=== PATIENT | male | born 1945 | race Caucasian/White ===

== ENCOUNTER 2018-06-23 04:38 | Observation (INO) | payer MEDICARE, MEDICAID ==
--- NOTE | 2018-06-23 05:14 | EDM.PDOC ---
ED HPI GENERAL MEDICAL PROBLEM - General Chief Complaint: Gastrointestinal Problem Stated Complaint: ABD PAIN Time Seen by Provider: 06/23/18 04:55 Source of Information: Reports: Patient, EMS, Old Records History Limitations: Reports: No Limitations - History of Present Illness INITIAL COMMENTS - FREE TEXT/NARRATIVE: 73 yo male here with constipation. Is on large doses of hydrocodone. No BM for several days. No vomiting. Has tried some OTC agents for constipation without success. Has not tried enemas. Spent some time in a [facility] after a hospitalization and had to be tx'd for constipation while there. Dr. Veras is his provider, he has not discussed his constipation with him. No black or bloody stools reported. Onset: Gradual Onset Date: 06/17/18 Duration: Day(s):, Getting Worse Location: Reports: Abdomen Quality: Reports: Pressure Severity: Moderate Improves with: Reports: None Worsens with: Reports: Other (lack of BM) Context: Reports: Other (see HPI) Associated Symptoms: Reports: Loss of Appetite. Denies: Diaphoresis, Fever/ Chills, Nausea/Vomiting Treatments SERVICE BAR CASHIER: Reports: Other (see below) (oral laxatives) Other Treatments SERVICE BAR CASHIER: none Lower Abdomen Pain Score (Numeric/FACES): 7 - Related Data Allergies Allergy/AdvReac Type Severity Reaction Status Date / Time hydromorphone [From Dilaudid] Allergy Vomiting Verified 06/23/18 04:48 Home Meds: Home Meds Benztropine [Cogentin] 0.5 mg PO DAILY 01/24/13 [History] Citalopram Hydrobromide [Celexa] 20 mg PO DAILY 01/24/13 [History] Divalproex Sodium [Depakote] 1,500 mg PO BEDTIME 01/24/13 [History] Docusate Sodium [Colace] 100 mg PO DAILY 01/24/13 [History] Furosemide [Lasix] 40 mg PO DAILY 01/24/13 [History] Gabapentin [Neurontin] 600 mg PO TID 01/24/13 [History] Mirtazapine [Remeron] 30 mg PO BEDTIME 01/24/13 [History] OLANZapine [ZyPREXA] 15 mg PO DAILY 01/24/13 [History] Omeprazole [Prilosec] 40 mg PO DAILY 10/02/13 [History] Simvastatin [Zocor] 20 mg PO BEDTIME 01/24/13 [History] Ferrous Gluconate 324 mg PO BID 09/05/13 [History] Ipratropium/Albuterol Sulfate [Duoneb 0.5 mg-3 mg/3 ml Soln] 3 ml IH Q4H PRN [History] Ranitidine [Zantac] 150 mg PO BID 10/08/15 [History] Fluticasone/Salmeterol [Advair 250-50] 1 puff INH Q12HR 04/17/18 [History] Tamsulosin HCl [Flomax] 0.4 mg PO DAILY 04/17/18 [History] Umeclidinium Brm/Vilanterol Tr [Anoro Ellipta 62.5-25 MCG] 1 puff IH DAILY 04/17 [History] EPINEPHrine [Epipen 2-Richard] 0.3 mg IJ ONETIME PRN #2 ml 04/24/18 [Rx] Acetaminophen [Tylenol Extra Strength] 500 mg PO Q6HR PRN 06/23/18 [History] Hydrocodone/Acetaminophen [[place] 10-325 Tablet] 1 each PO Q6H PRN 06/23/18 [ History] Polyethylene Glycol 3350 [MiraLAX] 17 gm PO DAILY 06/23/18 [History] Pramipexole Di-HCl [Mirapex] 1 mg PO BID 06/23/18 [History] amLODIPine Besylate [Norvasc] 7.5 mg PO DAILY 06/23/18 [History] hydroCHLOROthiazide [Hydrochlorothiazide] 25 mg PO DAILY 06/23/18 [History] rOPINIRole HCl [Requip] 0.5 mg PO BID 06/23/18 [History] Past Medical History HEENT History: Reports: Hard of Hearing Cardiovascular History: Reports: Hypertension Other Cardiovascular History: bradycardia Respiratory History: Reports: COPD, Pneumonia, Recurrent, SOB Other Respiratory History: home 02 2 liters Gastrointestinal History: Reports: Cholelithiasis Genitourinary History: Reports: Prostate Disorder, Renal Disease, Other (See Below) Other Genitourinary History: malignant neoplasm of kidney Musculoskeletal History: Reports: Other (See Below) Other Musculoskeletal History: fx of first lumbar, unstable burst fx of first lumbar vertebra Neurological History: Reports: Parkinson's, Seizure Psychiatric History: Reports: Autism Oncologic (Cancer) History: Reports: Colon, Renal - Infectious Disease History Infectious Disease History: Reports: MRSA - Past Surgical History GI Surgical History: Reports: Cholecystectomy, Colon, Colostomy Other GI Surgeries/Procedures: colon cancer Male Surgical History: Reports: Nephrectomy Other Male Surgeries/Procedures: right kidney cancer Musculoskeletal Surgical History: Reports: Hip Replacement, Knee Replacement Oncologic Surgical History: Reports: Other (See Below) Social & Family History - Family History Endocrine/Metabolic: Reports: Diabetes, type II - Caffeine Use Caffeine Use: Reports: Coffee ED ROS GENERAL - Review of Systems Review Of Systems: See Below Constitutional: Reports: Decreased Appetite HEENT: Reports: No Symptoms Respiratory: Reports: No Symptoms Cardiovascular: Reports: No Symptoms Endocrine: Reports: No Symptoms GI/Abdominal: Reports: Abdominal Pain (fullness), Constipation, Decreased Appetite, Distension. Denies: Black Stool, Bloody Stool, Diarrhea, Flatus, Hematemesis, Melena, Nausea, Vomiting : Reports: No Symptoms Musculoskeletal: Reports: No Symptoms Skin: Reports: No Symptoms Neurological: Reports: No Symptoms ED EXAM, GI/ABD - Physical Exam Exam: See Below Exam Limited By: No Limitations General Appearance: Alert, WD/WN, No Apparent Distress Eyes: Bilateral: Normal Appearance (bilateral arcus senilis) Ears: Normal External Exam, Normal Canal, Hearing Loss Nose: Normal Inspection, No Blood Throat/Mouth: Normal Inspection, Normal Lips, Normal Oropharynx, Normal Voice, No Airway Compromise Head: Atraumatic, Normocephalic Neck: Normal Inspection Respiratory/Chest: Decreased Breath Sounds, Rhonchi. No: Lungs Clear Cardiovascular: Irregularly Irregular (bigeminy) GI/Abdominal Exam: Normal Bowel Sounds, Non-Tender, Distended (not dull with percussion.). No: No Distention, Guarding, Rigid, Rebound, Tender Extremities: Pedal Edema (trace pitting edema to both LE's below the knees). No : No Pedal Edema Neurological: Alert, Oriented, CN II-XII Intact, Normal Cognition, No Motor/ Sensory Deficits Psychiatric: Normal Affect, Normal Mood Skin Exam: Warm, Dry, Intact, Normal Color, No Rash Course - Vital Signs Text/Narrative:: Large results with enema, patient feels much better. Dr. Chadwick aware @ 0645h, will admit for further potassium therapy. Last Recorded V/S: Last Vital Signs Temp 36.5 C 06/23/18 04:55 Pulse 81 06/23/18 05:58 Resp 24 H 06/23/18 05:58 BP 131/65 06/23/18 05:58 Pulse Ox 98 06/23/18 05:58 - Orders/Labs/Meds Orders: Active Orders 24 hr Category Date Time Status EKG Documentation Completion [RC] ASDIRECTED Care 06/23/18 05:04 Active Enema [RC] ASDIRECTED Care 06/23/18 04:57 Active Magnesium Sulfate/Water [Magnesium Sulfate 2 GM in Med 06/23/18 05:29 Active Water 50 ML] 2 gm Premix Bag 1 bag IV ONETIME NS + KCl 20mEq/L [Normal Saline with 20 mEq KCl] 1,000 Med 06/23/18 05:30 Active ml IV ASDIRECTED EKG 12 Lead [EK] Routine Ther 06/23/18 05:03 Ordered Medication Orders Magnesium Sulfate 2 gm/ Premix 50 mls @ 12.5 mls/hr IV ONETIME ONE Stop: 06/23/18 09:28 Last Admin: 06/23/18 05:52 Dose: 12.5 mls/hr Potassium Chloride/Sodium Chloride (Normal Saline With 20 Meq Kcl) 1,000 mls @ 500 mls/hr IV ASDIRECTED [facility] Last Admin: 06/23/18 05:47 Dose: 500 mls/hr Labs: Laboratory Tests 06/23/18 Range/Units 05:13 Sodium 134 L (140-148) mmol/L Potassium 2.7 L* (3.6-5.2) mmol/L Chloride 87 L (100-108) mmol/L Carbon Dioxide 37 H (21-32) mmol/L Anion Gap 12.7 (5.0-14.0) mmol/L BUN 33 H (7-18) mg/dL Creatinine 1.5 H (0.8-1.3) mg/dL Est Cr Clr Drug Dosing 53.83 mL/min Estimated GFR (MDRD) 46 L (>60) Glucose 150 H (74-106) mg/dL Calcium 10.3 H (8.5-10.1) mg/dL Magnesium 1.7 L (1.8-2.4) mg/dL Meds: Medications Generic Name Dose Route Start Last Admin Trade Name Freq PRN Reason Stop Dose Admin Magnesium Sulfate 2 gm/ Premix 50 mls @ 12.5 mls/hr 06/23/18 05:29 06/23/18 05:52 IV 06/23/18 09:28 12.5 mls/hr ONETIME ONE Administration Potassium Chloride/Sodium Chloride 1,000 mls @ 500 mls/hr 06/23/18 05:30 05/13 05:47 Normal Saline With 20 Meq Kcl IV 500 mls/hr ASDIRECTED BRYCE Administration Discontinued Medications Generic Name Dose Route Start Last Admin Trade Name Aiden PRN Reason Stop Dose Admin Magnesium Oxide 800 mg 06/23/18 05:28 06/23/18 05:49 Magnesium Oxide PO 06/23/18 05:29 800 mg ONETIME ONE Administration Potassium Chloride 40 meq 06/23/18 05:28 06/23/18 05:50 Potassium Chloride PO 06/23/18 05:29 40 meq ONETIME ONE Administration Departure - Departure Time of Disposition: 07:05 Disposition: Refer to Observation Condition: Fair Clinical Impression: Obstipation, Hypokalemia, Hypomagnesemia, Chronic renal failure, stage 2 (mild) - Discharge Information Referrals: PCP,None [Primary Care Provider] - Forms: ED Department Discharge - My Orders Last 24 Hours: My Active Orders 06/23/18 04:57 Enema [RC] ASDIRECTED 06/23/18 05:03 EKG 12 Lead [EK] Routine 06/23/18 05:04 EKG Documentation Completion [RC] ASDIRECTED 06/23/18 05:29 Magnesium Sulfate/Water [Magnesium Sulfate 2 GM in Water 50 ML] 2 gm Premix Bag 1 bag IV ONETIME 06/23/18 05:30 NS + KCl 20mEq/L [Normal Saline with 20 mEq KCl] 1,000 ml IV ASDIRECTED - Assessment/Plan Last 24 Hours: My Active Orders 06/23/18 04:57 Enema [RC] ASDIRECTED 06/23/18 05:03 EKG 12 Lead [EK] Routine 06/23/18 05:04 EKG Documentation Completion [RC] ASDIRECTED 06/23/18 05:29 Magnesium Sulfate/Water [Magnesium Sulfate 2 GM in Water 50 ML] 2 gm Premix Bag 1 bag IV ONETIME 06/23/18 05:30 NS + KCl 20mEq/L [Normal Saline with 20 mEq KCl] 1,000 ml IV ASDIRECTED
[2018-06-23] MEDS ORDERED: Potassium Chloride 10 MEQ Cap.ER PO ONE (05:28)
[2018-06-23] MEDS ORDERED: Magnesium Oxide 400 MG Tab PO ONE (05:28)
[2018-06-23] MEDS ORDERED: Magnesium Sulfate/Water 2 GM in Premix Bag 1 BAG IV ONE (05:29)
[2018-06-23] MEDS ORDERED: NS + KCl 20mEq/L 1,000 ML IV SCH (05:30)
--- NOTE | 2018-06-23 08:43 | PCM.HP ---
H&P History of Present Illness - General Date of Service: 06/23/18 Admit Problem/Dx: Admission Diagnosis/Problem Admission Diagnosis/Problem Hypokalemia Source of Information: Patient, Provider History Limitations: Reports: No Limitations - History of Present Illness Initial Comments - Free Text/Narative: Sami presented to the emergency room with constipation and no bowel movement for a couple of days. He reports moderately severe crampy lower abdominal pain that has progressed over the past couple of days. He has tried very aggressive [id number] remedies for constipation but has not had any success. Pain comes and goes in waves. He has been using hydrocodone without any improvement. No obvious triggers to make it worse. His appetite has remained good. He has not had any fevers. He has not had any nausea. Constipation has been an issue off and on for the past couple of months but thought he had been doing better prior to this episode. Shortness of breath is at baseline. He received aggressive bowel stimulation in the emergency room and has had a large quantity of stool passed and feels much better. Workup in the emergency room did reveal hypokalemia and hypomagnesemia and he will be admitted for electrolyte supplementation. Lower Abdomen Pain Score (Numeric/FACES): 7 Lower Back Pain Score (Numeric/FACES): 8 - Related Data Allergies/Adverse Reactions: Allergies Allergy/AdvReac Type Severity Reaction Status Date / Time hydromorphone [From Dilaudid] AdvReac Vomiting Verified 06/23/18 10:00 Home Medications: Home Meds Benztropine [Cogentin] 0.5 mg PO DAILY 01/24/13 [History] Citalopram Hydrobromide [Celexa] 20 mg PO DAILY 01/24/13 [History] Divalproex Sodium [Depakote] 1,500 mg PO BEDTIME 01/24/13 [History] Docusate Sodium [Colace] 100 mg PO DAILY 01/24/13 [History] Furosemide [Lasix] 40 mg PO DAILY 01/24/13 [History] Gabapentin [Neurontin] 600 mg PO TID 01/24/13 [History] Mirtazapine [Remeron] 30 mg PO BEDTIME 01/24/13 [History] OLANZapine [ZyPREXA] 15 mg PO DAILY 01/24/13 [History] Omeprazole [Prilosec] 40 mg PO DAILY 01/24/13 [History] Simvastatin [Zocor] 20 mg PO BEDTIME 01/24/13 [History] Ferrous Gluconate 324 mg PO BID 09/05/13 [History] Ipratropium/Albuterol Sulfate [Duoneb 0.5 mg-3 mg/3 ml Soln] 3 ml IH Q4H PRN [History] Ranitidine [Zantac] 150 mg PO BID 10/08/15 [History] Fluticasone/Salmeterol [Advair 250-50] 1 puff INH Q12HR 04/17/18 [History] Tamsulosin HCl [Flomax] 0.4 mg PO DAILY 04/17/18 [History] EPINEPHrine [Epipen 2-Richard] 0.3 mg IJ ONETIME PRN #2 ml 04/24/18 [Rx] Acetaminophen [Tylenol Extra Strength] 500 mg PO Q6HR PRN 06/23/18 [History] Hydrocodone/Acetaminophen [[place] 10-325 Tablet] 1 each PO Q6H PRN 06/23/18 [ History] Non-Formulary Medication [NF Drug] 1 puff INH DAILY 06/23/18 [History] Polyethylene Glycol 3350 [MiraLAX] 17 gm PO DAILY 06/23/18 [History] Pramipexole Di-HCl [Mirapex] 1 mg PO BID 06/23/18 [History] amLODIPine Besylate [Norvasc] 7.5 mg PO DAILY 06/23/18 [History] hydroCHLOROthiazide [Hydrochlorothiazide] 25 mg PO DAILY 06/23/18 [History] rOPINIRole HCl [Requip] 0.5 mg PO BID 06/23/18 [History] Past Medical History HEENT History: Reports: Hard of Hearing Cardiovascular History: Reports: Hypertension Other Cardiovascular History: bradycardia Respiratory History: Reports: COPD, Pneumonia, Recurrent, SOB Other Respiratory History: home 02 2 liters Gastrointestinal History: Reports: Cholelithiasis Genitourinary History: Reports: Prostate Disorder, Renal Disease, Other (See Below) Other Genitourinary History: malignant neoplasm of kidney Musculoskeletal History: Reports: Other (See Below) Other Musculoskeletal History: fx of first lumbar, unstable burst fx of first lumbar vertebra Neurological History: Reports: Parkinson's, Seizure Psychiatric History: Reports: Autism Oncologic (Cancer) History: Reports: Colon, Renal - Infectious Disease History Infectious Disease History: Reports: MRSA - Past Surgical History GI Surgical History: Reports: Cholecystectomy, Colon, Colostomy Other GI Surgeries/Procedures: colon cancer Male Surgical History: Reports: Nephrectomy Other Male Surgeries/Procedures: right kidney cancer Musculoskeletal Surgical History: Reports: Hip Replacement, Knee Replacement Oncologic Surgical History: Reports: Other (See Below) Social & Family History - Family History Endocrine/Metabolic: Reports: Diabetes, type II - Tobacco Use Smoking Status *Q: Unknown Ever Smoked - Caffeine Use Caffeine Use: Reports: Coffee - Alcohol Use Alcohol Use History: No - Recreational Drug Use Recreational Drug Use: No H&P Review of Systems - Review of Systems: Review Of Systems: See Below Free Text/Narrative: A complete 12 point review of systems was obtained. Pertinent positives and negatives are noted in the history of present illness. All other systems were reviewed and were negative except as noted. Exam - Exam Exam: See Below - Vital Signs Vital Signs: Last Vital Signs Temp 36.5 C 06/23/18 04:55 Pulse 81 06/23/18 05:58 Resp 24 H 06/23/18 05:58 BP 131/65 06/23/18 05:58 Pulse Ox 98 06/23/18 05:58 Weight: 136.985 kg - Exam Quality Assessment: Supplemental Oxygen General: Alert, Oriented, Cooperative. No: Mild Distress HEENT: Conjunctiva Clear, Mucosa Moist & [place]. No: Scleral Icterus Neck: Supple, Trachea Midline. No: Lymphadenopathy Lungs: Normal Respiratory Effort, Rhonchi (mild upper resp rhonchi ) Cardiovascular: Regular Rate, Regular Rhythm GI/Abdominal Exam: Normal Bowel Sounds, Soft, No Distention, Tender (mild LLQ). No: Guarding Extremities: Pedal Edema, Increased Warmth (mild both ankles) Skin: Warm, Dry Neuro Extensive - Mental Status: Alert, Oriented x3, Nl Response to Commands Neuro Extensive - Motor, Sensory, Reflexes: CN II-XII Intact. No: Dysarthria, Abnormal Motor, Tremor Psychiatric: Alert, Normal Affect - Patient Data Lab Results Last 24 hrs: Laboratory Results - last 24 hr 06/23/18 Range/Units 05:13 Sodium 134 L (140-148) mmol/L Potassium 2.7 L* (3.6-5.2) mmol/L Chloride 87 L (100-108) mmol/L Carbon Dioxide 37 H (21-32) mmol/L Anion Gap 12.7 (5.0-14.0) mmol/L BUN 33 H (7-18) mg/dL Creatinine 1.5 H (0.8-1.3) mg/dL Est Cr Clr Drug Dosing 53.83 mL/min Estimated GFR (MDRD) 46 L (>60) Glucose 150 H (74-106) mg/dL Calcium 10.3 H (8.5-10.1) mg/dL Magnesium 1.7 L (1.8-2.4) mg/dL Result Diagrams: 06/23/18 12:00 EKG INTERPRETATION EKG Date: 06/23/18 Rhythm: NSR Rate (Beats/Min): 96 [place]: Normal P-Wave: Present QRS: Normal ST-T: Normal QT: Normal Comparison: Change From Previous EKG EKG Interpretation Comments: ventricular bigeminy early R-S transition Image was personally reviewed *Q Meaningful Use (ADM) - VTE Risk Assess *Q Each Risk Factor Represents 1 Point: Swollen Legs, Current, Obesity ( BMI > 25 kg/m2), Abnormal Pulmonary Function (COPD) Total Score 1 Point Risk Factors: 3 Each Risk Factor Represents 2 Points: Age 60 - 74 Years Total Score 2 Point Risk Factors: 2 Each Risk Factor Represents 3 Points: None Total Score 3 Point Risk Factors: 0 Each Risk Factor Represents 5 Points: None Total Score 5 Point Risk Factors: 0 Venous Thromboembolism Risk Factor Score *Q: 5 - Problem List (1) Hypokalemia SNOMED Code(s): 67925705 ICD Code: E87.6 - HYPOKALEMIA Status: Acute Current Visit: Yes (2) Hypomagnesemia SNOMED Code(s): 106783723 ICD Code: E83.42 - HYPOMAGNESEMIA Status: Acute Current Visit: Yes (3) Obstipation SNOMED Code(s): 671594140 ICD Code: K59.00 - CONSTIPATION, UNSPECIFIED Status: Acute Current Visit : Yes (4) Severe chronic obstructive pulmonary disease SNOMED Code(s): 497877256 ICD Code: J44.9 - CHRONIC OBSTRUCTIVE PULMONARY DISEASE, UNSPECIFIED Status : Chronic Current Visit: No (5) Parkinsons disease SNOMED Code(s): 70668471 ICD Code: G20 - PARKINSON'S DISEASE Status: Chronic Current Visit: No (6) Bipolar affective disorder in remission Status: Chronic Current Visit: No Problem List Initiated/Reviewed/Updated: Yes Orders Last 24hrs: Active Orders 24 hr Category Date Time Status Patient Status Manage Transfer [TRANSFER] Routine ADT 06/23/18 08:32 Ordered EKG Documentation Completion [RC] ASDIRECTED Care 06/23/18 05:04 Active Enema [RC] ASDIRECTED Care 06/23/18 04:57 Active Magnesium Sulfate/Water [Magnesium Sulfate 2 GM in Med 06/23/18 05:29 Active Water 50 ML] 2 gm Premix Bag 1 bag IV ONETIME NS + KCl 20mEq/L [Normal Saline with 20 mEq KCl] 1,000 Med 06/23/18 05:30 Active ml IV ASDIRECTED Resuscitation Status Routine Resus Stat 06/23/18 08:35 Ordered EKG 12 Lead [EK] Routine Ther 06/23/18 05:03 Ordered Medication Orders Magnesium Sulfate 2 gm/ Premix 50 mls @ 12.5 mls/hr IV ONETIME ONE Stop: 06/23/18 09:28 Last Admin: 06/23/18 05:52 Dose: 12.5 mls/hr Potassium Chloride/Sodium Chloride (Normal Saline With 20 Meq Kcl) 1,000 mls @ 500 mls/hr IV ASDIRECTED [facility] Last Admin: 06/23/18 05:47 Dose: 500 mls/hr Assessment/Plan Comment:: ASSESSMENT AND PLAN - Constipation - likely secondary to chronic narcotic use. Possible contribution from suboptimal dietary intake. He has been using stool softeners without much benefit. Doing much better after enema in the emergency room. -Rupal lax daily -Additional laxatives as indicated if he relaxes unsuccessful Hypokalemia - significant hypokalemia noted incidentally during workup for abdominal pain/constipation. He is on 2 diuretics and this is likely contributing. He has received 60 mEq of supplementation in the emergency room. -recheck at 1200 -Supplement as indicated Severe COPD - oxygen dependent at baseline. No issues at this time. -Continue home medications Parkinson's disease - stable at this time. -Continue all medications Maintenance issues - - DVT prophylaxis - mechanical - GI prophylaxis - PPI - Nutrition - regular diet - Freeman catheter - not indicated CODE STATUS - full code Admission justification - patient will be referred observation status for electrolyte supplementation Disposition - I would anticipate discharge to home tomorrow Primary care physician - Dr Eda Chadwick M.D.
[2018-06-23] MEDS ORDERED: Acetaminophen 325 MG Tab PO PRN (09:57)
[2018-06-23] MEDS ORDERED: Ondansetron 4 MG Tab.DIS PO PRN (09:57)
[2018-06-23] MEDS ORDERED: Non-Formulary Medication 1 Each (Umeclidinium Brm/Vilanterol Tr [Anoro Ellipta 62.5-25 Mcg IH SCH (09:57)
[2018-06-23] MEDS ORDERED: Albuterol 0.083% 2.5 MG/3 ML Neb Soln NEB PRN (09:57)
[2018-06-23] MEDS: Acetaminophen/HYDROcodone 325-10 MG Tab PO PRN ×2 (10:07→19:59)
[2018-06-23] MEDS ORDERED: Potassium Chloride 20 MEQ Tab.ER PO ONE (13:30)
[2018-06-23] MEDS: ADVAIR INH SCH ×2 (14:28→20:04)
[2018-06-23] MEDS: INCRUSE ELLIPTA IH SCH (14:40)
[2018-06-23] MEDS: BENZTROPINE 0.5 MG PO SCH (15:09)
[2018-06-23] MEDS: Tamsulosin 0.4 MG (PTOM) PO SCH (15:10)
[2018-06-23] MEDS: CITALOPRAM 20 MG PO SCH (15:10)
[2018-06-23] MEDS: AMLODIPINE 5 MG PO SCH (15:11)
[2018-06-23] MEDS: Hydrochlorothiazide 25 MG Tab PO SCH (15:11)
[2018-06-23] MEDS: OMEPRAZOLE 40 MG PO SCH (15:13)
[2018-06-23] MEDS: PRAMIPEXOLE 1 MG PO SCH ×2 (15:13→20:06)
[2018-06-23] MEDS: ROPINIROLE 0.5 MG PO SCH ×2 (15:14→20:06)
[2018-06-23] MEDS: Ranitidine 150 MG (PTOM) PO SCH ×2 (15:14→20:06)
[2018-06-23] MEDS: GABAPENTIN 600 MG PO SCH ×2 (15:14→20:05)
[2018-06-23] MEDS: Polyethylene Glycol 3350 Powder 17 GM Packet PO SCH (15:18)
[2018-06-23] MEDS ORDERED: OLANZAPINE 15 MG PO SCH (21:00)
[2018-06-23] MEDS ORDERED: Simvastatin 20 MG (PTOM) PO SCH (21:00)
[2018-06-23] MEDS ORDERED: MIRTAZAPINE 15 MG PO SCH (21:00)
[2018-06-23] MEDS ORDERED: DIVALPROEX SODIUM 500 MG PO SCH (21:00)
[2018-06-24] MEDS: Acetaminophen/HYDROcodone 325-10 MG Tab PO PRN (07:30)
[2018-06-24] MEDS: ADVAIR INH SCH (07:35)
[2018-06-24] MEDS: INCRUSE ELLIPTA IH SCH (07:36)
[2018-06-24] MEDS: OMEPRAZOLE 40 MG PO SCH (08:42)
[2018-06-24] MEDS: BENZTROPINE 0.5 MG PO SCH (08:42)
[2018-06-24] MEDS: GABAPENTIN 600 MG PO SCH (08:43)
[2018-06-24] MEDS: CITALOPRAM 20 MG PO SCH (08:43)
[2018-06-24] MEDS: Tamsulosin 0.4 MG (PTOM) PO SCH (08:43)
[2018-06-24] MEDS: Polyethylene Glycol 3350 Powder 17 GM Packet PO SCH (08:44)
[2018-06-24] MEDS: Hydrochlorothiazide 25 MG Tab PO SCH (08:44)
[2018-06-24] MEDS: PRAMIPEXOLE 1 MG PO SCH (08:45)
[2018-06-24] MEDS: AMLODIPINE 5 MG PO SCH (08:45)
[2018-06-24] MEDS: Ranitidine 150 MG (PTOM) PO SCH (08:46)
[2018-06-24] MEDS: ROPINIROLE 0.5 MG PO SCH (08:46)
[2018-06-24 08:47] VITALS: BP 113/91
[2018-06-24] MEDS ORDERED: Potassium Chloride 20 MEQ Tab.ER PO ONE (09:00)
--- NOTE | 2018-06-24 09:32 | PCM.DCSUM1 ---
Discharge Summary - Hospital Course Brief History: 73-year-old male with history of chronic pain, Parkinson's disease, psychiatric disease and oxygen-dependent COPD who presented with constipation. He is admitted for management of constipation and hypokalemia. Diagnosis: Stroke: No - Discharge Data Discharge Date: 06/24/18 Discharge Disposition: Home, Self-Care 01 Condition: Good - Discharge Diagnosis/Problem(s) (1) Hypokalemia SNOMED Code(s): 23163263 ICD Code: E87.6 - HYPOKALEMIA Status: Acute (2) Hypomagnesemia SNOMED Code(s): 415568498 ICD Code: E83.42 - HYPOMAGNESEMIA Status: Acute (3) Obstipation SNOMED Code(s): 470934531 ICD Code: K59.00 - CONSTIPATION, UNSPECIFIED Status: Acute (4) Severe chronic obstructive pulmonary disease SNOMED Code(s): 859486759 ICD Code: J44.9 - CHRONIC OBSTRUCTIVE PULMONARY DISEASE, UNSPECIFIED Status : Chronic (5) Parkinsons disease SNOMED Code(s): 19035228 ICD Code: G20 - PARKINSON'S DISEASE Status: Chronic (6) Bipolar affective disorder in remission Status: Chronic - Patient Summary/Data Hospital Course: Sami presented to the emergency room because he had not had a bowel movement for several days. Workup in the emergency room revealed evidence for significant constipation but also for hypokalemia and hypomagnesemia. Given the significant hypokalemia he was admitted to the hospital for electrolyte replacement. He did receive 60 mEq of potassium in the emergency room as well as 2800 mg of magnesium. He received additional supplementation after his afternoon potassium returned low. Potassium did respond fairly well but remained on the low side of normal. He did receive additional supplementation on the morning of discharge. Stools are on the loose side this morning after aggressive bowel stimulation yesterday. Regarding the potassium, I provided information about potassium content of foods and provided some recommendations for potassium rich foods for him to consume. If diet is inadequate to maintain potassium remained to be on supplements. It is noted that he is on 2 different diuretics but has not had difficulty with hypokalemia in the past. Regarding the constipation, I encouraged him to use one half scoop of miralax each day in an effort to keep his bowels moving regularly. He may need to titrate this up or down slightly depending on his response to the medications. He feels comfortable making these adjustments depending on how the bowel movements are going. He is safe for discharge home at this time. He would benefit from follow- up in a few days to ensure that things continue to improve and his potassium level remains normal. - Patient Instructions Diet: Regular Diet as Tolerated Activity: As Tolerated Showering/Bathing: May Shower Notify Provider of: Fever, Increased Pain, Nausea and/or Vomiting Other/Special Instructions: 1. You were in the hospital for management of constipation and hypokalemia (low potassium). Your bowel status has improved after an enema in the emergency room. To help avoid problems in the future I would recommend that you take one half scoop of Miralax each day. You may need to take slightly more or slightly less to keep your bowel movements regular but this will take some time and tinkering to determine the optimal dosing. Regarding the low potassium, I have provided a sheet with potassium content of foods. You should eat a diet rich in these foods. Good examples include orange juice, bananas, potatoes, spinach and avocados. 2. Continue your usual home medications as previously prescribed. 3. Follow up with Dr Veras in 1 week to recheck your potassium and see how the bowel movements are going. 4. Seek medical attention if you have fever greater than 101, you have severe abdominal pain or if you have several days without a bowel movement. - Discharge Plan *PRESCRIPTION DRUG MONITORING PROGRAM REVIEWED*: No *COPY OF PRESCRIPTION DRUG MONITORING REPORT IN PATIENT MARI: No Home Medications: Home Meds Benztropine [Cogentin] 0.5 mg PO DAILY 01/24/13 [History] Citalopram Hydrobromide [Celexa] 20 mg PO DAILY 01/24/13 [History] Divalproex Sodium [Depakote] 1,500 mg PO BEDTIME 01/24/13 [History] Docusate Sodium [Colace] 100 mg PO DAILY 01/24/13 [History] Furosemide [Lasix] 40 mg PO DAILY 01/24/13 [History] Gabapentin [Neurontin] 600 mg PO TID 01/24/13 [History] Mirtazapine [Remeron] 30 mg PO BEDTIME 01/24/13 [History] OLANZapine [ZyPREXA] 15 mg PO DAILY 01/24/13 [History] Omeprazole [Prilosec] 40 mg PO DAILY 01/24/13 [History] Simvastatin [Zocor] 20 mg PO BEDTIME 01/24/13 [History] Ferrous Gluconate 324 mg PO BID 09/05/13 [History] Ipratropium/Albuterol Sulfate [Duoneb 0.5 mg-3 mg/3 ml Soln] 3 ml IH Q4H PRN [History] Ranitidine [Zantac] 150 mg PO BID 10/08/15 [History] Fluticasone/Salmeterol [Advair 250-50] 1 puff INH Q12HR 04/17/18 [History] Tamsulosin HCl [Flomax] 0.4 mg PO DAILY 04/17/18 [History] EPINEPHrine [Epipen 2-Richard] 0.3 mg IJ ONETIME PRN #2 ml 04/24/18 [Rx] Acetaminophen [Tylenol Extra Strength] 500 mg PO Q6HR PRN 06/23/18 [History] Hydrocodone/Acetaminophen [[place] 10-325 Tablet] 1 each PO Q6H PRN 06/23/18 [ History] Non-Formulary Medication [NF Drug] 1 puff INH DAILY 06/23/18 [History] Polyethylene Glycol 3350 [MiraLAX] 17 gm PO DAILY 06/23/18 [History] Pramipexole Di-HCl [Mirapex] 1 mg PO BID 06/23/18 [History] amLODIPine Besylate [Norvasc] 7.5 mg PO DAILY 06/23/18 [History] hydroCHLOROthiazide [Hydrochlorothiazide] 25 mg PO DAILY 06/23/18 [History] rOPINIRole HCl [Requip] 0.5 mg PO BID 06/23/18 [History] Oxygen Therapy Mode: Nasal Cannula Oxygen Flow Rate (L/min): 2 Patient Handouts: Constipation, Adult, Potassium Content of Foods Referrals: Víctor Veras MD [Physician] - (f/u in 1 week - recheck K+ and bowel status ) - Discharge Summary/Plan Comment DC Time >30 min.: No - Patient Data Vitals - Most Recent: Last Vital Signs Temp 35.1 C L 06/24/18 07:19 Pulse 70 06/24/18 07:19 Resp 20 06/24/18 07:19 BP 113/91 H 06/24/18 08:45 Pulse Ox 93 L 06/24/18 07:19 Weight - Most Recent: 136.985 kg I&O - Last 24 hours: Intake & Output 06/23/18 06/24/18 06/24/18 22:59 06:59 14:59 Intake Total 840 720 500 Output Total 450 850 200 Balance 390 -130 300 Lab Results - Last 24 hrs: Laboratory Results - last 24 hr 06/23/18 06/23/18 06/24/18 Range/Units 12:00 20:00 04:33 Sodium 137 L (140-148) mmol/L Potassium 3.7 3.6 3.4 L (3.6-5.2) mmol/L Chloride 95 L (100-108) mmol/L Carbon Dioxide 39 H (21-32) mmol/L Anion Gap 6.4 (5.0-14.0) mmol/L BUN 30 H (7-18) mg/dL Creatinine 1.2 (0.8-1.3) mg/dL Est Cr Clr Drug Dosing 67.31 mL/min Estimated GFR (MDRD) 59 L (>60) Glucose 148 H (74-106) mg/dL Calcium 9.5 (8.5-10.1) mg/dL Med Orders - Current: Current Medications Acetaminophen (Tylenol) 650 mg PO Q4H PRN PRN Reason: Pain (Mild 1-3)/fever Hydrocodone Bitart/Acetaminophen ([place] 325-10 Mg) 1 tab PO Q6H PRN PRN Reason: Pain (severe 7-10) Last Admin: 06/24/18 07:30 Dose: 1 tab Albuterol (Proventil Neb Soln) 2.5 mg NEB Q4H PRN PRN Reason: Shortness Of Breath/wheezing Amlodipine Besylate (Norvasc) 7.5 mg PO DAILY [facility] Last Admin: 06/24/18 08:45 Dose: 7.5 mg Citalopram Hydrobromide (Celexa) 20 mg PO DAILY [facility] Last Admin: 06/24/18 08:43 Dose: 20 mg Hydrochlorothiazide (Hydrochlorothiazide) 25 mg PO DAILY [facility] Last Admin: 06/24/18 08:44 Dose: 25 mg Mirtazapine (Remeron) 30 mg PO BEDTIME [facility] Last Admin: 06/23/18 20:07 Dose: 30 mg Benztropine 0.5 Mg ( (Ptom)) 0.5 mg PO DAILY [facility] Last Admin: 06/24/18 08:42 Dose: 0.[address] (500mg (Ptom)) 1,500 mg PO BEDTIME [facility] Last Admin: 06/23/18 20:04 Dose: 1,500 mg Advair 250-50 (Ptom) 1 puff INH BIDRT [facility] Last Admin: 06/24/18 07:35 Dose: 1 puff Gabapentin 600 Mg ( (Ptom)) 600 mg PO TID [facility] Last Admin: 06/24/18 08:43 Dose: 600 mg Olanzapine 15 Mg ( (Ptom)) 15 mg PO BEDTIME [facility] Last Admin: 06/23/18 20:07 Dose: 15 mg Omeprazole 40 Mg ( (Ptom)) 40 mg PO DAILY@0730 [facility] Last Admin: 06/24/18 08:42 Dose: 40 mg Pramipexole 1 Mg ( (Ptom)) 1 mg PO BID [facility] Last Admin: 06/24/18 08:45 Dose: 1 mg Incruse Ellipta ( (Ptom)) 1 puff IH DAILY@0730 [facility] Last Admin: 06/24/18 07:36 Dose: 1 puff Ondansetron HCl (Zofran Odt) 4 mg PO Q6H PRN PRN Reason: Nausea able to take PO Polyethylene Glycol (Miralax) 17 gm PO DAILY [facility] Last Admin: 06/24/18 08:44 Dose: Not Given Ranitidine HCl (Zantac) 150 mg PO BID [facility] Last Admin: 06/24/18 08:46 Dose: 150 mg Ropinirole HCl (Requip) 0.5 mg PO BID [facility] Last Admin: 06/24/18 08:46 Dose: 0.5 mg Simvastatin (Zocor) 20 mg PO BEDTIME [facility] Last Admin: 06/23/18 20:05 Dose: 20 mg Tamsulosin HCl (Flomax) 0.4 mg PO DAILY [facility] Last Admin: 06/24/18 08:43 Dose: 0.4 mg Discontinued Medications Magnesium Sulfate 2 gm/ Premix 50 mls @ 12.5 mls/hr IV ONETIME ONE Stop: 06/23/18 09:28 Last Admin: 06/23/18 05:52 Dose: 12.5 mls/hr Potassium Chloride/Sodium Chloride (Normal Saline With 20 Meq Kcl) 1,000 mls @ 500 mls/hr IV ASDIRECTED BRYCE Last Admin: 06/23/18 05:47 Dose: 500 mls/hr Magnesium Oxide (Magnesium Oxide) 800 mg PO ONETIME ONE Stop: 06/23/18 05:29 Last Admin: 06/23/18 05:49 Dose: 800 mg Potassium Chloride (Potassium Chloride) 40 meq PO ONETIME ONE Stop: 06/23/18 05:29 Last Admin: 06/23/18 05:50 Dose: 40 meq Potassium Chloride (Klor-Con M20) 40 meq PO ONETIME ONE Stop: 06/23/18 13:31 Last Admin: 06/23/18 15:18 Dose: 40 meq Potassium Chloride (Klor-Con M20) 40 meq PO ONETIME ONE Stop: 06/24/18 09:01 - Exam Quality Assessment: Reports: Supplemental Oxygen General: Reports: Alert, Oriented, Cooperative, No Acute Distress Lungs: Reports: Normal Respiratory Effort GI/Abdominal Exam: Soft, No Distention Extremities: Pedal Edema Psy/Mental Status: Reports: Alert, Normal Affect
== END 2018-06-24 10:55 | disposition home or self-care (01) ==
LOC: JP.ED 04:38 → JP.MS 08:32
PROVIDERS: ADMIT Internal Medicine; ATTEND Internal Medicine
DX: E87.6 Hypokalemia (principal); E83.42 Hypomagnesemia; K59.00 Constipation, unspecified; I10 Essential (primary) hypertension; J44.9 Chronic obstructive pulmonary disease, unspecified; F31.9 Bipolar disorder, unspecified; G20 Parkinson's disease; G89.29 Other chronic pain; Z99.81 Dependence on supplemental oxygen; Z79.51 Long term (current) use of inhaled steroids; Z79.899 Other long term (current) drug therapy
CPT/HCPCS: 36415; 80048; 83735; 84132; 93005; 94640; 96365; 96366; 96367; 99284; A9270; J3475; J3480; 93010

== ENCOUNTER 2018-07-20 14:53 | Inpatient (IN) | payer MEDICARE, MEDICAID ==
[2018-07-20] MEDS ORDERED: Sodium Chloride 0.9% 10 ML Syringe FLUSH PRN (15:33)
[2018-07-20] MEDS ORDERED: Albuterol 0.083% 2.5 MG/3 ML Neb Soln NEB ONE (15:38)
--- NOTE | 2018-07-20 15:39 | EDM.PDOC ---
ED HPI GENERAL MEDICAL PROBLEM - General Chief Complaint: Respiratory Problem Stated Complaint: [facility] Time Seen by Provider: 07/20/18 15:36 Source of Information: Reports: Patient History Limitations: Reports: No Limitations - History of Present Illness INITIAL COMMENTS - FREE TEXT/NARRATIVE: pt was in a chair and was not able to get out for 12 hours. He was quite sob when ems got to the apartment. He was responding on arrival and seemes to be getting more sleepy. He has alot of swelling in both legs. He does run his concentrator at 4-5 liters. Ems did have at 6 liters for awhile. Onset: Other (pt was found to be sleepy and unable to get out of his ) Duration: Hour(s): Location: Reports: Head, Chest Associated Symptoms: Reports: Malaise, Shortness of Breath, Weakness - Related Data Allergies Allergy/AdvReac Type Severity Reaction Status Date / Time hydromorphone [From Dilaudid] AdvReac Vomiting Verified 07/20/18 14:59 Home Meds: Home Meds Benztropine [Cogentin] 0.5 mg PO DAILY 01/24/13 [History] Citalopram Hydrobromide [Celexa] 20 mg PO DAILY 01/24/13 [History] Divalproex Sodium [Depakote] 1,500 mg PO BEDTIME 01/24/13 [History] Docusate Sodium [Colace] 100 mg PO DAILY 01/24/13 [History] Furosemide [Lasix] 40 mg PO DAILY 01/24/13 [History] Gabapentin [Neurontin] 600 mg PO TID 01/24/13 [History] Mirtazapine [Remeron] 30 mg PO BEDTIME 01/24/13 [History] OLANZapine [ZyPREXA] 15 mg PO DAILY 01/24/13 [History] Omeprazole [Prilosec] 40 mg PO DAILY 01/24/13 [History] Simvastatin [Zocor] 20 mg PO BEDTIME 01/24/13 [History] Ferrous Gluconate 324 mg PO BID 09/05/13 [History] Ipratropium/Albuterol Sulfate [Duoneb 0.5 mg-3 mg/3 ml Soln] 3 ml IH Q4H PRN [History] Ranitidine [Zantac] 150 mg PO BID 10/08/15 [History] Fluticasone/Salmeterol [Advair 250-50] 1 puff INH Q12HR 04/17/18 [History] Tamsulosin HCl [Flomax] 0.4 mg PO DAILY 04/17/18 [History] EPINEPHrine [Epipen 2-Richard] 0.3 mg IJ ONETIME PRN #2 ml 04/24/18 [Rx] Acetaminophen [Tylenol Extra Strength] 500 mg PO Q6HR PRN 06/23/18 [History] Hydrocodone/Acetaminophen [[place] 10-325 Tablet] 1 each PO Q6H PRN 06/23/18 [ History] Polyethylene Glycol 3350 [MiraLAX] 17 gm PO DAILY 06/23/18 [History] Pramipexole Di-HCl [Mirapex] 1 mg PO BID 06/23/18 [History] amLODIPine Besylate [Norvasc] 7.5 mg PO DAILY 06/23/18 [History] hydroCHLOROthiazide [Hydrochlorothiazide] 25 mg PO DAILY 06/23/18 [History] rOPINIRole HCl [Requip] 0.5 mg PO BID 06/23/18 [History] Past Medical History HEENT History: Reports: Hard of Hearing Cardiovascular History: Reports: Heart Failure, Hypertension Other Cardiovascular History: bradycardia Respiratory History: Reports: COPD, Pneumonia, Recurrent, SOB Other Respiratory History: home 02 2 liters Gastrointestinal History: Reports: Cholelithiasis Genitourinary History: Reports: Prostate Disorder, Renal Disease, Other (See Below) Other Genitourinary History: malignant neoplasm of kidney Musculoskeletal History: Reports: Other (See Below) Other Musculoskeletal History: fx of first lumbar, unstable burst fx of first lumbar vertebra Neurological History: Reports: Parkinson's, Seizure Psychiatric History: Reports: Autism Endocrine/Metabolic History: Reports: Obesity/BMI 30+ Oncologic (Cancer) History: Reports: Colon, Renal - Infectious Disease History Infectious Disease History: Reports: MRSA - Past Surgical History GI Surgical History: Reports: Cholecystectomy, Colon, Colostomy Other GI Surgeries/Procedures: colon cancer Male Surgical History: Reports: Nephrectomy Other Male Surgeries/Procedures: right kidney cancer Musculoskeletal Surgical History: Reports: Hip Replacement, Knee Replacement Oncologic Surgical History: Reports: Other (See Below) Social & Family History - Family History Family Medical History: Noncontributory Endocrine/Metabolic: Reports: Diabetes, type II - Tobacco Use Smoking Status *Q: Former Smoker Used Tobacco, but Quit: Yes Month/Year Tobacco Last Used: ? - Caffeine Use Caffeine Use: Reports: None - Recreational Drug Use Recreational Drug Use: No ED ROS GENERAL - Review of Systems Review Of Systems: See Below Constitutional: Reports: Malaise, Weakness HEENT: Reports: No Symptoms Respiratory: Reports: Shortness of Breath, Other (pt was not able to get out of the chair by himself. ) Cardiovascular: Reports: Dyspnea on Exertion, Edema Endocrine: Reports: No Symptoms GI/Abdominal: Reports: No Symptoms : Reports: No Symptoms Musculoskeletal: Reports: No Symptoms Skin: Reports: No Symptoms ED EXAM, GENERAL - Physical Exam Exam: See Below Free Text/Narrative:: pt arrived and he was responding fair. Later he did not respond well. Blood gases were obtained which showed a co2 of 57. He is oxgenating ok at 1.5 liters. He has alot of edema. [facility]. Exam Limited By: No Limitations General Appearance: Alert, Anxious, Obtunded, Other (pt is not responding well. pupils are equal and reactive. ) Ears: Normal TMs Nose: Normal Inspection Throat/Mouth: Normal Inspection Head: Atraumatic Neck: Normal Inspection Cardiovascular: Regular Rate, Rhythm, Other ( bilateral edema. ) GI/Abdominal: Soft, Non-Tender (Male) Exam: Deferred Rectal (Males) Exam: Deferred Back Exam: Normal Inspection Extremities: Pedal Edema, Other ( 3 plus edema. ) Neurological: Alert, Other ( Pt is quite obtundwed. ) Course - Vital Signs Last Recorded V/S: Last Vital Signs Temp 36.2 C 07/20/18 15:05 Pulse 77 07/20/18 15:32 Resp 17 07/20/18 15:32 BP 128/67 07/20/18 15:32 Pulse Ox 95 07/20/18 15:32 - Orders/Labs/Meds Orders: Active Orders 24 hr Category Date Time Status EKG Documentation Completion [RC] ASDIRECTED Care 07/20/18 15:34 Active RT Aerosol Therapy [RC] ASDIRECTED Care 07/20/18 15:38 Active Chest 1V Frontal [CR] Stat Exams 07/20/18 15:34 Taken DRUG SCREEN, URINE [URCHEM] Stat Lab 07/20/18 15:50 Ordered UA W/MICROSCOPIC [URIN] Urgent Lab 07/20/18 14:54 Ordered Sodium Chloride 0.9% [Saline Flush] Med 07/20/18 15:33 Active 10 ml FLUSH ASDIRECTED PRN Sodium Chloride 0.9% with KCl [Normal Saline with 40 Med 07/20/18 16:00 Active mEq KCl] 1,000 ml IV ASDIRECTED Saline Lock Insert [OM.PC] Routine Oth 07/20/18 15:33 Ordered EKG 12 Lead [EK] Routine Ther 07/20/18 15:34 Ordered Medication Orders Potassium Chloride/Sodium Chloride (Normal Saline With 40 Meq Kcl) 1,000 mls @ 500 mls/hr IV ASDIRECTED BRYCE Last Admin: 07/20/18 16:05 Dose: 500 mls/hr Sodium Chloride (Saline Flush) 10 ml FLUSH ASDIRECTED PRN PRN Reason: Keep Vein Open Last Admin: 07/20/18 15:52 Dose: 10 ml Labs: Laboratory Tests 07/20/18 07/20/18 07/20/18 Range/Units 15:04 15:04 15:30 WBC 12.3 H (4.5-11.0) K/uL RBC 5.09 (4.30-5.90) M/uL Hgb 14.4 (12.0-15.0) g/dL Hct 42.0 (40.0-54.0) % MCV 83 (80-98) fL MCH 28 (27-31) pg MCHC 34 (32-36) % Plt Count 320 (150-400) K/uL Neut % (Auto) 72 H (36-66) % Lymph % (Auto) 14 L (24-44) % Payne % (Auto) 13 H (2-6) % Eos % (Auto) 0 L (2-4) % Baso % (Auto) 1 (0-1) % Puncture Site ABG pH (7.350-7.450) ABG pCO2 (35.0-42.0) mmHg ABG pO2 (75.0-100.0) mmHg ABG HCO3 (22.0-26.0) mmol/L ABG Total CO2 (23.0-27.0) mmol/L ABG O2 Saturation (95.0-98.0) % ABG O2 Content (15.0-23.0) %vol ABG Base Excess mm/L ABG Hemoglobin (13.5-18.0) g/dL ABG Oxyhemoglobin % ABG Carboxyhemoglobin (0.0-1.6) % ABG Methemoglobin % Ra Test O2 Delivery Device Oxygen Flow Rate L Sodium 123 L (140-148) mmol/L Potassium 2.4 L* (3.6-5.2) mmol/L Chloride 78 L (100-108) mmol/L Carbon Dioxide 42 H (21-32) mmol/L Anion Gap 5.4 (5.0-14.0) mmol/L BUN 14 D (7-18) mg/dL Creatinine 1.0 (0.8-1.3) mg/dL Est Cr Clr Drug Dosing TNP Estimated GFR (MDRD) > 60 (>60) Glucose 181 H (74-106) mg/dL Calcium 10.3 H (8.5-10.1) mg/dL Total Bilirubin 0.4 (0.2-1.0) mg/dL AST 172 H D (15-37) U/L ALT 60 D (12-78) U/L Alkaline Phosphatase 55 (46-116) U/L Creatine Kinase 3332 H (39-308) U/L Troponin I 0.035 (0.000-0.056) ng/mL NT-Pro-B Natriuret Pep (5-125) pg/mL Total Protein 7.6 (6.4-8.2) g/dL Albumin 3.3 L (3.4-5.0) g/dL Globulin 4.3 H (2.3-3.5) g/dL Albumin/Globulin Ratio 0.8 L (1.2-2.2) 07/20/18 07/20/18 Range/Units 15:30 15:32 WBC (4.5-11.0) K/uL RBC (4.30-5.90) M/uL Hgb (12.0-15.0) g/dL Hct (40.0-54.0) % MCV (80-98) fL MCH (27-31) pg MCHC (32-36) % Plt Count (150-400) K/uL Neut % (Auto) (36-66) % Lymph % (Auto) (24-44) % Payne % (Auto) (2-6) % Eos % (Auto) (2-4) % Baso % (Auto) (0-1) % Puncture Site Lt brachial ABG pH 7.474 H (7.350-7.450) ABG pCO2 57.5 H (35.0-42.0) mmHg ABG pO2 57.2 L (75.0-100.0) mmHg ABG HCO3 41.8 H (22.0-26.0) mmol/L ABG Total CO2 36.2 H (23.0-27.0) mmol/L ABG O2 Saturation 89.0 L (95.0-98.0) % ABG O2 Content 17.5 (15.0-23.0) %vol ABG Base Excess 15.2 mm/L ABG Hemoglobin 14.2 (13.5-18.0) g/dL ABG Oxyhemoglobin 87.3 % ABG Carboxyhemoglobin 1.1 (0.0-1.6) % ABG Methemoglobin 0.8 % Ra Test Not performed O2 Delivery Device Nasal cannula Oxygen Flow Rate L Sodium (140-148) mmol/L Potassium (3.6-5.2) mmol/L Chloride (100-108) mmol/L Carbon Dioxide (21-32) mmol/L Anion Gap (5.0-14.0) mmol/L BUN (7-18) mg/dL Creatinine (0.8-1.3) mg/dL Est Cr Clr Drug Dosing Estimated GFR (MDRD) (>60) Glucose (74-106) mg/dL Calcium (8.5-10.1) mg/dL Total Bilirubin (0.2-1.0) mg/dL AST (15-37) U/L ALT (12-78) U/L Alkaline Phosphatase (46-116) U/L Creatine Kinase (39-308) U/L Troponin I (0.000-0.056) ng/mL NT-Pro-B Natriuret Pep 380 H (5-125) pg/mL Total Protein (6.4-8.2) g/dL Albumin (3.4-5.0) g/dL Globulin (2.3-3.5) g/dL Albumin/Globulin Ratio (1.2-2.2) Meds: Medications Generic Name Dose Route Start Last Admin Trade Name Freq PRN Reason Stop Dose Admin Potassium Chloride/Sodium Chloride 1,000 mls @ 500 mls/hr 07/20/18 16:00 16:05 Normal Saline With 40 Meq Kcl IV 500 mls/hr ASDIRECTED BRYCE Administration Sodium Chloride 10 ml 07/20/18 15:33 07/20/18 15:52 Saline Flush FLUSH 10 ml ASDIRECTED PRN Administration Keep Vein Open Discontinued Medications Generic Name Dose Route Start Last Admin Trade Name Freq PRN Reason Stop Dose Admin Albuterol 2.5 mg 07/20/18 15:38 07/20/18 16:09 Proventil Neb Soln NEB 07/20/18 15:39 2.5 mg ONETIME ONE Administration Furosemide 20 mg 07/20/18 15:48 Lasix IVPUSH 07/20/18 15:49 ONETIME ONE Sodium Chloride 1,000 mls @ 500 mls/hr 07/20/18 16:00 Normal Saline IV ASDIRECTED BRYCE Potassium Chloride 20 meq 07/20/18 15:45 07/20/18 16:07 Klor-Con M20 PO 07/20/18 15:46 20 meq ONETIME ONE Administration - Re-Assessments/Exams Free Text/Narrative Re-Assessment/Exam: 07/20/18 16:19 ck is over 3000. His k is 2.4. His co2 on the blood gases is 57. His chest xray shows some muild chf. His ekg showed t wave changes related to the k being so low. Departure - Departure Time of Disposition: 16:20 Disposition: Admitted As Inpatient 66 Condition: Fair Clinical Impression: Elevated CK, Hypokalemia, Altered mental status, Hyponatremia, Fluid overload - Discharge Information Referrals: PCP,None [Primary Care Provider] - Forms: ED Department Discharge Care Plan Goals: admit to Dr light. - My Orders Last 24 Hours: My Active Orders 07/20/18 14:54 UA W/MICROSCOPIC [URIN] Urgent 07/20/18 15:33 Sodium Chloride 0.9% [Saline Flush] 10 ml FLUSH ASDIRECTED PRN Saline Lock Insert [OM.PC] Routine 07/20/18 15:34 EKG Documentation Completion [RC] ASDIRECTED Chest 1V Frontal [CR] Stat EKG 12 Lead [EK] Routine 07/20/18 15:38 RT Aerosol Therapy [RC] ASDIRECTED 07/20/18 15:50 DRUG SCREEN, URINE [URCHEM] Stat 07/20/18 16:00 Sodium Chloride 0.9% with KCl [Normal Saline with 40 mEq KCl] 1,000 ml IV ASDIRECTED - Assessment/Plan Last 24 Hours: My Active Orders 07/20/18 14:54 UA W/MICROSCOPIC [URIN] Urgent 07/20/18 15:33 Sodium Chloride 0.9% [Saline Flush] 10 ml FLUSH ASDIRECTED PRN Saline Lock Insert [OM.PC] Routine 07/20/18 15:34 EKG Documentation Completion [RC] ASDIRECTED Chest 1V Frontal [CR] Stat EKG 12 Lead [EK] Routine 07/20/18 15:38 RT Aerosol Therapy [RC] ASDIRECTED 07/20/18 15:50 DRUG SCREEN, URINE [URCHEM] Stat 07/20/18 16:00 Sodium Chloride 0.9% with KCl [Normal Saline with 40 mEq KCl] 1,000 ml IV ASDIRECTED
[2018-07-20] MEDS ORDERED: Potassium Chloride 20 MEQ Tab.ER PO ONE ×3 (15:45→21:38)
[2018-07-20] MEDS ORDERED: Furosemide 20 MG/2 ML VIAL IVPUSH ONE (15:48)
[2018-07-20] MEDS ORDERED: Sodium Chloride 0.9% 1,000 ML IV SCH (16:00)
[2018-07-20] MEDS ORDERED: Sodium Chloride 0.9% with KCl 1,000 ML IV SCH (16:00)
--- NOTE | 2018-07-20 16:37 | CRLCR ---
INDICATION: Shortness of breath TECHNIQUE: Chest 1 view COMPARISON: None FINDINGS: Cardiovascular and mediastinum: Mild cardiomegaly with aortic tortuosity. Lungs and pleural spaces: No pleural effusion or pneumothorax. Trace basilar discoid atelectasis. Bones and soft tissues: Status post lumbar spine surgery. Old right 3rd rib fracture anteriorly. IMPRESSION: Mild cardiomegaly with basilar discoid atelectasis. Dictated by Arthur Kinsey MD @ Jul 20 2018 4:32PM Signed by Dr. Arthur Kinsey @ Jul 20 2018 4:35PM
--- NOTE | 2018-07-20 16:41 | PCM.HP ---
H&P History of Present Illness - General Date of Service: 07/20/18 Admit Problem/Dx: Admission Diagnosis/Problem Admission Diagnosis/Problem Rhabdomyolysis Source of Information: Patient, Provider History Limitations: Reports: No Limitations - History of Present Illness Initial Comments - Free Text/Narative: Sami presents to the emergency room today with worsening shortness of breath. He reports that his best friend 2 days ago and he went into a function has been laying in bed since that time. He has not been taking his medications. He has essentially not left the bed for 48 hours. He has a fair amount of shortness of breath at baseline but is now short of breath even at rest. He doesn't think his lower extremity edema is any worse than usual. He has been coughing but he usually has a cough. No significant change in sputum. He has not had any fevers or chills. He does note increasing generalized back pain which she describes as a mild to moderate ache. This is worse with moving around and better when he lays still up to a point. If he lays too long than the pain worsens and he needs to reposition. No change in bowel or bladder habits. Workup in the emergency room revealed significant hypokalemia with potassium of 2.4 and a CK level greater than 3000. Arterial blood gases showed a normal pH and a PCO2 of nearly 60 likely this is his baseline. He will be admitted to the hospital for management of rhabdomyolysis and hypokalemia. - Related Data Allergies/Adverse Reactions: Allergies Allergy/AdvReac Type Severity Reaction Status Date / Time hydromorphone [From Dilaudid] AdvReac Vomiting Verified 07/20/18 14:59 Home Medications: Home Meds Benztropine [Cogentin] 0.5 mg PO DAILY 01/24/13 [History] Citalopram Hydrobromide [Celexa] 20 mg PO DAILY 01/24/13 [History] Divalproex Sodium [Depakote] 1,500 mg PO BEDTIME 01/24/13 [History] Docusate Sodium [Colace] 100 mg PO DAILY 01/24/13 [History] Furosemide [Lasix] 40 mg PO DAILY 01/24/13 [History] Gabapentin [Neurontin] 600 mg PO TID 01/24/13 [History] Mirtazapine [Remeron] 30 mg PO BEDTIME 01/24/13 [History] OLANZapine [ZyPREXA] 15 mg PO DAILY 01/24/13 [History] Omeprazole [Prilosec] 40 mg PO DAILY 01/24/13 [History] Simvastatin [Zocor] 20 mg PO BEDTIME 01/24/13 [History] Ferrous Gluconate 324 mg PO BID 09/05/13 [History] Ipratropium/Albuterol Sulfate [Duoneb 0.5 mg-3 mg/3 ml Soln] 3 ml IH Q4H PRN [History] Ranitidine [Zantac] 150 mg PO BID 10/08/15 [History] Fluticasone/Salmeterol [Advair 250-50] 1 puff INH Q12HR 04/17/18 [History] Tamsulosin HCl [Flomax] 0.4 mg PO DAILY 04/17/18 [History] EPINEPHrine [Epipen 2-Richard] 0.3 mg IJ ONETIME PRN #2 ml 04/24/18 [Rx] Acetaminophen [Tylenol Extra Strength] 500 mg PO Q6HR PRN 06/23/18 [History] Hydrocodone/Acetaminophen [[place] 10-325 Tablet] 1 each PO Q6H PRN 06/23/18 [ History] Polyethylene Glycol 3350 [MiraLAX] 17 gm PO DAILY 06/23/18 [History] Pramipexole Di-HCl [Mirapex] 1 mg PO BID 06/23/18 [History] amLODIPine Besylate [Norvasc] 7.5 mg PO DAILY 06/23/18 [History] hydroCHLOROthiazide [Hydrochlorothiazide] 25 mg PO DAILY 06/23/18 [History] rOPINIRole HCl [Requip] 0.5 mg PO BID 06/23/18 [History] Past Medical History HEENT History: Reports: Hard of Hearing Cardiovascular History: Reports: Heart Failure, Hypertension Other Cardiovascular History: bradycardia Respiratory History: Reports: COPD, Pneumonia, Recurrent, SOB Other Respiratory History: home 02 2 liters Gastrointestinal History: Reports: Cholelithiasis Genitourinary History: Reports: Prostate Disorder, Renal Disease, Other (See Below) Other Genitourinary History: malignant neoplasm of kidney Musculoskeletal History: Reports: Other (See Below) Other Musculoskeletal History: fx of first lumbar, unstable burst fx of first lumbar vertebra Neurological History: Reports: Parkinson's, Seizure Psychiatric History: Reports: Autism Endocrine/Metabolic History: Reports: Obesity/BMI 30+ Oncologic (Cancer) History: Reports: Colon, Renal - Infectious Disease History Infectious Disease History: Reports: MRSA - Past Surgical History GI Surgical History: Reports: Cholecystectomy, Colon, Colostomy Other GI Surgeries/Procedures: colon cancer Male Surgical History: Reports: Nephrectomy Other Male Surgeries/Procedures: right kidney cancer Musculoskeletal Surgical History: Reports: Hip Replacement, Knee Replacement Oncologic Surgical History: Reports: Other (See Below) Social & Family History - Family History Family Medical History: Noncontributory Endocrine/Metabolic: Reports: Diabetes, type II - Tobacco Use Smoking Status *Q: Former Smoker Used Tobacco, but Quit: Yes Month/Year Tobacco Last Used: ? - Caffeine Use Caffeine Use: Reports: None - Alcohol Use Alcohol Use History: No - Recreational Drug Use Recreational Drug Use: No H&P Review of Systems - Review of Systems: Review Of Systems: See Below Free Text/Narrative: A complete 12 point review of systems was obtained. Pertinent positives and negatives are noted in the history of present illness. All other systems were reviewed and were negative except as noted. Exam - Exam Exam: See Below - Vital Signs Vital Signs: Last Vital Signs Temp 36.2 C 07/20/18 15:05 Pulse 88 07/20/18 16:24 Resp 22 H 07/20/18 16:24 BP 152/92 H 07/20/18 16:24 Pulse Ox 94 L 07/20/18 16:24 Weight: 124.738 kg - Exam Quality Assessment: Supplemental Oxygen General: Alert, Oriented, Cooperative. No: Mild Distress HEENT: Conjunctiva Clear. No: Mucosa Moist & [place] (dry), Scleral Icterus Neck: Supple, Trachea Midline. No: Lymphadenopathy Lungs: Normal Respiratory Effort, Crackles (Rare right lower lung), Rhonchi ( Mild upper respiratory rhonchi/rumble) Cardiovascular: Regular Rate, Regular Rhythm. No: Systolic Murmur GI/Abdominal Exam: Normal Bowel Sounds, Soft, Non-Tender, No Distention, Other ( Obese) Extremities: Pedal Edema (Pitting edema to the knee with pitting dependent edema from the knee to the buttocks bilaterally). No: Increased Warmth, Mottled Skin: Warm, Dry Neuro Extensive - Mental Status: Alert, Oriented x3, Nl Response to Commands Neuro Extensive - Motor, Sensory, Reflexes: CN II-XII Intact. No: Dysarthria, Abnormal Motor, Tremor Psychiatric: Alert, Normal Affect - Patient Data Lab Results Last 24 hrs: Laboratory Results - last 24 hr 07/20/18 07/20/18 07/20/18 Range/Units 15:04 15:04 15:30 WBC 12.3 H (4.5-11.0) K/uL RBC 5.09 (4.30-5.90) M/uL Hgb 14.4 (12.0-15.0) g/dL Hct 42.0 (40.0-54.0) % MCV 83 (80-98) fL MCH 28 (27-31) pg MCHC 34 (32-36) % Plt Count 320 (150-400) K/uL Neut % (Auto) 72 H (36-66) % Lymph % (Auto) 14 L (24-44) % [place] % (Auto) 13 H (2-6) % Eos % (Auto) 0 L (2-4) % Baso % (Auto) 1 (0-1) % Puncture Site ABG pH (7.350-7.450) ABG pCO2 (35.0-42.0) mmHg ABG pO2 (75.0-100.0) mmHg ABG HCO3 (22.0-26.0) mmol/L ABG Total CO2 (23.0-27.0) mmol/L ABG O2 Saturation (95.0-98.0) % ABG O2 Content (15.0-23.0) %vol ABG Base Excess mm/L ABG Hemoglobin (13.5-18.0) g/dL ABG Oxyhemoglobin % ABG Carboxyhemoglobin (0.0-1.6) % ABG Methemoglobin % Ra Test O2 Delivery Device Oxygen Flow Rate L Sodium 123 L (140-148) mmol/L Potassium 2.4 L* (3.6-5.2) mmol/L Chloride 78 L (100-108) mmol/L Carbon Dioxide 42 H (21-32) mmol/L Anion Gap 5.4 (5.0-14.0) mmol/L BUN 14 D (7-18) mg/dL Creatinine 1.0 (0.8-1.3) mg/dL Est Cr Clr Drug Dosing TNP Estimated GFR (MDRD) > 60 (>60) Glucose 181 H (74-106) mg/dL Calcium 10.3 H (8.5-10.1) mg/dL Total Bilirubin 0.4 (0.2-1.0) mg/dL AST 172 H D (15-37) U/L ALT 60 D (12-78) U/L Alkaline Phosphatase 55 (46-116) U/L Creatine Kinase 3332 H (39-308) U/L Troponin I 0.035 (0.000-0.056) ng/mL NT-Pro-B Natriuret Pep (5-125) pg/mL Total Protein 7.6 (6.4-8.2) g/dL Albumin 3.3 L (3.4-5.0) g/dL Globulin 4.3 H (2.3-3.5) g/dL Albumin/Globulin Ratio 0.8 L (1.2-2.2) 07/20/18 07/20/18 Range/Units 15:30 15:32 WBC (4.5-11.0) K/uL RBC (4.30-5.90) M/uL Hgb (12.0-15.0) g/dL Hct (40.0-54.0) % MCV (80-98) fL MCH (27-31) pg MCHC (32-36) % Plt Count (150-400) K/uL Neut % (Auto) (36-66) % Lymph % (Auto) (24-44) % [place] % (Auto) (2-6) % Eos % (Auto) (2-4) % Baso % (Auto) (0-1) % Puncture Site Lt brachial ABG pH 7.474 H (7.350-7.450) ABG pCO2 57.5 H (35.0-42.0) mmHg ABG pO2 57.2 L (75.0-100.0) mmHg ABG HCO3 41.8 H (22.0-26.0) mmol/L ABG Total CO2 36.2 H (23.0-27.0) mmol/L ABG O2 Saturation 89.0 L (95.0-98.0) % ABG O2 Content 17.5 (15.0-23.0) %vol ABG Base Excess 15.2 mm/L ABG Hemoglobin 14.2 (13.5-18.0) g/dL ABG Oxyhemoglobin 87.3 % ABG Carboxyhemoglobin 1.1 (0.0-1.6) % ABG Methemoglobin 0.8 % Ra Test Not performed O2 Delivery Device Nasal cannula Oxygen Flow Rate L Sodium (140-148) mmol/L Potassium (3.6-5.2) mmol/L Chloride (100-108) mmol/L Carbon Dioxide (21-32) mmol/L Anion Gap (5.0-14.0) mmol/L BUN (7-18) mg/dL Creatinine (0.8-1.3) mg/dL Est Cr Clr Drug Dosing Estimated GFR (MDRD) (>60) Glucose (74-106) mg/dL Calcium (8.5-10.1) mg/dL Total Bilirubin (0.2-1.0) mg/dL AST (15-37) U/L ALT (12-78) U/L Alkaline Phosphatase (46-116) U/L Creatine Kinase (39-308) U/L Troponin I (0.000-0.056) ng/mL NT-Pro-B Natriuret Pep 380 H (5-125) pg/mL Total Protein (6.4-8.2) g/dL Albumin (3.4-5.0) g/dL Globulin (2.3-3.5) g/dL Albumin/Globulin Ratio (1.2-2.2) Result Diagrams: 07/20/18 15:04 07/20/18 15:04 Imaging Impressions Last 24 hrs: Chest x-ray - image personally reviewed - lungs are clear with no mass, infiltrate or effusion. Heart size is borderline enlarged. *Q Meaningful Use (ADM) - VTE Risk Assess *Q Each Risk Factor Represents 1 Point: Swollen Legs, Current, Obesity ( BMI > 25 kg/m2), Abnormal Pulmonary Function (COPD) Total Score 1 Point Risk Factors: 3 Each Risk Factor Represents 2 Points: Age 60 - 74 Years Total Score 2 Point Risk Factors: 2 Each Risk Factor Represents 3 Points: None Total Score 3 Point Risk Factors: 0 Each Risk Factor Represents 5 Points: None Total Score 5 Point Risk Factors: 0 Venous Thromboembolism Risk Factor Score *Q: 5 - Problem List (1) Rhabdomyolysis SNOMED Code(s): 782957244 ICD Code: M62.82 - RHABDOMYOLYSIS Status: Acute Current Visit: Yes Qualifiers: Rhabdomyolysis type: traumatic Encounter type: initial encounter Qualified Code(s): T79.6XXA - Traumatic ischemia of muscle, initial encounter (2) Hypokalemia SNOMED Code(s): 95097273 ICD Code: E87.6 - HYPOKALEMIA Status: Acute Current Visit: Yes (3) Severe chronic obstructive pulmonary disease SNOMED Code(s): 935452140 ICD Code: J44.9 - CHRONIC OBSTRUCTIVE PULMONARY DISEASE, UNSPECIFIED Status : Chronic Current Visit: No (4) Parkinsons disease SNOMED Code(s): 52010067 ICD Code: G20 - PARKINSON'S DISEASE Status: Chronic Current Visit: No Problem List Initiated/Reviewed/Updated: Yes Orders Last 24hrs: Active Orders 24 hr Category Date Time Status Patient Status Manage Transfer [TRANSFER] Routine ADT 07/20/18 16:28 Ordered EKG Documentation Completion [RC] ASDIRECTED Care 07/20/18 15:34 Active Insert Freeman Catheter [Insert Urinary Catheter] [OM.PC] Care 07/20/18 16:30 Ordered Q24H RT Aerosol Therapy [RC] ASDIRECTED Care 07/20/18 15:38 Active Urinary Catheter Assessment [RC] ASDIRECTED Care 07/20/18 16:21 Active DRUG SCREEN, URINE [URCHEM] Stat Lab 07/20/18 16:38 Ordered TSH ULTRASENSITIVE [CHEM] Stat Lab 07/20/18 16:15 Ordered UA W/MICROSCOPIC [URIN] Urgent Lab 07/20/18 16:38 Ordered Sodium Chloride 0.9% [Saline Flush] Med 07/20/18 15:33 Active 10 ml FLUSH ASDIRECTED PRN Sodium Chloride 0.9% with KCl [Normal Saline with 40 Med 07/20/18 16:00 Active mEq KCl] 1,000 ml IV ASDIRECTED Saline Lock Insert [OM.PC] Routine Oth 07/20/18 15:33 Ordered Resuscitation Status Routine Resus Stat 07/20/18 16:32 Ordered EKG 12 Lead [EK] Routine Ther 07/20/18 15:34 Ordered Medication Orders Potassium Chloride/Sodium Chloride (Normal Saline With 40 Meq Kcl) 1,000 mls @ 500 mls/hr IV ASDIRECTED BRYCE Last Admin: 07/20/18 16:05 Dose: 500 mls/hr Sodium Chloride (Saline Flush) 10 ml FLUSH ASDIRECTED PRN PRN Reason: Keep Vein Open Last Admin: 07/20/18 15:52 Dose: 10 ml Assessment/Plan Comment:: ASSESSMENT AND PLAN - Rhabdomyolysis - secondary to prolonged stay in his bed in the setting of 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 CK level greater than 3000. He has significant swelling in his lower extremities but no other evidence for congestive heart failure at this time. BNP is mildly elevated. A Freeman catheter has been placed for strict intake and output monitoring. He has only one kidney so we will need to be very careful with both fluids and ensuring the CKs flushed to avoid damage. -IV fluids -Furosemide every 8 hours -Freeman catheter for strict intake and output monitoring -Repeat CK level tonight and in the morning -Pressure reducing mattress Profound hypokalemia - potassium was only 2.4. Complicated by mild hypomagnesemia. He has received 60 mEq in the emergency room. -20 mEq of by mouth potassium at 6 PM -Supplement potassium -Recheck potassium tonight and supplement as indicated -Recheck potassium in the morning Severe COPD - oxygen dependent with significant respiratory limitations. Blood gases show a normal pH but a PCO2 of nearly 60. I suspect this is his baseline. -Supplement oxygen, goal O2 sats 88-92% -Continue home medications Parkinson's disease - significant limitations at home due to this disease but these are stable. -Continue home medications Maintenance issues - - DVT prophylaxis - ALISON stockings - GI prophylaxis - PPI - Nutrition - low sodium - Freeman catheter - placed in the emergency room for strict intake and output monitoring and a critical patient CODE STATUS - full code Admission justification - This patient will be admitted for inpatient services and is medically appropriate meeting medical necessity for inpatient admission as outlined in my documentation. I reasonably expect the patient will require inpatient services that span a period time over 2 midnights. I reasonably expect this patient to be discharged or transferred within 96 hours after admission to the [facility]. Disposition - anticipate discharge home versus possibly the [facility]dc after the hospital stay Primary care physician - Dr Eda Chadwick M.D.
[2018-07-20] MEDS ORDERED: Albuterol 0.083% 2.5 MG/3 ML Neb Soln NEB PRN (17:06)
[2018-07-20] MEDS ORDERED: Acetaminophen 325 MG Tab PO PRN (17:06)
[2018-07-20] MEDS ORDERED: Ondansetron 4 MG Tab.DIS PO PRN (17:06)
[2018-07-20] MEDS ORDERED: Ondansetron 4 MG/2 ML SDV IV PRN (17:06)
[2018-07-20] MEDS: Albuterol/Ipratropium 3.0-0.5 MG/3 ML Neb Soln INH SCH ×2 (17:37→20:48)
[2018-07-20] MEDS: NS + KCl 20mEq/L 1,000 ML IV SCH (18:18)
[2018-07-20] MEDS: Magnesium Sulfate/Water 2 GM in Premix Bag 1 BAG IV SCH (20:20)
[2018-07-20] MEDS: Divalproex Sodium Delayed-Release 250 MG Tab.CR PO SCH (20:26)
[2018-07-20] MEDS: Gabapentin 300 MG Cap PO SCH (20:29)
[2018-07-20] MEDS: Pramipexole 0.5 MG Tab PO SCH (20:30)
[2018-07-20] MEDS: Simvastatin 20 MG Tab PO SCH (20:33)
[2018-07-20] MEDS: rOPINIRole 0.5 MG Tab PO SCH (20:33)
[2018-07-20] MEDS: Fluticasone-Salmeterol 113-14 MCG Powder Inhalant INH SCH (20:34)
[2018-07-20] MEDS: Mirtazapine 15 MG Tab PO SCH (21:02)
[2018-07-20] MEDS ORDERED: Potassium Chloride 20 MEQ in Premix Bag 1 BAG IV ONE (22:42)
[2018-07-20] MEDS ORDERED: Lidocaine 1% PF 2 ML SDV ONE (22:44)
[2018-07-21] MEDS: Magnesium Sulfate/Water 2 GM in Premix Bag 1 BAG IV SCH ×2 (02:42→08:51)
[2018-07-21] MEDS: NS + KCl 20mEq/L 1,000 ML IV SCH ×2 (02:48→16:11)
[2018-07-21] MEDS ORDERED: Furosemide 20 MG/2 ML VIAL IVPUSH STA (04:12)
[2018-07-21] MEDS: Albuterol/Ipratropium 3.0-0.5 MG/3 ML Neb Soln INH SCH ×4 (07:00→20:06)
[2018-07-21] MEDS: Fluticasone-Salmeterol 113-14 MCG Powder Inhalant INH SCH ×2 (07:16→20:06)
[2018-07-21] MEDS ORDERED: Furosemide 20 MG/2 ML VIAL IVPUSH ONE (08:00)
[2018-07-21] MEDS: Pantoprazole 40 MG Tab.CR PO SCH (08:32)
[2018-07-21] MEDS: Citalopram 20 MG Tab PO SCH (08:33)
[2018-07-21] MEDS: Benztropine 1 MG Tab PO SCH (08:34)
[2018-07-21] MEDS: Tamsulosin 0.4 MG Cap.ER PO SCH (08:35)
[2018-07-21] MEDS: Polyethylene Glycol 3350 Powder 17 GM Packet PO SCH (08:36)
[2018-07-21] MEDS: Pramipexole 0.5 MG Tab PO SCH ×2 (08:36→20:08)
[2018-07-21] MEDS: Gabapentin 300 MG Cap PO SCH ×3 (08:37→20:08)
[2018-07-21] MEDS: amLODIPine 5 MG Tab PO SCH (08:38)
[2018-07-21] MEDS: rOPINIRole 0.5 MG Tab PO SCH ×2 (08:40→20:09)
[2018-07-21] MEDS: OLANZapine 5 MG Tab PO SCH (08:41)
[2018-07-21] MEDS ORDERED: Potassium Chloride 20 MEQ Tab.ER PO ONE (09:38)
--- NOTE | 2018-07-21 09:41 | PCM.PN ---
- General Info Date of Service: 07/21/18 Subjective Update: overnight the patient had difficulty with progressive shortness of breath. Initially nasal cannula was transitioned to under breather and then noninvasive ventilation was initiated. He also received a dose of furosemide at that time and his IV fluids were switched to to keep open. Since that time he has done well. He is now off the noninvasive ventilation and back to his usual nasal cannula. He has not had any fevers. CK level trended down initially but has been stable over the past 10 hours. Back pain is stable. He has not had any tachycardia. Spirits seem to be better today. Functional Status: Reports: Pain Controlled, Tolerating Diet - Review of Systems Pulmonary: Reports: Shortness of Breath Gastrointestinal: Denies: Abdominal Pain - Patient Data Vitals - Most Recent: Last Vital Signs Temp 37.2 C 07/21/18 08:00 Pulse 85 07/21/18 08:00 Resp 26 H 07/21/18 08:00 BP 127/60 07/21/18 08:38 Pulse Ox 91 L 07/21/18 08:00 Weight - Most Recent: 124.738 kg I&O - Last 24 Hours: Intake & Output 07/20/18 07/21/18 07/21/18 22:59 06:59 14:59 Intake Total 300 1461 Output Total 1000 925 Balance -700 536 Lab Results Last 24 Hours: Laboratory Results - last 24 hr 07/20/18 07/20/18 07/20/18 Range/Units 15:04 15:04 15:30 WBC 12.3 H (4.5-11.0) K/uL RBC 5.09 (4.30-5.90) M/uL Hgb 14.4 (12.0-15.0) g/dL Hct 42.0 (40.0-54.0) % MCV 83 (80-98) fL MCH 28 (27-31) pg MCHC 34 (32-36) % Plt Count 320 (150-400) K/uL Neut % (Auto) 72 H (36-66) % Lymph % (Auto) 14 L (24-44) % [place] % (Auto) 13 H (2-6) % Eos % (Auto) 0 L (2-4) % Baso % (Auto) 1 (0-1) % Puncture Site ABG pH (7.350-7.450) ABG pCO2 (35.0-42.0) mmHg ABG pO2 (75.0-100.0) mmHg ABG HCO3 (22.0-26.0) mmol/L ABG Total CO2 (23.0-27.0) mmol/L ABG O2 Saturation (95.0-98.0) % ABG O2 Content (15.0-23.0) %vol ABG Base Excess mm/L ABG Hemoglobin (13.5-18.0) g/dL ABG Oxyhemoglobin % ABG Carboxyhemoglobin (0.0-1.6) % ABG Methemoglobin % Ra Test O2 Delivery Device Oxygen Flow Rate L Sodium 123 L (140-148) mmol/L Potassium 2.4 L* (3.6-5.2) mmol/L Chloride 78 L (100-108) mmol/L Carbon Dioxide 42 H (21-32) mmol/L Anion Gap 5.4 (5.0-14.0) mmol/L BUN 14 D (7-18) mg/dL Creatinine 1.0 (0.8-1.3) mg/dL Est Cr Clr Drug Dosing TNP Estimated GFR (MDRD) > 60 (>60) Glucose 181 H (74-106) mg/dL Calcium 10.3 H (8.5-10.1) mg/dL Magnesium (1.8-2.4) mg/dL Total Bilirubin 0.4 (0.2-1.0) mg/dL AST 172 H D (15-37) U/L ALT 60 D (12-78) U/L Alkaline Phosphatase 55 (46-116) U/L Creatine Kinase 3332 H (39-308) U/L Troponin I 0.035 (0.000-0.056) ng/mL NT-Pro-B Natriuret Pep (5-125) pg/mL Total Protein 7.6 (6.4-8.2) g/dL Albumin 3.3 L (3.4-5.0) g/dL Globulin 4.3 H (2.3-3.5) g/dL Albumin/Globulin Ratio 0.8 L (1.2-2.2) TSH, Ultra Sensitive (0.358-3.740) uIU/mL Urine Color Urine Appearance Urine pH (4.5-8.0) Ur Specific [place]aly (1.008-1.030) Urine Protein (NEGATIVE) mg/dL Urine Glucose (UA) (NEGATIVE) mg/dL Urine Ketones (NEGATIVE) mg/dL Urine Occult Blood (NEGATIVE) Urine Nitrite (NEGAITVE) Urine Bilirubin (NEGATIVE) Urine Urobilinogen (NORMAL) mg/dL Ur Leukocyte Esterase (NEGATIVE) Urine RBC (0-5) Urine WBC (0-5) Ur Epithelial Cells Amorphous Sediment Urine Bacteria Urine Mucus Urine Opiates Screen (NEGATIVE) Ur Oxycodone Screen (NEGATIVE) Urine Methadone Screen (NEGATIVE) Ur Propoxyphene Screen (NEGATIVE) Ur Barbiturates Screen (NEGATIVE) Ur Tricyclics Screen (NEGATIVE) Ur Phencyclidine Scrn (NEGATIVE) Ur Amphetamine Screen (NEGATIVE) U Methamphetamines Scrn (NEGATIVE) Urine MDMA Screen (NEGATIVE) U Benzodiazepines Scrn (NEGATIVE) U Cocaine Metab Screen (NEGATIVE) U Marijuana (THC) Screen (NEGATIVE) 07/20/18 07/20/18 07/20/18 Range/Units 15:30 15:32 16:15 WBC (4.5-11.0) K/uL RBC (4.30-5.90) M/uL Hgb (12.0-15.0) g/dL Hct (40.0-54.0) % MCV (80-98) fL MCH (27-31) pg MCHC (32-36) % Plt Count (150-400) K/uL Neut % (Auto) (36-66) % Lymph % (Auto) (24-44) % Hutch[place] % (Auto) (2-6) % Eos % (Auto) (2-4) % Baso % (Auto) (0-1) % Puncture Site Lt brachial ABG pH 7.474 H (7.350-7.450) ABG pCO2 57.5 H (35.0-42.0) mmHg ABG pO2 57.2 L (75.0-100.0) mmHg ABG HCO3 41.8 H (22.0-26.0) mmol/L ABG Total CO2 36.2 H (23.0-27.0) mmol/L ABG O2 Saturation 89.0 L (95.0-98.0) % ABG O2 Content 17.5 (15.0-23.0) %vol ABG Base Excess 15.2 mm/L ABG Hemoglobin 14.2 (13.5-18.0) g/dL ABG Oxyhemoglobin 87.3 % ABG Carboxyhemoglobin 1.1 (0.0-1.6) % ABG Methemoglobin 0.8 % Ra Test Not performed O2 Delivery Device Nasal cannula Oxygen Flow Rate L Sodium (140-148) mmol/L Potassium (3.6-5.2) mmol/L Chloride (100-108) mmol/L Carbon Dioxide (21-32) mmol/L Anion Gap (5.0-14.0) mmol/L BUN (7-18) mg/dL Creatinine (0.8-1.3) mg/dL Est Cr Clr Drug Dosing Estimated GFR (MDRD) (>60) Glucose (74-106) mg/dL Calcium (8.5-10.1) mg/dL Magnesium (1.8-2.4) mg/dL Total Bilirubin (0.2-1.0) mg/dL AST (15-37) U/L ALT (12-78) U/L Alkaline Phosphatase (46-116) U/L Creatine Kinase (39-308) U/L Troponin I (0.000-0.056) ng/mL NT-Pro-B Natriuret Pep 380 H (5-125) pg/mL Total Protein (6.4-8.2) g/dL Albumin (3.4-5.0) g/dL Globulin (2.3-3.5) g/dL Albumin/Globulin Ratio (1.2-2.2) TSH, Ultra Sensitive 1.986 (0.358-3.740) uIU/mL Urine Color Urine Appearance Urine pH (4.5-8.0) Ur Specific Healy (1.008-1.030) Urine Protein (NEGATIVE) mg/dL Urine Glucose (UA) (NEGATIVE) mg/dL Urine Ketones (NEGATIVE) mg/dL Urine Occult Blood (NEGATIVE) Urine Nitrite (NEGAITVE) Urine Bilirubin (NEGATIVE) Urine Urobilinogen (NORMAL) mg/dL Ur Leukocyte Esterase (NEGATIVE) Urine RBC (0-5) Urine WBC (0-5) Ur Epithelial Cells Amorphous Sediment Urine Bacteria Urine Mucus Urine Opiates Screen (NEGATIVE) Ur Oxycodone Screen (NEGATIVE) Urine Methadone Screen (NEGATIVE) Ur Propoxyphene Screen (NEGATIVE) Ur Barbiturates Screen (NEGATIVE) Ur Tricyclics Screen (NEGATIVE) Ur Phencyclidine Scrn (NEGATIVE) Ur Amphetamine Screen (NEGATIVE) U Methamphetamines Scrn (NEGATIVE) Urine MDMA Screen (NEGATIVE) U Benzodiazepines Scrn (NEGATIVE) U Cocaine Metab Screen (NEGATIVE) U Marijuana (THC) Screen (NEGATIVE) 07/20/18 07/20/18 07/20/18 Range/Units 16:38 16:38 17:06 WBC (4.5-11.0) K/uL RBC (4.30-5.90) M/uL Hgb (12.0-15.0) g/dL Hct (40.0-54.0) % MCV (80-98) fL MCH (27-31) pg MCHC (32-36) % Plt Count (150-400) K/uL Neut % (Auto) (36-66) % Lymph % (Auto) (24-44) % Hutchinson % (Auto) (2-6) % Eos % (Auto) (2-4) % Baso % (Auto) (0-1) % Puncture Site ABG pH (7.350-7.450) ABG pCO2 (35.0-42.0) mmHg ABG pO2 (75.0-100.0) mmHg ABG HCO3 (22.0-26.0) mmol/L ABG Total CO2 (23.0-27.0) mmol/L ABG O2 Saturation (95.0-98.0) % ABG O2 Content (15.0-23.0) %vol ABG Base Excess mm/L ABG Hemoglobin (13.5-18.0) g/dL ABG Oxyhemoglobin % ABG Carboxyhemoglobin (0.0-1.6) % ABG Methemoglobin % Ra Test O2 Delivery Device Oxygen Flow Rate L Sodium (140-148) mmol/L Potassium (3.6-5.2) mmol/L Chloride (100-108) mmol/L Carbon Dioxide (21-32) mmol/L Anion Gap (5.0-14.0) mmol/L BUN (7-18) mg/dL Creatinine (0.8-1.3) mg/dL Est Cr Clr Drug Dosing Estimated GFR (MDRD) (>60) Glucose (74-106) mg/dL Calcium (8.5-10.1) mg/dL Magnesium 1.5 L (1.8-2.4) mg/dL Total Bilirubin (0.2-1.0) mg/dL AST (15-37) U/L ALT (12-78) U/L Alkaline Phosphatase (46-116) U/L Creatine Kinase (39-308) U/L Troponin I (0.000-0.056) ng/mL NT-Pro-B Natriuret Pep (5-125) pg/mL Total Protein (6.4-8.2) g/dL Albumin (3.4-5.0) g/dL Globulin (2.3-3.5) g/dL Albumin/Globulin Ratio (1.2-2.2) TSH, Ultra Sensitive (0.358-3.740) uIU/mL Urine Color Yellow Urine Appearance Clear Urine pH 7.0 (4.5-8.0) Ur Specific [place] 1.005 L (1.008-1.030) Urine Protein Negative (NEGATIVE) mg/dL Urine Glucose (UA) Normal (NEGATIVE) mg/dL Urine Ketones Negative (NEGATIVE) mg/dL Urine Occult Blood Negative (NEGATIVE) Urine Nitrite Negative (NEGAITVE) Urine Bilirubin Negative (NEGATIVE) Urine Urobilinogen Normal (NORMAL) mg/dL Ur Leukocyte Esterase Negative (NEGATIVE) Urine RBC 0-5 (0-5) Urine WBC Not seen (0-5) Ur Epithelial Cells Not seen Amorphous Sediment Not seen Urine Bacteria Not seen Urine Mucus Not seen Urine Opiates Screen Presumptive positive H (NEGATIVE) Ur Oxycodone Screen Presumptive positive H (NEGATIVE) Urine Methadone Screen Negative (NEGATIVE) Ur Propoxyphene Screen Negative (NEGATIVE) Ur Barbiturates Screen Negative (NEGATIVE) Ur Tricyclics Screen Negative (NEGATIVE) Ur Phencyclidine Scrn Negative (NEGATIVE) Ur Amphetamine Screen Negative (NEGATIVE) U Methamphetamines Scrn Negative (NEGATIVE) Urine MDMA Screen Negative (NEGATIVE) U Benzodiazepines Scrn Negative (NEGATIVE) U Cocaine Metab Screen Negative (NEGATIVE) U Marijuana (THC) Screen Negative (NEGATIVE) 07/20/18 07/21/18 07/21/18 Range/Units 21:01 04:40 04:40 WBC 11.4 H (4.5-11.0) K/uL RBC 4.30 (4.30-5.90) M/uL Hgb 12.6 (12.0-15.0) g/dL Hct 35.7 L (40.0-54.0) % MCV 83 (80-98) fL MCH 29 (27-31) pg MCHC 35 (32-36) % Plt Count 183 (150-400) K/uL Neut % (Auto) (36-66) % Lymph % (Auto) (24-44) % Hutchinson % (Auto) (2-6) % Eos % (Auto) (2-4) % Baso % (Auto) (0-1) % Puncture Site ABG pH (7.350-7.450) ABG pCO2 (35.0-42.0) mmHg ABG pO2 (75.0-100.0) mmHg ABG HCO3 (22.0-26.0) mmol/L ABG Total CO2 (23.0-27.0) mmol/L ABG O2 Saturation (95.0-98.0) % ABG O2 Content (15.0-23.0) %vol ABG Base Excess mm/L ABG Hemoglobin (13.5-18.0) g/dL ABG Oxyhemoglobin % ABG Carboxyhemoglobin (0.0-1.6) % ABG Methemoglobin % Ra Test O2 Delivery Device Oxygen Flow Rate L Sodium 127 L (140-148) mmol/L Potassium 2.9 L* 3.3 L (3.6-5.2) mmol/L Chloride 85 L (100-108) mmol/L Carbon Dioxide 35 H (21-32) mmol/L Anion Gap 10.3 (5.0-14.0) mmol/L BUN 15 (7-18) mg/dL Creatinine 1.0 (0.8-1.3) mg/dL Est Cr Clr Drug Dosing 80.77 Estimated GFR (MDRD) > 60 (>60) Glucose 148 H (74-106) mg/dL Calcium 9.7 (8.5-10.1) mg/dL Magnesium (1.8-2.4) mg/dL Total Bilirubin (0.2-1.0) mg/dL AST (15-37) U/L ALT (12-78) U/L Alkaline Phosphatase (46-116) U/L Creatine Kinase 2219 H 2293 H (39-308) U/L Troponin I (0.000-0.056) ng/mL NT-Pro-B Natriuret Pep (5-125) pg/mL Total Protein (6.4-8.2) g/dL Albumin (3.4-5.0) g/dL Globulin (2.3-3.5) g/dL Albumin/Globulin Ratio (1.2-2.2) TSH, Ultra Sensitive (0.358-3.740) uIU/mL Urine Color Urine Appearance Urine pH (4.5-8.0) Ur Specific Healy (1.008-1.030) Urine Protein (NEGATIVE) mg/dL Urine Glucose (UA) (NEGATIVE) mg/dL Urine Ketones (NEGATIVE) mg/dL Urine Occult Blood (NEGATIVE) Urine Nitrite (NEGAITVE) Urine Bilirubin (NEGATIVE) Urine Urobilinogen (NORMAL) mg/dL Ur Leukocyte Esterase (NEGATIVE) Urine RBC (0-5) Urine WBC (0-5) Ur Epithelial Cells Amorphous Sediment Urine Bacteria Urine Mucus Urine Opiates Screen (NEGATIVE) Ur Oxycodone Screen (NEGATIVE) Urine Methadone Screen (NEGATIVE) Ur Propoxyphene Screen (NEGATIVE) Ur Barbiturates Screen (NEGATIVE) Ur Tricyclics Screen (NEGATIVE) Ur Phencyclidine Scrn (NEGATIVE) Ur Amphetamine Screen (NEGATIVE) U Methamphetamines Scrn (NEGATIVE) Urine MDMA Screen (NEGATIVE) U Benzodiazepines Scrn (NEGATIVE) U Cocaine Metab Screen (NEGATIVE) U Marijuana (THC) Screen (NEGATIVE) 07/21/18 Range/Units 04:40 WBC (4.5-11.0) K/uL RBC (4.30-5.90) M/uL Hgb (12.0-15.0) g/dL Hct (40.0-54.0) % MCV (80-98) fL MCH (27-31) pg MCHC (32-36) % Plt Count (150-400) K/uL Neut % (Auto) (36-66) % Lymph % (Auto) (24-44) % Hutchinson % (Auto) (2-6) % Eos % (Auto) (2-4) % Baso % (Auto) (0-1) % Puncture Site Rt radial ABG pH 7.435 (7.350-7.450) ABG pCO2 57.8 H (35.0-42.0) mmHg ABG pO2 76.1 (75.0-100.0) mmHg ABG HCO3 38.1 H (22.0-26.0) mmol/L ABG Total CO2 34.0 H (23.0-27.0) mmol/L ABG O2 Saturation 95.0 (95.0-98.0) % ABG O2 Content 16.6 (15.0-23.0) %vol ABG Base Excess 11.9 mm/L ABG Hemoglobin 12.7 L (13.5-18.0) g/dL ABG Oxyhemoglobin 93.1 % ABG Carboxyhemoglobin 1.1 (0.0-1.6) % ABG Methemoglobin 0.9 % Ra Test Pass O2 Delivery Device Non rebr mask Oxygen Flow Rate 15 L Sodium (140-148) mmol/L Potassium (3.6-5.2) mmol/L Chloride (100-108) mmol/L Carbon Dioxide (21-32) mmol/L Anion Gap (5.0-14.0) mmol/L BUN (7-18) mg/dL Creatinine (0.8-1.3) mg/dL Est Cr Clr Drug Dosing Estimated GFR (MDRD) (>60) Glucose (74-106) mg/dL Calcium (8.5-10.1) mg/dL Magnesium (1.8-2.4) mg/dL Total Bilirubin (0.2-1.0) mg/dL AST (15-37) U/L ALT (12-78) U/L Alkaline Phosphatase (46-116) U/L Creatine Kinase (39-308) U/L Troponin I (0.000-0.056) ng/mL NT-Pro-B Natriuret Pep (5-125) pg/mL Total Protein (6.4-8.2) g/dL Albumin (3.4-5.0) g/dL Globulin (2.3-3.5) g/dL Albumin/Globulin Ratio (1.2-2.2) TSH, Ultra Sensitive (0.358-3.740) uIU/mL Urine Color Urine Appearance Urine pH (4.5-8.0) Ur Specific Healy (1.008-1.030) Urine Protein (NEGATIVE) mg/dL Urine Glucose (UA) (NEGATIVE) mg/dL Urine Ketones (NEGATIVE) mg/dL Urine Occult Blood (NEGATIVE) Urine Nitrite (NEGAITVE) Urine Bilirubin (NEGATIVE) Urine Urobilinogen (NORMAL) mg/dL Ur Leukocyte Esterase (NEGATIVE) Urine RBC (0-5) Urine WBC (0-5) Ur Epithelial Cells Amorphous Sediment Urine Bacteria Urine Mucus Urine Opiates Screen (NEGATIVE) Ur Oxycodone Screen (NEGATIVE) Urine Methadone Screen (NEGATIVE) Ur Propoxyphene Screen (NEGATIVE) Ur Barbiturates Screen (NEGATIVE) Ur Tricyclics Screen (NEGATIVE) Ur Phencyclidine Scrn (NEGATIVE) Ur Amphetamine Screen (NEGATIVE) U Methamphetamines Scrn (NEGATIVE) Urine MDMA Screen (NEGATIVE) U Benzodiazepines Scrn (NEGATIVE) U Cocaine Metab Screen (NEGATIVE) U Marijuana (THC) Screen (NEGATIVE) Med Orders - Current: Current Medications Acetaminophen (Tylenol) 650 mg PO Q4H PRN PRN Reason: Pain (Mild 1-3)/fever Hydrocodone Bitart/Acetaminophen ([place] 325-10 Mg) 1 tab PO Q4H PRN PRN Reason: Pain Albuterol (Proventil Neb Soln) 2.5 mg NEB Q4H PRN PRN Reason: Shortness Of Breath/wheezing Last Admin: 07/21/18 03:59 Dose: 2.5 mg Albuterol/Ipratropium (Duoneb 3.0-0.5 Mg/3 Ml) 3 ml INH QIDRT [facility] Last Admin: 07/21/18 07:00 Dose: 3 ml Amlodipine Besylate (Norvasc) 7.5 mg PO DAILY [facility] Last Admin: 07/21/18 08:38 Dose: 7.5 mg Benztropine Mesylate (Cogentin) 0.5 mg PO DAILY [facility] Last Admin: 07/21/18 08:34 Dose: 0.5 mg Citalopram Hydrobromide (Celexa) 20 mg PO DAILY [facility] Last Admin: 07/21/18 08:33 Dose: 20 mg Divalproex Sodium (Divalproex Sodium) 1,500 mg PO BEDTIME [facility] Last Admin: 07/20/18 20:26 Dose: 1,500 mg Gabapentin (Neurontin) 600 mg PO TID [facility] Last Admin: 07/21/18 08:37 Dose: 600 mg Magnesium Sulfate 2 gm/ Premix 50 mls @ 12.5 mls/hr IV Q6H [facility] Stop: 07/21/18 11:59 Last Admin: 07/21/18 08:51 Dose: 12.5 mls/hr Mirtazapine (Remeron) 30 mg PO BEDTIME [facility] Last Admin: 07/20/18 21:02 Dose: 30 mg Olanzapine (Zyprexa) 15 mg PO DAILY [facility] Last Admin: 07/21/18 08:41 Dose: 15 mg Ondansetron HCl (Zofran Odt) 4 mg PO Q6H PRN PRN Reason: Nausea able to take PO Ondansetron HCl (Zofran) 4 mg IV Q6H PRN PRN Reason: Nausea/Vomiting Pantoprazole Sodium (Protonix) 40 mg PO ACBREAKFAST [facility] Last Admin: 07/21/18 08:32 Dose: 40 mg Polyethylene Glycol (Miralax) 17 gm PO DAILY [facility] Last Admin: 07/21/18 08:36 Dose: 17 gm Pramipexole Dihydrochloride (Mirapex) 1 mg PO BID [facility] Last Admin: 07/21/18 08:36 Dose: 1 mg Ranitidine HCl (Zantac) 150 mg PO BID [facility] Last Admin: 07/21/18 08:41 Dose: 150 mg Ropinirole HCl (Requip) 0.5 mg PO BID [facility] Last Admin: 07/21/18 08:40 Dose: 0.5 mg Fluticasone/Salmeterol (Fluticasone-Salmeterol 113-14 Mcg Powder Inh) 1 puff INH BIDRT [facility] Last Admin: 07/21/18 07:16 Dose: 1 puff Senna/Docusate Sodium (Senna Plus) 1 tab PO BID [facility] Last Admin: 07/21/18 08:40 Dose: 1 tab Simvastatin (Zocor) 20 mg PO BEDTIME [facility] Last Admin: 07/20/18 20:33 Dose: 20 mg Sodium Chloride (Saline Flush) 10 ml FLUSH ASDIRECTED PRN PRN Reason: Keep Vein Open Last Admin: 07/20/18 15:52 Dose: 10 ml Tamsulosin HCl (Flomax) 0.4 mg PO DAILY [facility] Last Admin: 07/21/18 08:35 Dose: 0.4 mg Discontinued Medications Albuterol (Proventil Neb Soln) 2.5 mg NEB ONETIME ONE Stop: 07/20/18 15:39 Last Admin: 07/20/18 16:09 Dose: 2.5 mg Furosemide (Lasix) 20 mg IVPUSH ONETIME ONE Stop: 07/20/18 15:49 Last Admin: 07/20/18 16:16 Dose: 20 mg Furosemide (Lasix) 20 mg IVPUSH ONETIME ONE Stop: 07/21/18 08:01 Last Admin: 07/21/18 08:16 Dose: 20 mg Furosemide (Lasix) 20 mg IVPUSH ONETIME STA Stop: 07/21/18 04:13 Last Admin: 07/21/18 04:40 Dose: 20 mg Sodium Chloride (Normal Saline) 1,000 mls @ 500 mls/hr IV ASDIRECTED BRYCE Potassium Chloride/Sodium Chloride (Normal Saline With 40 Meq Kcl) 1,000 mls @ 500 mls/hr IV ASDIRECTED BRYCE Stop: 07/20/18 18:00 Last Admin: 07/20/18 16:05 Dose: 500 mls/hr Potassium Chloride/Sodium Chloride (Normal Saline With 20 Meq Kcl) 1,000 mls @ 150 mls/hr IV ASDIRECTED BRYCE Last Infusion: 07/21/18 04:38 Dose: 25 mls/hr Potassium Chloride 20 meq/ (Premix) 100 mls @ 50 mls/hr IV ONETIME ONE Stop: 07/21/18 00:41 Last Admin: 07/21/18 00:36 Dose: 50 mls/hr Lidocaine HCl (Xylocaine-Mpf 1%) 2 ml .XX ONETIME ONE Stop: 07/20/18 22:45 Last Admin: 07/21/18 00:36 Dose: 2 ml Potassium Chloride (Klor-Con M20) 20 meq PO ONETIME ONE Stop: 07/20/18 15:46 Last Admin: 07/20/18 16:07 Dose: 20 meq Potassium Chloride (Klor-Con M20) 20 meq PO ONETIME ONE Stop: 07/20/18 18:01 Last Admin: 07/20/18 18:18 Dose: 20 meq Potassium Chloride (Klor-Con M20) 40 meq PO ONETIME ONE Stop: 07/20/18 21:39 Last Admin: 07/20/18 21:56 Dose: 40 meq - Exam Quality Assessment: Supplemental Oxygen General: Alert, Oriented, Cooperative, No Acute Distress Lungs: Clear to Auscultation, Normal Respiratory Effort, Rhonchi (mild upper airway ) Cardiovascular: Regular Rate, Regular Rhythm GI/Abdominal Exam: Normal Bowel Sounds, Soft, No Distention Extremities: Pedal Edema. No: Increased Warmth Skin: Warm, Dry Psy/Mental Status: Alert, Normal Affect - Problem List & Annotations (1) Rhabdomyolysis SNOMED Code(s): 460410952 Code(s): M62.82 - RHABDOMYOLYSIS Status: Acute Current Visit: Yes Qualifiers: Rhabdomyolysis type: traumatic Encounter type: initial encounter Qualified Code(s): T79.6XXA - Traumatic ischemia of muscle, initial encounter (2) Hypokalemia SNOMED Code(s): 75186081 Code(s): E87.6 - HYPOKALEMIA Status: Acute Current Visit: Yes (3) Severe chronic obstructive pulmonary disease SNOMED Code(s): 439286113 Code(s): J44.9 - CHRONIC OBSTRUCTIVE PULMONARY DISEASE, UNSPECIFIED Status : Chronic Current Visit: No (4) Parkinsons disease SNOMED Code(s): 32525939 Code(s): G20 - PARKINSON'S DISEASE Status: Chronic Current Visit: No - Problem List Review Problem List Initiated/Reviewed/Updated: Yes - My Orders Last 24 Hours: My Active Orders 07/20/18 16:32 Resuscitation Status Routine 07/20/18 17:00 Albuterol/Ipratropium [DuoNeb 3.0-0.5 MG/3 ML] 3 ml INH QIDRT 07/20/18 17:06 Patient Status [ADT] Routine Antiembolic Devices [RC] .Routine Bedrest Bedside Commode [RC] ASDIRECTED Cardiac Monitoring [RC] CONTINUOUS Intake and Output [RC] QSHIFT Notify Provider Vital Signs [RC] ASDIRECTED Oxygen Therapy [RC] PRN Pulse Oximetry [RC] CONTINUOUS RT Aerosol Therapy [RC] ASDIRECTED VTE/DVT Education [RC] Per Unit Routine Vital Signs [RC] Q2HR Acetaminophen [Tylenol] 650 mg PO Q4H PRN Acetaminophen/HYDROcodone [[place] 325-10 MG] 1 tab PO Q4H PRN Albuterol [Proventil Neb Soln] 2.5 mg NEB Q4H PRN Ondansetron [Zofran ODT] 4 mg PO Q6H PRN Ondansetron [Zofran] 4 mg IV Q6H PRN Antiembolic Hose [OM.PC] Per Unit Routine Pressure Reduction Mattress [OM.PC] Routine 07/20/18 20:00 Magnesium Sulfate/Water [Magnesium Sulfate 2 GM in Water 50 ML] 2 gm Premix Bag 1 bag IV Q6H 07/20/18 21:00 Divalproex Sodium 1,500 mg PO BEDTIME Docusate Sodium/Sennosides [Senna Plus] 1 tab PO BID Fluticasone/Salmeterol [Fluticasone-Salmeterol 113-14 MCG Powder Inh] 1 puff INH BIDRT Gabapentin [Neurontin] 600 mg PO TID Mirtazapine [Remeron] 30 mg PO BEDTIME Pramipexole [Mirapex] 1 mg PO BID Ranitidine [Zantac] 150 mg PO BID Simvastatin [Zocor] 20 mg PO BEDTIME rOPINIRole [Requip] 0.5 mg PO BID 07/20/18 Dinner 2 Gram Sodium Diet [DIET] 07/21/18 07:30 Pantoprazole [ProTONIX] 40 mg PO ACBREAKFAST 07/21/18 09:00 Benztropine [Cogentin] 0.5 mg PO DAILY Citalopram [Celexa] 20 mg PO DAILY OLANZapine [ZyPREXA] 15 mg PO DAILY Polyethylene Glycol 3350 [MiraLAX] 17 gm PO DAILY Tamsulosin [Flomax] 0.4 mg PO DAILY amLODIPine [Norvasc] 7.5 mg PO DAILY 07/21/18 09:38 Potassium Chloride [Klor-Con M20] 40 meq PO ONETIME ONE 07/21/18 09:45 NS + KCl 20mEq/L [Normal Saline with 20 mEq KCl] 1,000 ml IV ASDIRECTED 07/21/18 14:00 Potassium Chloride [Klor-Con M20] 40 meq PO TID 07/21/18 17:00 POTASSIUM,K [CHEM] Timed 07/22/18 05:00 BASIC METABOLIC PANEL,BMP [CHEM] Timed CBC W/O DIFF,HEMOGRAM [HEME] Timed (1) CREATINE KINASE,CK [CHEM] Timed - Plan Plan:: ASSESSMENT AND PLAN - Rhabdomyolysis - secondary to prolonged stay in his bed in the setting of 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 CK level has trended down. Volume resuscitation did lead to volume overload overnight but condition has stabilized and he is doing well at this time. he will need ongoing fluids but with his high risk for developing overload he would benefit from scheduled furosemide as well. -restart moderate IV fluids -Furosemide every 8 hours -Freeman catheter for strict intake and output monitoring -Repeat CK level in the morning -Pressure reducing mattress Profound hypokalemia - potassium was only 2.4 but has improved with supplementation. -40 mEq 3 doses today -Recheck potassium tonight -Recheck potassium in the morning Major depression, acute, active - Secondary to loss of close friend 3 days ago. He is on antidepressants. Spirits are little bit better today. -Continue home medications and offer support as able Severe COPD - oxygen dependent with significant respiratory limitations. did require noninvasive ventilation overnight. Blood gases were similar to the time of admission which is likely his baseline. -Supplement oxygen, goal O2 sats 88-92% -Continue home medications -noninvasive ventilation as needed if condition declined to give Parkinson's disease - significant limitations at home due to this disease but these are stable. -Continue home medications Maintenance issues - - DVT prophylaxis - ALISON stockings - GI prophylaxis - PPI - Nutrition - low sodium - Freeman catheter - placed in the emergency room for strict intake and output monitoring and a critical patient, needs to remain in place with ongoing need for strict monitoring Disposition - anticipate discharge home versus possibly the [facility] after the hospital stay Storm Chadwick M.D.
[2018-07-21] MEDS: Potassium Chloride 20 MEQ Tab.ER PO SCH ×2 (11:59→16:00)
[2018-07-21] MEDS: Furosemide 20 MG/2 ML VIAL IVPUSH SCH ×2 (15:53→23:40)
[2018-07-21] MEDS: Divalproex Sodium Delayed-Release 250 MG Tab.CR PO SCH (20:06)
[2018-07-21] MEDS: Acetaminophen/HYDROcodone 325-10 MG Tab PO PRN (20:06)
[2018-07-21] MEDS: Mirtazapine 15 MG Tab PO SCH (20:08)
[2018-07-21] MEDS: Simvastatin 20 MG Tab PO SCH (20:10)
[2018-07-22] MEDS: NS + KCl 20mEq/L 1,000 ML IV SCH ×3 (02:10→19:29)
[2018-07-22] MEDS: Acetaminophen/HYDROcodone 325-10 MG Tab PO PRN ×4 (02:24→21:22)
[2018-07-22] MEDS: Albuterol/Ipratropium 3.0-0.5 MG/3 ML Neb Soln INH SCH ×4 (07:21→21:22)
[2018-07-22] MEDS: Fluticasone-Salmeterol 113-14 MCG Powder Inhalant INH SCH ×2 (07:21→21:22)
[2018-07-22] MEDS: Potassium Chloride 20 MEQ Tab.ER PO SCH ×2 (07:41→15:48)
[2018-07-22] MEDS: Pantoprazole 40 MG Tab.CR PO SCH (07:41)
[2018-07-22] MEDS: Furosemide 20 MG/2 ML VIAL IVPUSH SCH ×3 (07:42→23:23)
[2018-07-22] MEDS: Polyethylene Glycol 3350 Powder 17 GM Packet PO SCH (08:40)
[2018-07-22] MEDS: Benztropine 1 MG Tab PO SCH (08:40)
[2018-07-22] MEDS: rOPINIRole 0.5 MG Tab PO SCH ×2 (08:40→21:25)
[2018-07-22] MEDS: Tamsulosin 0.4 MG Cap.ER PO SCH (08:41)
[2018-07-22] MEDS: Gabapentin 300 MG Cap PO SCH ×3 (08:41→21:24)
[2018-07-22] MEDS: amLODIPine 5 MG Tab PO SCH (08:41)
[2018-07-22] MEDS: Pramipexole 0.5 MG Tab PO SCH ×2 (08:41→21:24)
[2018-07-22] MEDS: OLANZapine 5 MG Tab PO SCH (08:41)
[2018-07-22] MEDS: Citalopram 20 MG Tab PO SCH (08:41)
--- NOTE | 2018-07-22 09:08 | PCM.PN ---
- General Info Date of Service: 07/22/18 Subjective Update: There were no acute events overnight. He reports that he feels fairly well other than a week. He has a cough but it's not changed from baseline. No abdominal pain or nausea. Tolerating his diet. Respiratory status has been stable overnight. CK level is slightly higher today than yesterday. Back pain is stable since admission. Functional Status: Reports: Pain Controlled, Tolerating Diet - Review of Systems General: Reports: Weakness Gastrointestinal: Denies: Abdominal Pain - Patient Data Vitals - Most Recent: Last Vital Signs Temp 35.7 C 07/22/18 08:00 Pulse 68 07/22/18 08:00 Resp 20 07/22/18 08:00 BP 123/67 07/22/18 08:41 Pulse Ox 95 07/22/18 08:00 Weight - Most Recent: 124.738 kg I&O - Last 24 Hours: Intake & Output 07/21/18 07/22/18 07/22/18 22:59 06:59 14:59 Intake Total 2315 1593 Output Total 750 1850 Balance 1565 -257 Lab Results Last 24 Hours: Laboratory Results - last 24 hr 07/21/18 07/22/18 07/22/18 Range/Units 17:00 05:00 05:15 WBC 12.3 H (4.5-11.0) K/uL RBC 3.88 L (4.30-5.90) M/uL Hgb 11.1 L (12.0-15.0) g/dL Hct 34.7 L (40.0-54.0) % MCV 89 (80-98) fL MCH 29 (27-31) pg MCHC 32 (32-36) % Plt Count 221 (150-400) K/uL Sodium 134 L (140-148) mmol/L Potassium 3.6 4.0 (3.6-5.2) mmol/L Chloride 92 L (100-108) mmol/L Carbon Dioxide 38 H (21-32) mmol/L Anion Gap 8.0 (5.0-14.0) mmol/L BUN 20 H (7-18) mg/dL Creatinine 1.0 (0.8-1.3) mg/dL Est Cr Clr Drug Dosing 80.74 mL/min Estimated GFR (MDRD) > 60 (>60) Glucose 142 H (74-106) mg/dL Calcium 8.7 (8.5-10.1) mg/dL Creatine Kinase 2590 H (39-308) U/L Med Orders - Current: Current Medications Acetaminophen (Tylenol) 650 mg PO Q4H PRN PRN Reason: Pain (Mild 1-3)/fever Hydrocodone Bitart/Acetaminophen ([place] 325-10 Mg) 1 tab PO Q4H PRN PRN Reason: Pain Last Admin: 07/22/18 06:28 Dose: 1 tab Albuterol (Proventil Neb Soln) 2.5 mg NEB Q4H PRN PRN Reason: Shortness Of Breath/wheezing Last Admin: 07/21/18 03:59 Dose: 2.5 mg Albuterol/Ipratropium (Duoneb 3.0-0.5 Mg/3 Ml) 3 ml INH QIDRT [facility] Last Admin: 07/22/18 07:21 Dose: 3 ml Amlodipine Besylate (Norvasc) 7.5 mg PO DAILY [facility] Last Admin: 07/22/18 08:41 Dose: 7.5 mg Benztropine Mesylate (Cogentin) 0.5 mg PO DAILY [facility] Last Admin: 07/22/18 08:40 Dose: 0.5 mg Citalopram Hydrobromide (Celexa) 20 mg PO DAILY [facility] Last Admin: 07/22/18 08:41 Dose: 20 mg Divalproex Sodium (Divalproex Sodium) 1,500 mg PO BEDTIME [facility] Last Admin: 07/21/18 20:06 Dose: 1,500 mg Gabapentin (Neurontin) 600 mg PO TID [facility] Last Admin: 07/22/18 08:41 Dose: 600 mg Potassium Chloride/Sodium Chloride (Normal Saline With 20 Meq Kcl) 1,000 mls @ 100 mls/hr IV ASDIRECTED [facility] Last Admin: 07/22/18 02:10 Dose: 100 mls/hr Mirtazapine (Remeron) 30 mg PO BEDTIME [facility] Last Admin: 07/21/18 20:08 Dose: 30 mg Olanzapine (Zyprexa) 15 mg PO DAILY [facility] Last Admin: 07/22/18 08:41 Dose: 15 mg Ondansetron HCl (Zofran Odt) 4 mg PO Q6H PRN PRN Reason: Nausea able to take PO Ondansetron HCl (Zofran) 4 mg IV Q6H PRN PRN Reason: Nausea/Vomiting Pantoprazole Sodium (Protonix) 40 mg PO ACBREAKFAST [facility] Last Admin: 07/22/18 07:41 Dose: 40 mg Polyethylene Glycol (Miralax) 17 gm PO DAILY [facility] Last Admin: 07/22/18 08:40 Dose: 17 gm Potassium Chloride (Klor-Con M20) 40 meq PO TIDMEALS [facility] Last Admin: 07/22/18 07:41 Dose: 40 meq Pramipexole Dihydrochloride (Mirapex) 1 mg PO BID [facility] Last Admin: 07/22/18 08:41 Dose: 1 mg Ranitidine HCl (Zantac) 150 mg PO BID [facility] Last Admin: 07/22/18 08:41 Dose: 150 mg Ropinirole HCl (Requip) 0.5 mg PO BID [facility] Last Admin: 07/22/18 08:40 Dose: 0.5 mg Fluticasone/Salmeterol (Fluticasone-Salmeterol 113-14 Mcg Powder Inh) 1 puff INH BIDRT [facility] Last Admin: 07/22/18 07:21 Dose: 1 puff Senna/Docusate Sodium (Senna Plus) 1 tab PO BID [facility] Last Admin: 07/22/18 08:40 Dose: 1 tab Simvastatin (Zocor) 20 mg PO BEDTIME [facility] Last Admin: 07/21/18 20:10 Dose: 20 mg Sodium Chloride (Saline Flush) 10 ml FLUSH ASDIRECTED PRN PRN Reason: Keep Vein Open Last Admin: 07/20/18 15:52 Dose: 10 ml Tamsulosin HCl (Flomax) 0.4 mg PO DAILY [facility] Last Admin: 07/22/18 08:41 Dose: 0.4 mg Discontinued Medications Albuterol (Proventil Neb Soln) 2.5 mg NEB ONETIME ONE Stop: 07/20/18 15:39 Last Admin: 07/20/18 16:09 Dose: 2.5 mg Furosemide (Lasix) 20 mg IVPUSH ONETIME ONE Stop: 07/20/18 15:49 Last Admin: 07/20/18 16:16 Dose: 20 mg Furosemide (Lasix) 20 mg IVPUSH ONETIME ONE Stop: 07/21/18 08:01 Last Admin: 07/21/18 08:16 Dose: 20 mg Furosemide (Lasix) 20 mg IVPUSH ONETIME [facility] Stop: 07/21/18 04:13 Last Admin: 07/21/18 04:40 Dose: 20 mg Furosemide (Lasix) 20 mg IVPUSH Q8H [facility] Stop: 07/22/18 08:01 Last Admin: 07/22/18 07:42 Dose: 20 mg Sodium Chloride (Normal Saline) 1,000 mls @ 500 mls/hr IV ASDIRECTED [facility] Potassium Chloride/Sodium Chloride (Normal Saline With 40 Meq Kcl) 1,000 mls @ 500 mls/hr IV ASDIRECTED [facility] Stop: 07/20/18 18:00 Last Admin: 07/20/18 16:05 Dose: 500 mls/hr Potassium Chloride/Sodium Chloride (Normal Saline With 20 Meq Kcl) 1,000 mls @ 150 mls/hr IV ASDIRECTED [facility] Last Infusion: 07/21/18 04:38 Dose: 25 mls/hr Magnesium Sulfate 2 gm/ Premix 50 mls @ 12.5 mls/hr IV Q6H [facility] Stop: 07/21/18 11:59 Last Admin: 07/21/18 08:51 Dose: 12.5 mls/hr Potassium Chloride 20 meq/ (Premix) 100 mls @ 50 mls/hr IV ONETIME ONE Stop: 07/21/18 00:41 Last Admin: 07/21/18 00:36 Dose: 50 mls/hr Lidocaine HCl (Xylocaine-Mpf 1%) 2 ml .XX ONETIME ONE Stop: 07/20/18 22:45 Last Admin: 07/21/18 00:36 Dose: 2 ml Potassium Chloride (Klor-Con M20) 20 meq PO ONETIME ONE Stop: 07/20/18 15:46 Last Admin: 07/20/18 16:07 Dose: 20 meq Potassium Chloride (Klor-Con M20) 20 meq PO ONETIME ONE Stop: 07/20/18 18:01 Last Admin: 07/20/18 18:18 Dose: 20 meq Potassium Chloride (Klor-Con M20) 40 meq PO ONETIME ONE Stop: 07/20/18 21:39 Last Admin: 07/20/18 21:56 Dose: 40 meq Potassium Chloride (Klor-Con M20) 40 meq PO ONETIME ONE Stop: 07/21/18 09:39 Last Admin: 07/21/18 10:18 Dose: 40 meq - Exam Quality Assessment: Supplemental Oxygen General: Alert, Oriented, Cooperative, No Acute Distress Lungs: Clear to Auscultation, Normal Respiratory Effort Cardiovascular: Regular Rate, Regular Rhythm GI/Abdominal Exam: Normal Bowel Sounds, Soft, Non-Tender, No Distention Extremities: Pedal Edema (both ankles ). No: Increased Warmth Skin: Warm, Dry Psy/Mental Status: Alert, Normal Affect - Problem List & Annotations (1) Rhabdomyolysis SNOMED Code(s): 336118232 Code(s): M62.82 - RHABDOMYOLYSIS Status: Acute Current Visit: Yes Qualifiers: Rhabdomyolysis type: traumatic Encounter type: initial encounter Qualified Code(s): T79.6XXA - Traumatic ischemia of muscle, initial encounter (2) Hypokalemia SNOMED Code(s): 11868037 Code(s): E87.6 - HYPOKALEMIA Status: Acute Current Visit: Yes (3) Severe chronic obstructive pulmonary disease SNOMED Code(s): 041272162 Code(s): J44.9 - CHRONIC OBSTRUCTIVE PULMONARY DISEASE, UNSPECIFIED Status : Chronic Current Visit: No (4) Parkinsons disease SNOMED Code(s): 42259058 Code(s): G20 - PARKINSON'S DISEASE Status: Chronic Current Visit: No - Problem List Review Problem List Initiated/Reviewed/Updated: Yes - My Orders Last 24 Hours: My Active Orders 07/21/18 09:00 Benztropine [Cogentin] 0.5 mg PO DAILY Citalopram [Celexa] 20 mg PO DAILY OLANZapine [ZyPREXA] 15 mg PO DAILY Polyethylene Glycol 3350 [MiraLAX] 17 gm PO DAILY Tamsulosin [Flomax] 0.4 mg PO DAILY amLODIPine [Norvasc] 7.5 mg PO DAILY 07/21/18 09:45 NS + KCl 20mEq/L [Normal Saline with 20 mEq KCl] 1,000 ml IV ASDIRECTED 07/21/18 12:00 Potassium Chloride [Klor-Con M20] 40 meq PO TIDMEALS 07/21/18 13:23 PT Evaluation and Treatment [CONS] Routine 07/22/18 09:15 Sodium Chloride 0.9% [Normal Saline] 500 ml IV ASDIRECTED 07/22/18 10:00 Furosemide [Lasix] 20 mg IVPUSH Q8H 07/22/18 10:15 NS + KCl 20mEq/L [Normal Saline with 20 mEq KCl] 1,000 ml IV ASDIRECTED 07/22/18 16:00 CREATINE KINASE,CK [CHEM] Timed POTASSIUM,K [CHEM] Timed 07/22/18 16:30 Potassium Chloride [Klor-Con M20] 40 meq PO BIDAC 07/23/18 05:00 BASIC METABOLIC PANEL,BMP [CHEM] Timed CBC W/O DIFF,HEMOGRAM [HEME] Timed (1) CREATINE KINASE,CK [CHEM] Timed 07/24/18 07:00 Echo Comp wo Cont [US] Routine - Plan Plan:: ASSESSMENT AND PLAN - Rhabdomyolysis - secondary to prolonged stay in his bed in the setting of 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 CK level roxann slightly overnight after fluids were decreased due to volume overload yesterday. Pain is stable. -Increase IV fluids to 150 mL per hour after bolus (500 mL) -Furosemide every 8 hours -Freeman catheter for strict intake and output monitoring -Repeat CK level this evening and in the morning -Pressure reducing mattress Profound hypokalemia - potassium has normalized. With his scheduled furosemide he is at risk for redeveloping hypokalemia and will remain on supplementation. -40 mEq 2 doses today -Recheck potassium this afternoon -Recheck potassium in the morning Major depression, acute, active - Secondary to loss of close friend several days ago. He is on antidepressants. Mood has been stable with no significant depression symptoms over the past couple of days. -Continue home medications and offer support as able Severe COPD - oxygen dependent with significant respiratory limitations. Respiratory status has been stable for the past 24 hours. -Supplement oxygen, goal O2 sats 88-92% -Continue home medications -noninvasive ventilation as needed if condition declines Parkinson's disease - significant limitations at home due to this disease but these are stable. -Continue home medications Maintenance issues - - DVT prophylaxis - ALISON stockings - GI prophylaxis - PPI - Nutrition - low sodium - Freeman catheter - placed in the emergency room for strict intake and output monitoring and a critical patient, needs to remain in place with ongoing need for strict monitoring Disposition - anticipate discharge home versus possibly the senior living after the hospital stay. He has been working with physical therapy but is very weak and requires a Julius lift this morning. Storm Chadwick M.D.
[2018-07-22] MEDS ORDERED: Sodium Chloride 0.9% 500 ML IV SCH (09:15)
[2018-07-22] MEDS ORDERED: Furosemide 20 MG/2 ML VIAL IVPUSH SCH (10:00)
[2018-07-22] MEDS: Mirtazapine 15 MG Tab PO SCH (21:24)
[2018-07-22] MEDS: Simvastatin 20 MG Tab PO SCH (21:26)
[2018-07-22] MEDS: Divalproex Sodium Delayed-Release 250 MG Tab.CR PO SCH (21:35)
[2018-07-23] MEDS: NS + KCl 20mEq/L 1,000 ML IV SCH ×3 (02:08→16:56)
[2018-07-23] MEDS: Albuterol/Ipratropium 3.0-0.5 MG/3 ML Neb Soln INH SCH ×4 (07:27→20:03)
[2018-07-23] MEDS: Fluticasone-Salmeterol 113-14 MCG Powder Inhalant INH SCH ×2 (07:27→20:04)
[2018-07-23] MEDS: Pantoprazole 40 MG Tab.CR PO SCH (07:41)
[2018-07-23] MEDS: Furosemide 20 MG/2 ML VIAL IVPUSH SCH ×3 (07:42→23:03)
[2018-07-23] MEDS: Acetaminophen/HYDROcodone 325-10 MG Tab PO PRN (07:53)
[2018-07-23] MEDS: Potassium Chloride 20 MEQ Tab.ER PO SCH (07:54)
[2018-07-23] MEDS: Polyethylene Glycol 3350 Powder 17 GM Packet PO SCH (08:08)
[2018-07-23] MEDS: Benztropine 1 MG Tab PO SCH (08:09)
[2018-07-23] MEDS: OLANZapine 5 MG Tab PO SCH (08:09)
[2018-07-23] MEDS: Citalopram 20 MG Tab PO SCH (08:09)
[2018-07-23] MEDS: Pramipexole 0.5 MG Tab PO SCH ×2 (08:09→20:05)
[2018-07-23] MEDS: amLODIPine 5 MG Tab PO SCH (08:09)
[2018-07-23] MEDS: Gabapentin 300 MG Cap PO SCH ×3 (08:09→20:05)
[2018-07-23] MEDS: rOPINIRole 0.5 MG Tab PO SCH ×2 (08:09→20:05)
[2018-07-23] MEDS: Tamsulosin 0.4 MG Cap.ER PO SCH (08:14)
--- NOTE | 2018-07-23 09:09 | PCM.PN ---
- General Info Date of Service: 07/23/18 Subjective Update: Early this morning the patient developed increasing shortness of breath just prior to his scheduled dose of furosemide. He was placed on noninvasive ventilation for a couple of hours while the furosemide was being administered and had a chance to work. Since that time his shortness of breath has resolved. He is back to his usual amount of supplemental oxygen. He reports ongoing pain in his lower back. Pain medications haven't helped as much as he would like. He has not had any fevers. No complaints of change in cough from baseline. CK level is now down to 1000. Functional Status: Reports: Pain Controlled, Tolerating Diet - Review of Systems General: Reports: Weakness Pulmonary: Denies: Shortness of Breath Gastrointestinal: Denies: Abdominal Pain Musculoskeletal: Reports: Back Pain - Patient Data Vitals - Most Recent: Last Vital Signs Temp 36.1 C 07/23/18 08:00 Pulse 75 07/23/18 08:00 Resp 16 07/23/18 08:00 BP 173/86 H 07/23/18 08:09 Pulse Ox 1 L 07/23/18 08:00 Weight - Most Recent: 124.738 kg I&O - Last 24 Hours: Intake & Output 07/22/18 07/23/18 07/23/18 22:59 06:59 14:59 Intake Total 2930 2740 600 Output Total 1450 2000 Balance 1480 740 600 Lab Results Last 24 Hours: Laboratory Results - last 24 hr 07/22/18 07/23/18 07/23/18 Range/Units 16:38 05:51 05:51 WBC 9.8 (4.5-11.0) K/uL RBC 3.94 L (4.30-5.90) M/uL Hgb 11.0 L (12.0-15.0) g/dL Hct 36.1 L (40.0-54.0) % MCV 92 (80-98) fL MCH 28 (27-31) pg MCHC 31 L (32-36) % Plt Count 226 (150-400) K/uL Sodium 135 L (140-148) mmol/L Potassium 4.3 5.3 H (3.6-5.2) mmol/L Chloride 97 L (100-108) mmol/L Carbon Dioxide 35 H (21-32) mmol/L Anion Gap 8.3 (5.0-14.0) mmol/L BUN 18 (7-18) mg/dL Creatinine 0.9 (0.8-1.3) mg/dL Est Cr Clr Drug Dosing 89.71 mL/min Estimated GFR (MDRD) > 60 (>60) Glucose 141 H (74-106) mg/dL Calcium 8.8 (8.5-10.1) mg/dL Creatine Kinase 2007 H 1052 H (39-308) U/L Med Orders - Current: Current Medications Albuterol (Proventil Neb Soln) 2.5 mg NEB Q4H PRN PRN Reason: Shortness Of Breath/wheezing Last Admin: 07/21/18 03:59 Dose: 2.5 mg Albuterol/Ipratropium (Duoneb 3.0-0.5 Mg/3 Ml) 3 ml INH QIDRT [facility] Last Admin: 07/23/18 07:27 Dose: 3 ml Amlodipine Besylate (Norvasc) 7.5 mg PO DAILY [facility] Last Admin: 07/23/18 08:09 Dose: 7.5 mg Benztropine Mesylate (Cogentin) 0.5 mg PO DAILY [facility] Last Admin: 07/23/18 08:09 Dose: 0.5 mg Citalopram Hydrobromide (Celexa) 20 mg PO DAILY [facility] Last Admin: 07/23/18 08:09 Dose: 20 mg Divalproex Sodium (Divalproex Sodium) 1,500 mg PO BEDTIME [facility] Last Admin: 07/22/18 21:35 Dose: 1,500 mg Furosemide (Lasix) 20 mg IVPUSH Q8H [facility] Last Admin: 07/23/18 07:42 Dose: 20 mg Gabapentin (Neurontin) 600 mg PO TID [facility] Last Admin: 07/23/18 08:09 Dose: 600 mg Mirtazapine (Remeron) 30 mg PO BEDTIME [facility] Last Admin: 07/22/18 21:24 Dose: 30 mg Olanzapine (Zyprexa) 15 mg PO DAILY [facility] Last Admin: 07/23/18 08:09 Dose: 15 mg Ondansetron HCl (Zofran Odt) 4 mg PO Q6H PRN PRN Reason: Nausea able to take PO Ondansetron HCl (Zofran) 4 mg IV Q6H PRN PRN Reason: Nausea/Vomiting Pantoprazole Sodium (Protonix) 40 mg PO ACBREAKFAST [facility] Last Admin: 07/23/18 07:41 Dose: 40 mg Polyethylene Glycol (Miralax) 17 gm PO DAILY [facility] Last Admin: 07/23/18 08:08 Dose: 17 gm Pramipexole Dihydrochloride (Mirapex) 1 mg PO BID [facility] Last Admin: 07/23/18 08:09 Dose: 1 mg Ranitidine HCl (Zantac) 150 mg PO BID [facility] Last Admin: 07/23/18 08:09 Dose: 150 mg Ropinirole HCl (Requip) 0.5 mg PO BID [facility] Last Admin: 07/23/18 08:09 Dose: 0.5 mg Fluticasone/Salmeterol (Fluticasone-Salmeterol 113-14 Mcg Powder Inh) 1 puff INH BIDRT [facility] Last Admin: 07/23/18 07:27 Dose: 1 puff Senna/Docusate Sodium (Senna Plus) 1 tab PO BID [facility] Last Admin: 07/23/18 08:08 Dose: 1 tab Simvastatin (Zocor) 20 mg PO BEDTIME [facility] Last Admin: 07/22/18 21:26 Dose: 20 mg Sodium Chloride (Saline Flush) 10 ml FLUSH ASDIRECTED PRN PRN Reason: Keep Vein Open Last Admin: 07/20/18 15:52 Dose: 10 ml Tamsulosin HCl (Flomax) 0.4 mg PO DAILY [facility] Last Admin: 07/23/18 08:14 Dose: 0.4 mg Discontinued Medications Acetaminophen (Tylenol) 650 mg PO Q4H PRN PRN Reason: Pain (Mild 1-3)/fever Hydrocodone Bitart/Acetaminophen ([place] 325-10 Mg) 1 tab PO Q4H PRN PRN Reason: Pain Last Admin: 07/23/18 07:53 Dose: 1 tab Albuterol (Proventil Neb Soln) 2.5 mg NEB ONETIME ONE Stop: 07/20/18 15:39 Last Admin: 07/20/18 16:09 Dose: 2.5 mg Furosemide (Lasix) 20 mg IVPUSH ONETIME ONE Stop: 07/20/18 15:49 Last Admin: 07/20/18 16:16 Dose: 20 mg Furosemide (Lasix) 20 mg IVPUSH ONETIME ONE Stop: 07/21/18 08:01 Last Admin: 07/21/18 08:16 Dose: 20 mg Furosemide (Lasix) 20 mg IVPUSH ONETIME [facility] Stop: 07/21/18 04:13 Last Admin: 07/21/18 04:40 Dose: 20 mg Furosemide (Lasix) 20 mg IVPUSH Q8H [facility] Stop: 07/22/18 08:01 Last Admin: 07/22/18 07:42 Dose: 20 mg Furosemide (Lasix) 20 mg IVPUSH Q8H [facility] Last Admin: 07/22/18 10:07 Dose: Not Given Sodium Chloride (Normal Saline) 1,000 mls @ 500 mls/hr IV ASDIRECTED [facility] Potassium Chloride/Sodium Chloride (Normal Saline With 40 Meq Kcl) 1,000 mls @ 500 mls/hr IV ASDIRECTED [facility] Stop: 07/20/18 18:00 Last Admin: 07/20/18 16:05 Dose: 500 mls/hr Potassium Chloride/Sodium Chloride (Normal Saline With 20 Meq Kcl) 1,000 mls @ 150 mls/hr IV ASDIRECTED [facility] Last Infusion: 07/21/18 04:38 Dose: 25 mls/hr Magnesium Sulfate 2 gm/ Premix 50 mls @ 12.5 mls/hr IV Q6H [facility] Stop: 07/21/18 11:59 Last Admin: 07/21/18 08:51 Dose: 12.5 mls/hr Potassium Chloride 20 meq/ (Premix) 100 mls @ 50 mls/hr IV ONETIME ONE Stop: 07/21/18 00:41 Last Admin: 07/21/18 00:36 Dose: 50 mls/hr Potassium Chloride/Sodium Chloride (Normal Saline With 20 Meq Kcl) 1,000 mls @ 100 mls/hr IV ASDIRECTED [facility] Last Admin: 07/22/18 02:10 Dose: 100 mls/hr Sodium Chloride (Normal Saline) 500 mls @ 500 mls/hr IV ASDIRECTED [facility] Stop: 07/22/18 10:16 Last Admin: 07/22/18 09:59 Dose: 500 mls/hr Potassium Chloride/Sodium Chloride (Normal Saline With 20 Meq Kcl) 1,000 mls @ 150 mls/hr IV ASDIRECTED [facility] Last Admin: 07/23/18 08:48 Dose: 150 mls/hr Lidocaine HCl (Xylocaine-Mpf 1%) 2 ml .XX ONETIME ONE Stop: 07/20/18 22:45 Last Admin: 07/21/18 00:36 Dose: 2 ml Potassium Chloride (Klor-Con M20) 20 meq PO ONETIME ONE Stop: 07/20/18 15:46 Last Admin: 07/20/18 16:07 Dose: 20 meq Potassium Chloride (Klor-Con M20) 20 meq PO ONETIME ONE Stop: 07/20/18 18:01 Last Admin: 07/20/18 18:18 Dose: 20 meq Potassium Chloride (Klor-Con M20) 40 meq PO ONETIME ONE Stop: 07/20/18 21:39 Last Admin: 07/20/18 21:56 Dose: 40 meq Potassium Chloride (Klor-Con M20) 40 meq PO TIDMEALS [facility] Last Admin: 07/22/18 07:41 Dose: 40 meq Potassium Chloride (Klor-Con M20) 40 meq PO ONETIME ONE Stop: 07/21/18 09:39 Last Admin: 07/21/18 10:18 Dose: 40 meq Potassium Chloride (Klor-Con M20) 40 meq PO BIDAC [facility] Last Admin: 07/23/18 07:54 Dose: 40 meq - Exam Quality Assessment: No: Supplemental Oxygen General: Alert, Oriented, Cooperative, No Acute Distress Lungs: Normal Respiratory Effort, Crackles (right lung base) Cardiovascular: Regular Rate, Regular Rhythm GI/Abdominal Exam: Soft, No Distention Extremities: Pedal Edema (bilateral ankle edema). No: Increased Warmth Skin: Warm, Dry Psy/Mental Status: Alert, Normal Affect - Problem List & Annotations (1) Rhabdomyolysis SNOMED Code(s): 063764819 Code(s): M62.82 - RHABDOMYOLYSIS Status: Acute Current Visit: Yes Qualifiers: Rhabdomyolysis type: traumatic Encounter type: initial encounter Qualified Code(s): T79.6XXA - Traumatic ischemia of muscle, initial encounter (2) Hypokalemia SNOMED Code(s): 11668223 Code(s): E87.6 - HYPOKALEMIA Status: Acute Current Visit: Yes (3) Severe chronic obstructive pulmonary disease SNOMED Code(s): 907304946 Code(s): J44.9 - CHRONIC OBSTRUCTIVE PULMONARY DISEASE, UNSPECIFIED Status : Chronic Current Visit: No (4) Parkinsons disease SNOMED Code(s): 17108924 Code(s): G20 - PARKINSON'S DISEASE Status: Chronic Current Visit: No - Problem List Review Problem List Initiated/Reviewed/Updated: Yes - My Orders Last 24 Hours: My Active Orders 07/22/18 16:00 Furosemide [Lasix] 20 mg IVPUSH Q8H 07/23/18 09:06 Acetaminophen/HYDROcodone [[place] 325-7.5 MG] 2 tab PO Q4H PRN 07/23/18 09:15 NS + KCl 20mEq/L [Normal Saline with 20 mEq KCl] 1,000 ml IV ASDIRECTED 07/24/18 05:00 BASIC METABOLIC PANEL,BMP [CHEM] Timed CREATINE KINASE,CK [CHEM] Timed 07/24/18 07:00 Echo Comp wo Cont [US] Routine - Plan Plan:: ASSESSMENT AND PLAN - Rhabdomyolysis - secondary to prolonged stay in his bed in the setting of 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 CK level has trended down over the past 48 hours but remains elevated. -Decrease IV fluids to 125 mL per hour -Furosemide every 8 hours -Freeman catheter for strict intake and output monitoring -Repeat CK level in the morning -Pressure reducing mattress Profound hypokalemia - potassium is now at the upper limits of normal. -Discontinue potassium supplements -Recheck potassium in the morning Major depression, acute, active - Secondary to loss of close friend several days ago. He is on antidepressants. Mood has been stable with no significant depression symptoms over the past couple of days. -Continue home medications and offer support as able Generalized weakness - significant weakness and unable to bear any weight at this time. At baseline he has some difficulty getting around but now after eating in bed for several days he is even more week. He is not interested in a [facility] but at this time he is far from being safe at home even with help. -Continue physical therapy -Encourage subacute rehabilitation Severe COPD - oxygen dependent with significant respiratory limitations. He did have some respiratory distress secondary to increased volume this morning but did respond well to furosemide. -Supplement oxygen, goal O2 sats 88-92% -Continue home medications -noninvasive ventilation as needed if condition declines Parkinson's disease - significant limitations at home due to this disease but these are stable. -Continue home medications Maintenance issues - - DVT prophylaxis - ALISON marionings - GI prophylaxis - PPI - Nutrition - low sodium - Freeman catheter - placed in the emergency room for strict intake and output monitoring and a critical patient, needs to remain in place with ongoing need for strict monitoring. Hopefully can be removed tomorrow Disposition - anticipate discharge home versus possibly the [facility] after the hospital stay. Storm Chadwick M.D.
[2018-07-23] MEDS: Acetaminophen/HYDROcodone 325-7.5 MG Tab PO PRN ×3 (12:50→20:03)
[2018-07-23] MEDS: Mirtazapine 15 MG Tab PO SCH (20:04)
[2018-07-23] MEDS: Divalproex Sodium Delayed-Release 250 MG Tab.CR PO SCH (20:04)
[2018-07-23] MEDS: Simvastatin 20 MG Tab PO SCH (20:06)
[2018-07-24] MEDS: NS + KCl 20mEq/L 1,000 ML IV SCH (01:46)
[2018-07-24] MEDS: Acetaminophen/HYDROcodone 325-7.5 MG Tab PO PRN ×2 (05:17→17:46)
[2018-07-24] MEDS: Fluticasone-Salmeterol 113-14 MCG Powder Inhalant INH SCH ×2 (07:04→20:29)
[2018-07-24] MEDS: Albuterol/Ipratropium 3.0-0.5 MG/3 ML Neb Soln INH SCH ×4 (07:04→20:29)
[2018-07-24] MEDS: Pantoprazole 40 MG Tab.CR PO SCH (07:26)
[2018-07-24] MEDS: Furosemide 20 MG/2 ML VIAL IVPUSH SCH (07:26)
[2018-07-24] MEDS: Gabapentin 300 MG Cap PO SCH ×3 (09:09→20:29)
[2018-07-24] MEDS: Pramipexole 0.5 MG Tab PO SCH ×2 (09:10→20:30)
[2018-07-24] MEDS: amLODIPine 5 MG Tab PO SCH (09:11)
[2018-07-24] MEDS: rOPINIRole 0.5 MG Tab PO SCH ×2 (09:13→20:30)
[2018-07-24] MEDS: Tamsulosin 0.4 MG Cap.ER PO SCH (09:14)
[2018-07-24] MEDS: Benztropine 1 MG Tab PO SCH (09:15)
[2018-07-24] MEDS: Citalopram 20 MG Tab PO SCH (09:15)
[2018-07-24] MEDS: Polyethylene Glycol 3350 Powder 17 GM Packet PO SCH (09:22)
[2018-07-24] MEDS: OLANZapine 5 MG Tab PO SCH (09:25)
[2018-07-24] MEDS ORDERED: Magnesium Hydroxide 400 MG/5 ML Susp 30 ML Cup PO PRN (10:20)
--- NOTE | 2018-07-24 10:27 | PCM.PN ---
- General Info Date of Service: 07/24/18 Subjective Update: Anshul has been stable over the last 24 hours, potassium level remains mildly elevated. Creatinine kinase level improved to 500, no evidence of active fluid overload at the present time. - Review of Systems General: Reports: Weakness. Denies: Fever, Chills Pulmonary: Reports: Shortness of Breath. Denies: Pleuritic Chest Pain, Cough, Sputum, Hemoptysis, Wheezing Cardiovascular: Reports: Dyspnea on Exertion. Denies: Chest Pain, Palpitations , Orthopnea, PND, Edema Gastrointestinal: Reports: No Symptoms - Patient Data Vitals - Most Recent: Last Vital Signs Temp 97.5 F 07/24/18 08:00 Pulse 64 07/24/18 08:00 Resp 17 07/24/18 08:00 BP 170/71 H 07/24/18 09:11 Pulse Ox 93 L 07/24/18 08:00 Weight - Most Recent: 275 lb 0.003 oz I&O - Last 24 Hours: Intake & Output 07/23/18 07/24/18 07/24/18 22:59 06:59 14:59 Intake Total 240 1960 Output Total 1600 2800 1850 Balance -1360 -840 -1850 Lab Results Last 24 Hours: Laboratory Results - last 24 hr 07/24/18 Range/Units 05:08 Sodium 135 L (140-148) mmol/L Potassium 5.4 H (3.6-5.2) mmol/L Chloride 97 L (100-108) mmol/L Carbon Dioxide 37 H (21-32) mmol/L Anion Gap 6.4 (5.0-14.0) mmol/L BUN 20 H (7-18) mg/dL Creatinine 0.9 (0.8-1.3) mg/dL Est Cr Clr Drug Dosing 89.71 mL/min Estimated GFR (MDRD) > 60 (>60) Glucose 137 H (74-106) mg/dL Calcium 9.2 (8.5-10.1) mg/dL Creatine Kinase 533 H (39-308) U/L Med Orders - Current: Current Medications Hydrocodone Bitart/Acetaminophen (Climax 325-7.5 Mg) 2 tab PO Q4H PRN PRN Reason: Pain Last Admin: 07/24/18 05:17 Dose: 2 tab Albuterol (Proventil Neb Soln) 2.5 mg NEB Q4H PRN PRN Reason: Shortness Of Breath/wheezing Last Admin: 07/21/18 03:59 Dose: 2.5 mg Albuterol/Ipratropium (Duoneb 3.0-0.5 Mg/3 Ml) 3 ml INH QIDRT [facility] Last Admin: 07/24/18 07:04 Dose: 3 ml Amlodipine Besylate (Norvasc) 7.5 mg PO DAILY [facility] Last Admin: 07/24/18 09:11 Dose: 7.5 mg Benztropine Mesylate (Cogentin) 0.5 mg PO DAILY [facility] Last Admin: 07/24/18 09:15 Dose: 0.5 mg Citalopram Hydrobromide (Celexa) 20 mg PO DAILY [facility] Last Admin: 07/24/18 09:15 Dose: 20 mg Divalproex Sodium (Divalproex Sodium) 1,500 mg PO BEDTIME [facility] Last Admin: 07/23/18 20:04 Dose: 1,500 mg Furosemide (Lasix) 40 mg PO DAILY [facility] Gabapentin (Neurontin) 600 mg PO TID [facility] Last Admin: 07/24/18 09:09 Dose: 600 mg Magnesium Hydroxide (Milk Of Magnesia) 30 ml PO Q4H PRN PRN Reason: Constipation Mirtazapine (Remeron) 30 mg PO BEDTIME [facility] Last Admin: 07/23/18 20:04 Dose: 30 mg Olanzapine (Zyprexa) 15 mg PO DAILY [facility] Last Admin: 07/24/18 09:25 Dose: 15 mg Ondansetron HCl (Zofran Odt) 4 mg PO Q6H PRN PRN Reason: Nausea able to take PO Ondansetron HCl (Zofran) 4 mg IV Q6H PRN PRN Reason: Nausea/Vomiting Pantoprazole Sodium (Protonix) 40 mg PO ACBREAKFAST [facility] Last Admin: 07/24/18 07:26 Dose: 40 mg Polyethylene Glycol (Miralax) 17 gm PO DAILY [facility] Last Admin: 07/24/18 09:22 Dose: 17 gm Pramipexole Dihydrochloride (Mirapex) 1 mg PO BID [facility] Last Admin: 07/24/18 09:10 Dose: 1 mg Ranitidine HCl (Zantac) 150 mg PO BID [facility] Last Admin: 07/24/18 09:16 Dose: 150 mg Ropinirole HCl (Requip) 0.5 mg PO BID [facility] Last Admin: 07/24/18 09:13 Dose: 0.5 mg Fluticasone/Salmeterol (Fluticasone-Salmeterol 113-14 Mcg Powder Inh) 1 puff INH BIDRT [facility] Last Admin: 07/24/18 07:04 Dose: 1 puff Senna/Docusate Sodium (Senna Plus) 1 tab PO BID [facility] Last Admin: 07/24/18 09:14 Dose: 1 tab Simvastatin (Zocor) 20 mg PO BEDTIME [facility] Last Admin: 07/23/18 20:06 Dose: 20 mg Sodium Chloride (Saline Flush) 10 ml FLUSH ASDIRECTED PRN PRN Reason: Keep Vein Open Last Admin: 07/20/18 15:52 Dose: 10 ml Tamsulosin HCl (Flomax) 0.4 mg PO DAILY [facility] Last Admin: 07/24/18 09:14 Dose: 0.4 mg Discontinued Medications Acetaminophen (Tylenol) 650 mg PO Q4H PRN PRN Reason: Pain (Mild 1-3)/fever Hydrocodone Bitart/Acetaminophen (Climax 325-10 Mg) 1 tab PO Q4H PRN PRN Reason: Pain Last Admin: 07/23/18 07:53 Dose: 1 tab Albuterol (Proventil Neb Soln) 2.5 mg NEB ONETIME ONE Stop: 07/20/18 15:39 Last Admin: 07/20/18 16:09 Dose: 2.5 mg Furosemide (Lasix) 20 mg IVPUSH ONETIME ONE Stop: 07/20/18 15:49 Last Admin: 07/20/18 16:16 Dose: 20 mg Furosemide (Lasix) 20 mg IVPUSH ONETIME ONE Stop: 07/21/18 08:01 Last Admin: 07/21/18 08:16 Dose: 20 mg Furosemide (Lasix) 20 mg IVPUSH ONETIME STA Stop: 07/21/18 04:13 Last Admin: 07/21/18 04:40 Dose: 20 mg Furosemide (Lasix) 20 mg IVPUSH Q8H [facility] Stop: 07/22/18 08:01 Last Admin: 07/22/18 07:42 Dose: 20 mg Furosemide (Lasix) 20 mg IVPUSH Q8H [facility] Last Admin: 07/22/18 10:07 Dose: Not Given Furosemide (Lasix) 20 mg IVPUSH Q8H [facility] Last Admin: 07/24/18 07:26 Dose: 20 mg Sodium Chloride (Normal Saline) 1,000 mls @ 500 mls/hr IV ASDIRECTED [facility] Potassium Chloride/Sodium Chloride (Normal Saline With 40 Meq Kcl) 1,000 mls @ 500 mls/hr IV ASDIRECTED [facility] Stop: 07/20/18 18:00 Last Admin: 07/20/18 16:05 Dose: 500 mls/hr Potassium Chloride/Sodium Chloride (Normal Saline With 20 Meq Kcl) 1,000 mls @ 150 mls/hr IV ASDIRECTED [facility] Last Infusion: 07/21/18 04:38 Dose: 25 mls/hr Magnesium Sulfate 2 gm/ Premix 50 mls @ 12.5 mls/hr IV Q6H [facility] Stop: 07/21/18 11:59 Last Admin: 07/21/18 08:51 Dose: 12.5 mls/hr Potassium Chloride 20 meq/ (Premix) 100 mls @ 50 mls/hr IV ONETIME ONE Stop: 07/21/18 00:41 Last Admin: 07/21/18 00:36 Dose: 50 mls/hr Potassium Chloride/Sodium Chloride (Normal Saline With 20 Meq Kcl) 1,000 mls @ 100 mls/hr IV ASDIRECTED [facility] Last Admin: 07/22/18 02:10 Dose: 100 mls/hr Sodium Chloride (Normal Saline) 500 mls @ 500 mls/hr IV ASDIRECTED [facility] Stop: 07/22/18 10:16 Last Admin: 07/22/18 09:59 Dose: 500 mls/hr Potassium Chloride/Sodium Chloride (Normal Saline With 20 Meq Kcl) 1,000 mls @ 150 mls/hr IV ASDIRECTED [facility] Last Admin: 07/23/18 08:48 Dose: 150 mls/hr Potassium Chloride/Sodium Chloride (Normal Saline With 20 Meq Kcl) 1,000 mls @ 125 mls/hr IV ASDIRECTED [facility] Last Admin: 07/24/18 01:46 Dose: 125 mls/hr Lidocaine HCl (Xylocaine-Mpf 1%) 2 ml .XX ONETIME ONE Stop: 07/20/18 22:45 Last Admin: 07/21/18 00:36 Dose: 2 ml Potassium Chloride (Klor-Con M20) 20 meq PO ONETIME ONE Stop: 07/20/18 15:46 Last Admin: 07/20/18 16:07 Dose: 20 meq Potassium Chloride (Klor-Con M20) 20 meq PO ONETIME ONE Stop: 07/20/18 18:01 Last Admin: 07/20/18 18:18 Dose: 20 meq Potassium Chloride (Klor-Con M20) 40 meq PO ONETIME ONE Stop: 07/20/18 21:39 Last Admin: 07/20/18 21:56 Dose: 40 meq Potassium Chloride (Klor-Con M20) 40 meq PO TIDMEALS [facility] Last Admin: 07/22/18 07:41 Dose: 40 meq Potassium Chloride (Klor-Con M20) 40 meq PO ONETIME ONE Stop: 07/21/18 09:39 Last Admin: 07/21/18 10:18 Dose: 40 meq Potassium Chloride (Klor-Con M20) 40 meq PO BIDAC [facility] Last Admin: 07/23/18 07:54 Dose: 40 meq - Exam Quality Assessment: Supplemental Oxygen, DVT Prophylaxis General: Alert, Oriented, Cooperative, No Acute Distress Lungs: Decreased Breath Sounds. No: Rales, Rhonchi, Rub, Wheezing Cardiovascular: Regular Rate, Regular Rhythm, No Murmurs GI/Abdominal Exam: Soft, Non-Tender, No Organomegaly, No Distention Extremities: Non-Tender, No Pedal Edema - Problem List Review Problem List Initiated/Reviewed/Updated: Yes - My Orders Last 24 Hours: My Active Orders 07/24/18 10:20 Magnesium Hydroxide [Milk of Magnesia] 30 ml PO Q4H PRN 07/24/18 10:21 Patient Status [ADT] Routine 07/24/18 17:00 POTASSIUM,K [CHEM] Stat 07/25/18 05:00 BASIC METABOLIC PANEL,BMP [CHEM] Timed CREATINE KINASE,CK [CHEM] Timed 07/25/18 09:00 Furosemide [Lasix] 40 mg PO DAILY - Plan Plan:: ASSESSMENT AND PLAN - Rhabdomyolysis - secondary to falls and lying on the floor for extended period of time, CK significantly improved today -Saline lock IV -Resume oral furosemide tomorrow -Remove Freeman catheter -Repeat CK level in the morning -Pressure reducing mattress Profound hypokalemia - potassium is now elevated -Discontinue potassium supplements -Recheck potassium in the morning and later this afternoon Major depression, acute, active - Secondary to loss of close friend several days ago. He is on antidepressants. Mood has been stable with no significant depression symptoms over the past couple of days. -Continue home medications and offer support as able Generalized weakness - significant weakness and unable to bear any weight at this time. At baseline he has some difficulty getting around but now after eating in bed for several days he is even more week. He is not interested in a detention but at this time he is far from being safe at home even with help. -Continue physical therapy -Plan for detention placement Severe COPD - oxygen dependent with significant respiratory limitations. He did have some respiratory distress secondary to increased volume this morning but did respond well to furosemide. -Supplement oxygen, goal O2 sats 88-92% -Continue home medications -noninvasive ventilation as needed if condition declines Parkinson's disease - significant limitations at home due to this disease but these are stable. -Continue home medications Maintenance issues - - DVT prophylaxis - ALISON stockings - GI prophylaxis - PPI - Nutrition - low sodium - Freeman catheter - removed today Disposition - anticipate discharge to detention tomorrow
[2018-07-24] MEDS ORDERED: Furosemide 40 MG/4 ML VIAL IVPUSH ONE (10:52)
[2018-07-24] MEDS ORDERED: Furosemide 40 MG/4 ML VIAL ONE (10:56)
[2018-07-24] MEDS: Divalproex Sodium Delayed-Release 250 MG Tab.CR PO SCH (20:29)
[2018-07-24] MEDS: Mirtazapine 15 MG Tab PO SCH (20:29)
[2018-07-24] MEDS: Simvastatin 20 MG Tab PO SCH (20:31)
[2018-07-25] MEDS: Fluticasone-Salmeterol 113-14 MCG Powder Inhalant INH SCH (07:04)
[2018-07-25] MEDS: Albuterol/Ipratropium 3.0-0.5 MG/3 ML Neb Soln INH SCH (07:04)
[2018-07-25] MEDS: Pantoprazole 40 MG Tab.CR PO SCH (07:57)
[2018-07-25] MEDS: Polyethylene Glycol 3350 Powder 17 GM Packet PO SCH (08:01)
[2018-07-25] MEDS: OLANZapine 5 MG Tab PO SCH (08:01)
[2018-07-25] MEDS: Pramipexole 0.5 MG Tab PO SCH (08:02)
[2018-07-25] MEDS: Citalopram 20 MG Tab PO SCH (08:02)
[2018-07-25] MEDS: amLODIPine 5 MG Tab PO SCH (08:02)
[2018-07-25] MEDS: Benztropine 1 MG Tab PO SCH (08:03)
[2018-07-25] MEDS: Tamsulosin 0.4 MG Cap.ER PO SCH (08:03)
[2018-07-25] MEDS: Gabapentin 300 MG Cap PO SCH (08:03)
[2018-07-25 08:04] VITALS: BP 122/74
[2018-07-25] MEDS: rOPINIRole 0.5 MG Tab PO SCH (08:04)
[2018-07-25] MEDS ORDERED: Furosemide 40 MG Tab PO SCH (09:00)
--- NOTE | 2018-07-25 09:06 | PCM.DCSUM1 ---
Discharge Summary - Hospital Course Brief History: Anshul is a 73-year-old gentleman who was admitted through the emergency department with weakness and dehydration secondary to recent falls and underlying rhabdomyolysis. - Discharge Data Discharge Date: 07/25/18 Discharge Disposition: DC/Tfer to SNF 03 Condition: Fair - Discharge Diagnosis/Problem(s) (1) Fluid overload SNOMED Code(s): 38774003 ICD Code: E87.70 - FLUID OVERLOAD, UNSPECIFIED Status: Acute Current Visit: Yes (2) Rhabdomyolysis SNOMED Code(s): 418530417 ICD Code: M62.82 - RHABDOMYOLYSIS Status: Acute Current Visit: Yes Qualifiers: Rhabdomyolysis type: traumatic Encounter type: initial encounter Qualified Code(s): T79.6XXA - Traumatic ischemia of muscle, initial encounter (3) Chronic renal failure, stage 2 (mild) SNOMED Code(s): 480058209 ICD Code: N18.2 - CHRONIC KIDNEY DISEASE, STAGE 2 (MILD) Status: Chronic Current Visit: No (4) Severe chronic obstructive pulmonary disease SNOMED Code(s): 993463276 ICD Code: J44.9 - CHRONIC OBSTRUCTIVE PULMONARY DISEASE, UNSPECIFIED Status : Chronic Current Visit: No (5) Parkinsons disease SNOMED Code(s): 56478409 ICD Code: G20 - PARKINSON'S DISEASE Status: Chronic Current Visit: No - Patient Summary/Data Consults: Consultations 07/21/18 13:23 PT Evaluation and Treatment [CONS] Routine Please Evaluate and Treat. PT Reason for Consult: Strengthening This query below is only for informational purposes and is not editable. Admission Diagnosis/Problem: Rhabdomyolysis Hospital Course: Sami presented to the emergency room with worsening shortness of breath. He reports that his best friend 2 days ago and he went into a depression. He is become progressively more weak and had fallen a few times over the past few days lying on the floor for an extended period of time prior to coming into the hospital. He has not been taking his medications. He has a fair amount of shortness of breath at baseline but is now short of breath even at rest. He doesn't think his lower extremity edema is any worse than usual. He has been coughing but he usually has a cough. No significant change in sputum. He has not had any fevers or chills. He does note increasing generalized back pain which he describes as a mild to moderate ache. This is worse with moving around and better when he lays still up to a point. If he lays too long than the pain worsens and he needs to reposition. No change in bowel or bladder habits. Workup in the emergency room revealed significant hypokalemia with potassium of 2.4 and a CK level greater than 3000. Arterial blood gases showed a normal pH and a PCO2 of nearly 60 likely this is his baseline. He will be admitted to the hospital for management of rhabdomyolysis and hypokalemia. On admission he was given IV fluids for management of his rhabdomyolysis. Over the next few days his CK level did slowly improve and by the time of discharge was within normal range. IV fluids used for management of his rhabdomyolysis did cause intermittent episodes of fluid overload with increased shortness of breath. These episodes responded well to IV diuretic therapy. By the time of discharge he was back on his oral diuretics and stable as far as his fluid status. Renal function remained stable and potassium level corrected. Potassium level did increase to above normal range transiently but was normal by the morning of discharge. He is extremely weak and unable to transfer without the use of a left. His b2b sales consultant at home feels that he is not able to care for him in his present condition and his home care nurses also recommended fdc placement for restorative physical therapy and occupational therapy. Activity will be as tolerated and he will be on a low-sodium diet. Follow-up at the fdc will be as needed. - Patient Instructions Diet: Low Sodium Activity: As Tolerated Other/Special Instructions: Daily physical therapy and occupational therapy while at the fdc. Use home C Pap at night and while sleeping during the day. - Discharge Plan *PRESCRIPTION DRUG MONITORING PROGRAM REVIEWED*: Not Applicable *COPY OF PRESCRIPTION DRUG MONITORING REPORT IN PATIENT MARI: Not Applicable Home Medications: Home Meds Benztropine [Cogentin] 0.5 mg PO DAILY 01/24/13 [History] Citalopram Hydrobromide [Celexa] 20 mg PO DAILY 01/24/13 [History] Divalproex Sodium [Depakote] 1,500 mg PO BEDTIME 01/24/13 [History] Docusate Sodium [Colace] 100 mg PO DAILY 01/24/13 [History] Furosemide [Lasix] 40 mg PO DAILY 01/24/13 [History] Gabapentin [Neurontin] 600 mg PO TID 01/24/13 [History] Mirtazapine [Remeron] 30 mg PO BEDTIME 01/24/13 [History] OLANZapine [ZyPREXA] 15 mg PO DAILY 01/24/13 [History] Omeprazole [Prilosec] 40 mg PO DAILY 01/24/13 [History] Simvastatin [Zocor] 20 mg PO BEDTIME 01/24/13 [History] Ferrous Gluconate 324 mg PO BID 09/05/13 [History] Ipratropium/Albuterol Sulfate [Duoneb 0.5 mg-3 mg/3 ml Soln] 3 ml IH Q4H PRN [History] Ranitidine [Zantac] 150 mg PO BID 10/08/15 [History] Fluticasone/Salmeterol [Advair 250-50] 1 puff INH Q12HR 04/17/18 [History] Tamsulosin HCl [Flomax] 0.4 mg PO DAILY 04/17/18 [History] EPINEPHrine [Epipen 2-Richard] 0.3 mg IJ ONETIME PRN #2 ml 04/24/18 [Rx] Acetaminophen [Tylenol Extra Strength] 500 mg PO Q6HR PRN 06/23/18 [History] Hydrocodone/Acetaminophen [Kismet 10-325 Tablet] 1 each PO Q6H PRN 06/23/18 [ History] Polyethylene Glycol 3350 [MiraLAX] 17 gm PO DAILY 06/23/18 [History] Pramipexole Di-HCl [Mirapex] 1 mg PO BID 06/23/18 [History] amLODIPine Besylate [Norvasc] 7.5 mg PO DAILY 06/23/18 [History] hydroCHLOROthiazide [Hydrochlorothiazide] 25 mg PO DAILY 06/23/18 [History] rOPINIRole HCl [Requip] 0.5 mg PO BID 06/23/18 [History] Patient Handouts: Rhabdomyolysis, Chronic Obstructive Pulmonary Disease, Easy- to-Read - Discharge Summary/Plan Comment DC Time >30 min.: No - Patient Data Vitals - Most Recent: Last Vital Signs Temp 96.8 F 07/25/18 08:00 Pulse 85 07/25/18 08:00 Resp 20 07/25/18 08:00 BP 122/74 07/25/18 08:02 Pulse Ox 91 L 07/25/18 08:00 Weight - Most Recent: 275 lb 0.003 oz I&O - Last 24 hours: Intake & Output 07/24/18 07/25/18 07/25/18 22:59 06:59 14:59 Intake Total 420 Output Total 1600 150 Balance -1180 -150 Lab Results - Last 24 hrs: Laboratory Results - last 24 hr 07/24/18 07/25/18 Range/Units 17:01 04:50 Sodium 136 L (140-148) mmol/L Potassium 4.8 5.1 (3.6-5.2) mmol/L Chloride 98 L (100-108) mmol/L Carbon Dioxide 38 H (21-32) mmol/L Anion Gap 5.1 (5.0-14.0) mmol/L BUN 21 H (7-18) mg/dL Creatinine 0.9 (0.8-1.3) mg/dL Est Cr Clr Drug Dosing 89.71 mL/min Estimated GFR (MDRD) > 60 (>60) Glucose 144 H (74-106) mg/dL Calcium 9.1 (8.5-10.1) mg/dL Creatine Kinase 245 (39-308) U/L Med Orders - Current: Current Medications Hydrocodone Bitart/Acetaminophen (Kismet 325-7.5 Mg) 2 tab PO Q4H PRN PRN Reason: Pain Last Admin: 07/24/18 17:46 Dose: 2 tab Albuterol (Proventil Neb Soln) 2.5 mg NEB Q4H PRN PRN Reason: Shortness Of Breath/wheezing Last Admin: 07/21/18 03:59 Dose: 2.5 mg Albuterol/Ipratropium (Duoneb 3.0-0.5 Mg/3 Ml) 3 ml INH QIDRT [facility] Last Admin: 07/25/18 07:04 Dose: 3 ml Amlodipine Besylate (Norvasc) 7.5 mg PO DAILY [facility] Last Admin: 07/25/18 08:02 Dose: 7.5 mg Benztropine Mesylate (Cogentin) 0.5 mg PO DAILY [facility] Last Admin: 07/25/18 08:03 Dose: 0.5 mg Citalopram Hydrobromide (Celexa) 20 mg PO DAILY [facility] Last Admin: 07/25/18 08:02 Dose: 20 mg Divalproex Sodium (Divalproex Sodium) 1,500 mg PO BEDTIME [facility] Last Admin: 07/24/18 20:29 Dose: 1,500 mg Furosemide (Lasix) 40 mg PO DAILY [facility] Last Admin: 07/25/18 08:04 Dose: 40 mg Gabapentin (Neurontin) 600 mg PO TID [facility] Last Admin: 07/25/18 08:03 Dose: 600 mg Magnesium Hydroxide (Milk Of Magnesia) 30 ml PO Q4H PRN PRN Reason: Constipation Last Admin: 07/24/18 15:25 Dose: 30 ml Mirtazapine (Remeron) 30 mg PO BEDTIME [facility] Last Admin: 07/24/18 20:29 Dose: 30 mg Olanzapine (Zyprexa) 15 mg PO DAILY [facility] Last Admin: 07/25/18 08:01 Dose: 15 mg Ondansetron HCl (Zofran Odt) 4 mg PO Q6H PRN PRN Reason: Nausea able to take PO Ondansetron HCl (Zofran) 4 mg IV Q6H PRN PRN Reason: Nausea/Vomiting Pantoprazole Sodium (Protonix) 40 mg PO ACBREAKFAST REPLACED [facility] Last Admin: 07/25/18 07:57 Dose: 40 mg Polyethylene Glycol (Miralax) 17 gm PO DAILY [facility] Last Admin: 07/25/18 08:01 Dose: 17 gm Pramipexole Dihydrochloride (Mirapex) 1 mg PO BID [facility] Last Admin: 07/25/18 08:02 Dose: 1 mg Ranitidine HCl (Zantac) 150 mg PO BID [facility] Last Admin: 07/25/18 08:03 Dose: 150 mg Ropinirole HCl (Requip) 0.5 mg PO BID [facility] Last Admin: 07/25/18 08:04 Dose: 0.5 mg Fluticasone/Salmeterol (Fluticasone-Salmeterol 113-14 Mcg Powder Inh) 1 puff INH BIDRT [facility]PLACED [facility] Last Admin: 07/25/18 07:04 Dose: 1 puff Senna/Docusate Sodium (Senna Plus) 1 tab PO BID [facility] Last Admin: 07/25/18 08:03 Dose: 1 tab Simvastatin (Zocor) 20 mg PO BEDTIME [facility]PL[facility] Last Admin: 07/24/18 20:31 Dose: 20 mg Sodium Chloride (Saline Flush) 10 ml FLUSH ASDIRECTED PRN PRN Reason: Keep Vein Open Last Admin: 07/20/18 15:52 Dose: 10 ml Tamsulosin HCl (Flomax) 0.4 mg PO DAILY [facility] Last Admin: 07/25/18 08:03 Dose: 0.4 mg Discontinued Medications Acetaminophen (Tylenol) 650 mg PO Q4H PRN PRN Reason: Pain (Mild 1-3)/fever Hydrocodone Bitart/Acetaminophen (Kismet 325-10 Mg) 1 tab PO Q4H PRN PRN Reason: Pain Last Admin: 07/23/18 07:53 Dose: 1 tab Albuterol (Proventil Neb Soln) 2.5 mg NEB ONETIME ONE Stop: 07/20/18 15:39 Last Admin: 07/20/18 16:09 Dose: 2.5 mg Furosemide (Lasix) 20 mg IVPUSH ONETIME ONE Stop: 07/20/18 15:49 Last Admin: 07/20/18 16:16 Dose: 20 mg Furosemide (Lasix) 20 mg IVPUSH ONETIME ONE Stop: 07/21/18 08:01 Last Admin: 07/21/18 08:16 Dose: 20 mg Furosemide (Lasix) 20 mg IVPUSH ONETIME [facility] Stop: 07/21/18 04:13 Last Admin: 07/21/18 04:40 Dose: 20 mg Furosemide (Lasix) 20 mg IVPUSH Q8H [facility] Stop: 07/22/18 08:01 Last Admin: 07/22/18 07:42 Dose: 20 mg Furosemide (Lasix) 20 mg IVPUSH Q8H [facility] Last Admin: 07/22/18 10:07 Dose: Not Given Furosemide (Lasix) 20 mg IVPUSH Q8H REPLACED BY [facility] Last Admin: 07/24/18 07:26 Dose: 20 mg Furosemide (Lasix) 40 mg IVPUSH ONETIME ONE Stop: 07/24/18 10:53 Last Admin: 07/24/18 10:25 Dose: 40 mg Furosemide (Lasix) Confirm Administered Dose 40 mg .ROUTE .STK-MED ONE Stop: 07/24/18 10:57 Last Admin: 07/24/18 11:41 Dose: Not Given Sodium Chloride (Normal Saline) 1,000 mls @ 500 mls/hr IV ASDIRECTED [facility] Potassium Chloride/Sodium Chloride (Normal Saline With 40 Meq Kcl) 1,000 mls @ 500 mls/hr IV ASDIRECTED [facility] Stop: 07/20/18 18:00 Last Admin: 07/20/18 16:05 Dose: 500 mls/hr Potassium Chloride/Sodium Chloride (Normal Saline With 20 Meq Kcl) 1,000 mls @ 150 mls/hr IV ASDIRECTED [facility] Last Infusion: 07/21/18 04:38 Dose: 25 mls/hr Magnesium Sulfate 2 gm/ Premix 50 mls @ 12.5 mls/hr IV Q6H [facility] Stop: 07/21/18 11:59 Last Admin: 07/21/18 08:51 Dose: 12.5 mls/hr Potassium Chloride 20 meq/ (Premix) 100 mls @ 50 mls/hr IV ONETIME ONE Stop: 07/21/18 00:41 Last Admin: 07/21/18 00:36 Dose: 50 mls/hr Potassium Chloride/Sodium Chloride (Normal Saline With 20 Meq Kcl) 1,000 mls @ 100 mls/hr IV ASDIRECTED [facility] Last Admin: 07/22/18 02:10 Dose: 100 mls/hr Sodium Chloride (Normal Saline) 500 mls @ 500 mls/hr IV ASDIRECTED [facility] Stop: 07/22/18 10:16 Last Admin: 07/22/18 09:59 Dose: 500 mls/hr Potassium Chloride/Sodium Chloride (Normal Saline With 20 Meq Kcl) 1,000 mls @ 150 mls/hr IV ASDIRECTED [facility] Last Admin: 07/23/18 08:48 Dose: 150 mls/hr Potassium Chloride/Sodium Chloride (Normal Saline With 20 Meq Kcl) 1,000 mls @ 125 mls/hr IV ASDIRECTED [facility] Last Admin: 07/24/18 01:46 Dose: 125 mls/hr Lidocaine HCl (Xylocaine-Mpf 1%) 2 ml .XX ONETIME ONE Stop: 07/20/18 22:45 Last Admin: 07/21/18 00:36 Dose: 2 ml Potassium Chloride (Klor-Con M20) 20 meq PO ONETIME ONE Stop: 07/20/18 15:46 Last Admin: 07/20/18 16:07 Dose: 20 meq Potassium Chloride (Klor-Con M20) 20 meq PO ONETIME ONE Stop: 07/20/18 18:01 Last Admin: 07/20/18 18:18 Dose: 20 meq Potassium Chloride (Klor-Con M20) 40 meq PO ONETIME ONE Stop: 07/20/18 21:39 Last Admin: 07/20/18 21:56 Dose: 40 meq Potassium Chloride (Klor-Con M20) 40 meq PO TIDMEALS REPLACED BY [facility] Last Admin: 07/22/18 07:41 Dose: 40 meq Potassium Chloride (Klor-Con M20) 40 meq PO ONETIME ONE Stop: 07/21/18 09:39 Last Admin: 07/21/18 10:18 Dose: 40 meq Potassium Chloride (Klor-Con M20) 40 meq PO BIDAC REPLACED BY [facility] Last Admin: 07/23/18 07:54 Dose: 40 meq - Exam Quality Assessment: Reports: Supplemental Oxygen, DVT Prophylaxis General: Reports: Alert, Oriented, Cooperative, No Acute Distress Lungs: Reports: Decreased Breath Sounds, Wheezing. Denies: Crackles, Rales, Rhonchi, Rub Cardiovascular: Reports: Regular Rate, Regular Rhythm, No Murmurs GI/Abdominal Exam: Soft, Non-Tender, No Organomegaly, No Distention Extremities: Non-Tender, No Pedal Edema
[2018-07-25] MEDS: Acetaminophen/HYDROcodone 325-7.5 MG Tab PO PRN (09:40)
== END 2018-07-25 10:03 | DRG 565 ==
LOC: JP.ED 14:53 → JP.ICU 16:28
PROVIDERS: ADMIT Internal Medicine; ATTEND Hospitalist
DX: T79.6XXA Traumatic ischemia of muscle, initial encounter (principal); I13.0 Hypertensive heart and chronic kidney disease with heart failure and stage 1 through stage 4 chronic kidney disease, or unspecified chronic kidney disease; W19.XXXA Unspecified fall, initial encounter; E87.6 Hypokalemia; I50.9 Heart failure, unspecified; N18.2 Chronic kidney disease, stage 2 (mild); J44.9 Chronic obstructive pulmonary disease, unspecified; G20 Parkinson's disease; Z99.81 Dependence on supplemental oxygen; E83.42 Hypomagnesemia; F43.21 Adjustment disorder with depressed mood; Z87.891 Personal history of nicotine dependence; E86.0 Dehydration; R06.02 Shortness of breath; R41.82 Altered mental status, unspecified; E87.70 Fluid overload, unspecified; R29.6 Repeated falls; M54.9 Dorsalgia, unspecified; Z85.038 Personal history of other malignant neoplasm of large intestine; Z85.528 Personal history of other malignant neoplasm of kidney; Z93.3 Colostomy status; N42.9 Disorder of prostate, unspecified; Z90.5 Acquired absence of kidney; Z87.01 Personal history of pneumonia (recurrent); H91.90 Unspecified hearing loss, unspecified ear; Z90.49 Acquired absence of other specified parts of digestive tract; Z88.5 Allergy status to narcotic agent; Z96.649 Presence of unspecified artificial hip joint; Z96.659 Presence of unspecified artificial knee joint
CPT/HCPCS: 36415; 36600; 71045; 80053; 82550; 82803; 83880; 84443; 84484; 85025; 93005; 93010; 94640; 96361; 96374; 99285; A9270; J1940; J3480; 51702; 80048; 80305-QW; 81001; 83735; 84132; 85027; 93306; 94660; 94762; 97110-GP; 97161-GP; 97530-GP; 99284; J2001; J3475; J7030; J7620-GY

== ENCOUNTER 2018-09-23 18:28 | Inpatient (IN) | payer MEDICARE, MEDICAID ==
[2018-09-23] MEDS ORDERED: Sodium Chloride 0.9% 10 ML Syringe FLUSH PRN ×2 (18:31→21:12)
--- NOTE | 2018-09-23 18:54 | EDM.PDOC ---
ED HPI GENERAL MEDICAL PROBLEM - General Chief Complaint: General Stated Complaint: [facility] Time Seen by Provider: 09/23/18 18:35 Source of Information: Reports: Patient, EMS, Old Records History Limitations: Reports: No Limitations - History of Present Illness INITIAL COMMENTS - FREE TEXT/NARRATIVE: 73 yo male checked himself out of a local [facility] about a week ago and started getting progressively more weak immediately. He also mentions more SOB which is otherwise chronic. No fever or pain. His legs won't support him anymore. Fell yesterday and has some lower left anterior chest bruising that he says doesn't hurt. He is on home oxygen at 2.5 liters/min. He says he saw his primary Dr. Veras about the time of his [facility] departure and had blood work. He got a call back from him later saying he should go to the ER and have a glucose and potassium check but he did not do this. He does not know why he was told to come to the ER. EMS mentioned when they dropped patient off in the ER today that Anshul's stools were dark. Onset: Gradual Onset Date: 09/16/18 Duration: Week(s): (1), Getting Worse Location: Reports: Generalized Quality: Reports: Other (no pain) Severity: Moderate Improves with: Reports: None Worsens with: Reports: Other (time at home.) Context: Reports: Other (See HPI, likely non-compliant with medical regimen. ) Associated Symptoms: Reports: Shortness of Breath (exacerbation of chronic), Weakness. Denies: Diaphoresis, Nausea/Vomiting Treatments MICROELECTRONICS TECHNICIAN: Reports: Other (see below) (none) Back Pain Score (Numeric/FACES): 8 - Related Data Allergies Allergy/AdvReac Type Severity Reaction Status Date / Time acetaminophen [From Tylenol] Allergy Rash Verified 09/23/18 18:49 codeine Allergy Nausea and Verified 09/23/18 18:49 Vomiting piperacillin [From Zosyn] Allergy Anaphylactic Verified 09/23/18 18:49 Shock tazobactam [From Zosyn] Allergy Anaphylactic Verified 09/23/18 18:49 Shock hydromorphone [From Dilaudid] AdvReac Vomiting Verified 09/23/18 18:37 Home Meds: Home Meds Citalopram Hydrobromide [Celexa] 20 mg PO DAILY 01/24/13 [History] Divalproex Sodium [Depakote] 1,500 mg PO BEDTIME 01/24/13 [History] Furosemide [Lasix] 40 mg PO DAILY 01/24/13 [History] Gabapentin [Neurontin] 600 mg PO TID 01/24/13 [History] OLANZapine [ZyPREXA] 15 mg PO DAILY 01/24/13 [History] Omeprazole [Prilosec] 40 mg PO DAILY 01/24/13 [History] Simvastatin [Zocor] 20 mg PO BEDTIME 01/24/13 [History] Ferrous Gluconate 324 mg PO BID 09/05/13 [History] Ipratropium/Albuterol Sulfate [Duoneb 0.5 mg-3 mg/3 ml Soln] 3 ml IH Q4H PRN [History] Ranitidine [Zantac] 150 mg PO BID 10/08/15 [History] Fluticasone/Salmeterol [Advair 250-50] 1 puff INH Q12HR 04/17/18 [History] Tamsulosin HCl [Flomax] 0.4 mg PO DAILY 04/17/18 [History] EPINEPHrine [Epipen 2-Richard] 0.3 mg IJ ONETIME PRN #2 ml 04/24/18 [Rx] Acetaminophen [Tylenol Extra Strength] 500 mg PO Q6HR PRN 06/23/18 [History] Hydrocodone/Acetaminophen [[place] 10-325 Tablet] 1 each PO Q6H PRN 06/23/18 [ History] Polyethylene Glycol 3350 [MiraLAX] 17 gm PO DAILY 06/23/18 [History] Pramipexole Di-HCl [Mirapex] 1 mg PO BID 06/23/18 [History] amLODIPine Besylate [Norvasc] 7.5 mg PO DAILY 06/23/18 [History] hydroCHLOROthiazide [Hydrochlorothiazide] 25 mg PO DAILY 06/23/18 [History] rOPINIRole HCl [Requip] 1 mg PO BID 06/23/18 [History] Docusate Sodium [DOK] 100 mg PO DAILY 09/23/18 [History] Past Medical History HEENT History: Reports: Hard of Hearing Cardiovascular History: Reports: Heart Failure, Hypertension Other Cardiovascular History: bradycardia Respiratory History: Reports: COPD, Pneumonia, Recurrent, SOB Other Respiratory History: home 02 2 liters Gastrointestinal History: Reports: Cholelithiasis Genitourinary History: Reports: Prostate Disorder, Renal Disease, Other (See Below) Other Genitourinary History: malignant neoplasm of kidney Musculoskeletal History: Reports: Other (See Below) Other Musculoskeletal History: fx of first lumbar, unstable burst fx of first lumbar vertebra Neurological History: Reports: Parkinson's, Seizure Psychiatric History: Reports: Autism Endocrine/Metabolic History: Reports: Obesity/BMI 30+ Oncologic (Cancer) History: Reports: Colon, Renal - Infectious Disease History Infectious Disease History: Reports: MRSA - Past Surgical History GI Surgical History: Reports: Cholecystectomy, Colon, Colostomy Other GI Surgeries/Procedures: colon cancer Male Surgical History: Reports: Nephrectomy Other Male Surgeries/Procedures: right kidney cancer Musculoskeletal Surgical History: Reports: Hip Replacement, Knee Replacement Oncologic Surgical History: Reports: Other (See Below) Social & Family History - Family History Family Medical History: Noncontributory Endocrine/Metabolic: Reports: Diabetes, type II - Caffeine Use Caffeine Use: Reports: None ED ROS GENERAL - Review of Systems Review Of Systems: See Below Constitutional: Reports: Weakness. Denies: Fever HEENT: Reports: Hearing Loss (chronic) Respiratory: Reports: Shortness of Breath (worse than usual.) Cardiovascular: Reports: Dyspnea on Exertion, Edema (both legs below the knees.) Endocrine: Reports: No Symptoms GI/Abdominal: Reports: Black Stool (per EMS) : Reports: No Symptoms Musculoskeletal: Reports: No Symptoms Skin: Reports: Bruising (L anterior, lower chest). Denies: Wound Neurological: Reports: Difficulty Walking (due to weakness), Weakness ( generalized) ED EXAM, GENERAL - Physical Exam Exam: See Below Exam Limited By: No Limitations General Appearance: Alert, WD/WN, No Apparent Distress, Obese Eye Exam: Bilateral Eye: Normal Inspection Ears: Normal External Exam, Normal Canal, Normal TMs, Hearing Loss Ear Exam: Bilateral Ear: Auricle Normal, Canal Normal, TM normal Nose: Normal Inspection, No Blood Throat/Mouth: Normal Inspection, Normal Lips, Normal Oropharynx, Normal Voice, No Airway Compromise Head: Atraumatic, Normocephalic Neck: Normal Inspection Respiratory/Chest: Decreased Breath Sounds, Wheezing (very faint), Other (mild tachypnea). No: Crackles, Rales, Rhonchi, Accessory Muscle Use Cardiovascular: Regular Rate, Rhythm. No: No Edema (pitting edema to both legs below the knees.) GI/Abdominal: Normal Bowel Sounds, Soft, Non-Tender, No Distention Back Exam: Normal Inspection Extremities: Pedal Edema (bilaterally). No: Increased Warmth Neurological: Alert, Oriented, CN II-XII Intact, Normal Cognition (poor historian), No Motor/Sensory Deficits Psychiatric: Normal Affect, Normal Mood Skin Exam: Warm, Dry, Intact, No Rash, Ecchymosis (L anterior, lower chest- nontender and no crepitus) Course - Vital Signs Last Recorded V/S: Last Vital Signs Temp 36.8 C 09/23/18 18:34 Pulse 78 09/23/18 18:34 Resp 18 09/23/18 18:34 BP 140/76 09/23/18 18:34 Pulse Ox 99 09/23/18 18:34 - Orders/Labs/Meds Orders: Active Orders 24 hr Category Date Time Status Cardiac Monitoring [RC] .As Directed Care 09/23/18 18:37 Active Oxygen Therapy Adult [Oxygen Therapy, ED] [RC] Care 09/23/18 18:37 Active ASDIRECTED RT Aerosol Therapy [RC] ASDIRECTED Care 09/23/18 18:55 Active Chest 1V Frontal [CR] Stat Exams 09/23/18 18:31 Taken Hemoccult [OCCULT BLOOD DIAGNOSTIC] [OP] Stat Lab 09/23/18 18:47 Ordered MAGNESIUM [CHEM] Stat Lab 09/23/18 19:19 Ordered UA W/MICROSCOPIC [URIN] Stat Lab 09/23/18 18:30 Ordered NS + KCl 20mEq/L [Normal Saline with 20 mEq KCl] 1,000 Med 09/23/18 19:30 Active ml IV ASDIRECTED Sodium Chloride 0.9% [Saline Flush] Med 09/23/18 18:31 Active 10 ml FLUSH ASDIRECTED PRN Saline Lock Insert [OM.PC] Routine Oth 09/23/18 18:31 Ordered Medication Orders Potassium Chloride/Sodium Chloride (Normal Saline With 20 Meq Kcl) 1,000 mls @ 150 mls/hr IV ASDIRECTED BRYCE Sodium Chloride (Saline Flush) 10 ml FLUSH ASDIRECTED PRN PRN Reason: Keep Vein Open Last Admin: 09/23/18 19:02 Dose: 10 ml Labs: Laboratory Tests 09/23/18 09/23/18 09/23/18 Range/Units 18:45 18:45 18:45 WBC 10.9 (4.5-11.0) K/uL RBC 4.19 L (4.30-5.90) M/uL Hgb 12.2 (12.0-15.0) g/dL Hct 35.9 L (40.0-54.0) % MCV 86 (80-98) fL MCH 29 (27-31) pg MCHC 34 (32-36) % Plt Count 227 (150-400) K/uL Sodium 126 L (140-148) mmol/L Potassium 2.7 L* (3.6-5.2) mmol/L Chloride 79 L (100-108) mmol/L Carbon Dioxide 43 H (21-32) mmol/L Anion Gap 6.7 (5.0-14.0) mmol/L BUN 20 H (7-18) mg/dL Creatinine 1.3 (0.8-1.3) mg/dL Est Cr Clr Drug Dosing 62.13 mL/min Estimated GFR (MDRD) 54 L (>60) Glucose 202 H (74-106) mg/dL Calcium 9.9 (8.5-10.1) mg/dL Creatine Kinase 6106 H (39-308) U/L Troponin I 0.033 (0.000-0.056) ng/mL Meds: Medications Generic Name Dose Route Start Last Admin Trade Name Freq PRN Reason Stop Dose Admin Potassium Chloride/Sodium Chloride 1,000 mls @ 150 mls/hr 09/23/18 19:30 Normal Saline With 20 Meq Kcl IV ASDIRECTED BRYCE Sodium Chloride 10 ml 09/23/18 18:31 09/23/18 19:02 Saline Flush FLUSH 10 ml ASDIRECTED PRN Administration Keep Vein Open Discontinued Medications Generic Name Dose Route Start Last Admin Trade Name Freq PRN Reason Stop Dose Admin Albuterol/Ipratropium 3 ml 09/23/18 18:55 09/23/18 19:01 Duoneb 3.0-0.5 Mg/3 Ml NEB 09/23/18 18:56 3 ml ONETIME ONE Administration Potassium Chloride 40 meq 09/23/18 19:19 Potassium Chloride PO 09/23/18 19:20 ONETIME ONE - Radiology Interpretation Free Text/Narrative:: CXR-neg Departure - Departure Time of Disposition: 19:40 Disposition: Admitted As Inpatient 66 Condition: Fair Clinical Impression: Weakness, Hypokalemia, Elevated CK, Hyponatremia - Discharge Information *PRESCRIPTION DRUG MONITORING PROGRAM REVIEWED*: No *COPY OF PRESCRIPTION DRUG MONITORING REPORT IN PATIENT MARI: No Referrals: PCP,None [Primary Care Provider] - Forms: ED Department Discharge - My Orders Last 24 Hours: My Active Orders 09/23/18 18:30 UA W/MICROSCOPIC [URIN] Stat 09/23/18 18:31 Chest 1V Frontal [CR] Stat Sodium Chloride 0.9% [Saline Flush] 10 ml FLUSH ASDIRECTED PRN Saline Lock Insert [OM.PC] Routine 09/23/18 18:37 Cardiac Monitoring [RC] .As Directed Oxygen Therapy Adult [Oxygen Therapy, ED] [RC] ASDIRECTED 09/23/18 18:47 Hemoccult [OCCULT BLOOD DIAGNOSTIC] [OP] Stat 09/23/18 18:55 RT Aerosol Therapy [RC] ASDIRECTED 09/23/18 19:19 MAGNESIUM [CHEM] Stat 09/23/18 19:30 NS + KCl 20mEq/L [Normal Saline with 20 mEq KCl] 1,000 ml IV ASDIRECTED - Assessment/Plan Last 24 Hours: My Active Orders 09/23/18 18:30 UA W/MICROSCOPIC [URIN] Stat 09/23/18 18:31 Chest 1V Frontal [CR] Stat Sodium Chloride 0.9% [Saline Flush] 10 ml FLUSH ASDIRECTED PRN Saline Lock Insert [OM.PC] Routine 09/23/18 18:37 Cardiac Monitoring [RC] .As Directed Oxygen Therapy Adult [Oxygen Therapy, ED] [RC] ASDIRECTED 09/23/18 18:47 Hemoccult [OCCULT BLOOD DIAGNOSTIC] [OP] Stat 09/23/18 18:55 RT Aerosol Therapy [RC] ASDIRECTED 09/23/18 19:19 MAGNESIUM [CHEM] Stat 09/23/18 19:30 NS + KCl 20mEq/L [Normal Saline with 20 mEq KCl] 1,000 ml IV ASDIRECTED
[2018-09-23] MEDS ORDERED: Albuterol/Ipratropium 3.0-0.5 MG/3 ML Neb Soln NEB ONE (18:55)
[2018-09-23] MEDS ORDERED: Potassium Chloride 10 MEQ Cap.ER PO ONE (19:19)
--- NOTE | 2018-09-23 19:26 | CRLCR ---
HISTORY: Shortness of breath. Rib injury. TECHNIQUE: One view of the chest. COMPARISON: No prior. FINDINGS: There is no consolidation or pulmonary edema. No pneumothorax. No moderate or large pleural effusion. Cardiac size within normal limits. Prior spinal instrumentation. Mild deformity of the right anterior 2nd and 3rd ribs likely related to remote fractures. Slight deformity of the left anterior 3rd rib may also relate to a remote fracture. Widened right AC joint. IMPRESSION: 1. No acute cardiopulmonary disease. 2. Mild deformity of the right anterior 2nd and 3rd and left anterior 3rd rib likely relate to remote fractures. Dictated by Marcus Meraz MD @ 09/23/2018 7:25:24 PM Dictated by: Marcus Meraz MD @ 09/23/2018 19:25:31 (Electronically Signed)
[2018-09-23] MEDS ORDERED: NS + KCl 20mEq/L 1,000 ML IV SCH (19:30)
--- NOTE | 2018-09-23 20:45 | PCM.HP ---
H&P History of Present Illness - General Date of Service: 09/23/18 Admit Problem/Dx: Admission Diagnosis/Problem Admission Diagnosis/Problem Rhabdomyolysis Source of Information: Patient, Old Records, Provider, RN Notes Reviewed History Limitations: Reports: No Limitations - History of Present Illness Initial Comments - Free Text/Narative: Mr. Sims is a 73-year-old gentleman who was admitted through the emergency department with significant weakness secondary to rhabdomyolysis and hypokalemia. He was hospitalized for similar findings approximately 2 months ago and because of weakness [facility]. He reports that he was discharged from the [facility] just about one week ago and has become progressively more weak since returning home. He fell last night attempting to get into bed, hitting the side of the bed frame and then spending the night on the floor. His roommate was able to get him back into bed early this morning. He spent the day in bed but then was too weak to be able to get out of bed and was brought into the emergency department for further evaluation. He again is found to have evidence of rhabdomyolysis with an elevated CK of 6000 and significant hypokalemia with a potassium of 2.7. He has known underlying COPD but denies significant increase in shortness of breath. He is been struggling recently with constipation but did have a large bowel movement last night. Back Pain Score (Numeric/FACES): 8 - Related Data Allergies/Adverse Reactions: Allergies Allergy/AdvReac Type Severity Reaction Status Date / Time acetaminophen [From Tylenol] Allergy Rash Verified 09/23/18 18:49 codeine Allergy Nausea and Verified 09/23/18 18:49 Vomiting piperacillin [From Zosyn] Allergy Anaphylactic Verified 09/23/18 18:49 Shock tazobactam [From Zosyn] Allergy Anaphylactic Verified 09/23/18 18:49 Shock hydromorphone [From Dilaudid] AdvReac Vomiting Verified 09/23/18 18:37 Home Medications: Home Meds Citalopram Hydrobromide [Celexa] 20 mg PO DAILY 01/24/13 [History] Divalproex Sodium [Depakote] 1,500 mg PO BEDTIME 01/24/13 [History] Furosemide [Lasix] 40 mg PO DAILY 01/24/13 [History] Gabapentin [Neurontin] 600 mg PO TID 01/24/13 [History] OLANZapine [ZyPREXA] 15 mg PO DAILY 01/24/13 [History] Omeprazole [Prilosec] 40 mg PO DAILY 01/24/13 [History] Simvastatin [Zocor] 20 mg PO BEDTIME 01/24/13 [History] Ferrous Gluconate 324 mg PO BID 09/05/13 [History] Ipratropium/Albuterol Sulfate [Duoneb 0.5 mg-3 mg/3 ml Soln] 3 ml IH Q4H PRN [History] Ranitidine [Zantac] 150 mg PO BID 10/08/15 [History] Fluticasone/Salmeterol [Advair 250-50] 1 puff INH Q12HR 04/17/18 [History] Tamsulosin HCl [Flomax] 0.4 mg PO DAILY 04/17/18 [History] EPINEPHrine [Epipen 2-Richard] 0.3 mg IJ ONETIME PRN #2 ml 04/24/18 [Rx] Acetaminophen [Tylenol Extra Strength] 500 mg PO Q6HR PRN 06/23/18 [History] Hydrocodone/Acetaminophen [[place] 10-325 Tablet] 1 each PO Q6H PRN 06/23/18 [ History] Polyethylene Glycol 3350 [MiraLAX] 17 gm PO DAILY 06/23/18 [History] Pramipexole Di-HCl [Mirapex] 1 mg PO BID 06/23/18 [History] amLODIPine Besylate [Norvasc] 7.5 mg PO DAILY 06/23/18 [History] hydroCHLOROthiazide [Hydrochlorothiazide] 25 mg PO DAILY 06/23/18 [History] rOPINIRole HCl [Requip] 1 mg PO BID 06/23/18 [History] Docusate Sodium [DOK] 100 mg PO DAILY 09/23/18 [History] Past Medical History HEENT History: Reports: Hard of Hearing Cardiovascular History: Reports: Heart Failure, Hypertension Other Cardiovascular History: bradycardia Respiratory History: Reports: COPD, Pneumonia, Recurrent, SOB Other Respiratory History: home 02 2 liters Gastrointestinal History: Reports: Cholelithiasis Genitourinary History: Reports: Prostate Disorder, Renal Disease, Other (See Below) Other Genitourinary History: malignant neoplasm of kidney Musculoskeletal History: Reports: Other (See Below) Other Musculoskeletal History: fx of first lumbar, unstable burst fx of first lumbar vertebra Neurological History: Reports: Parkinson's, Seizure Psychiatric History: Reports: Autism Endocrine/Metabolic History: Reports: Obesity/BMI 30+ Oncologic (Cancer) History: Reports: Colon, Renal - Infectious Disease History Infectious Disease History: Reports: MRSA - Past Surgical History GI Surgical History: Reports: Cholecystectomy, Colon, Colostomy Other GI Surgeries/Procedures: colon cancer Male Surgical History: Reports: Nephrectomy Other Male Surgeries/Procedures: right kidney cancer Musculoskeletal Surgical History: Reports: Hip Replacement, Knee Replacement Oncologic Surgical History: Reports: Other (See Below) Social & Family History - Family History Family Medical History: Noncontributory Endocrine/Metabolic: Reports: Diabetes, type II - Tobacco Use Smoking Status *Q: Former Smoker Years of Tobacco use: 40 Packs/Tins Daily: 2 Used Tobacco, but Quit: No - Caffeine Use Caffeine Use: Reports: None - Recreational Drug Use Recreational Drug Use: No H&P Review of Systems - Review of Systems: Review Of Systems: See Below General: Reports: Weakness, Fatigue. Denies: Fever, Chills HEENT: Reports: No Symptoms Pulmonary: Reports: Shortness of Breath. Denies: Wheezing, Pleuritic Chest Pain , Cough, Sputum, Hemoptysis Cardiovascular: Reports: Dyspnea on Exertion, Edema. Denies: Chest Pain, Palpitations, Orthopnea, PND, Lightheadedness Gastrointestinal: Reports: Constipation. Denies: Abdominal Pain, Anorexia, Black Stool, Bloody Stool, Diarrhea, Difficulty Swallowing, Distension, Nausea, Vomiting Genitourinary: Reports: No Symptoms Musculoskeletal: Reports: No Symptoms Skin: Reports: No Symptoms Psychiatric: Reports: No Symptoms Neurological: Reports: No Symptoms Hematologic/Lymphatic: Reports: No Symptoms Immunologic: Reports: No Symptoms Exam - Exam Exam: See Below - Vital Signs Vital Signs: Last Vital Signs Temp 98.2 F 09/23/18 18:34 Pulse 75 09/23/18 20:03 Resp 15 09/23/18 20:03 BP 137/76 09/23/18 20:03 Pulse Ox 99 09/23/18 18:34 Weight: 275 lb - Exam Quality Assessment: Supplemental Oxygen, DVT Prophylaxis General: Alert, Cooperative, Mild Distress HEENT: Conjunctiva Clear, Normal Nasal Septum, Posterior Pharynx Clear, Pupils Equal. No: Hearing Intact, Mucosa Moist & [place] Neck: Supple, Trachea Midline, +2 Carotid Pulse wo Bruit Lungs: Decreased Breath Sounds, Wheezing. No: Rales, Rhonchi, Rub Cardiovascular: Regular Rate, Regular Rhythm, Normal S1, Normal S2. No: Systolic Murmur, Diastolic Murmur GI/Abdominal Exam: Soft, Non-Tender, No Organomegaly, No Distention Back Exam: Normal Inspection, Full Range of Motion Extremities: Non-Tender, No Pedal Edema Skin: Ecchymosis (Left anterolateral chest wall) Neurological: Cranial Nerves Intact, Strength Equal Bilateral, Normal Speech, Sensation Intact, Other (Mask like facies and paucity of movement consistent with our consultants disease). No: Focal Deficit - Patient Data Lab Results Last 24 hrs: Laboratory Results - last 24 hr 09/23/18 09/23/18 09/23/18 Range/Units 18:45 18:45 18:45 WBC 10.9 (4.5-11.0) K/uL RBC 4.19 L (4.30-5.90) M/uL Hgb 12.2 (12.0-15.0) g/dL Hct 35.9 L (40.0-54.0) % MCV 86 (80-98) fL MCH 29 (27-31) pg MCHC 34 (32-36) % Plt Count 227 (150-400) K/uL Sodium 126 L (140-148) mmol/L Potassium 2.7 L* (3.6-5.2) mmol/L Chloride 79 L (100-108) mmol/L Carbon Dioxide 43 H (21-32) mmol/L Anion Gap 6.7 (5.0-14.0) mmol/L BUN 20 H (7-18) mg/dL Creatinine 1.3 (0.8-1.3) mg/dL Est Cr Clr Drug Dosing 62.13 mL/min Estimated GFR (MDRD) 54 L (>60) Glucose 202 H (74-106) mg/dL Calcium 9.9 (8.5-10.1) mg/dL Magnesium (1.8-2.4) mg/dL Creatine Kinase 6106 H (39-308) U/L Troponin I 0.033 (0.000-0.056) ng/mL 09/23/18 Range/Units 19:19 WBC (4.5-11.0) K/uL RBC (4.30-5.90) M/uL Hgb (12.0-15.0) g/dL Hct (40.0-54.0) % MCV (80-98) fL MCH (27-31) pg MCHC (32-36) % Plt Count (150-400) K/uL Sodium (140-148) mmol/L Potassium (3.6-5.2) mmol/L Chloride (100-108) mmol/L Carbon Dioxide (21-32) mmol/L Anion Gap (5.0-14.0) mmol/L BUN (7-18) mg/dL Creatinine (0.8-1.3) mg/dL Est Cr Clr Drug Dosing mL/min Estimated GFR (MDRD) (>60) Glucose (74-106) mg/dL Calcium (8.5-10.1) mg/dL Magnesium 1.6 L (1.8-2.4) mg/dL Creatine Kinase (39-308) U/L Troponin I (0.000-0.056) ng/mL Result Diagrams: 09/23/18 18:45 09/23/18 18:45 *Q Meaningful Use (ADM) - VTE Risk Assess *Q Each Risk Factor Represents 1 Point: Obesity ( BMI > 25 kg/m2), Abnormal Pulmonary Function (COPD) Total Score 1 Point Risk Factors: 2 Each Risk Factor Represents 2 Points: Age 60 - 74 Years Total Score 2 Point Risk Factors: 2 Each Risk Factor Represents 3 Points: None Total Score 3 Point Risk Factors: 0 Each Risk Factor Represents 5 Points: None Total Score 5 Point Risk Factors: 0 Venous Thromboembolism Risk Factor Score *Q: 4 Problem List Initiated/Reviewed/Updated: Yes Orders Last 24hrs: Active Orders 24 hr Category Date Time Status Patient Status Manage Transfer [TRANSFER] Routine ADT 09/23/18 20:26 Ordered Cardiac Monitoring [RC] .As Directed Care 09/23/18 18:37 Active Oxygen Therapy Adult [Oxygen Therapy, ED] [RC] Care 09/23/18 18:37 Active ASDIRECTED RT Aerosol Therapy [RC] ASDIRECTED Care 09/23/18 18:55 Active Hemoccult [OCCULT BLOOD DIAGNOSTIC] [OP] Stat Lab 09/23/18 18:47 Ordered UA W/MICROSCOPIC [URIN] Stat Lab 09/23/18 18:30 Ordered NS + KCl 20mEq/L [Normal Saline with 20 mEq KCl] 1,000 Med 09/23/18 19:30 Active ml IV ASDIRECTED Sodium Chloride 0.9% [Saline Flush] Med 09/23/18 18:31 Active 10 ml FLUSH ASDIRECTED PRN Saline Lock Insert [OM.PC] Routine Oth 09/23/18 18:31 Ordered Resuscitation Status Routine Resus Stat 09/23/18 20:32 Ordered Medication Orders Potassium Chloride/Sodium Chloride (Normal Saline With 20 Meq Kcl) 1,000 mls @ 150 mls/hr IV ASDIRECTED BRYCE Last Admin: 09/23/18 19:30 Dose: 150 mls/hr Sodium Chloride (Saline Flush) 10 ml FLUSH ASDIRECTED PRN PRN Reason: Keep Vein Open Last Admin: 09/23/18 19:02 Dose: 10 ml Assessment/Plan Comment:: ASSESSMENT AND PLAN Rhabdomyolysis - secondary to a fall last night and having spent the night on the floor. CK on evaluation in the emergency department elevated at greater than 6000. He has significant swelling in his lower extremities but no other evidence for congestive heart failure at this time. He has only one kidney so we will need to be very careful with both fluids and ensuring the CKs flushed to avoid damage. -IV fluids -History of easily developing fluid overload, consider IV furosemide in a.m. -Repeat CK level in the morning Generalized weakness-reports that he has not been eating well [facility] from the [facility] -Physical therapy consult -Consider placement back at [facility] on discharge Profound hypokalemia - potassium was only 2.7. Complicated by mild hypomagnesemia. He has received 40 mEq in the emergency room. -Aggressive IV and oral potassium replacement -Recheck potassium in a.m. Severe COPD - oxygen dependent with significant respiratory limitations. No evidence of COPD exacerbation at the present time -Supplement oxygen, goal O2 sats 88-92% -Continue home medications Parkinson's disease - significant limitations at home due to this disease but these are stable. -Continue home medications Chronic kidney disease stage III-previous history of renal cell carcinoma status post nephrectomy. With only one kidney will need to closely monitor urine output and renal function -Closely monitor urine output and renal function Maintenance issues - - DVT prophylaxis - Lovenox 40 mg subcutaneous daily - GI prophylaxis -continue home PPI - Nutrition - low sodium - Freeman catheter - not indicated CODE STATUS - full code Admission justification - This patient will be admitted for inpatient services and is medically appropriate meeting medical necessity for inpatient admission as outlined in my documentation. I reasonably expect the patient will require inpatient services that span a period time over 2 midnights. I reasonably expect this patient to be discharged or transferred within 96 hours after admission to the [facility]. Disposition - anticipate discharge to the [facility] after the hospital stay Primary care physician - Dr Veras
[2018-09-23] MEDS ORDERED: Potassium Chloride Riders 40 MEQ in Premix Bag 1 BAG IV ONE (21:12)
[2018-09-23] MEDS ORDERED: Enoxaparin 40 MG/0.4 ML Syringe SUBCUT SCH (21:12)
[2018-09-23] MEDS ORDERED: Ondansetron 4 MG/2 ML SDV IV PRN (21:12)
[2018-09-23] MEDS ORDERED: Magnesium Hydroxide 400 MG/5 ML Susp 30 ML Cup PO PRN (21:12)
[2018-09-23] MEDS ORDERED: Potassium Chloride 20 MEQ Tab.ER PO ONE (22:00)
[2018-09-23] MEDS ORDERED: Fluticasone-Salmeterol 113-14 MCG Powder Inhalant INH SCH (22:00)
[2018-09-23] MEDS: Ferrous Sulfate 325 MG Tab PO SCH (22:35)
[2018-09-23] MEDS: Simvastatin 20 MG Tab PO SCH (22:35)
[2018-09-23] MEDS: Gabapentin 300 MG Cap PO SCH (22:35)
[2018-09-23] MEDS: Docusate Sodium 100 MG Cap PO SCH (22:36)
[2018-09-23] MEDS: Polyethylene Glycol 3350 Powder 17 GM Packet PO SCH (22:36)
[2018-09-23] MEDS: Magnesium Oxide 400 MG Tab PO SCH (22:36)
[2018-09-23] MEDS: Pramipexole 0.5 MG Tab PO SCH (22:37)
[2018-09-23] MEDS: Albuterol/Ipratropium 3.0-0.5 MG/3 ML Neb Soln NEB SCH (22:37)
[2018-09-23] MEDS: Magnesium Sulfate/Water 2 GM in Premix Bag 1 BAG IV SCH (22:58)
[2018-09-23] MEDS: Potassium Chloride 20 MEQ in Premix Bag 1 BAG IV SCH (22:59)
[2018-09-23] MEDS: NS + KCl 20mEq/L 1,000 ML IV SCH (23:00)
[2018-09-23] MEDS: oxyCODONE 5 MG Tab PO PRN (23:09)
[2018-09-23] MEDS: Divalproex Sodium Delayed-Release 250 MG Tab.CR PO SCH ×2 (23:40→23:46)
[2018-09-24] MEDS: Potassium Chloride 20 MEQ in Premix Bag 1 BAG IV SCH (00:44)
[2018-09-24] MEDS: Albuterol 0.083% 2.5 MG/3 ML Neb Soln NEB PRN (01:54)
[2018-09-24] MEDS: oxyCODONE 5 MG Tab PO PRN ×5 (03:12→20:20)
[2018-09-24] MEDS: Magnesium Sulfate/Water 2 GM in Premix Bag 1 BAG IV SCH (03:13)
[2018-09-24] MEDS: Albuterol/Ipratropium 3.0-0.5 MG/3 ML Neb Soln NEB SCH ×4 (07:45→20:41)
[2018-09-24] MEDS: Fluticasone-Salmeterol 113-14 MCG Powder Inhalant INH SCH ×2 (08:59→20:23)
[2018-09-24] MEDS ORDERED: Furosemide 40 MG/4 ML VIAL IVPUSH ONE ×2 (09:00→18:00)
[2018-09-24] MEDS ORDERED: Potassium Chloride 20 MEQ Tab.ER PO ONE ×3 (09:00→17:00)
[2018-09-24] MEDS: Ferrous Sulfate 325 MG Tab PO SCH ×2 (09:35→20:23)
[2018-09-24] MEDS: Pantoprazole 40 MG Tab.CR PO SCH (09:35)
[2018-09-24] MEDS: Magnesium Oxide 400 MG Tab PO SCH ×2 (09:36→20:22)
[2018-09-24] MEDS: Tamsulosin 0.4 MG Cap.ER PO SCH (09:36)
[2018-09-24] MEDS: Docusate Sodium 100 MG Cap PO SCH ×2 (09:37→20:22)
[2018-09-24] MEDS: Citalopram 20 MG Tab PO SCH (09:37)
[2018-09-24] MEDS: Gabapentin 300 MG Cap PO SCH ×3 (09:37→20:21)
[2018-09-24] MEDS: Polyethylene Glycol 3350 Powder 17 GM Packet PO SCH ×2 (09:38→20:21)
[2018-09-24] MEDS: amLODIPine 5 MG Tab PO SCH (09:38)
[2018-09-24] MEDS: acetaZOLAMIDE 500 MG Cap.ER PO SCH ×2 (09:38→20:23)
[2018-09-24] MEDS: Pramipexole 0.5 MG Tab PO SCH ×2 (09:38→20:21)
[2018-09-24] MEDS: OLANZapine 5 MG Tab PO SCH (09:40)
[2018-09-24] MEDS: Potassium Chloride 20 MEQ, Lidocaine 1% 2 ML in Sodium Chloride 0.9% 100 ML IV SCH ×2 (09:55→14:05)
--- NOTE | 2018-09-24 10:35 | PCM.PN ---
- General Info Date of Service: 09/24/18 Subjective Update: Mr. Sims feels improved from admission yesterday with less weakness and improved appetite. Denies any chest wall pain in the area of bruising. Potassium level has improved but still remains low, magnesium level normalized, renal function stable. CK level has come down to 3300 from over 6000 on admission. Functional Status: Reports: Pain Controlled, Tolerating Diet, Urinating - Review of Systems General: Reports: Weakness. Denies: Fever, Chills Pulmonary: Reports: Shortness of Breath, Wheezing. Denies: Pleuritic Chest Pain , Cough, Sputum, Hemoptysis Cardiovascular: Reports: Dyspnea on Exertion, Edema. Denies: Chest Pain, Palpitations, Orthopnea, PND, Lightheadedness Gastrointestinal: Reports: No Symptoms - Patient Data Vitals - Most Recent: Last Vital Signs Temp 96 F 09/24/18 07:00 Pulse 60 09/24/18 07:46 Resp 18 09/24/18 07:00 BP 129/59 L 09/24/18 09:38 Pulse Ox 93 L 09/24/18 07:00 Weight - Most Recent: 275 lb I&O - Last 24 Hours: Intake & Output 09/23/18 09/24/18 09/24/18 22:59 06:59 14:59 Intake Total 1200 1000 Output Total 950 550 Balance 250 450 Lab Results Last 24 Hours: Laboratory Results - last 24 hr 09/23/18 09/23/18 09/23/18 Range/Units 18:45 18:45 18:45 WBC 10.9 (4.5-11.0) K/uL RBC 4.19 L (4.30-5.90) M/uL Hgb 12.2 (12.0-15.0) g/dL Hct 35.9 L (40.0-54.0) % MCV 86 (80-98) fL MCH 29 (27-31) pg MCHC 34 (32-36) % Plt Count 227 (150-400) K/uL Neut % (Auto) (36-66) % Lymph % (Auto) (24-44) % [place] % (Auto) (2-6) % Eos % (Auto) (2-4) % Baso % (Auto) (0-1) % Sodium 126 L (140-148) mmol/L Potassium 2.7 L* (3.6-5.2) mmol/L Chloride 79 L (100-108) mmol/L Carbon Dioxide 43 H (21-32) mmol/L Anion Gap 6.7 (5.0-14.0) mmol/L BUN 20 H (7-18) mg/dL Creatinine 1.3 (0.8-1.3) mg/dL Est Cr Clr Drug Dosing 62.13 mL/min Estimated GFR (MDRD) 54 L (>60) Glucose 202 H (74-106) mg/dL Calcium 9.9 (8.5-10.1) mg/dL Magnesium (1.8-2.4) mg/dL Total Bilirubin (0.2-1.0) mg/dL AST (15-37) U/L ALT (12-78) U/L Alkaline Phosphatase (46-116) U/L Creatine Kinase 6106 H (39-308) U/L Troponin I 0.033 (0.000-0.056) ng/mL Total Protein (6.4-8.2) g/dL Albumin (3.4-5.0) g/dL Globulin (2.3-3.5) g/dL Albumin/Globulin Ratio (1.2-2.2) Urine Color Urine Appearance Urine pH (4.5-8.0) Ur Specific [place] (1.008-1.030) Urine Protein (NEGATIVE) mg/dL Urine Glucose (UA) (NEGATIVE) mg/dL Urine Ketones (NEGATIVE) mg/dL Urine Occult Blood (NEGATIVE) Urine Nitrite (NEGAITVE) Urine Bilirubin (NEGATIVE) Urine Urobilinogen (NORMAL) mg/dL Ur Leukocyte Esterase (NEGATIVE) Urine RBC (0-5) Urine WBC (0-5) Ur Epithelial Cells Amorphous Sediment Urine Bacteria Urine Mucus Urine Other 09/23/18 09/23/18 09/24/18 Range/Units 19:19 20:50 05:11 WBC 9.4 (4.5-11.0) K/uL RBC 3.61 L (4.30-5.90) M/uL Hgb 10.5 L (12.0-15.0) g/dL Hct 31.5 L (40.0-54.0) % MCV 87 (80-98) fL MCH 29 (27-31) pg MCHC 33 (32-36) % Plt Count 183 (150-400) K/uL Neut % (Auto) 58 (36-66) % Lymph % (Auto) 26 (24-44) % [place] % (Auto) 14 H (2-6) % Eos % (Auto) 1 L (2-4) % Baso % (Auto) 0 (0-1) % Sodium (140-148) mmol/L Potassium (3.6-5.2) mmol/L Chloride (100-108) mmol/L Carbon Dioxide (21-32) mmol/L Anion Gap (5.0-14.0) mmol/L BUN (7-18) mg/dL Creatinine (0.8-1.3) mg/dL Est Cr Clr Drug Dosing mL/min Estimated GFR (MDRD) (>60) Glucose (74-106) mg/dL Calcium (8.5-10.1) mg/dL Magnesium 1.6 L (1.8-2.4) mg/dL Total Bilirubin (0.2-1.0) mg/dL AST (15-37) U/L ALT (12-78) U/L Alkaline Phosphatase (46-116) U/L Creatine Kinase (39-308) U/L Troponin I (0.000-0.056) ng/mL Total Protein (6.4-8.2) g/dL Albumin (3.4-5.0) g/dL Globulin (2.3-3.5) g/dL Albumin/Globulin Ratio (1.2-2.2) Urine Color Yellow Urine Appearance Clear Urine pH 6.0 (4.5-8.0) Ur Specific [place] 1.015 (1.008-1.030) Urine Protein Negative (NEGATIVE) mg/dL Urine Glucose (UA) Normal (NEGATIVE) mg/dL Urine Ketones Negative (NEGATIVE) mg/dL Urine Occult Blood Negative (NEGATIVE) Urine Nitrite Negative (NEGAITVE) Urine Bilirubin Negative (NEGATIVE) Urine Urobilinogen Normal (NORMAL) mg/dL Ur Leukocyte Esterase Negative (NEGATIVE) Urine RBC 0-5 (0-5) Urine WBC 0-5 (0-5) Ur Epithelial Cells Rare Amorphous Sediment Not seen Urine Bacteria Few Urine Mucus Not seen Urine Other 09/24/18 Range/Units 05:11 WBC (4.5-11.0) K/uL RBC (4.30-5.90) M/uL Hgb (12.0-15.0) g/dL Hct (40.0-54.0) % MCV (80-98) fL MCH (27-31) pg MCHC (32-36) % Plt Count (150-400) K/uL Neut % (Auto) (36-66) % Lymph % (Auto) (24-44) % [place] % (Auto) (2-6) % Eos % (Auto) (2-4) % Baso % (Auto) (0-1) % Sodium 128 L (140-148) mmol/L Potassium 3.2 L (3.6-5.2) mmol/L Chloride 86 L (100-108) mmol/L Carbon Dioxide 40 H (21-32) mmol/L Anion Gap 5.2 (5.0-14.0) mmol/L BUN 17 (7-18) mg/dL Creatinine 1.1 (0.8-1.3) mg/dL Est Cr Clr Drug Dosing 73.43 mL/min Estimated GFR (MDRD) > 60 (>60) Glucose 161 H (74-106) mg/dL Calcium 8.6 (8.5-10.1) mg/dL Magnesium 2.2 (1.8-2.4) mg/dL Total Bilirubin 0.3 (0.2-1.0) mg/dL AST 179 H (15-37) U/L ALT 55 (12-78) U/L Alkaline Phosphatase 34 L (46-116) U/L Creatine Kinase 3344 H (39-308) U/L Troponin I (0.000-0.056) ng/mL Total Protein 5.4 L (6.4-8.2) g/dL Albumin 2.4 L (3.4-5.0) g/dL Globulin 3.0 (2.3-3.5) g/dL Albumin/Globulin Ratio 0.8 L (1.2-2.2) Urine Color Urine Appearance Urine pH (4.5-8.0) Ur Specific [place] (1.008-1.030) Urine Protein (NEGATIVE) mg/dL Urine Glucose (UA) (NEGATIVE) mg/dL Urine Ketones (NEGATIVE) mg/dL Urine Occult Blood (NEGATIVE) Urine Nitrite (NEGAITVE) Urine Bilirubin (NEGATIVE) Urine Urobilinogen (NORMAL) mg/dL Ur Leukocyte Esterase (NEGATIVE) Urine RBC (0-5) Urine WBC (0-5) Ur Epithelial Cells Amorphous Sediment Urine Bacteria Urine Mucus Urine Other Med Orders - Current: Current Medications Acetazolamide (Diamox Sequels) 500 mg PO BID [facility] Stop: 09/24/18 21:01 Last Admin: 09/24/18 09:38 Dose: 500 mg Albuterol (Proventil Neb Soln) 2.5 mg NEB Q4H PRN PRN Reason: Shortness Of Breath/wheezing Last Admin: 09/24/18 01:54 Dose: 2.5 mg Albuterol/Ipratropium (Duoneb 3.0-0.5 Mg/3 Ml) 3 ml NEB QIDRT [facility] Last Admin: 09/24/18 07:45 Dose: 3 ml Amlodipine Besylate (Norvasc) 7.5 mg PO DAILY [facility] Last Admin: 09/24/18 09:38 Dose: 7.5 mg Citalopram Hydrobromide (Celexa) 20 mg PO DAILY [facility] Last Admin: 09/24/18 09:37 Dose: 20 mg Divalproex Sodium (Divalproex Sodium) 1,500 mg PO BEDTIME [facility] Docusate Sodium (Colace) 100 mg PO BID [facility] Last Admin: 09/24/18 09:37 Dose: 100 mg Enoxaparin Sodium (Lovenox) 40 mg SUBCUT BEDTIME [facility] Ferrous Sulfate (Ferrous Sulfate) 325 mg PO BID [facility] Last Admin: 09/24/18 09:35 Dose: 325 mg Furosemide (Lasix) 40 mg IVPUSH NOW ONE Stop: 09/24/18 18:01 Gabapentin (Neurontin) 600 mg PO TID [facility] Last Admin: 09/24/18 09:37 Dose: 600 mg Potassium Chloride/Sodium Chloride (Normal Saline With 20 Meq Kcl) 1,000 mls @ 125 mls/hr IV ASDIRECTED [facility] Last Admin: 09/23/18 23:00 Dose: 125 mls/hr Potassium Chloride 20 meq/Lidocaine HCl 2 ml/ Sodium Chloride 112 mls @ 56 mls/ hr IV Q2H [facility] Stop: 09/24/18 13:59 Last Admin: 09/24/18 09:55 Dose: 56 mls/hr Magnesium Hydroxide (Milk Of Magnesia) 30 ml PO Q12H PRN PRN Reason: Constipation Magnesium Oxide (Magnesium Oxide) 400 mg PO BID [facility] Last Admin: 09/24/18 09:36 Dose: 400 mg Olanzapine (Zyprexa) 15 mg PO DAILY [facility] Last Admin: 09/24/18 09:40 Dose: 15 mg Ondansetron HCl (Zofran) 4 mg IV Q4H PRN PRN Reason: Nausea/Vomiting Oxycodone HCl (Oxycodone) 10 mg PO Q4H PRN PRN Reason: Pain Last Admin: 09/24/18 07:29 Dose: 10 mg Pantoprazole Sodium (Protonix) 40 mg PO ACBREAKFAST [facility] Last Admin: 09/24/18 09:35 Dose: 40 mg Polyethylene Glycol (Miralax) 17 gm PO BID [facility] Last Admin: 09/24/18 09:38 Dose: 17 gm Potassium Chloride (Klor-Con M20) 40 meq PO ONETIME ONE Stop: 09/24/18 12:01 Potassium Chloride (Klor-Con M20) 40 meq PO ONETIME ONE Stop: 09/24/18 17:01 Pramipexole Dihydrochloride (Mirapex) 1 mg PO BID [facility] Last Admin: 09/24/18 09:38 Dose: 1 mg Fluticasone/Salmeterol (Fluticasone-Salmeterol 113-14 Mcg Powder Inh) 1 puff INH BIDRT [facility] Last Admin: 09/24/18 08:59 Dose: 1 puff Senna/Docusate Sodium (Senna Plus) 1 tab PO BID [facility] Last Admin: 09/24/18 09:37 Dose: 1 tab Simvastatin (Zocor) 20 mg PO BEDTIME [facility] Last Admin: 09/23/18 22:35 Dose: 20 mg Sodium Chloride (Saline Flush) 10 ml FLUSH ASDIRECTED PRN PRN Reason: Keep Vein Open Tamsulosin HCl (Flomax) 0.4 mg PO DAILY [facility] Last Admin: 09/24/18 09:36 Dose: 0.4 mg Discontinued Medications Albuterol/Ipratropium (Duoneb 3.0-0.5 Mg/3 Ml) 3 ml NEB ONETIME ONE Stop: 09/23/18 18:56 Last Admin: 09/23/18 19:01 Dose: 3 ml Divalproex Sodium (Divalproex Sodium) 1,500 mg PO BEDTIME [facility] Last Admin: 09/23/18 23:46 Dose: 1,500 mg Enoxaparin Sodium (Lovenox) 40 mg SUBCUT DAILY [facility] Last Admin: 09/23/18 22:36 Dose: 40 mg Furosemide (Lasix) 40 mg IVPUSH NOW ONE Stop: 09/24/18 09:01 Last Admin: 09/24/18 09:33 Dose: 40 mg Potassium Chloride/Sodium Chloride (Normal Saline With 20 Meq Kcl) 1,000 mls @ 150 mls/hr IV ASDIRECTED [facility] Last Admin: 09/23/18 19:30 Dose: 150 mls/hr Magnesium Sulfate 2 gm/ Premix 50 mls @ 25 mls/hr IV Q6H [facility] Stop: 09/24/18 05:11 Last Admin: 09/24/18 03:13 Dose: 25 mls/hr Potassium Chloride 40 meq/ (Premix) 100 mls @ 25 mls/hr IV ONETIME ONE Stop: 09/24/18 01:11 Last Admin: 09/23/18 23:39 Dose: Not Given Potassium Chloride 20 meq/ (Premix) 100 mls @ 50 mls/hr IV Q2H [facility] Stop: 09/24/18 02:59 Last Admin: 09/24/18 00:44 Dose: 50 mls/hr Lidocaine HCl (Xylocaine-Mpf 1%) 5 ml INJECT Q2H [facility] Stop: 09/24/18 00:16 Last Admin: 09/24/18 00:43 Dose: 5 ml Potassium Chloride (Potassium Chloride) 40 meq PO ONETIME ONE Stop: 09/23/18 19:20 Last Admin: 09/23/18 19:29 Dose: 40 meq Potassium Chloride (Klor-Con M20) 40 meq PO ONETIME ONE Stop: 09/23/18 22:01 Last Admin: 09/23/18 23:08 Dose: 40 meq Potassium Chloride (Klor-Con M20) 40 meq PO ONETIME ONE Stop: 09/24/18 09:01 Last Admin: 09/24/18 09:36 Dose: 40 meq Fluticasone/Salmeterol (Fluticasone-Salmeterol 113-14 Mcg Powder Inh) 0 puff INH Q12H [facility] Last Admin: 06/01/19 22:37 Dose: Not Given Sodium Chloride (Saline Flush) 10 ml FLUSH ASDIRECTED PRN PRN Reason: Keep Vein Open Last Admin: 09/23/18 19:02 Dose: 10 ml - Exam Quality Assessment: Supplemental Oxygen, DVT Prophylaxis General: Alert, Oriented, Cooperative, Mild Distress Lungs: Decreased Breath Sounds, Wheezing. No: Crackles, Rales, Rhonchi, Rub Cardiovascular: Regular Rate, Regular Rhythm, No Murmurs GI/Abdominal Exam: Soft, Non-Tender, No Organomegaly, No Distention Extremities: Non-Tender, Pedal Edema Skin: Warm, Dry - Problem List Review Problem List Initiated/Reviewed/Updated: Yes - My Orders Last 24 Hours: My Active Orders 09/23/18 20:32 Resuscitation Status Routine 09/23/18 21:12 Patient Status [ADT] Routine Ambulate [RC] QID Height and Weight [RC] DAILY Intake and Output [RC] QSHIFT Notify Provider Vital Signs [RC] ASDIRECTED Oxygen Therapy [RC] PRN Peripheral IV Care [RC] . DIRECTED RT Aerosol Therapy [RC] ASDIRECTED Up With Assistance [RC] ASDIRECTED Up to Chair [RC] QID VTE/DVT Education [RC] Per Unit Routine Vital Signs [RC] Q4H PT Evaluation and Treatment [CONS] Routine Albuterol [Proventil Neb Soln] 2.5 mg NEB Q4H PRN Docusate Sodium/Sennosides [Senna Plus] 1 tab PO BID Magnesium Hydroxide [Milk of Magnesia] 30 ml PO Q12H PRN Magnesium Oxide 400 mg PO BID NS + KCl 20mEq/L [Normal Saline with 20 mEq KCl] 1,000 ml IV ASDIRECTED Ondansetron [Zofran] 4 mg IV Q4H PRN Polyethylene Glycol 3350 [MiraLAX] 17 gm PO BID Simvastatin [Zocor] 20 mg PO BEDTIME Sodium Chloride 0.9% [Saline Flush] 10 ml FLUSH ASDIRECTED PRN Peripheral IV Insertion Adult [OM.PC] Routine 09/23/18 21:45 Docusate Sodium [Colace] 100 mg PO BID Ferrous Sulfate 325 mg PO BID 09/23/18 22:00 Albuterol/Ipratropium [DuoNeb 3.0-0.5 MG/3 ML] 3 ml NEB QIDRT Gabapentin [Neurontin] 600 mg PO TID Pramipexole [Mirapex] 1 mg PO BID 09/23/18 22:45 oxyCODONE 10 mg PO Q4H PRN 09/23/18 Dinner 2 Gram Sodium Diet [DIET] 09/24/18 07:00 Fluticasone/Salmeterol [Fluticasone-Salmeterol 113-14 MCG Powder Inh] 1 puff INH BIDRT 09/24/18 07:30 Pantoprazole [ProTONIX] 40 mg PO ACBREAKFAST 09/24/18 09:00 Citalopram [Celexa] 20 mg PO DAILY OLANZapine [ZyPREXA] 15 mg PO DAILY Tamsulosin [Flomax] 0.4 mg PO DAILY acetaZOLAMIDE [Diamox Sequels] 500 mg PO BID amLODIPine [Norvasc] 7.5 mg PO DAILY 09/24/18 10:00 Potassium Chloride 20 meq Lidocaine 1% [Xylocaine 1%] 2 ml Sodium Chloride 0.9 % [Normal Saline] 100 ml IV Q2H 09/24/18 12:00 Potassium Chloride [Klor-Con M20] 40 meq PO ONETIME ONE 09/24/18 17:00 Potassium Chloride [Klor-Con M20] 40 meq PO ONETIME ONE 09/24/18 18:00 Furosemide [Lasix] 40 mg IVPUSH NOW ONE 09/24/18 21:00 Divalproex Sodium 1,500 mg PO BEDTIME Enoxaparin [Lovenox] 40 mg SUBCUT BEDTIME 09/25/18 05:00 BASIC METABOLIC PANEL,BMP [CHEM] Timed CREATINE KINASE,CK [CHEM] Timed MAGNESIUM [CHEM] Timed - Plan Plan:: ASSESSMENT AND PLAN Rhabdomyolysis - secondary to a fall and having spent the night on the floor. CK has improved to 3300 this morning. He has significant swelling in his lower extremities but no other evidence for congestive heart failure at this time. He has only one kidney so we will need to be very careful with both fluids and ensuring the CKs flushed to avoid damage. -IV fluids -Furosemide 40 mg IV twice today, reassess in a.m. -Repeat CK level in the morning Generalized weakness-reports that he has not been eating well after discharge from the halfway -Physical therapy consult -Consider placement back at halfway on discharge Hypokalemia - level improved from admission, but still low -Aggressive IV and oral potassium replacement -Recheck potassium in a.m. Severe COPD - oxygen dependent with significant respiratory limitations. No evidence of COPD exacerbation at the present time -Supplement oxygen, goal O2 sats 88-92% -Continue home medications Parkinson's disease - significant limitations at home due to this disease -Continue home medications Chronic kidney disease stage III-previous history of renal cell carcinoma status post nephrectomy. With only one kidney will need to closely monitor urine output and renal function -Closely monitor urine output and renal function Maintenance issues - - DVT prophylaxis - Lovenox 40 mg subcutaneous daily - GI prophylaxis -continue home PPI - Nutrition - low sodium - Freeman catheter - not indicated CODE STATUS - full code Admission justification - This patient will be admitted for inpatient services and is medically appropriate meeting medical necessity for inpatient admission as outlined in my documentation. I reasonably expect the patient will require inpatient services that span a period time over 2 midnights. I reasonably expect this patient to be discharged or transferred within 96 hours [facility]. Disposition - anticipate discharge to the [facility] after the hospital stay Primary care physician - Dr Veras
[2018-09-24] MEDS: NS + KCl 20mEq/L 1,000 ML IV SCH ×2 (11:23→19:19)
[2018-09-24] MEDS: Divalproex Sodium Delayed-Release 250 MG Tab.CR PO SCH (20:21)
[2018-09-24] MEDS: Simvastatin 20 MG Tab PO SCH (20:24)
[2018-09-24] MEDS: Enoxaparin 40 MG/0.4 ML Syringe SUBCUT SCH (20:24)
[2018-09-24] MEDS: Mirtazapine 15 MG Tab PO SCH (21:29)
[2018-09-25] MEDS: oxyCODONE 5 MG Tab PO PRN ×2 (00:11→08:38)
[2018-09-25] MEDS: Albuterol 0.083% 2.5 MG/3 ML Neb Soln NEB PRN ×2 (00:27→05:55)
[2018-09-25] MEDS ORDERED: Furosemide 40 MG/4 ML VIAL IVPUSH ONE ×3 (02:57→16:00)
[2018-09-25] MEDS: NS + KCl 20mEq/L 1,000 ML IV SCH ×2 (05:57→11:55)
[2018-09-25] MEDS: Albuterol/Ipratropium 3.0-0.5 MG/3 ML Neb Soln NEB SCH ×4 (07:32→21:56)
[2018-09-25] MEDS: Fluticasone-Salmeterol 113-14 MCG Powder Inhalant INH SCH ×2 (07:33→21:17)
[2018-09-25] MEDS: Citalopram 20 MG Tab PO SCH (08:39)
[2018-09-25] MEDS: Pantoprazole 40 MG Tab.CR PO SCH (08:39)
[2018-09-25] MEDS: Docusate Sodium 100 MG Cap PO SCH ×2 (08:40→21:17)
[2018-09-25] MEDS: Benztropine 1 MG Tab PO SCH (08:40)
[2018-09-25] MEDS: Ferrous Sulfate 325 MG Tab PO SCH ×2 (08:40→21:16)
[2018-09-25] MEDS: Tamsulosin 0.4 MG Cap.ER PO SCH (08:41)
[2018-09-25] MEDS: Polyethylene Glycol 3350 Powder 17 GM Packet PO SCH ×2 (08:41→21:17)
[2018-09-25] MEDS: Gabapentin 300 MG Cap PO SCH ×3 (08:41→21:17)
[2018-09-25] MEDS: Pramipexole 0.5 MG Tab PO SCH ×2 (08:41→21:16)
[2018-09-25] MEDS: Magnesium Oxide 400 MG Tab PO SCH ×2 (08:41→21:17)
[2018-09-25] MEDS: amLODIPine 5 MG Tab PO SCH (08:42)
[2018-09-25] MEDS: OLANZapine 5 MG Tab PO SCH (08:43)
--- NOTE | 2018-09-25 10:39 | PCM.PN ---
- General Info Date of Service: 09/25/18 Subjective Update: The patient is lethargic this morning and unable to answer any questions. Per report overnight he had difficulty with increasing oxygen requirements and had a wet rattly sounding cough. Despite 2 attempts at diuresis he has had further progression in the supplemental oxygen requirements. He is minimally responsive at the time of my visit but did eat breakfast and have a shower just a couple of hours ago. Chest x-ray was obtained and did not show any obvious infiltrates. Arterial blood gases showed respiratory acidosis and a PCO2 of 75. Functional Status: Reports: Other (pt is lethargic and does not answer any questions ) - Patient Data Vitals - Most Recent: Last Vital Signs Temp 36.4 C 09/25/18 07:04 Pulse 70 09/25/18 07:33 Resp 22 H 09/25/18 07:04 BP 127/76 09/25/18 08:42 Pulse Ox 90 L 09/25/18 08:55 Weight - Most Recent: 131 kg I&O - Last 24 Hours: Intake & Output 09/24/18 09/25/18 09/25/18 22:59 06:59 14:59 Intake Total 3126 2294 Output Total 900 50 Balance 2226 -50 2294 Lab Results Last 24 Hours: Laboratory Results - last 24 hr 09/25/18 Range/Units 05:45 Sodium 133 L (140-148) mmol/L Potassium 4.0 (3.6-5.2) mmol/L Chloride 92 L (100-108) mmol/L Carbon Dioxide 39 H (21-32) mmol/L Anion Gap 6.0 (5.0-14.0) mmol/L BUN 15 (7-18) mg/dL Creatinine 1.2 (0.8-1.3) mg/dL Est Cr Clr Drug Dosing 67.31 mL/min Estimated GFR (MDRD) 59 L (>60) Glucose 184 H (74-106) mg/dL Calcium 8.8 (8.5-10.1) mg/dL Magnesium 1.9 (1.8-2.4) mg/dL Creatine Kinase 1581 H (39-308) U/L Med Orders - Current: Current Medications Albuterol (Proventil Neb Soln) 2.5 mg NEB Q4H PRN PRN Reason: Shortness Of Breath/wheezing Last Admin: 09/25/18 05:55 Dose: 2.5 mg Albuterol/Ipratropium (Duoneb 3.0-0.5 Mg/3 Ml) 3 ml NEB QIDRT [facility] Last Admin: 09/25/18 07:32 Dose: 3 ml Amlodipine Besylate (Norvasc) 7.5 mg PO DAILY [facility] Last Admin: 09/25/18 08:42 Dose: 7.5 mg Benztropine Mesylate (Cogentin) 0.5 mg PO DAILY [facility] Last Admin: 09/25/18 08:40 Dose: 0.5 mg Citalopram Hydrobromide (Celexa) 20 mg PO DAILY [facility] Last Admin: 09/25/18 08:39 Dose: 20 mg Divalproex Sodium (Divalproex Sodium) 1,500 mg PO BEDTIME [facility] Last Admin: 09/24/18 20:21 Dose: 1,500 mg Docusate Sodium (Colace) 100 mg PO BID [facility] Last Admin: 09/25/18 08:40 Dose: 100 mg Enoxaparin Sodium (Lovenox) 40 mg SUBCUT BEDTIME [facility] Last Admin: 09/24/18 20:24 Dose: 40 mg Ferrous Sulfate (Ferrous Sulfate) 325 mg PO BID [facility] Last Admin: 09/25/18 08:40 Dose: 325 mg Gabapentin (Neurontin) 600 mg PO TID [facility] Last Admin: 09/25/18 08:41 Dose: 600 mg Potassium Chloride/Sodium Chloride (Normal Saline With 20 Meq Kcl) 1,000 mls @ 125 mls/hr IV ASDIRECTED [facility] Last Admin: 09/25/18 05:57 Dose: 125 mls/hr Magnesium Hydroxide (Milk Of Magnesia) 30 ml PO Q12H PRN PRN Reason: Constipation Magnesium Oxide (Magnesium Oxide) 400 mg PO BID [facility] Last Admin: 09/25/18 08:41 Dose: 400 mg Mirtazapine (Remeron) 30 mg PO BEDTIME [facility] Last Admin: 09/24/18 21:29 Dose: 30 mg Olanzapine (Zyprexa) 15 mg PO DAILY [facility] Last Admin: 09/25/18 08:43 Dose: 15 mg Ondansetron HCl (Zofran) 4 mg IV Q4H PRN PRN Reason: Nausea/Vomiting Oxycodone HCl (Oxycodone) 10 mg PO Q4H PRN PRN Reason: Pain Last Admin: 09/25/18 08:38 Dose: 10 mg Pantoprazole Sodium (Protonix) 40 mg PO ACBREAKFAST [facility] Last Admin: 09/25/18 08:39 Dose: 40 mg Polyethylene Glycol (Miralax) 17 gm PO BID [facility] Last Admin: 09/25/18 08:41 Dose: 17 gm Pramipexole Dihydrochloride (Mirapex) 1 mg PO BID [facility] Last Admin: 09/25/18 08:41 Dose: 1 mg Fluticasone/Salmeterol (Fluticasone-Salmeterol 113-14 Mcg Powder Inh) 1 puff INH BIDRT [facility] Last Admin: 09/25/18 07:33 Dose: 1 puff Senna/Docusate Sodium (Senna Plus) 1 tab PO BID [facility] Last Admin: 09/25/18 08:43 Dose: 1 tab Simvastatin (Zocor) 20 mg PO BEDTIME [facility] Last Admin: 09/24/18 20:24 Dose: 20 mg Sodium Chloride (Saline Flush) 10 ml FLUSH ASDIRECTED PRN PRN Reason: Keep Vein Open Tamsulosin HCl (Flomax) 0.4 mg PO DAILY [facility] Last Admin: 09/25/18 08:41 Dose: 0.4 mg Discontinued Medications Acetazolamide (Diamox Sequels) 500 mg PO BID [facility] Stop: 09/24/18 21:01 Last Admin: 09/24/18 20:23 Dose: 500 mg Albuterol/Ipratropium (Duoneb 3.0-0.5 Mg/3 Ml) 3 ml NEB ONETIME ONE Stop: 09/23/18 18:56 Last Admin: 09/23/18 19:01 Dose: 3 ml Divalproex Sodium (Divalproex Sodium) 1,500 mg PO BEDTIME [facility] Last Admin: 09/23/18 23:46 Dose: 1,500 mg Enoxaparin Sodium (Lovenox) 40 mg SUBCUT DAILY [facility] Last Admin: 09/23/18 22:36 Dose: 40 mg Furosemide (Lasix) 40 mg IVPUSH NOW ONE Stop: 09/24/18 09:01 Last Admin: 09/24/18 09:33 Dose: 40 mg Furosemide (Lasix) 40 mg IVPUSH NOW ONE Stop: 09/24/18 18:01 Last Admin: 09/24/18 18:20 Dose: 40 mg Furosemide (Lasix) 60 mg IVPUSH ONETIME ONE Stop: 09/25/18 02:58 Last Admin: 09/25/18 03:22 Dose: 60 mg Furosemide (Lasix) 40 mg IVPUSH ONETIME ONE Stop: 09/25/18 09:01 Last Admin: 09/25/18 08:38 Dose: 40 mg Potassium Chloride/Sodium Chloride (Normal Saline With 20 Meq Kcl) 1,000 mls @ 150 mls/hr IV ASDIRECTED [facility] Last Admin: 09/23/18 19:30 Dose: 150 mls/hr Magnesium Sulfate 2 gm/ Premix 50 mls @ 25 mls/hr IV Q6H [facility] Stop: 09/24/18 05:11 Last Admin: 09/24/18 03:13 Dose: 25 mls/hr Potassium Chloride 40 meq/ (Premix) 100 mls @ 25 mls/hr IV ONETIME ONE Stop: 09/24/18 01:11 Last Admin: 09/23/18 23:39 Dose: Not Given Potassium Chloride 20 meq/ (Premix) 100 mls @ 50 mls/hr IV Q2H [facility] Stop: 09/24/18 02:59 Last Admin: 09/24/18 00:44 Dose: 50 mls/hr Potassium Chloride 20 meq/Lidocaine HCl 2 ml/ Sodium Chloride 112 mls @ 56 mls/ hr IV Q2H [facility] Stop: 09/24/18 13:59 Last Admin: 09/24/18 14:05 Dose: 56 mls/hr Lidocaine HCl (Xylocaine-Mpf 1%) 5 ml INJECT Q2H [facility] Stop: 09/24/18 00:16 Last Admin: 09/24/18 00:43 Dose: 5 ml Potassium Chloride (Potassium Chloride) 40 meq PO ONETIME ONE Stop: 09/23/18 19:20 Last Admin: 09/23/18 19:29 Dose: 40 meq Potassium Chloride (Klor-Con M20) 40 meq PO ONETIME ONE Stop: 09/23/18 22:01 Last Admin: 09/23/18 23:08 Dose: 40 meq Potassium Chloride (Klor-Con M20) 40 meq PO ONETIME ONE Stop: 09/24/18 09:01 Last Admin: 09/24/18 09:36 Dose: 40 meq Potassium Chloride (Klor-Con M20) 40 meq PO ONETIME ONE Stop: 09/24/18 12:01 Last Admin: 09/24/18 14:05 Dose: 40 meq Potassium Chloride (Klor-Con M20) 40 meq PO ONETIME ONE Stop: 09/24/18 17:01 Last Admin: 09/24/18 18:19 Dose: 40 meq Fluticasone/Salmeterol (Fluticasone-Salmeterol 113-14 Mcg Powder Inh) 0 puff INH Q12H [facility] Last Admin: 09/23/18 22:37 Dose: Not Given Sodium Chloride (Saline Flush) 10 ml FLUSH ASDIRECTED PRN PRN Reason: Keep Vein Open Last Admin: 09/23/18 19:02 Dose: 10 ml - Exam Quality Assessment: Supplemental Oxygen General: No Acute Distress, Lethargic. No: Alert HEENT: Pupils Equal Lungs: Crackles (both bases), Wheezing (diffuse exp ). No: Normal Respiratory Effort (increased work of breathing ) Cardiovascular: Regular Rate, Regular Rhythm GI/Abdominal Exam: Soft, No Distention Extremities: Pedal Edema. No: Increased Warmth Skin: Warm, Dry Psy/Mental Status: No: Alert, Agitated - Problem List Review Problem List Initiated/Reviewed/Updated: Yes - My Orders Last 24 Hours: My Active Orders 09/25/18 10:36 Chest 1V Frontal [CR] Urgent BLOOD GAS ARTERIAL [BG] Urgent 09/25/18 10:37 Transfer Patient (Change bed) [ADT] Routine 09/25/18 10:38 Cardiac Monitoring [RC] .As Directed Overnight Pulse Oximetry [RC] Click to Edit Pulse Oximetry Continuous Monitoring [OM.PC] Routine 09/26/18 05:00 BASIC METABOLIC PANEL,BMP [CHEM] Timed CBC W/O DIFF,HEMOGRAM [HEME] Timed (1) CREATINE KINASE,CK [CHEM] Timed - Plan Plan:: ASSESSMENT AND PLAN Acute respiratory failure with hypoxia and hypercapnia - appears to be secondary to volume overload with treatment of the rhabdomyolysis. Significant respiratory compromise, lethargy and CO2 retention have led to the patient being transferred to the intensive care unit. -Start noninvasive ventilation -Freeman catheter -Consider additional diuresis this afternoon -Repeat blood gases this afternoon Rhabdomyolysis - secondary to a fall and having spent the night on the floor. CK has further improved. Treatment complicated by development of volume overload as discussed above. -IV fluids at to keep open -Furosemide 40 mg IV given a couple of hours ago, will reassess this afternoon -Repeat CK level in the morning Generalized weakness - reports that he has not been eating well after discharge from the long-term. -Physical therapy consult -Consider placement back at long-term on discharge Hypokalemia - level improved from admission and was in the normal range today. -Recheck this afternoon with active diuresis -Recheck potassium in a.m. Severe COPD - oxygen dependent with significant respiratory limitations. No evidence of COPD exacerbation at the present time -Supplement oxygen, goal O2 sats 88-92% -Continue home medications Parkinson's disease - significant limitations at home due to this disease -Continue home medications Chronic kidney disease stage III - previous history of renal cell carcinoma status post nephrectomy. With only one kidney will need to closely monitor urine output and renal function -Closely monitor urine output and renal function Maintenance issues - - DVT prophylaxis - Lovenox 40 mg subcutaneous daily - GI prophylaxis -continue home PPI - Nutrition - low sodium - Freeman catheter - will be placed today for strict intake and output monitoring Disposition - anticipate discharge to the long-term after the hospital stay Storm Chadwick M.D.
--- NOTE | 2018-09-25 12:49 | CR ---
CHEST: Portable 09/25/2018 at 1046 CLINICAL HISTORY:Hypoxia COMPARISON:09/23/2018 FINDINGS: Heart size and pulmonary vascularity are normal. There is less than optimal inspiration which exaggerates lung markings. No infiltrates are seen. There are atherosclerotic changes in the aorta. Impression: Less than optimal aspiration exaggerates lung markings No acute cardiopulmonary process.
[2018-09-25] MEDS ORDERED: rOPINIRole 0.5 MG Tab PO SCH (21:00)
[2018-09-25] MEDS ORDERED: Non-Formulary Medication 1 Each (Mirtazapine [Mirtazapine] 30 MG) PO SCH (21:00)
[2018-09-25] MEDS: Simvastatin 20 MG Tab PO SCH (21:16)
[2018-09-25] MEDS: Divalproex Sodium Delayed-Release 250 MG Tab.CR PO SCH (21:16)
[2018-09-25] MEDS: rOPINIRole 1 MG Tab PO SCH (21:16)
[2018-09-25] MEDS: Mirtazapine 15 MG Tab PO SCH (21:16)
[2018-09-25] MEDS: Enoxaparin 40 MG/0.4 ML Syringe SUBCUT SCH (21:17)
[2018-09-26] MEDS: Albuterol/Ipratropium 3.0-0.5 MG/3 ML Neb Soln NEB SCH ×4 (07:20→21:08)
[2018-09-26] MEDS ORDERED: Furosemide 40 MG/4 ML VIAL IVPUSH ONE ×3 (08:15→23:00)
--- NOTE | 2018-09-26 08:42 | PCM.PN ---
- General Info Date of Service: 09/26/18 Subjective Update: Patient rested well with the noninvasive ventilation much of the night. Oxygenation had been improving but this morning he had recurrent oxygen desaturations. He is still sleepy but he is more interactive and able to answer some simple questions today. Heart rate and blood pressure have been stable. Creatine kinase is much improved today. Patient does endorse feeling short of breath. - Review of Systems General: Denies: Fever Pulmonary: Reports: Shortness of Breath Cardiovascular: Reports: Edema - Patient Data Vitals - Most Recent: Last Vital Signs Temp 36.9 C 09/26/18 07:37 Pulse 64 09/26/18 07:37 Resp 21 H 09/26/18 07:37 BP 119/54 L 09/26/18 07:37 Pulse Ox 85 L 09/26/18 07:37 Weight - Most Recent: 131 kg I&O - Last 24 Hours: Intake & Output 09/25/18 09/26/18 09/26/18 22:59 06:59 14:59 Intake Total 980 309 Output Total 1600 1405 325 Balance -100 -5778 -765 Lab Results Last 24 Hours: Laboratory Results - last 24 hr 09/25/18 09/25/18 09/25/18 Range/Units 10:36 13:01 15:01 WBC (4.5-11.0) K/uL RBC (4.30-5.90) M/uL Hgb (12.0-15.0) g/dL Hct (40.0-54.0) % MCV (80-98) fL MCH (27-31) pg MCHC (32-36) % Plt Count (150-400) K/uL Puncture Site Lt radial Lt radial ABG pH 7.305 L 7.294 L (7.350-7.450) ABG pCO2 75.5 H* 82.6 H* (35.0-42.0) mmHg ABG pO2 53.0 L 62.2 L (75.0-100.0) mmHg ABG HCO3 36.5 H 38.8 H (22.0-26.0) mmol/L ABG Total CO2 34.1 H 36.7 H (23.0-27.0) mmol/L ABG O2 Saturation 84.6 L 89.7 L (95.0-98.0) % ABG O2 Content 13.2 L 13.2 L (15.0-23.0) %vol ABG Base Excess 8.2 10.1 mm/L ABG Hemoglobin 11.3 L 10.6 L (13.5-18.0) g/dL ABG Oxyhemoglobin 83.0 88.1 % ABG Carboxyhemoglobin 1.0 1.0 (0.0-1.6) % ABG Methemoglobin 0.9 0.8 % Ra Test Passed Passed O2 Delivery Device Nasal cannula Bipap Oxygen Flow Rate L Sodium (140-148) mmol/L Potassium 4.1 (3.6-5.2) mmol/L Chloride (100-108) mmol/L Carbon Dioxide (21-32) mmol/L Anion Gap (5.0-14.0) mmol/L BUN (7-18) mg/dL Creatinine (0.8-1.3) mg/dL Est Cr Clr Drug Dosing mL/min Estimated GFR (MDRD) (>60) Glucose (74-106) mg/dL Calcium (8.5-10.1) mg/dL Creatine Kinase (39-308) U/L 09/26/18 09/26/18 Range/Units 04:30 04:30 WBC 7.3 (4.5-11.0) K/uL RBC 3.58 L (4.30-5.90) M/uL Hgb 10.2 L (12.0-15.0) g/dL Hct 33.3 L (40.0-54.0) % MCV 93 (80-98) fL MCH 29 (27-31) pg MCHC 31 L (32-36) % Plt Count 212 (150-400) K/uL Puncture Site ABG pH (7.350-7.450) ABG pCO2 (35.0-42.0) mmHg ABG pO2 (75.0-100.0) mmHg ABG HCO3 (22.0-26.0) mmol/L ABG Total CO2 (23.0-27.0) mmol/L ABG O2 Saturation (95.0-98.0) % ABG O2 Content (15.0-23.0) %vol ABG Base Excess mm/L ABG Hemoglobin (13.5-18.0) g/dL ABG Oxyhemoglobin % ABG Carboxyhemoglobin (0.0-1.6) % ABG Methemoglobin % Ra Test O2 Delivery Device Oxygen Flow Rate L Sodium 137 L (140-148) mmol/L Potassium 4.1 (3.6-5.2) mmol/L Chloride 97 L (100-108) mmol/L Carbon Dioxide 38 H (21-32) mmol/L Anion Gap 6.1 (5.0-14.0) mmol/L BUN 15 (7-18) mg/dL Creatinine 1.1 (0.8-1.3) mg/dL Est Cr Clr Drug Dosing 73.40 mL/min Estimated GFR (MDRD) > 60 (>60) Glucose 167 H (74-106) mg/dL Calcium 8.8 (8.5-10.1) mg/dL Creatine Kinase 547 H (39-308) U/L Med Orders - Current: Current Medications Albuterol (Proventil Neb Soln) 2.5 mg NEB Q4H PRN PRN Reason: Shortness Of Breath/wheezing Last Admin: 09/25/18 05:55 Dose: 2.5 mg Albuterol/Ipratropium (Duoneb 3.0-0.5 Mg/3 Ml) 3 ml NEB QIDRT [facility] Last Admin: 09/26/18 07:20 Dose: 3 ml Amlodipine Besylate (Norvasc) 7.5 mg PO DAILY [facility] Last Admin: 09/25/18 08:42 Dose: 7.5 mg Benztropine Mesylate (Cogentin) 0.5 mg PO DAILY [facility] Last Admin: 09/25/18 08:40 Dose: 0.5 mg Citalopram Hydrobromide (Celexa) 20 mg PO DAILY [facility] Last Admin: 09/25/18 08:39 Dose: 20 mg Divalproex Sodium (Divalproex Sodium) 1,500 mg PO BEDTIME [facility] Last Admin: 09/25/18 21:16 Dose: 1,500 mg Docusate Sodium (Colace) 100 mg PO BID [facility] Last Admin: 09/25/18 21:17 Dose: 100 mg Enoxaparin Sodium (Lovenox) 40 mg SUBCUT BEDTIME [facility] Last Admin: 09/25/18 21:17 Dose: 40 mg Ferrous Sulfate (Ferrous Sulfate) 325 mg PO BID [facility] Last Admin: 09/25/18 21:16 Dose: 325 mg Gabapentin (Neurontin) 600 mg PO TID [facility] Last Admin: 09/25/18 21:17 Dose: 600 mg Potassium Chloride/Sodium Chloride (Normal Saline With 20 Meq Kcl) 1,000 mls @ 25 mls/hr IV ASDIRECTED [facility] Last Admin: 09/25/18 11:55 Dose: 25 mls/hr Magnesium Hydroxide (Milk Of Magnesia) 30 ml PO Q12H PRN PRN Reason: Constipation Magnesium Oxide (Magnesium Oxide) 400 mg PO BID [facility] Last Admin: 09/25/18 21:17 Dose: 400 mg Mirtazapine (Remeron) 30 mg PO BEDTIME [facility] Last Admin: 09/25/18 21:16 Dose: 30 mg Olanzapine (Zyprexa) 15 mg PO DAILY [facility] Last Admin: 09/25/18 08:43 Dose: 15 mg Ondansetron HCl (Zofran) 4 mg IV Q4H PRN PRN Reason: Nausea/Vomiting Oxycodone HCl (Oxycodone) 10 mg PO Q4H PRN PRN Reason: Pain Last Admin: 09/25/18 08:38 Dose: 10 mg Pantoprazole Sodium (Protonix) 40 mg PO ACBREAKFAST [facility] Last Admin: 09/25/18 08:39 Dose: 40 mg Polyethylene Glycol (Miralax) 17 gm PO BID [facility] Last Admin: 09/25/18 21:17 Dose: 17 gm Pramipexole Dihydrochloride (Mirapex) 1 mg PO BID [facility] Last Admin: 09/25/18 21:16 Dose: 1 mg Ropinirole HCl (Requip) 1 mg PO BID [facility] Last Admin: 09/25/18 21:16 Dose: 1 mg Fluticasone/Salmeterol (Fluticasone-Salmeterol 113-14 Mcg Powder Inh) 1 puff INH BIDRT [facility] Last Admin: 09/25/18 21:17 Dose: 1 puff Senna/Docusate Sodium (Senna Plus) 1 tab PO BID [facility] Last Admin: 09/25/18 21:17 Dose: 1 tab Simvastatin (Zocor) 20 mg PO BEDTIME [facility] Last Admin: 09/25/18 21:16 Dose: 20 mg Sodium Chloride (Saline Flush) 10 ml FLUSH ASDIRECTED PRN PRN Reason: Keep Vein Open Tamsulosin HCl (Flomax) 0.4 mg PO DAILY [facility] Last Admin: 09/25/18 08:41 Dose: 0.4 mg Discontinued Medications Acetazolamide (Diamox Sequels) 500 mg PO BID [facility] Stop: 09/24/18 21:01 Last Admin: 09/24/18 20:23 Dose: 500 mg Albuterol/Ipratropium (Duoneb 3.0-0.5 Mg/3 Ml) 3 ml NEB ONETIME ONE Stop: 09/23/18 18:56 Last Admin: 09/23/18 19:01 Dose: 3 ml Divalproex Sodium (Divalproex Sodium) 1,500 mg PO BEDTIME [facility] Last Admin: 09/23/18 23:46 Dose: 1,500 mg Enoxaparin Sodium (Lovenox) 40 mg SUBCUT DAILY [facility] Last Admin: 09/23/18 22:36 Dose: 40 mg Furosemide (Lasix) 40 mg IVPUSH NOW ONE Stop: 09/24/18 09:01 Last Admin: 09/24/18 09:33 Dose: 40 mg Furosemide (Lasix) 40 mg IVPUSH NOW ONE Stop: 09/24/18 18:01 Last Admin: 09/24/18 18:20 Dose: 40 mg Furosemide (Lasix) 60 mg IVPUSH ONETIME ONE Stop: 09/25/18 02:58 Last Admin: 09/25/18 03:22 Dose: 60 mg Furosemide (Lasix) 40 mg IVPUSH ONETIME ONE Stop: 09/25/18 09:01 Last Admin: 09/25/18 08:38 Dose: 40 mg Furosemide (Lasix) 40 mg IVPUSH ONETIME ONE Stop: 09/25/18 16:01 Last Admin: 09/25/18 16:14 Dose: 40 mg Furosemide (Lasix) 40 mg IVPUSH NOW ONE Stop: 09/26/18 08:16 Last Admin: 09/26/18 08:19 Dose: 40 mg Potassium Chloride/Sodium Chloride (Normal Saline With 20 Meq Kcl) 1,000 mls @ 150 mls/hr IV ASDIRECTED [facility] Last Admin: 09/23/18 19:30 Dose: 150 mls/hr Magnesium Sulfate 2 gm/ Premix 50 mls @ 25 mls/hr IV Q6H [facility] Stop: 09/24/18 05:11 Last Admin: 09/24/18 03:13 Dose: 25 mls/hr Potassium Chloride 40 meq/ (Premix) 100 mls @ 25 mls/hr IV ONETIME ONE Stop: 09/24/18 01:11 Last Admin: 09/23/18 23:39 Dose: Not Given Potassium Chloride/Sodium Chloride (Normal Saline With 20 Meq Kcl) 1,000 mls @ 125 mls/hr IV ASDIRECTED [facility] Last Admin: 09/25/18 05:57 Dose: 125 mls/hr Potassium Chloride 20 meq/ (Premix) 100 mls @ 50 mls/hr IV Q2H [facility] Stop: 09/24/18 02:59 Last Admin: 09/24/18 00:44 Dose: 50 mls/hr Potassium Chloride 20 meq/Lidocaine HCl 2 ml/ Sodium Chloride 112 mls @ 56 mls/ hr IV Q2H [facility] Stop: 09/24/18 13:59 Last Admin: 09/24/18 14:05 Dose: 56 mls/hr Lidocaine HCl (Xylocaine-Mpf 1%) 5 ml INJECT Q2H [facility] Stop: 09/24/18 00:16 Last Admin: 09/24/18 00:43 Dose: 5 ml Potassium Chloride (Potassium Chloride) 40 meq PO ONETIME ONE Stop: 09/23/18 19:20 Last Admin: 09/23/18 19:29 Dose: 40 meq Potassium Chloride (Klor-Con M20) 40 meq PO ONETIME ONE Stop: 09/23/18 22:01 Last Admin: 09/23/18 23:08 Dose: 40 meq Potassium Chloride (Klor-Con M20) 40 meq PO ONETIME ONE Stop: 09/24/18 09:01 Last Admin: 09/24/18 09:36 Dose: 40 meq Potassium Chloride (Klor-Con M20) 40 meq PO ONETIME ONE Stop: 09/24/18 12:01 Last Admin: 09/24/18 14:05 Dose: 40 meq Potassium Chloride (Klor-Con M20) 40 meq PO ONETIME ONE Stop: 09/24/18 17:01 Last Admin: 09/24/18 18:19 Dose: 40 meq Fluticasone/Salmeterol (Fluticasone-Salmeterol 113-14 Mcg Powder Inh) 0 puff INH Q12H [facility] Last Admin: 09/23/18 22:37 Dose: Not Given Sodium Chloride (Saline Flush) 10 ml FLUSH ASDIRECTED PRN PRN Reason: Keep Vein Open Last Admin: 09/23/18 19:02 Dose: 10 ml - Exam Quality Assessment: Supplemental Oxygen, Urine Catheter, Restraints General: Alert, Cooperative, No Acute Distress, Lethargic HEENT: Pupils Equal Lungs: Normal Respiratory Effort, Decreased Breath Sounds (mild at bases L>R), Crackles (few at the bases) Cardiovascular: Regular Rate, Regular Rhythm, No Murmurs GI/Abdominal Exam: Normal Bowel Sounds, Soft, No Distention Extremities: Pedal Edema. No: Increased Warmth Skin: Warm, Dry Psy/Mental Status: Alert. No: Anxious - Problem List Review Problem List Initiated/Reviewed/Updated: Yes - My Orders Last 24 Hours: My Active Orders 09/25/18 10:37 Transfer Patient (Change bed) [ADT] Routine 09/25/18 10:38 Cardiac Monitoring [RC] Q6H Overnight Pulse Oximetry [RC] Click to Edit Pulse Oximetry Continuous Monitoring [OM.PC] Routine 09/25/18 10:45 NS + KCl 20mEq/L [Normal Saline with 20 mEq KCl] 1,000 ml IV ASDIRECTED 09/25/18 11:21 BIPAP Adult [RT BiPAP/CPAP] [RC] ASDIRECTED 09/25/18 11:24 Urinary Catheter Assessment [RC] Q12H 09/25/18 11:30 Insert Freeman Catheter [Insert Urinary Catheter] [OM.PC] Q24H 09/25/18 21:00 rOPINIRole [Requip] 1 mg PO BID 09/27/18 05:00 Chest 1V Frontal [CR] Timed CBC W/O DIFF,HEMOGRAM [HEME] Timed (1) COMPREHENSIVE METABOLIC PN,CMP [CHEM] Timed CREATINE KINASE,CK [CHEM] Timed - Plan Plan:: ASSESSMENT AND PLAN Acute respiratory failure with hypoxia and hypercapnia - appears to be secondary to volume overload with treatment of the rhabdomyolysis. Little bit more interactive today but still requiring noninvasive ventilation. Still has evidence for volume overload. -Continue noninvasive ventilation -Freeman catheter -Additional diuresis this morning and afternoon and possibly tonight Rhabdomyolysis - secondary to a fall and having spent the night on the floor. CK has nearly normalized. -IV fluids at to keep open -Patient will be receiving at least 2 rounds of diuresis today -Repeat CK level in the morning Generalized weakness - reports that he has not been eating well after discharge from the halfway. -Physical therapy consult once off noninvasive ventilation -Consider placement back at halfway on discharge Hypokalemia - level improved from admission and has remained normal. -Recheck potassium in a.m. Severe COPD - oxygen dependent with significant respiratory limitations. No evidence of COPD exacerbation at the present time -Supplement oxygen, goal O2 sats 88-92% -Continue home medications Parkinson's disease - significant limitations at home due to this disease -Continue home medications Chronic kidney disease stage III - previous history of renal cell carcinoma status post nephrectomy. With only one kidney will need to closely monitor urine output and renal function -Closely monitor urine output and renal function Maintenance issues - - DVT prophylaxis - Lovenox 40 mg subcutaneous daily - GI prophylaxis -continue home PPI - Nutrition - low sodium - Freeman catheter - placed today for strict intake and output monitoring Disposition - anticipate discharge to the halfway after the hospital stay Storm Chadwick M.D.
[2018-09-26] MEDS ORDERED: BENZTROPINE 0.5 MG PO SCH (09:00)
[2018-09-26] MEDS: Pantoprazole 40 MG Tab.CR PO SCH (10:06)
[2018-09-26] MEDS: Citalopram 20 MG Tab PO SCH (10:07)
[2018-09-26] MEDS: Docusate Sodium 100 MG Cap PO SCH ×2 (10:07→21:03)
[2018-09-26] MEDS: Benztropine 1 MG Tab PO SCH (10:07)
[2018-09-26] MEDS: Ferrous Sulfate 325 MG Tab PO SCH ×2 (10:08→20:45)
[2018-09-26] MEDS: Fluticasone-Salmeterol 113-14 MCG Powder Inhalant INH SCH ×2 (11:20→21:35)
[2018-09-26] MEDS: Tamsulosin 0.4 MG Cap.ER PO SCH (14:03)
[2018-09-26] MEDS: Polyethylene Glycol 3350 Powder 17 GM Packet PO SCH ×2 (14:03→21:01)
[2018-09-26] MEDS: Magnesium Oxide 400 MG Tab PO SCH ×2 (14:03→20:44)
[2018-09-26] MEDS: Pramipexole 0.5 MG Tab PO SCH ×2 (14:03→20:43)
[2018-09-26] MEDS: OLANZapine 5 MG Tab PO SCH (14:04)
[2018-09-26] MEDS: rOPINIRole 1 MG Tab PO SCH ×2 (14:04→20:52)
[2018-09-26] MEDS: amLODIPine 5 MG Tab PO SCH (14:04)
[2018-09-26] MEDS: Gabapentin 300 MG Cap PO SCH ×2 (14:04→20:44)
[2018-09-26] MEDS ORDERED: methylPREDNISolone Sodium Succinate 125 MG/2 ML SDV IVPUSH ONE (17:15)
[2018-09-26] MEDS: Divalproex Sodium Delayed-Release 250 MG Tab.CR PO SCH (20:41)
[2018-09-26] MEDS: Mirtazapine 15 MG Tab PO SCH (20:43)
[2018-09-26] MEDS: Enoxaparin 40 MG/0.4 ML Syringe SUBCUT SCH (20:54)
[2018-09-26] MEDS: oxyCODONE 5 MG Tab PO PRN (20:57)
[2018-09-26] MEDS: Simvastatin 20 MG Tab PO SCH (21:02)
[2018-09-27] MEDS: methylPREDNISolone Sodium Succinate 40 MG/1 ML SDV IVPUSH SCH ×3 (01:32→18:05)
[2018-09-27] MEDS: oxyCODONE 5 MG Tab PO PRN ×5 (01:39→19:11)
[2018-09-27] MEDS: NS + KCl 20mEq/L 1,000 ML IV SCH (03:27)
--- NOTE | 2018-09-27 05:50 | CRLCR ---
INDICATION: Respiratory failure TECHNIQUE: Chest 1 views COMPARISON: Chest x-ray 09/23/2018 FINDINGS: Cardiovascular and mediastinum: Normal heart size with aortic tortuosity and atherosclerotic calcification. Lungs and pleural spaces: No pleural effusion or pneumothorax. Mild pulmonary cephalization without focal consolidation. Bones and soft tissues: Status post thoracolumbar surgery. IMPRESSION: Mild pulmonary cephalization without focal consolidation. Dictated by Arthur Kinsey MD @ Sep 27 2018 5:40AM Signed by Dr. Arthur Kinsey @ Sep 27 2018 5:49AM
[2018-09-27] MEDS: Albuterol/Ipratropium 3.0-0.5 MG/3 ML Neb Soln NEB SCH ×4 (07:18→21:16)
[2018-09-27] MEDS: Fluticasone-Salmeterol 113-14 MCG Powder Inhalant INH SCH ×2 (07:18→21:35)
[2018-09-27] MEDS: amLODIPine 5 MG Tab PO SCH (08:29)
[2018-09-27] MEDS: Pantoprazole 40 MG Tab.CR PO SCH (08:29)
[2018-09-27] MEDS: Pramipexole 0.5 MG Tab PO SCH ×2 (08:30→21:04)
[2018-09-27] MEDS: Citalopram 20 MG Tab PO SCH (08:31)
[2018-09-27] MEDS: rOPINIRole 1 MG Tab PO SCH ×2 (08:31→21:00)
[2018-09-27] MEDS: Docusate Sodium 100 MG Cap PO SCH ×2 (08:31→21:01)
[2018-09-27] MEDS: Tamsulosin 0.4 MG Cap.ER PO SCH (08:31)
[2018-09-27] MEDS: Magnesium Oxide 400 MG Tab PO SCH ×2 (08:32→21:01)
[2018-09-27] MEDS: Gabapentin 300 MG Cap PO SCH ×3 (08:32→21:00)
[2018-09-27] MEDS: Ferrous Sulfate 325 MG Tab PO SCH ×2 (08:32→21:01)
[2018-09-27] MEDS: OLANZapine 5 MG Tab PO SCH (08:32)
[2018-09-27] MEDS: Polyethylene Glycol 3350 Powder 17 GM Packet PO SCH ×2 (08:33→21:06)
[2018-09-27] MEDS: Benztropine 1 MG Tab PO SCH (08:33)
--- NOTE | 2018-09-27 09:31 | PCM.PN ---
- General Info Date of Service: 09/27/18 Subjective Update: there were no acute events overnight. The patient rested comfortably on noninvasive ventilation. This morning he is alert and interactive and off noninvasive ventilation. He is weak but otherwise says he feels okay. No complaints of shortness of breath or chest pain. He is hungry. He has not had any fevers. Excellent diuresis over the past 2 days. CK level is normal today. Functional Status: Reports: Pain Controlled - Review of Systems General: Reports: Weakness Pulmonary: Denies: Shortness of Breath - Patient Data Vitals - Most Recent: Last Vital Signs Temp 36.2 C 09/27/18 04:00 Pulse 56 L 09/27/18 07:18 Resp 14 09/27/18 05:38 BP 141/67 H 09/27/18 08:29 Pulse Ox 98 09/27/18 05:38 Weight - Most Recent: 131 kg I&O - Last 24 Hours: Intake & Output 09/26/18 09/27/18 09/27/18 22:59 06:59 14:59 Intake Total 240 468 Output Total 1825 290 Balance -1585 178 Lab Results Last 24 Hours: Laboratory Results - last 24 hr 09/27/18 09/27/18 09/27/18 Range/Units 04:55 04:57 05:00 WBC 6.5 (4.5-11.0) K/uL RBC 3.91 L (4.30-5.90) M/uL Hgb 11.5 L (12.0-15.0) g/dL Hct 35.2 L (40.0-54.0) % MCV 90 (80-98) fL MCH 29 (27-31) pg MCHC 33 (32-36) % Plt Count 233 (150-400) K/uL Puncture Site L brachial ABG pH 7.338 L (7.350-7.450) ABG pCO2 67.7 H (35.0-42.0) mmHg ABG pO2 85.9 (75.0-100.0) mmHg ABG HCO3 35.3 H (22.0-26.0) mmol/L ABG Total CO2 32.6 H (23.0-27.0) mmol/L ABG O2 Saturation 96.0 (95.0-98.0) % ABG O2 Content 15.5 (15.0-23.0) %vol ABG Base Excess 7.9 mm/L ABG Hemoglobin 11.6 L (13.5-18.0) g/dL ABG Oxyhemoglobin 94.4 % ABG Carboxyhemoglobin 1.0 (0.0-1.6) % ABG Methemoglobin 0.7 % Ra Test N/a O2 Delivery Device Bipap Oxygen Flow Rate L Sodium 136 L (140-148) mmol/L Potassium 4.0 (3.6-5.2) mmol/L Chloride 96 L (100-108) mmol/L Carbon Dioxide 37 H (21-32) mmol/L Anion Gap 7.0 (5.0-14.0) mmol/L BUN 25 H D (7-18) mg/dL Creatinine 1.2 (0.8-1.3) mg/dL Est Cr Clr Drug Dosing 67.28 mL/min Estimated GFR (MDRD) 59 L (>60) Glucose 207 H (74-106) mg/dL Calcium 9.6 (8.5-10.1) mg/dL Total Bilirubin 0.3 (0.2-1.0) mg/dL AST 36 D (15-37) U/L ALT 38 (12-78) U/L Alkaline Phosphatase 39 L (46-116) U/L Creatine Kinase 267 (39-308) U/L Total Protein 6.4 (6.4-8.2) g/dL Albumin 2.6 L (3.4-5.0) g/dL Globulin 3.8 H (2.3-3.5) g/dL Albumin/Globulin Ratio 0.7 L (1.2-2.2) Med Orders - Current: Current Medications Albuterol (Proventil Neb Soln) 2.5 mg NEB Q4H PRN PRN Reason: Shortness Of Breath/wheezing Last Admin: 09/25/18 05:55 Dose: 2.5 mg Albuterol/Ipratropium (Duoneb 3.0-0.5 Mg/3 Ml) 3 ml NEB QIDRT [facility] Last Admin: 09/27/18 07:18 Dose: 3 ml Amlodipine Besylate (Norvasc) 7.5 mg PO DAILY [facility] Last Admin: 09/27/18 08:29 Dose: 7.5 mg Benztropine Mesylate (Cogentin) 0.5 mg PO DAILY [facility] Last Admin: 09/27/18 08:33 Dose: 0.5 mg Citalopram Hydrobromide (Celexa) 20 mg PO DAILY [facility] Last Admin: 09/27/18 08:31 Dose: 20 mg Divalproex Sodium (Divalproex Sodium) 1,500 mg PO BEDTIME [facility] Last Admin: 09/26/18 20:41 Dose: 1,500 mg Docusate Sodium (Colace) 100 mg PO BID [facility] Last Admin: 09/27/18 08:31 Dose: 100 mg Enoxaparin Sodium (Lovenox) 40 mg SUBCUT BEDTIME [facility] Last Admin: 09/26/18 20:54 Dose: 40 mg Ferrous Sulfate (Ferrous Sulfate) 325 mg PO BID [facility] Last Admin: 09/27/18 08:32 Dose: 325 mg Gabapentin (Neurontin) 600 mg PO TID [facility] Last Admin: 09/27/18 08:32 Dose: 600 mg Potassium Chloride/Sodium Chloride (Normal Saline With 20 Meq Kcl) 1,000 mls @ 25 mls/hr IV ASDIRECTED [facility] Last Admin: 09/27/18 03:27 Dose: 25 mls/hr Magnesium Hydroxide (Milk Of Magnesia) 30 ml PO Q12H PRN PRN Reason: Constipation Magnesium Oxide (Magnesium Oxide) 400 mg PO BID [facility] Last Admin: 09/27/18 08:32 Dose: 400 mg Methylprednisolone Sodium Succinate (Solu-Medrol) 40 mg IVPUSH Q8H [facility] Last Admin: 09/27/18 01:32 Dose: 40 mg Mirtazapine (Remeron) 30 mg PO BEDTIME [facility] Last Admin: 09/26/18 20:43 Dose: 30 mg Olanzapine (Zyprexa) 15 mg PO DAILY [facility] Last Admin: 09/27/18 08:32 Dose: 15 mg Ondansetron HCl (Zofran) 4 mg IV Q4H PRN PRN Reason: Nausea/Vomiting Oxycodone HCl (Oxycodone) 10 mg PO Q4H PRN PRN Reason: Pain Last Admin: 09/27/18 05:44 Dose: 10 mg Pantoprazole Sodium (Protonix) 40 mg PO ACBREAKFAST [facility] Last Admin: 09/27/18 08:29 Dose: 40 mg Polyethylene Glycol (Miralax) 17 gm PO BID [facility] Last Admin: 09/27/18 08:33 Dose: 17 gm Pramipexole Dihydrochloride (Mirapex) 1 mg PO BID [facility] Last Admin: 09/27/18 08:30 Dose: 1 mg Ropinirole HCl (Requip) 1 mg PO BID [facility] Last Admin: 09/27/18 08:31 Dose: 1 mg Fluticasone/Salmeterol (Fluticasone-Salmeterol 113-14 Mcg Powder Inh) 1 puff INH BIDRT [facility] Last Admin: 09/27/18 07:18 Dose: 1 puff Senna/Docusate Sodium (Senna Plus) 1 tab PO BID [facility] Last Admin: 09/27/18 08:32 Dose: 1 tab Simvastatin (Zocor) 20 mg PO BEDTIME [facility] Last Admin: 09/26/18 21:02 Dose: 20 mg Sodium Chloride (Saline Flush) 10 ml FLUSH ASDIRECTED PRN PRN Reason: Keep Vein Open Tamsulosin HCl (Flomax) 0.4 mg PO DAILY [facility] Last Admin: 09/27/18 08:31 Dose: 0.4 mg Discontinued Medications Acetazolamide (Diamox Sequels) 500 mg PO BID [facility] Stop: 09/24/18 21:01 Last Admin: 09/24/18 20:23 Dose: 500 mg Albuterol/Ipratropium (Duoneb 3.0-0.5 Mg/3 Ml) 3 ml NEB ONETIME ONE Stop: 09/23/18 18:56 Last Admin: 09/23/18 19:01 Dose: 3 ml Divalproex Sodium (Divalproex Sodium) 1,500 mg PO BEDTIME [facility] Last Admin: 09/23/18 23:46 Dose: 1,500 mg Enoxaparin Sodium (Lovenox) 40 mg SUBCUT DAILY [facility] Last Admin: 09/23/18 22:36 Dose: 40 mg Furosemide (Lasix) 40 mg IVPUSH NOW ONE Stop: 09/24/18 09:01 Last Admin: 09/24/18 09:33 Dose: 40 mg Furosemide (Lasix) 40 mg IVPUSH NOW ONE Stop: 09/24/18 18:01 Last Admin: 09/24/18 18:20 Dose: 40 mg Furosemide (Lasix) 60 mg IVPUSH ONETIME ONE Stop: 09/25/18 02:58 Last Admin: 09/25/18 03:22 Dose: 60 mg Furosemide (Lasix) 40 mg IVPUSH ONETIME ONE Stop: 09/25/18 09:01 Last Admin: 09/25/18 08:38 Dose: 40 mg Furosemide (Lasix) 40 mg IVPUSH ONETIME ONE Stop: 09/25/18 16:01 Last Admin: 09/25/18 16:14 Dose: 40 mg Furosemide (Lasix) 40 mg IVPUSH NOW ONE Stop: 09/26/18 08:16 Last Admin: 09/26/18 08:19 Dose: 40 mg Furosemide (Lasix) 40 mg IVPUSH ONETIME ONE Stop: 09/26/18 14:16 Last Admin: 09/26/18 14:21 Dose: 40 mg Furosemide (Lasix) 40 mg IVPUSH ONETIME ONE Stop: 09/26/18 23:01 Last Admin: 09/26/18 22:32 Dose: 40 mg Potassium Chloride/Sodium Chloride (Normal Saline With 20 Meq Kcl) 1,000 mls @ 150 mls/hr IV ASDIRECTED [facility] Last Admin: 09/23/18 19:30 Dose: 150 mls/hr Magnesium Sulfate 2 gm/ Premix 50 mls @ 25 mls/hr IV Q6H [facility] Stop: 09/24/18 05:11 Last Admin: 09/24/18 03:13 Dose: 25 mls/hr Potassium Chloride 40 meq/ (Premix) 100 mls @ 25 mls/hr IV ONETIME ONE Stop: 09/24/18 01:11 Last Admin: 09/23/18 23:39 Dose: Not Given Potassium Chloride/Sodium Chloride (Normal Saline With 20 Meq Kcl) 1,000 mls @ 125 mls/hr IV ASDIRECTED [facility] Last Admin: 09/25/18 05:57 Dose: 125 mls/hr Potassium Chloride 20 meq/ (Premix) 100 mls @ 50 mls/hr IV Q2H [facility] Stop: 09/24/18 02:59 Last Admin: 09/24/18 00:44 Dose: 50 mls/hr Potassium Chloride 20 meq/Lidocaine HCl 2 ml/ Sodium Chloride 112 mls @ 56 mls/ hr IV Q2H [facility] Stop: 09/24/18 13:59 Last Admin: 09/24/18 14:05 Dose: 56 mls/hr Lidocaine HCl (Xylocaine-Mpf 1%) 5 ml INJECT Q2H [facility] Stop: 09/24/18 00:16 Last Admin: 09/24/18 00:43 Dose: 5 ml Methylprednisolone Sodium Succinate (Solu-Medrol) 125 mg IVPUSH ONETIME ONE Stop: 09/26/18 17:16 Last Admin: 09/26/18 17:33 Dose: 125 mg Potassium Chloride (Potassium Chloride) 40 meq PO ONETIME ONE Stop: 09/23/18 19:20 Last Admin: 09/23/18 19:29 Dose: 40 meq Potassium Chloride (Klor-Con M20) 40 meq PO ONETIME ONE Stop: 09/23/18 22:01 Last Admin: 09/23/18 23:08 Dose: 40 meq Potassium Chloride (Klor-Con M20) 40 meq PO ONETIME ONE Stop: 09/24/18 09:01 Last Admin: 09/24/18 09:36 Dose: 40 meq Potassium Chloride (Klor-Con M20) 40 meq PO ONETIME ONE Stop: 09/24/18 12:01 Last Admin: 09/24/18 14:05 Dose: 40 meq Potassium Chloride (Klor-Con M20) 40 meq PO ONETIME ONE Stop: 09/24/18 17:01 Last Admin: 09/24/18 18:19 Dose: 40 meq Fluticasone/Salmeterol (Fluticasone-Salmeterol 113-14 Mcg Powder Inh) 0 puff INH Q12H [facility] Last Admin: 09/23/18 22:37 Dose: Not Given Sodium Chloride (Saline Flush) 10 ml FLUSH ASDIRECTED PRN PRN Reason: Keep Vein Open Last Admin: 09/23/18 19:02 Dose: 10 ml - Exam Quality Assessment: Supplemental Oxygen General: Alert, Oriented, Cooperative, No Acute Distress Lungs: Clear to Auscultation, Normal Respiratory Effort, Decreased Breath Sounds (both bases) Cardiovascular: Regular Rate, Regular Rhythm GI/Abdominal Exam: Soft, No Distention Extremities: Pedal Edema (mild ). No: Increased Warmth Skin: Warm, Dry Neurological: Other (tremor) Psy/Mental Status: Alert, Normal Affect - Problem List Review Problem List Initiated/Reviewed/Updated: Yes - My Orders Last 24 Hours: My Active Orders 09/27/18 02:00 methylPREDNISolone Sod Succ [Solu-MEDROL] 40 mg IVPUSH Q8H 09/27/18 09:27 Furosemide [Lasix] 40 mg IVPUSH ONETIME ONE 09/27/18 09:29 PT Evaluation and Treatment [CONS] Routine 09/28/18 05:00 BASIC METABOLIC PANEL,BMP [CHEM] Timed CBC W/O DIFF,HEMOGRAM [HEME] Timed (1) - Plan Plan:: ASSESSMENT AND PLAN Acute respiratory failure with hypoxia and hypercapnia - appears to be secondary to volume overload with treatment of the rhabdomyolysis. did require noninvasive ventilation overnight but is on only supplemental oxygen this morning and doing quite well. -supplement oxygen -restart noninvasive ventilation if needed -continue Freeman catheter -Additional diuresis this morning and reassess this afternoon Rhabdomyolysis - secondary to a fall and having spent the night on the floor. CK has normalized. -IV fluids at to keep open -diuresis as above Generalized weakness - reports that he has not been eating well after [facility] from the [facility]. -Physical therapy consult -[facility] at [facility] on discharge Hypokalemia - level improved from admission and has remained normal. -Recheck potassium in a.m. Severe COPD - oxygen dependent with significant respiratory limitations. No evidence of COPD exacerbation at the present time but I did start him on steroids to help improve lung function. -Transition to oral steroids tomorrow -Supplement oxygen, goal O2 sats 88-92% -Continue home medications Parkinson's disease - significant limitations at home due to this disease. -Continue home medications Chronic kidney disease stage III - previous history of renal cell carcinoma status post nephrectomy. kidney function has remained stable. -Closely monitor urine output and renal function Maintenance issues - - DVT prophylaxis - Lovenox 40 mg subcutaneous daily - GI prophylaxis -continue home PPI - Nutrition - low sodium - Freeman catheter - placed today for strict intake and output monitoring Disposition - anticipate discharge to the [facility] after the hospital stay Storm Chadwick M.D.
[2018-09-27] MEDS ORDERED: Furosemide 40 MG/4 ML VIAL IVPUSH ONE (10:00)
[2018-09-27] MEDS: Simvastatin 20 MG Tab PO SCH (21:01)
[2018-09-27] MEDS: Mirtazapine 15 MG Tab PO SCH (21:03)
[2018-09-27] MEDS: Enoxaparin 40 MG/0.4 ML Syringe SUBCUT SCH (21:06)
[2018-09-27] MEDS: Divalproex Sodium Delayed-Release 250 MG Tab.CR PO SCH (21:06)
[2018-09-28] MEDS: methylPREDNISolone Sodium Succinate 40 MG/1 ML SDV IVPUSH SCH (01:26)
[2018-09-28] MEDS: oxyCODONE 5 MG Tab PO PRN ×5 (03:32→21:44)
[2018-09-28] MEDS: Fluticasone-Salmeterol 113-14 MCG Powder Inhalant INH SCH ×2 (07:07→20:53)
[2018-09-28] MEDS: Albuterol/Ipratropium 3.0-0.5 MG/3 ML Neb Soln NEB SCH ×4 (07:07→20:41)
[2018-09-28] MEDS: Pantoprazole 40 MG Tab.CR PO SCH (07:34)
[2018-09-28] MEDS: Ferrous Sulfate 325 MG Tab PO SCH ×2 (08:39→20:48)
[2018-09-28] MEDS: Benztropine 1 MG Tab PO SCH (08:40)
[2018-09-28] MEDS: Gabapentin 300 MG Cap PO SCH ×3 (08:40→20:49)
[2018-09-28] MEDS: Docusate Sodium 100 MG Cap PO SCH ×2 (08:40→20:48)
[2018-09-28] MEDS: Magnesium Oxide 400 MG Tab PO SCH ×2 (08:40→20:48)
[2018-09-28] MEDS: Polyethylene Glycol 3350 Powder 17 GM Packet PO SCH ×2 (08:40→20:48)
[2018-09-28] MEDS: rOPINIRole 1 MG Tab PO SCH ×2 (08:40→20:49)
[2018-09-28] MEDS: Pramipexole 0.5 MG Tab PO SCH ×2 (08:41→20:49)
[2018-09-28] MEDS: amLODIPine 5 MG Tab PO SCH (08:41)
[2018-09-28] MEDS: Citalopram 20 MG Tab PO SCH (08:41)
[2018-09-28] MEDS: OLANZapine 5 MG Tab PO SCH (08:41)
[2018-09-28] MEDS: Tamsulosin 0.4 MG Cap.ER PO SCH (08:41)
--- NOTE | 2018-09-28 09:50 | PCM.PN ---
- General Info Date of Service: 09/28/18 Subjective Update: There were no acute events overnight. Patient has remained on nasal cannula to supplement his oxygen. He did not require noninvasive ventilation. Shortness of breath feels much better today. He has a cough but this is chronic. Still having some pain in his right knee but no swelling. Appetite has been good. He remains very weak and requires an assist device to stand from the side of the bed. Functional Status: Reports: Pain Controlled, Tolerating Diet - Review of Systems General: Reports: Weakness Pulmonary: Reports: Cough - Patient Data Vitals - Most Recent: Last Vital Signs Temp 37.1 C 09/28/18 00:00 Pulse 54 L 09/28/18 07:08 Resp 19 09/28/18 06:00 BP 116/46 L 09/28/18 08:41 Pulse Ox 92 L 09/28/18 06:00 Weight - Most Recent: 131 kg I&O - Last 24 Hours: Intake & Output 09/27/18 09/28/18 09/28/18 22:59 06:59 14:59 Intake Total 300 290 Output Total 1250 1600 Balance -950 -1310 Lab Results Last 24 Hours: Laboratory Results - last 24 hr 09/28/18 09/28/18 Range/Units 04:15 04:15 WBC 7.9 (4.5-11.0) K/uL RBC 3.92 L (4.30-5.90) M/uL Hgb 10.9 L (12.0-15.0) g/dL Hct 35.1 L (40.0-54.0) % MCV 90 (80-98) fL MCH 28 (27-31) pg MCHC 31 L (32-36) % Plt Count 257 (150-400) K/uL Sodium 134 L (140-148) mmol/L Potassium 4.2 (3.6-5.2) mmol/L Chloride 95 L (100-108) mmol/L Carbon Dioxide 33 H (21-32) mmol/L Anion Gap 10.2 (5.0-14.0) mmol/L BUN 32 H (7-18) mg/dL Creatinine 1.1 (0.8-1.3) mg/dL Est Cr Clr Drug Dosing 73.40 mL/min Estimated GFR (MDRD) > 60 (>60) Glucose 303 H (74-106) mg/dL Calcium 9.1 (8.5-10.1) mg/dL Med Orders - Current: Current Medications Albuterol (Proventil Neb Soln) 2.5 mg NEB Q4H PRN PRN Reason: Shortness Of Breath/wheezing Last Admin: 09/25/18 05:55 Dose: 2.5 mg Albuterol/Ipratropium (Duoneb 3.0-0.5 Mg/3 Ml) 3 ml NEB QIDRT [facility] Last Admin: 09/28/18 07:07 Dose: 3 ml Amlodipine Besylate (Norvasc) 7.5 mg PO DAILY [facility] Last Admin: 09/28/18 08:41 Dose: 7.5 mg Benztropine Mesylate (Cogentin) 0.5 mg PO DAILY [facility] Last Admin: 09/28/18 08:40 Dose: 0.5 mg Citalopram Hydrobromide (Celexa) 20 mg PO DAILY [facility] Last Admin: 09/28/18 08:41 Dose: 20 mg Divalproex Sodium (Divalproex Sodium) 1,500 mg PO BEDTIME [facility] Last Admin: 09/27/18 21:06 Dose: 1,500 mg Docusate Sodium (Colace) 100 mg PO BID [facility] Last Admin: 09/28/18 08:40 Dose: 100 mg Enoxaparin Sodium (Lovenox) 40 mg SUBCUT BEDTIME [facility] Last Admin: 09/27/18 21:06 Dose: 40 mg Ferrous Sulfate (Ferrous Sulfate) 325 mg PO BID [facility] Last Admin: 09/28/18 08:39 Dose: 325 mg Gabapentin (Neurontin) 600 mg PO TID [facility] Last Admin: 09/28/18 08:40 Dose: 600 mg Magnesium Hydroxide (Milk Of Magnesia) 30 ml PO Q12H PRN PRN Reason: Constipation Magnesium Oxide (Magnesium Oxide) 400 mg PO BID [facility] Last Admin: 09/28/18 08:40 Dose: 400 mg Mirtazapine (Remeron) 30 mg PO BEDTIME [facility] Last Admin: 09/27/18 21:03 Dose: 30 mg Olanzapine (Zyprexa) 15 mg PO DAILY [facility] Last Admin: 09/28/18 08:41 Dose: 15 mg Ondansetron HCl (Zofran) 4 mg IV Q4H PRN PRN Reason: Nausea/Vomiting Oxycodone HCl (Oxycodone) 10 mg PO Q4H PRN PRN Reason: Pain Last Admin: 09/28/18 07:35 Dose: 10 mg Pantoprazole Sodium (Protonix) 40 mg PO ACBREAKFAST [facility] Last Admin: 09/28/18 07:34 Dose: 40 mg Polyethylene Glycol (Miralax) 17 gm PO BID [facility] Last Admin: 09/28/18 08:40 Dose: 17 gm Pramipexole Dihydrochloride (Mirapex) 1 mg PO BID [facility] Last Admin: 09/28/18 08:41 Dose: 1 mg Ropinirole HCl (Requip) 1 mg PO BID [facility] Last Admin: 09/28/18 08:40 Dose: 1 mg Fluticasone/Salmeterol (Fluticasone-Salmeterol 113-14 Mcg Powder Inh) 1 puff INH BIDRT [facility] Last Admin: 09/28/18 07:07 Dose: 1 puff Senna/Docusate Sodium (Senna Plus) 1 tab PO BID [facility] Last Admin: 09/28/18 08:40 Dose: 1 tab Simvastatin (Zocor) 20 mg PO BEDTIME [facility] Last Admin: 09/27/18 21:01 Dose: 20 mg Sodium Chloride (Saline Flush) 10 ml FLUSH ASDIRECTED PRN PRN Reason: Keep Vein Open Tamsulosin HCl (Flomax) 0.4 mg PO DAILY [facility] Last Admin: 09/28/18 08:41 Dose: 0.4 mg Discontinued Medications Acetazolamide (Diamox Sequels) 500 mg PO BID [facility] Stop: 09/24/18 21:01 Last Admin: 09/24/18 20:23 Dose: 500 mg Albuterol/Ipratropium (Duoneb 3.0-0.5 Mg/3 Ml) 3 ml NEB ONETIME ONE Stop: 09/23/18 18:56 Last Admin: 09/23/18 19:01 Dose: 3 ml Divalproex Sodium (Divalproex Sodium) 1,500 mg PO BEDTIME [facility] Last Admin: 09/23/18 23:46 Dose: 1,500 mg Enoxaparin Sodium (Lovenox) 40 mg SUBCUT DAILY [facility] Last Admin: 09/23/18 22:36 Dose: 40 mg Furosemide (Lasix) 40 mg IVPUSH NOW ONE Stop: 09/24/18 09:01 Last Admin: 09/24/18 09:33 Dose: 40 mg Furosemide (Lasix) 40 mg IVPUSH NOW ONE Stop: 09/24/18 18:01 Last Admin: 09/24/18 18:20 Dose: 40 mg Furosemide (Lasix) 60 mg IVPUSH ONETIME ONE Stop: 09/25/18 02:58 Last Admin: 09/25/18 03:22 Dose: 60 mg Furosemide (Lasix) 40 mg IVPUSH ONETIME ONE Stop: 09/25/18 09:01 Last Admin: 09/25/18 08:38 Dose: 40 mg Furosemide (Lasix) 40 mg IVPUSH ONETIME ONE Stop: 09/25/18 16:01 Last Admin: 09/25/18 16:14 Dose: 40 mg Furosemide (Lasix) 40 mg IVPUSH NOW ONE Stop: 09/26/18 08:16 Last Admin: 09/26/18 08:19 Dose: 40 mg Furosemide (Lasix) 40 mg IVPUSH ONETIME ONE Stop: 09/26/18 14:16 Last Admin: 09/26/18 14:21 Dose: 40 mg Furosemide (Lasix) 40 mg IVPUSH ONETIME ONE Stop: 09/26/18 23:01 Last Admin: 09/26/18 22:32 Dose: 40 mg Furosemide (Lasix) 40 mg IVPUSH ONETIME ONE Stop: 09/27/18 10:01 Last Admin: 09/27/18 10:38 Dose: 40 mg Potassium Chloride/Sodium Chloride (Normal Saline With 20 Meq Kcl) 1,000 mls @ 150 mls/hr IV ASDIRECTED [facility] Last Admin: 09/23/18 19:30 Dose: 150 mls/hr Magnesium Sulfate 2 gm/ Premix 50 mls @ 25 mls/hr IV Q6H [facility] Stop: 09/24/18 05:11 Last Admin: 09/24/18 03:13 Dose: 25 mls/hr Potassium Chloride 40 meq/ (Premix) 100 mls @ 25 mls/hr IV ONETIME ONE Stop: 09/24/18 01:11 Last Admin: 09/23/18 23:39 Dose: Not Given Potassium Chloride/Sodium Chloride (Normal Saline With 20 Meq Kcl) 1,000 mls @ 125 mls/hr IV ASDIRECTED [facility] Last Admin: 09/25/18 05:57 Dose: 125 mls/hr Potassium Chloride 20 meq/ (Premix) 100 mls @ 50 mls/hr IV Q2H [facility] Stop: 09/24/18 02:59 Last Admin: 09/24/18 00:44 Dose: 50 mls/hr Potassium Chloride 20 meq/Lidocaine HCl 2 ml/ Sodium Chloride 112 mls @ 56 mls/ hr IV Q2H [facility] Stop: 09/24/18 13:59 Last Admin: 09/24/18 14:05 Dose: 56 mls/hr Potassium Chloride/Sodium Chloride (Normal Saline With 20 Meq Kcl) 1,000 mls @ 25 mls/hr IV ASDIRECTED [facility] Last Admin: 09/27/18 03:27 Dose: 25 mls/hr Lidocaine HCl (Xylocaine-Mpf 1%) 5 ml INJECT Q2H [facility] Stop: 09/24/18 00:16 Last Admin: 09/24/18 00:43 Dose: 5 ml Methylprednisolone Sodium Succinate (Solu-Medrol) 125 mg IVPUSH ONETIME ONE Stop: 09/26/18 17:16 Last Admin: 09/26/18 17:33 Dose: 125 mg Methylprednisolone Sodium Succinate (Solu-Medrol) 40 mg IVPUSH Q8H [facility] Last Admin: 09/28/18 01:26 Dose: 40 mg Potassium Chloride (Potassium Chloride) 40 meq PO ONETIME ONE Stop: 09/23/18 19:20 Last Admin: 09/23/18 19:29 Dose: 40 meq Potassium Chloride (Klor-Con M20) 40 meq PO ONETIME ONE Stop: 09/23/18 22:01 Last Admin: 09/23/18 23:08 Dose: 40 meq Potassium Chloride (Klor-Con M20) 40 meq PO ONETIME ONE Stop: 09/24/18 09:01 Last Admin: 09/24/18 09:36 Dose: 40 meq Potassium Chloride (Klor-Con M20) 40 meq PO ONETIME ONE Stop: 09/24/18 12:01 Last Admin: 09/24/18 14:05 Dose: 40 meq Potassium Chloride (Klor-Con M20) 40 meq PO ONETIME ONE Stop: 09/24/18 17:01 Last Admin: 09/24/18 18:19 Dose: 40 meq Fluticasone/Salmeterol (Fluticasone-Salmeterol 113-14 Mcg Powder Inh) 0 puff INH Q12H [facility] Last Admin: 09/23/18 22:37 Dose: Not Given Sodium Chloride (Saline Flush) 10 ml FLUSH ASDIRECTED PRN PRN Reason: Keep Vein Open Last Admin: 09/23/18 19:02 Dose: 10 ml - Exam Quality Assessment: Supplemental Oxygen General: Alert, Oriented, Cooperative, No Acute Distress Lungs: Clear to Auscultation, Normal Respiratory Effort. No: Crackles Cardiovascular: Regular Rate, Regular Rhythm GI/Abdominal Exam: Soft, No Distention Extremities: Pedal Edema. No: Increased Warmth Skin: Warm, Dry Psy/Mental Status: Alert, Normal Affect - Problem List Review Problem List Initiated/Reviewed/Updated: Yes - My Orders Last 24 Hours: My Active Orders 09/27/18 09:29 PT Evaluation and Treatment [CONS] Routine 09/28/18 09:43 Convert IV to Saline Lock [OM.PC] Routine 09/28/18 09:44 DC Freeman Catheter [Urinary Catheter Removal] [RC] Per Unit Routine 09/28/18 09:45 Transfer Patient (Change bed) [ADT] Routine Furosemide [Lasix] 40 mg PO DAILY - Plan Plan:: ASSESSMENT AND PLAN Acute respiratory failure with hypoxia and hypercapnia - appears to be secondary to volume overload with treatment of the rhabdomyolysis. Oxygenation is back to baseline at this time and volume status appears appropriate. -supplement oxygen -Discontinue Freeman catheter -Transition to oral diuresis Rhabdomyolysis - secondary to a fall and having spent the night on the floor. CK has normalized. -IV fluids at to keep open -diuresis as above Generalized weakness - reports that he has not been eating well or moving well after recent discharge from the [facility]. -Physical therapy consult -Anticipate subacute rehabilitation after hospital discharge Hypokalemia - level improved from admission and has remained normal. Severe COPD - oxygen dependent with significant respiratory limitations. Respiratory status back to baseline. -Discontinue steroids -Supplement oxygen, goal O2 sats 88-92% -Continue home medications Parkinson's disease - significant limitations at home due to this disease. -Continue home medications Chronic kidney disease stage III - previous history of renal cell carcinoma status post nephrectomy. kidney function has remained stable. -Closely monitor urine output and renal function Maintenance issues - - DVT prophylaxis - Lovenox 40 mg subcutaneous daily - GI prophylaxis -continue home PPI - Nutrition - regular - Freeman catheter - will be removed. Disposition - [facility] to the [facility] after the hospital stay Storm Chadwick M.D.
[2018-09-28] MEDS: Furosemide 40 MG Tab PO SCH (12:12)
[2018-09-28] MEDS: Enoxaparin 40 MG/0.4 ML Syringe SUBCUT SCH (20:48)
[2018-09-28] MEDS: Divalproex Sodium Delayed-Release 250 MG Tab.CR PO SCH (20:48)
[2018-09-28] MEDS: Simvastatin 20 MG Tab PO SCH (20:49)
[2018-09-28] MEDS: Mirtazapine 15 MG Tab PO SCH (20:49)
[2018-09-29] MEDS: oxyCODONE 5 MG Tab PO PRN ×2 (03:59→09:04)
[2018-09-29 07:33] VITALS: BP 143/80
[2018-09-29] MEDS: Pantoprazole 40 MG Tab.CR PO SCH (07:36)
[2018-09-29] MEDS: Albuterol/Ipratropium 3.0-0.5 MG/3 ML Neb Soln NEB SCH (07:49)
[2018-09-29] MEDS: Fluticasone-Salmeterol 113-14 MCG Powder Inhalant INH SCH (07:49)
[2018-09-29] MEDS: Sodium Phosphate,Monobasic/Sodium Phosphate,Dibasic Enema 133 ML Bottle RECTAL ONE ×2 (08:44→09:38)
[2018-09-29] MEDS: Ferrous Sulfate 325 MG Tab PO SCH (08:46)
[2018-09-29] MEDS: Gabapentin 300 MG Cap PO SCH (08:47)
[2018-09-29] MEDS: amLODIPine 5 MG Tab PO SCH (08:47)
[2018-09-29] MEDS: Docusate Sodium 100 MG Cap PO SCH (08:48)
[2018-09-29] MEDS: Magnesium Oxide 400 MG Tab PO SCH (08:48)
[2018-09-29] MEDS: rOPINIRole 1 MG Tab PO SCH (08:48)
[2018-09-29] MEDS: Furosemide 40 MG Tab PO SCH (08:48)
[2018-09-29] MEDS: OLANZapine 5 MG Tab PO SCH (08:49)
[2018-09-29] MEDS: Pramipexole 0.5 MG Tab PO SCH (08:49)
[2018-09-29] MEDS: Polyethylene Glycol 3350 Powder 17 GM Packet PO SCH (08:49)
[2018-09-29] MEDS: Citalopram 20 MG Tab PO SCH (08:49)
[2018-09-29] MEDS: Tamsulosin 0.4 MG Cap.ER PO SCH (08:50)
[2018-09-29] MEDS: Benztropine 1 MG Tab PO SCH (08:50)
--- NOTE | 2018-09-29 08:52 | PCM.DCSUM1 ---
Discharge Summary - Hospital Course Brief History: 73-year-old male with severe oxygen-dependent COPD, Parkinson's disease and chronic generalized weakness who presented after being found on the floor. He was admitted for management of rhabdomyolysis. Diagnosis: Stroke: No - Discharge Data Discharge Date: 09/29/18 Discharge Disposition: DC/Tfer to SNF 03 Condition: Good - Discharge Diagnosis/Problem(s) (1) Rhabdomyolysis SNOMED Code(s): 026793028 ICD Code: M62.82 - RHABDOMYOLYSIS Status: Acute Qualifiers: Rhabdomyolysis type: traumatic Encounter type: initial encounter Qualified Code(s): T79.6XXA - Traumatic ischemia of muscle, initial encounter (2) Acute respiratory failure with hypoxia and hypercapnia SNOMED Code(s): 889602126 ICD Code: J96.01 - ACUTE RESPIRATORY FAILURE WITH HYPOXIA; J96.02 - ACUTE RESPIRATORY FAILURE WITH HYPERCAPNIA Status: Acute (3) Fluid overload SNOMED Code(s): 32816776 ICD Code: E87.70 - FLUID OVERLOAD, UNSPECIFIED Status: Acute Qualifiers: Hypervolemia type: other Qualified Code(s): E87.79 - Other fluid overload (4) Severe chronic obstructive pulmonary disease SNOMED Code(s): 051576219 ICD Code: J44.9 - CHRONIC OBSTRUCTIVE PULMONARY DISEASE, UNSPECIFIED Status : Chronic Problem Details: O2 dependent, 3-4 L/min (5) Parkinsons disease SNOMED Code(s): 31297973 ICD Code: G20 - PARKINSON'S DISEASE Status: Chronic (6) Bipolar affective disorder in remission Status: Chronic (7) CKD (chronic kidney disease), stage III SNOMED Code(s): 495787548 ICD Code: N18.3 - CHRONIC KIDNEY DISEASE, STAGE 3 (MODERATE) Status: Chronic - Patient Summary/Data Consults: Consultations 09/27/18 09:29 PT Evaluation and Treatment [CONS] Routine Please Evaluate and Treat. PT Reason for Consult: Strengthening This query below is only for informational purposes and is not editable. Admission Diagnosis/Problem: Rhabdomyolysis Hospital Course: Anshul presented to the emergency room from his home after spending the night sleeping on the floor. Workup in the emergency room revealed evidence for rhabdomyolysis with a CK level greater than 6000 as well as hypokalemia with potassium of 2.7. He was started on IV fluids and given potassium replacement and admitted to the hospital for further management. Overnight following admission there were no acute issues. His potassium level had been rising but still remained low. CK level had improved from 6000 down to 3300. There was concern that he may develop congestive heart failure-type picture with the fluids needed to treat his rhabdomyolysis so he was started on furosemide 40 mg twice daily via the IV route. Despite starting the diuretics he did develop congestive heart failure overnight on Tuesday and into Tuesday morning (night 2 and hospital day 2). On the morning of hospital day 2 he was transferred to the intensive care unit with obtundation. His blood gases showed a mild acidosis and a PCO2 in the 70s. Diuresis was continued and IV fluids were slowed. He was started on noninvasive ventilation. Despite the noninvasive ventilation his PCO2 did rise over the next few hours and the settings were adjusted. With diuresis and adjustments in the noninvasive ventilation we were able to make some progress in his PCO2 over the next several days. Mental status did slowly improve over the next couple of days. His CK level was trending down with the diuresis and gentle fluids coadministered. Potassium level had normalized with supplementation and remained normal. Finally on hospital day four mental status improved and we were able to discontinue the noninvasive ventilation. His potassium had remain normal and his CK level had normalized. On hospital day 5 he was transferred out of the intensive care unit on his usual 3-4 L of supplemental oxygen. He was feeling well and his appetite was improving. He was extremely weak and required an assist device to be able to stand at the bedside. Into the day of discharge she has made further improvement and is down to 3 L of supplemental oxygen. Strength is slowly improving but he remains very debilitated. He would benefit from subacute rehabilitation as recommended by physical therapy. Potassium level has normalized and remained normal. Oxygen and respiratory status have been stable with his usual 3-4 L of oxygen. He would benefit from ongoing physical and occupational therapy. I have my concerns about him going home unless he isn't significantly better shape after only a short stay at home after his most recent prison rehabilitation stint. - Patient Instructions Diet: Regular Diet as Tolerated Activity: As Tolerated Showering/Bathing: May Shower Notify Provider of: Fever, Increased Pain, Nausea and/or Vomiting Other/Special Instructions: 1. You were in the hospital for management of acute rhabdomyolysis caused by laying on the floor overnight. This condition has resolved with IV fluid hydration. Your hospital stay was complicated by diastolic congestive heart failure with respiratory failure. This has resolved with diuresis. At this time your main issue is generalized weakness and I recommend prison admission for subacute rehabilitation. 2. Continue your home medications as previously prescribed. 3. Referral to physical and occupational therapy for strengthening in the setting of acute on chronic generalized weakness. 4. Full Code. 5. Seek medical attention if fever greater than 101, severe shortness of breath or if you develop significant chest pain/pressure. - Discharge Plan *PRESCRIPTION DRUG MONITORING PROGRAM REVIEWED*: No *COPY OF PRESCRIPTION DRUG MONITORING REPORT IN PATIENT MARI: No Prescriptions/Med Rec: Hydrocodone/Acetaminophen [Lorcet Hd 10-325 mg Tablet] 1 each PO Q6H PRN #60 tablet PRN Reason: Pain (Moderate 4-6) Home Medications: Home Meds Citalopram Hydrobromide [Celexa] 20 mg PO DAILY 01/24/13 [History] Divalproex Sodium [Depakote] 1,500 mg PO BEDTIME 01/24/13 [History] Furosemide [Lasix] 40 mg PO DAILY 01/24/13 [History] Gabapentin [Neurontin] 600 mg PO TID 01/24/13 [History] OLANZapine [ZyPREXA] 15 mg PO DAILY 01/24/13 [History] Omeprazole [Prilosec] 40 mg PO DAILY 01/24/13 [History] Simvastatin [Zocor] 20 mg PO BEDTIME 01/24/13 [History] Ferrous Gluconate 324 mg PO BID 09/05/13 [History] Ipratropium/Albuterol Sulfate [Duoneb 0.5 mg-3 mg/3 ml Soln] 3 ml IH Q4H PRN [History] Ranitidine [Zantac] 150 mg PO BID 10/08/15 [History] Fluticasone/Salmeterol [Advair 250-50] 1 puff INH Q12HR 04/17/18 [History] Tamsulosin HCl [Flomax] 0.4 mg PO DAILY 04/17/18 [History] EPINEPHrine [Epipen 2-Richard] 0.3 mg IJ ONETIME PRN #2 ml 04/24/18 [Rx] Acetaminophen [Tylenol Extra Strength] 500 mg PO Q6HR PRN 06/23/18 [History] Polyethylene Glycol 3350 [MiraLAX] 17 gm PO DAILY 06/23/18 [History] Pramipexole Di-HCl [Mirapex] 1 mg PO BID 06/23/18 [History] amLODIPine Besylate [Norvasc] 7.5 mg PO DAILY 06/23/18 [History] hydroCHLOROthiazide [Hydrochlorothiazide] 25 mg PO DAILY 06/23/18 [History] rOPINIRole HCl [Requip] 1 mg PO BID 06/23/18 [History] Docusate Sodium [DOK] 100 mg PO DAILY 09/23/18 [History] Benztropine [Cogentin] 0.5 mg PO DAILY 09/24/18 [History] Mirtazapine 30 mg PO BEDTIME 09/24/18 [History] Hydrocodone/Acetaminophen [Lorcet Hd 10-325 mg Tablet] 1 each PO Q6H PRN #60 tablet 09/29/18 [Rx] Oxygen Therapy Mode: Nasal Cannula Oxygen Flow Rate (L/min): 3 (3-4 L/min) Maintain SPO2% less than: 94 Maintain SpO2% greater than: 88 Patient Handouts: Rhabdomyolysis Referrals: Randall Kiser MD [Physician] - (as needed ) - Discharge Summary/Plan Comment DC Time >30 min.: Yes (45 - [place] discharge ) - Patient Data Vitals - Most Recent: Last Vital Signs Temp 35.3 C 09/29/18 07:32 Pulse 68 09/29/18 07:49 Resp 20 09/29/18 07:32 BP 143/80 H 09/29/18 08:47 Pulse Ox 95 09/29/18 07:32 Weight - Most Recent: 131 kg I&O - Last 24 hours: Intake & Output 09/28/18 09/29/18 09/29/18 22:59 06:59 14:59 Intake Total 1010 300 Output Total 675 1350 200 Balance 335 -1050 -200 Med Orders - Current: Current Medications Albuterol (Proventil Neb Soln) 2.5 mg NEB Q4H PRN PRN Reason: Shortness Of Breath/wheezing Last Admin: 09/25/18 05:55 Dose: 2.5 mg Albuterol/Ipratropium (Duoneb 3.0-0.5 Mg/3 Ml) 3 ml NEB QIDRT BRYCE Last Admin: 09/29/18 07:49 Dose: 3 ml Amlodipine Besylate (Norvasc) 7.5 mg PO DAILY [facility] Last Admin: 09/29/18 08:47 Dose: 7.5 mg Benztropine Mesylate (Cogentin) 0.5 mg PO DAILY [facility] Last Admin: 09/29/18 08:50 Dose: 0.5 mg Citalopram Hydrobromide (Celexa) 20 mg PO DAILY [facility] Last Admin: 09/29/18 08:49 Dose: 20 mg Divalproex Sodium (Divalproex Sodium) 1,500 mg PO BEDTIME [facility] Last Admin: 09/28/18 20:48 Dose: 1,500 mg Docusate Sodium (Colace) 100 mg PO BID [facility] Last Admin: 09/29/18 08:48 Dose: 100 mg Enoxaparin Sodium (Lovenox) 40 mg SUBCUT BEDTIME [facility] Last Admin: 09/28/18 20:48 Dose: 40 mg Ferrous Sulfate (Ferrous Sulfate) 325 mg PO BID [facility] Last Admin: 09/29/18 08:46 Dose: 325 mg Furosemide (Lasix) 40 mg PO DAILY [facility] Last Admin: 09/29/18 08:48 Dose: 40 mg Gabapentin (Neurontin) 600 mg PO TID [facility] Last Admin: 09/29/18 08:47 Dose: 600 mg Magnesium Hydroxide (Milk Of Magnesia) 30 ml PO Q12H PRN PRN Reason: Constipation Last Admin: 09/28/18 13:33 Dose: 30 ml Magnesium Oxide (Magnesium Oxide) 400 mg PO BID [facility] Last Admin: 09/29/18 08:48 Dose: 400 mg Mirtazapine (Remeron) 30 mg PO BEDTIME [facility] Last Admin: 09/28/18 20:49 Dose: 30 mg Olanzapine (Zyprexa) 15 mg PO DAILY [facility] Last Admin: 09/29/18 08:49 Dose: 15 mg Ondansetron HCl (Zofran) 4 mg IV Q4H PRN PRN Reason: Nausea/Vomiting Oxycodone HCl (Oxycodone) 10 mg PO Q4H PRN PRN Reason: Pain Last Admin: 09/29/18 03:59 Dose: 10 mg Pantoprazole Sodium (Protonix) 40 mg PO ACBREAKFAST [facility] Last Admin: 09/29/18 07:36 Dose: 40 mg Polyethylene Glycol (Miralax) 17 gm PO BID [facility] Last Admin: 09/29/18 08:49 Dose: 17 gm Pramipexole Dihydrochloride (Mirapex) 1 mg PO BID [facility] Last Admin: 09/29/18 08:49 Dose: 1 mg Ropinirole HCl (Requip) 1 mg PO BID [facility] Last Admin: 09/29/18 08:48 Dose: 1 mg Fluticasone/Salmeterol (Fluticasone-Salmeterol 113-14 Mcg Powder Inh) 1 puff INH BIDRT [facility] Last Admin: 09/29/18 07:49 Dose: 1 puff Senna/Docusate Sodium (Senna Plus) 1 tab PO BID [facility] Last Admin: 09/29/18 08:46 Dose: 1 tab Simvastatin (Zocor) 20 mg PO BEDTIME [facility] Last Admin: 09/28/18 20:49 Dose: 20 mg Sodium Chloride (Saline Flush) 10 ml FLUSH ASDIRECTED PRN PRN Reason: Keep Vein Open Tamsulosin HCl (Flomax) 0.4 mg PO DAILY [facility] Last Admin: 09/29/18 08:50 Dose: 0.4 mg Discontinued Medications Acetazolamide (Diamox Sequels) 500 mg PO BID BRYCE Stop: 09/24/18 21:01 Last Admin: 09/24/18 20:23 Dose: 500 mg Albuterol/Ipratropium (Duoneb 3.0-0.5 Mg/3 Ml) 3 ml NEB ONETIME ONE Stop: 09/23/18 18:56 Last Admin: 09/23/18 19:01 Dose: 3 ml Divalproex Sodium (Divalproex Sodium) 1,500 mg PO BEDTIME [facility] Last Admin: 09/23/18 23:46 Dose: 1,500 mg Enoxaparin Sodium (Lovenox) 40 mg SUBCUT DAILY [facility] Last Admin: 09/23/18 22:36 Dose: 40 mg Furosemide (Lasix) 40 mg IVPUSH NOW ONE Stop: 09/24/18 09:01 Last Admin: 09/24/18 09:33 Dose: 40 mg Furosemide (Lasix) 40 mg IVPUSH NOW ONE Stop: 09/24/18 18:01 Last Admin: 09/24/18 18:20 Dose: 40 mg Furosemide (Lasix) 60 mg IVPUSH ONETIME ONE Stop: 09/25/18 02:58 Last Admin: 09/25/18 03:22 Dose: 60 mg Furosemide (Lasix) 40 mg IVPUSH ONETIME ONE Stop: 09/25/18 09:01 Last Admin: 09/25/18 08:38 Dose: 40 mg Furosemide (Lasix) 40 mg IVPUSH ONETIME ONE Stop: 09/25/18 16:01 Last Admin: 09/25/18 16:14 Dose: 40 mg Furosemide (Lasix) 40 mg IVPUSH NOW ONE Stop: 09/26/18 08:16 Last Admin: 09/26/18 08:19 Dose: 40 mg Furosemide (Lasix) 40 mg IVPUSH ONETIME ONE Stop: 09/26/18 14:16 Last Admin: 09/26/18 14:21 Dose: 40 mg Furosemide (Lasix) 40 mg IVPUSH ONETIME ONE Stop: 09/26/18 23:01 Last Admin: 09/26/18 22:32 Dose: 40 mg Furosemide (Lasix) 40 mg IVPUSH ONETIME ONE Stop: 09/27/18 10:01 Last Admin: 09/27/18 10:38 Dose: 40 mg Potassium Chloride/Sodium Chloride (Normal Saline With 20 Meq Kcl) 1,000 mls @ 150 mls/hr IV ASDIRECTED [facility] Last Admin: 09/23/18 19:30 Dose: 150 mls/hr Magnesium Sulfate 2 gm/ Premix 50 mls @ 25 mls/hr IV Q6H [facility] Stop: 09/24/18 05:11 Last Admin: 09/24/18 03:13 Dose: 25 mls/hr Potassium Chloride 40 meq/ (Premix) 100 mls @ 25 mls/hr IV ONETIME ONE Stop: 09/24/18 01:11 Last Admin: 09/23/18 23:39 Dose: Not Given Potassium Chloride/Sodium Chloride (Normal Saline With 20 Meq Kcl) 1,000 mls @ 125 mls/hr IV ASDIRECTED [facility] Last Admin: 09/25/18 05:57 Dose: 125 mls/hr Potassium Chloride 20 meq/ (Premix) 100 mls @ 50 mls/hr IV Q2H [facility] Stop: 09/24/18 02:59 Last Admin: 09/24/18 00:44 Dose: 50 mls/hr Potassium Chloride 20 meq/Lidocaine HCl 2 ml/ Sodium Chloride 112 mls @ 56 mls/ hr IV Q2H [facility] Stop: 09/24/18 13:59 Last Admin: 09/24/18 14:05 Dose: 56 mls/hr Potassium Chloride/Sodium Chloride (Normal Saline With 20 Meq Kcl) 1,000 mls @ 25 mls/hr IV ASDIRECTED [facility] Last Admin: 09/27/18 03:27 Dose: 25 mls/hr Lidocaine HCl (Xylocaine-Mpf 1%) 5 ml INJECT Q2H [facility] Stop: 09/24/18 00:16 Last Admin: 09/24/18 00:43 Dose: 5 ml Methylprednisolone Sodium Succinate (Solu-Medrol) 125 mg IVPUSH ONETIME ONE Stop: 09/26/18 17:16 Last Admin: 09/26/18 17:33 Dose: 125 mg Methylprednisolone Sodium Succinate (Solu-Medrol) 40 mg IVPUSH Q8H [facility] Last Admin: 09/28/18 01:26 Dose: 40 mg Potassium Chloride (Potassium Chloride) 40 meq PO ONETIME ONE Stop: 09/23/18 19:20 Last Admin: 09/23/18 19:29 Dose: 40 meq Potassium Chloride (Klor-Con M20) 40 meq PO ONETIME ONE Stop: 09/23/18 22:01 Last Admin: 09/23/18 23:08 Dose: 40 meq Potassium Chloride (Klor-Con M20) 40 meq PO ONETIME ONE Stop: 09/24/18 09:01 Last Admin: 09/24/18 09:36 Dose: 40 meq Potassium Chloride (Klor-Con M20) 40 meq PO ONETIME ONE Stop: 09/24/18 12:01 Last Admin: 09/24/18 14:05 Dose: 40 meq Potassium Chloride (Klor-Con M20) 40 meq PO ONETIME ONE Stop: 09/24/18 17:01 Last Admin: 09/24/18 18:19 Dose: 40 meq Fluticasone/Salmeterol (Fluticasone-Salmeterol 113-14 Mcg Powder Inh) 0 puff INH Q12H [facility] Last Admin: 09/23/18 22:37 Dose: Not Given Sodium Biphosphate/Sodium Phosphate (Fleet Enema) 133 ml RECTAL ONETIME ONE Stop: 09/29/18 07:32 Last Admin: 09/29/18 08:44 Dose: 1 applic Sodium Chloride (Saline Flush) 10 ml FLUSH ASDIRECTED PRN PRN Reason: Keep Vein Open Last Admin: 09/23/18 19:02 Dose: 10 ml - Exam Quality Assessment: Reports: Supplemental Oxygen General: Reports: Alert, Oriented, Cooperative, No Acute Distress Neck: Reports: Supple Lungs: Reports: Normal Respiratory Effort, Wheezing (rare right upper chest ). Denies: Crackles Cardiovascular: Reports: Regular Rate, Regular Rhythm GI/Abdominal Exam: Soft, No Distention Extremities: Pedal Edema (mild bilateral ankle edema ). No: Increased Warmth Skin: Reports: Warm, Dry Psy/Mental Status: Reports: Alert, Normal Affect
== END 2018-09-29 10:30 | DRG 564 ==
LOC: JP.ED 18:28 → UNDOADMIN 20:26 → JP.MS 20:26 → JP.ICU 09-25 11:50 → JP.MS 09-28 09:45
PROVIDERS: ADMIT Hospitalist; ATTEND Internal Medicine
PROC: 5A0945Z Assistance with Respiratory Ventilation, 24-96 Consecutive Hours (ICD-10-PCS; principal; 2018-09-25)
DX: T79.6XXA Traumatic ischemia of muscle, initial encounter (principal); J96.02 Acute respiratory failure with hypercapnia; J96.01 Acute respiratory failure with hypoxia; I13.0 Hypertensive heart and chronic kidney disease with heart failure and stage 1 through stage 4 chronic kidney disease, or unspecified chronic kidney disease; E87.1 Hypo-osmolality and hyponatremia; E87.2 Acidosis; W19.XXXA Unspecified fall, initial encounter; I50.9 Heart failure, unspecified; N18.3 Chronic kidney disease, stage 3 (moderate); J44.9 Chronic obstructive pulmonary disease, unspecified; G20 Parkinson's disease; G40.909 Epilepsy, unspecified, not intractable, without status epilepticus; Z99.81 Dependence on supplemental oxygen; R53.1 Weakness; R06.02 Shortness of breath; S20.212A Contusion of left front wall of thorax, initial encounter; E87.6 Hypokalemia; Z87.891 Personal history of nicotine dependence; E83.42 Hypomagnesemia; E87.79 Other fluid overload; F31.70 Bipolar disorder, currently in remission, most recent episode unspecified; Z86.14 Personal history of Methicillin resistant Staphylococcus aureus infection; Z87.01 Personal history of pneumonia (recurrent); H91.90 Unspecified hearing loss, unspecified ear; Z88.1 Allergy status to other antibiotic agents; Z88.5 Allergy status to narcotic agent; Z88.8 Allergy status to other drugs, medicaments and biological substances; Z90.49 Acquired absence of other specified parts of digestive tract; Z85.038 Personal history of other malignant neoplasm of large intestine; Z85.528 Personal history of other malignant neoplasm of kidney; Z90.5 Acquired absence of kidney; E66.9 Obesity, unspecified; Z68.33 Body mass index [BMI] 33.0-33.9, adult; N42.9 Disorder of prostate, unspecified; Z96.649 Presence of unspecified artificial hip joint; Z96.659 Presence of unspecified artificial knee joint
CPT/HCPCS: 36415; 71045; 80048; 82550; 83735; 84484; 85027; 94640; 96360; 99285; A9270; J3480; 36600; 51702; 80053; 81001; 82803; 84132; 85025; 94660; 97110-GP; 97162-GP; 97530-GP; J1650; J1940; J2001; J2920; J2930; J3475; J7030; J7620-GY

== ENCOUNTER 2018-12-07 07:40 | Inpatient (IN) | payer MEDICAID, MEDICARE ==
[2018-12-07] MEDS ORDERED: Furosemide 40 MG/4 ML VIAL IVPUSH ONE (08:17)
--- NOTE | 2018-12-07 08:32 | EDM.PDOC ---
ED HPI GENERAL MEDICAL PROBLEM - General Chief Complaint: Respiratory Problem Stated Complaint: breathing issues Time Seen by Provider: 12/07/18 08:14 Source of Information: Reports: Patient, Skilled Nursing Records History Limitations: Reports: Physical Impairment - History of Present Illness INITIAL COMMENTS - FREE TEXT/NARRATIVE: This gentleman arrives by EMS because of shortness of breath and chest congestion area about a week ago he had an episode of choking so it's thought he may be having some problems with aspiration. For the last 2 days he has been having increasing shortness of breath and congestion but it got a lot worse last night. They noted low oxygen saturations down into the 70s even with oxygen of 4 L on. Yesterday he was started on Levaquin and a chest x-ray was ordered for today. Also a troponin was done a believe this morning and it was negative. Patient's history is limited because of his difficulty speaking secondary to the respiratory problem. Denies Pain Score (Numeric/FACES): 0 - Related Data Allergies Allergy/AdvReac Type Severity Reaction Status Date / Time piperacillin [From Zosyn] Allergy Severe Anaphylactic Verified 12/07/18 07:52 Shock tazobactam [From Zosyn] Allergy Severe Anaphylactic Verified 12/07/18 07:52 Shock acetaminophen [From Tylenol] Allergy Rash Verified 12/07/18 07:52 codeine AdvReac Nausea and Verified 12/07/18 07:52 Vomiting hydromorphone [From Dilaudid] AdvReac Vomiting Verified 12/07/18 07:52 Home Meds: Home Meds Citalopram Hydrobromide [Celexa] 20 mg PO DAILY 01/24/13 [History] Divalproex Sodium [Depakote] 1,500 mg PO BEDTIME 01/24/13 [History] Furosemide [Lasix] 40 mg PO DAILY 01/24/13 [History] Gabapentin [Neurontin] 600 mg PO TID 01/24/13 [History] OLANZapine [ZyPREXA] 15 mg PO DAILY 01/24/13 [History] Omeprazole [Prilosec] 40 mg PO DAILY 01/24/13 [History] Simvastatin [Zocor] 20 mg PO BEDTIME 01/24/13 [History] Ferrous Gluconate 324 mg PO BID 09/05/13 [History] Ipratropium/Albuterol Sulfate [Duoneb 0.5 mg-3 mg/3 ml Soln] 3 ml IH Q4H PRN [History] Ranitidine [Zantac] 150 mg PO BID 10/08/15 [History] Fluticasone/Salmeterol [Advair 250-50] 1 puff INH Q12HR 04/17/18 [History] Tamsulosin HCl [Flomax] 0.4 mg PO DAILY 04/17/18 [History] EPINEPHrine [Epipen 2-Richard] 0.3 mg IJ ONETIME PRN #2 ml 04/24/18 [Rx] Acetaminophen [Tylenol Extra Strength] 500 mg PO Q6HR PRN 06/23/18 [History] Polyethylene Glycol 3350 [MiraLAX] 17 gm PO DAILY 06/23/18 [History] Pramipexole Di-HCl [Mirapex] 1 mg PO BID 06/23/18 [History] rOPINIRole HCl [Requip] 1 mg PO BID 06/23/18 [History] Docusate Sodium [DOK] 100 mg PO DAILY 09/23/18 [History] Benztropine [Cogentin] 0.5 mg PO DAILY 09/24/18 [History] Mirtazapine 30 mg PO BEDTIME 09/24/18 [History] Hydrocodone/Acetaminophen [Lorcet Hd 10-325 mg Tablet] 1 each PO Q6H PRN #60 tablet 09/29/18 [Rx] Carvedilol [Coreg] 25 mg PO BID 12/07/18 [History] Furosemide [Lasix] 80 mg PO DAILY 12/07/18 [History] Levofloxacin 1 tab PO DAILY 12/07/18 [History] Trolamine Salicylate/Aloe Vera [Aspercreme 10%] 1 dose TOP ASDIRECTED 12/07/18 [ History] glipiZIDE [Glipizide ER] 1 tab PO DAILY 12/07/18 [History] guaiFENesin [Tussin Mucus-Chest Congestion] 1 tsp PO Q4H 12/07/18 [History] metFORMIN [Glucophage] 1,000 mg PO BID 12/07/18 [History] Past Medical History HEENT History: Reports: Hard of Hearing Cardiovascular History: Reports: Heart Failure, Hypertension Other Cardiovascular History: bradycardia Respiratory History: Reports: COPD, Pneumonia, Recurrent, SOB Other Respiratory History: home 02 3 liters Gastrointestinal History: Reports: Cholelithiasis Genitourinary History: Reports: Prostate Disorder, Renal Disease, Other (See Below) Other Genitourinary History: malignant neoplasm of kidney Musculoskeletal History: Reports: Other (See Below) Other Musculoskeletal History: fx of first lumbar, unstable burst fx of first lumbar vertebra Neurological History: Reports: Parkinson's, Seizure Psychiatric History: Reports: Autism Endocrine/Metabolic History: Reports: Obesity/BMI 30+ Oncologic (Cancer) History: Reports: Colon, Renal - Infectious Disease History Infectious Disease History: Reports: Chicken Pox - Past Surgical History GI Surgical History: Reports: Cholecystectomy, Colon, Colostomy Other GI Surgeries/Procedures: colon cancer Male Surgical History: Reports: Nephrectomy Other Male Surgeries/Procedures: right kidney cancer Musculoskeletal Surgical History: Reports: Hip Replacement, Knee Replacement Oncologic Surgical History: Reports: Other (See Below) Social & Family History - Family History Family Medical History: Noncontributory Endocrine/Metabolic: Reports: Diabetes, type II - Tobacco Use Smoking Status *Q: Former Smoker Used Tobacco, but Quit: Yes Month/Year Tobacco Last Used: 0 - Caffeine Use Caffeine Use: Reports: Coffee, Soda - Recreational Drug Use Recreational Drug Use: No ED ROS GENERAL - Review of Systems Review Of Systems: Unable To Obtain (Unable to do a complete review of systems on this patient due to his difficulty speaking) ED EXAM, GENERAL - Physical Exam Exam: See Below Exam Limited By: Other (. Obese individual which limits exam of lung sounds) General Appearance: Alert, Mild Distress, Obese Eye Exam: Bilateral Eye: Normal Inspection Throat/Mouth: No Airway Compromise Head: Atraumatic Neck: Supple Respiratory/Chest: Decreased Breath Sounds, Rhonchi, Wheezing, Other (No definite rales but lung sounds limited by his obesity) Cardiovascular: Regular Rate, Rhythm GI/Abdominal: Soft, Non-Tender Extremities: Pedal Edema Neurological: Alert, No Motor/Sensory Deficits Psychiatric: Flat Affect Skin Exam: Warm, Dry, Normal Color, No Rash Course - Vital Signs Last Recorded V/S: Last Vital Signs Temp 35.4 C 12/08/18 02:46 Pulse 64 12/08/18 02:46 Resp 20 12/08/18 02:46 BP 116/53 L 12/08/18 02:46 Pulse Ox 91 L 12/08/18 02:46 - Orders/Labs/Meds Orders: Active Orders 24 hr Category Date Time Status Doxycycline [Vibramycin] 100 mg Med 12/07/18 10:00 Active Sodium Chloride 0.9% [Normal Saline] 100 ml IV Q12H Medication Orders Albuterol (Proventil Neb Soln) 2.5 mg NEB Q4H PRN PRN Reason: Shortness Of Breath/wheezing Albuterol/Ipratropium (Duoneb 3.0-0.5 Mg/3 Ml) 3 ml NEB QIDRT [facility] Last Admin: 12/07/18 21:50 Dose: 3 ml Admin: 12/07/18 14:30 Dose: 3 ml Admin: 12/07/18 11:36 Dose: 3 ml Benzonatate (Tessalon Perles) 100 mg PO TID PRN PRN Reason: Cough Benztropine Mesylate (Cogentin) 0.5 mg PO DAILY [facility] Last Admin: 12/07/18 15:00 Dose: 0.5 mg Carvedilol (Coreg) 25 mg PO BID [facility] Last Admin: 12/07/18 20:09 Dose: 25 mg Admin: 12/07/18 14:58 Dose: 25 mg Citalopram Hydrobromide (Celexa) 20 mg PO DAILY [facility] Last Admin: 12/07/18 14:59 Dose: 20 mg Divalproex Sodium (Divalproex Sodium) 1,500 mg PO BEDTIME [facility] Last Admin: 12/07/18 20:07 Dose: 1,500 mg Docusate Sodium (Colace) 100 mg PO DAILY [facility] Furosemide (Lasix) 40 mg PO DAILY [facility] Gabapentin (Neurontin) 600 mg PO TID [facility] Last Admin: 12/07/18 20:07 Dose: 600 mg Admin: 12/07/18 15:01 Dose: 600 mg Glipizide (Glucotrol Xl) 5 mg PO DAILY [facility] Last Admin: 12/07/18 14:59 Dose: 5 mg Guaifenesin/Dextromethorphan (Robitussin Dm) 10 ml PO Q4H PRN PRN Reason: Cough Doxycycline Hyclate 100 mg/ (Sodium Chloride) 100 mls @ 100 mls/hr IV Q12H [facility] Last Admin: 12/07/18 21:50 Dose: 100 mls/hr Admin: 12/07/18 10:07 Dose: 100 mls/hr Sodium Chloride (Normal Saline) 1,000 mls @ 50 mls/hr IV ASDIRECTED [facility] Last Admin: 12/08/18 06:20 Dose: 50 mls/hr Infusion: 12/08/18 06:20 Dose: 50 mls/hr Admin: 12/07/18 11:34 Dose: 50 mls/hr Insulin Human Lispro (Humalog) 0 unit SUBCUT QIDACANDBED [facility]; Protocol Last Admin: 12/07/18 20:21 Dose: 6 units Admin: 12/07/18 18:10 Dose: 6 units Admin: 12/07/18 12:03 Dose: Not Given Lactobacillus Rhamnosus (Culturelle) 1 cap PO BID [facility] Last Admin: 12/07/18 20:06 Dose: 1 cap Lorazepam (Ativan) 0.5 mg IVPUSH Q4H PRN PRN Reason: Nausea/Vomiting Last Admin: 12/08/18 04:34 Dose: 0.5 mg Magnesium Hydroxide (Milk Of Magnesia) 30 ml PO Q12H PRN PRN Reason: Constipation Melatonin (Melatonin) 9 mg PO BEDTIME [facility] Last Admin: 12/07/18 20:08 Dose: 9 mg Metformin HCl (Glucophage) 1,000 mg PO BID [facility] Last Admin: 12/07/18 20:09 Dose: 1,000 mg Methylprednisolone Sodium Succinate (Solu-Medrol) 62.5 mg IVPUSH Q8H [facility] Last Admin: 12/08/18 01:46 Dose: 62.5 mg Admin: 12/07/18 18:11 Dose: 62.5 mg Mirtazapine (Remeron) 30 mg PO BEDTIME [facility] Last Admin: 12/07/18 20:08 Dose: 30 mg Morphine Sulfate (Morphine) 4 mg IV Q2H PRN PRN Reason: SEVERE PAIN (7-10) Last Admin: 12/08/18 03:16 Dose: 4 mg Admin: 12/08/18 00:08 Dose: 4 mg Admin: 12/07/18 20:27 Dose: 4 mg Admin: 12/07/18 18:37 Dose: 4 mg Olanzapine (Zyprexa) 15 mg PO DAILY [facility] Last Admin: 12/07/18 15:04 Dose: 15 mg Ondansetron HCl (Zofran Odt) 4 mg PO Q6H PRN PRN Reason: Nausea able to take PO Ondansetron HCl (Zofran) 4 mg IV Q6H PRN PRN Reason: Nausea/Vomiting Pantoprazole Sodium (Protonix) 40 mg PO ACBREAKFAST [facility] Polyethylene Glycol (Miralax) 17 gm PO DAILY [facility] Last Admin: 12/07/18 15:00 Dose: 17 gm Pramipexole Dihydrochloride (Mirapex) 1 mg PO BID [facility] Last Admin: 12/07/18 20:10 Dose: 1 mg Admin: 12/07/18 15:00 Dose: 1 mg Ranitidine HCl (Zantac) 150 mg PO BID [facility] Last Admin: 12/07/18 21:50 Dose: 150 mg Admin: 12/07/18 14:59 Dose: 150 mg Ropinirole HCl (Requip) 1 mg PO BID [facility] Last Admin: 12/07/18 20:07 Dose: 1 mg Admin: 12/07/18 15:00 Dose: 1 mg Fluticasone/Salmeterol (Fluticasone-Salmeterol 113-14 Mcg Powder Inh) 1 puff INH BIDRT [facility] Last Admin: 12/07/18 20:10 Dose: 1 puff Admin: 12/07/18 14:37 Dose: 1 puff Senna/Docusate Sodium (Senna Plus) 1 tab PO BID PRN PRN Reason: Constipation Simvastatin (Zocor) 20 mg PO BEDTIME [facility] Last Admin: 12/07/18 20:11 Dose: 20 mg Tamsulosin HCl (Flomax) 0.4 mg PO DAILY [facility] Last Admin: 12/07/18 15:00 Dose: 0.4 mg Labs: Laboratory Tests 12/07/18 12/07/18 12/07/18 Range/Units 08:31 08:31 08:31 WBC 12.5 H (4.5-11.0) K/uL RBC 3.98 L (4.30-5.90) M/uL Hgb 11.0 L (12.0-15.0) g/dL Hct 37.1 L (40.0-54.0) % MCV 93 (80-98) fL MCH 28 (27-31) pg MCHC 30 L (32-36) % Plt Count 213 (150-400) K/uL Neut % (Auto) 72 H (36-66) % Lymph % (Auto) 18 L (24-44) % [place] % (Auto) 9 H (2-6) % Eos % (Auto) 1 L (2-4) % Baso % (Auto) 0 (0-1) % Sodium 141 (140-148) mmol/L Potassium 3.8 (3.6-5.2) mmol/L Chloride 94 L (100-108) mmol/L Carbon Dioxide 46 H (21-32) mmol/L Anion Gap 4.8 L (5.0-14.0) mmol/L BUN 27 H (7-18) mg/dL Creatinine 1.0 (0.8-1.3) mg/dL Est Cr Clr Drug Dosing 80.77 mL/min Estimated GFR (MDRD) > 60 (>60) Glucose 103 (74-106) mg/dL Lactic Acid 0.7 (0.4-2.0) mmol/L Calcium 9.2 (8.5-10.1) mg/dL Total Bilirubin 0.3 (0.2-1.0) mg/dL AST 13 L (15-37) U/L ALT 14 (12-78) U/L Alkaline Phosphatase 38 L (46-116) U/L Total Protein 6.7 (6.4-8.2) g/dL Albumin 2.9 L (3.4-5.0) g/dL Globulin 3.8 H (2.3-3.5) g/dL Albumin/Globulin Ratio 0.8 L (1.2-2.2) Meds: Medications Generic Name Dose Route Start Last Admin Trade Name Freq PRN Reason Stop Dose Admin Albuterol 2.5 mg 12/07/18 11:18 Proventil Neb Soln NEB Q4H PRN Shortness Of Breath/wheezing Albuterol/Ipratropium 3 ml 12/07/18 11:18 12/07/18 21:50 Duoneb 3.0-0.5 Mg/3 Ml NEB 3 ml QIDRT [facility] Administration Benzonatate 100 mg 12/07/18 11:18 Tessalon Perles PO TID PRN Cough Benztropine Mesylate 0.5 mg 12/07/18 12:00 12/07/18 15:00 Cogentin PO 0.5 mg DAILY [facility] Administration Carvedilol 25 mg 12/07/18 11:30 12/07/18 20:09 Coreg PO 25 mg BID [facility] Administration Citalopram Hydrobromide 20 mg 12/07/18 11:45 12/07/18 14:59 Celexa PO 20 mg DAILY [facility] Administration Divalproex Sodium 1,500 mg 12/07/18 21:00 12/07/18 20:07 Divalproex Sodium PO 1,500 mg BEDTIME [facility] Administration Docusate Sodium 100 mg 12/08/18 09:00 Colace PO DAILY [facility] Furosemide 40 mg 12/08/18 09:00 Lasix PO DAILY [facility] Gabapentin 600 mg 12/07/18 14:00 12/07/18 20:07 Neurontin PO 600 mg TID [facility] Administration Glipizide 5 mg 12/07/18 11:45 12/07/18 14:59 Glucotrol Xl PO 5 mg DAILY [facility] Administration Guaifenesin/Dextromethorphan 10 ml 12/07/18 11:18 Robitussin Dm PO Q4H PRN Cough Doxycycline Hyclate 100 mg/ 100 mls @ 100 mls/hr 12/07/18 10:00 12/07/18 21: 50 Sodium Chloride IV 100 mls/hr Q12H [facility] Administration Sodium Chloride 1,000 mls @ 50 mls/hr 12/07/18 11:18 12/08/18 06:20 Normal Saline IV 50 mls/hr ASDIRECTED [facility] Administration Insulin Human Lispro 0 unit 12/07/18 11:18 12/07/18 20:21 Humalog SUBCUT 6 units QIDACANDBED [facility] Administration Protocol Lactobacillus Rhamnosus 1 cap 12/07/18 21:00 12/07/18 20:06 Culturelle PO 1 cap BID [facility] Administration Lorazepam 0.5 mg 12/07/18 11:18 12/08/18 04:34 Ativan IVPUSH 0.5 mg Q4H PRN Administration Nausea/Vomiting Magnesium Hydroxide 30 ml 12/07/18 11:18 Milk Of Magnesia PO Q12H PRN Constipation Melatonin 9 mg 12/07/18 21:00 12/07/18 20:08 Melatonin PO 9 mg BEDTIME [facility] Administration Metformin HCl 1,000 mg 12/07/18 21:00 12/07/18 20:09 Glucophage PO 1,000 mg BID [facility] Administration Methylprednisolone Sodium Succinate 62.5 mg 12/07/18 18:00 12/08/18 01:46 Solu-Medrol IVPUSH 62.5 mg Q8H [facility] Administration Mirtazapine 30 mg 12/07/18 21:00 12/07/18 20:08 Remeron PO 30 mg BEDTIME [facility] Administration Morphine Sulfate 4 mg 12/07/18 11:38 12/08/18 03:16 Morphine IV 4 mg Q2H PRN Administration SEVERE PAIN (7-10) Olanzapine 15 mg 12/07/18 12:00 12/07/18 15:04 Zyprexa PO 15 mg DAILY [facility] Administration Ondansetron HCl 4 mg 12/07/18 11:18 Zofran Odt PO Q6H PRN Nausea able to take PO Ondansetron HCl 4 mg 12/07/18 11:18 Zofran IV Q6H PRN Nausea/Vomiting Pantoprazole Sodium 40 mg 12/08/18 07:30 Protonix PO ACBREAKFAST [facility] Polyethylene Glycol 17 gm 12/07/18 12:00 12/07/18 15:00 Miralax PO 17 gm DAILY [facility] Administration Pramipexole Dihydrochloride 1 mg 12/07/18 12:00 12/07/18 20:10 Mirapex PO 1 mg BID [facility] Administration Ranitidine HCl 150 mg 12/07/18 11:45 12/07/18 21:50 Zantac PO 150 mg BID [facility] Administration Ropinirole HCl 1 mg 12/07/18 12:00 12/07/18 20:07 Requip PO 1 mg BID [facility] Administration Fluticasone/Salmeterol 1 puff 12/07/18 12:00 12/07/18 20:10 Fluticasone-Salmeterol 113-14 Mcg Powder Inh INH 1 puff BIDRT [facility] Administration Senna/Docusate Sodium 1 tab 12/07/18 11:18 Senna Plus PO BID PRN Constipation Simvastatin 20 mg 12/07/18 21:00 12/07/18 20:11 Zocor PO 20 mg BEDTIME [facility] Administration Tamsulosin HCl 0.4 mg 12/07/18 12:00 12/07/18 15:00 Flomax PO 0.4 mg DAILY [facility] Administration Discontinued Medications Generic Name Dose Route Start Last Admin Trade Name Freq PRN Reason Stop Dose Admin Acetaminophen 650 mg 12/07/18 11:18 Tylenol PO Q4H PRN Pain (Mild 1-3)/fever Albuterol/Ipratropium 3 ml 12/07/18 09:44 12/07/18 09:55 Duoneb 3.0-0.5 Mg/3 Ml NEB 12/07/18 09:45 3 ml ONETIME ONE Administration Furosemide 40 mg 12/07/18 08:17 12/07/18 08:36 Lasix IVPUSH 12/07/18 08:18 40 mg ONETIME ONE Administration Methylprednisolone Sodium Succinate 125 mg 12/07/18 09:43 12/07/18 09:57 Solu-Medrol IVPUSH 12/07/18 09:44 125 mg ONETIME ONE Administration Morphine Sulfate 4 mg 12/07/18 09:43 12/07/18 10:01 Morphine IVPUSH 12/07/18 09:44 4 mg ONETIME ONE Administration Nitroglycerin 0.4 mg 12/07/18 08:54 12/07/18 09:17 Nitrostat SL 0.4 mg Q5M PRN Administration Chest Pain Nitroglycerin 0.4 mg 12/07/18 09:24 12/07/18 09:31 Nitrostat SL 0.4 mg Q5M PRN Administration Chest Pain - Radiology Interpretation Free Text/Narrative:: Radiologist reading of the chest x-ray is pending but I reviewed the film and it doesn't really look like congestive failure - Re-Assessments/Exams Free Text/Narrative Re-Assessment/Exam: 12/07/18 08:32 An IV was established and he received Lasix 40 mg IV Free Text/Narrative Re-Assessment/Exam: 12/07/18 09:[address] Chadwick and he will see the patient very shortly. This gentleman started having some chest pain a few minutes ago he was given a sublingual nitroglycerin and it's been less than 5 minutes since then and he still having some pain. An EKG may have some nonspecific T abnormalities in lateral leads but there is a lot of artifact and baseline wander there 12/07/18 09:27 His BNP is pending Departure - Departure Time of Disposition: 09:00 Disposition: Admitted As Inpatient 66 Condition: Serious Clinical Impression: Shortness of breath - Discharge Information
[2018-12-07] MEDS ORDERED: Nitroglycerin 0.4 MG Tab.SL SL PRN ×2 (08:54→09:24)
--- NOTE | 2018-12-07 09:36 | CRLCR ---
INDICATION: Chest pain COMPARISON: Portable chest dated 09/27/2018 TECHNIQUE: Portable AP erect chest performed at 9:02 a.m. FINDINGS: The lungs are clear. There is no evidence of pneumothorax. The heart, mediastinum and pulmonary vessels are of normal size. There is no evidence of pleural fluid. IMPRESSION: Negative chest. Dictated by Jordan Clinton MD @ 12/07/2018 9:34:49 AM Dictated by: Jordan Clinton MD @ 12/07/2018 09:34:54 (Electronically Signed)
[2018-12-07] MEDS ORDERED: Morphine 4 MG/ML Syringe IVPUSH ONE (09:43)
[2018-12-07] MEDS ORDERED: methylPREDNISolone Sodium Succinate 125 MG/2 ML SDV IVPUSH ONE (09:43)
[2018-12-07] MEDS ORDERED: Albuterol/Ipratropium 3.0-0.5 MG/3 ML Neb Soln NEB ONE (09:44)
--- NOTE | 2018-12-07 10:03 | PCM.HP.2 ---
H&P History of Present Illness - General Date of Service: 12/07/18 Admit Problem/Dx: Admission Diagnosis/Problem Admission Diagnosis/Problem Acute bronchitis Source of Information: Patient, Provider History Limitations: Reports: No Limitations - History of Present Illness Initial Comments - Free Text/Narative: CC: I feel terrible HPI: Sami [facility] with hypoxia, cough and increased shortness of breath. He reports that he feels sick and feels crummy all over but is unable to further describe why he feels terrible. He has noticed increased cough but no sputum production. He is more short of breath and usual he was noted to be hypoxic last night with oxygen saturations in the 70s at times. He is complaining of moderate sharp left lower chest pain that comes and goes. Not worse with cough or deep breathing area he hasn't taken anything to make it better. No complaints of nausea or abdominal pain. Bowels have been moving okay. No skin rashes. No sick contacts. He is not aware of any fevers. Lower extremity edema is at baseline. Workup in the emergency room was concerning for bronchitis with COPD exacerbation and increased hypoxia from baseline of severe COPD. He has very poor air movement. He will be started on antibiotics, steroids and admitted for further management. Denies Pain Score (Numeric/FACES): 0 - Related Data Allergies/Adverse Reactions: Allergies Allergy/AdvReac Type Severity Reaction Status Date / Time piperacillin [From Zosyn] Allergy Severe Anaphylactic Verified 12/07/18 07:52 Shock tazobactam [From Zosyn] Allergy Severe Anaphylactic Verified 12/07/18 07:52 Shock acetaminophen [From Tylenol] Allergy Rash Verified 12/07/18 07:52 codeine AdvReac Nausea and Verified 12/07/18 07:52 Vomiting hydromorphone [From Dilaudid] AdvReac Vomiting Verified 12/07/18 07:52 Home Medications: Home Meds Citalopram Hydrobromide [Celexa] 20 mg PO DAILY 01/24/13 [History] Divalproex Sodium [Depakote] 1,500 mg PO BEDTIME 01/24/13 [History] Furosemide [Lasix] 40 mg PO DAILY 01/24/13 [History] Gabapentin [Neurontin] 600 mg PO TID 01/24/13 [History] OLANZapine [ZyPREXA] 15 mg PO DAILY 01/24/13 [History] Omeprazole [Prilosec] 40 mg PO DAILY 01/24/13 [History] Simvastatin [Zocor] 20 mg PO BEDTIME 01/24/13 [History] Ferrous Gluconate 324 mg PO BID 09/05/13 [History] Ipratropium/Albuterol Sulfate [Duoneb 0.5 mg-3 mg/3 ml Soln] 3 ml IH Q4H PRN [History] Ranitidine [Zantac] 150 mg PO BID 10/08/15 [History] Fluticasone/Salmeterol [Advair 250-50] 1 puff INH Q12HR 04/17/18 [History] Tamsulosin HCl [Flomax] 0.4 mg PO DAILY 04/17/18 [History] EPINEPHrine [Epipen 2-Richard] 0.3 mg IJ ONETIME PRN #2 ml 04/24/18 [Rx] Acetaminophen [Tylenol Extra Strength] 500 mg PO Q6HR PRN 06/23/18 [History] Polyethylene Glycol 3350 [MiraLAX] 17 gm PO DAILY 06/23/18 [History] Pramipexole Di-HCl [Mirapex] 1 mg PO BID 06/23/18 [History] rOPINIRole HCl [Requip] 1 mg PO BID 06/23/18 [History] Docusate Sodium [DOK] 100 mg PO DAILY 09/23/18 [History] Benztropine [Cogentin] 0.5 mg PO DAILY 09/24/18 [History] Mirtazapine 30 mg PO BEDTIME 09/24/18 [History] Hydrocodone/Acetaminophen [Lorcet Hd 10-325 mg Tablet] 1 each PO Q6H PRN #60 tablet 09/29/18 [Rx] Carvedilol [Coreg] 25 mg PO BID 12/07/18 [History] Levofloxacin 1 tab PO DAILY 12/07/18 [History] Trolamine Salicylate/Aloe Vera [Aspercreme 10%] 1 dose TOP ASDIRECTED 12/07/18 [ History] glipiZIDE [Glipizide ER] 1 tab PO DAILY 12/07/18 [History] guaiFENesin [Tussin Mucus-Chest Congestion] 1 tsp PO Q4H 12/07/18 [History] metFORMIN [Glucophage] 1 tab PO BID 12/07/18 [History] Past Medical History HEENT History: Reports: Hard of Hearing Cardiovascular History: Reports: Heart Failure, Hypertension Other Cardiovascular History: bradycardia Respiratory History: Reports: COPD, Pneumonia, Recurrent, SOB Other Respiratory History: home 02 3 liters Gastrointestinal History: Reports: Cholelithiasis Genitourinary History: Reports: Prostate Disorder, Renal Disease, Other (See Below) Other Genitourinary History: malignant neoplasm of kidney Musculoskeletal History: Reports: Other (See Below) Other Musculoskeletal History: fx of first lumbar, unstable burst fx of first lumbar vertebra Neurological History: Reports: Parkinson's, Seizure Psychiatric History: Reports: Autism Endocrine/Metabolic History: Reports: Obesity/BMI 30+ Oncologic (Cancer) History: Reports: Colon, Renal - Infectious Disease History Infectious Disease History: Reports: Chicken Pox - Past Surgical History GI Surgical History: Reports: Cholecystectomy, Colon, Colostomy Other GI Surgeries/Procedures: colon cancer Male Surgical History: Reports: Nephrectomy Other Male Surgeries/Procedures: right kidney cancer Musculoskeletal Surgical History: Reports: Hip Replacement, Knee Replacement Oncologic Surgical History: Reports: Other (See Below) Social & Family History - Family History Family Medical History: Noncontributory Endocrine/Metabolic: Reports: Diabetes, type II - Tobacco Use Smoking Status *Q: Former Smoker Used Tobacco, but Quit: Yes Month/Year Tobacco Last Used: 0 - Caffeine Use Caffeine Use: Reports: Coffee, Soda - Recreational Drug Use Recreational Drug Use: No H&P Review of Systems - Review of Systems: Review Of Systems: See Below Free Text/Narrative: A complete 12 point review of systems was obtained. Pertinent positives and negatives are noted in the history of present illness. All other systems were reviewed and were negative except as noted. Exam - Exam Exam: See Below - Vital Signs Vital Signs: Last Vital Signs Temp 36.6 C 12/07/18 07:51 Pulse 64 12/07/18 09:26 Resp 16 12/07/18 09:05 BP 159/91 H 12/07/18 09:31 Pulse Ox 92 L 12/07/18 09:05 Weight: 136.078 kg - Exam Quality Assessment: Supplemental Oxygen General: Alert, Oriented, Cooperative, Mild Distress HEENT: No: Mucosa Moist & [place] (dry), Scleral Icterus Neck: Supple, Trachea Midline. No: Lymphadenopathy Lungs: Crackles (mild both lung bases), Other (poor air movement ). No: Normal Respiratory Effort (increased work of breathing ), Wheezing Cardiovascular: Regular Rate, Regular Rhythm. No: Systolic Murmur GI/Abdominal Exam: Normal Bowel Sounds, Soft, No Distention, Tender (mild epigastric ) Extremities: Pedal Edema. No: Increased Warmth Peripheral Pulses: 2+: Dorsalis Pedis (L), Dorsalis Pedis (R) Skin: Warm, Dry Neuro Extensive - Mental Status: Alert, Oriented x3, Nl Response to Commands Neuro Extensive - Motor, Sensory, Reflexes: Tremor. No: Dysarthria, Abnormal Motor Psychiatric: Alert, Normal Affect - Patient Data Lab Results Last 24 hrs: Laboratory Results - last 24 hr 12/07/18 12/07/18 12/07/18 Range/Units 08:31 08:31 08:31 WBC 12.5 H (4.5-11.0) K/uL RBC 3.98 L (4.30-5.90) M/uL Hgb 11.0 L (12.0-15.0) g/dL Hct 37.1 L (40.0-54.0) % MCV 93 (80-98) fL MCH 28 (27-31) pg MCHC 30 L (32-36) % Plt Count 213 (150-400) K/uL Neut % (Auto) 72 H (36-66) % Lymph % (Auto) 18 L (24-44) % [place] % (Auto) 9 H (2-6) % Eos % (Auto) 1 L (2-4) % Baso % (Auto) 0 (0-1) % Sodium 141 (140-148) mmol/L Potassium 3.8 (3.6-5.2) mmol/L Chloride 94 L (100-108) mmol/L Carbon Dioxide 46 H (21-32) mmol/L Anion Gap 4.8 L (5.0-14.0) mmol/L BUN 27 H (7-18) mg/dL Creatinine 1.0 (0.8-1.3) mg/dL Est Cr Clr Drug Dosing 80.77 mL/min Estimated GFR (MDRD) > 60 (>60) Glucose 103 (74-106) mg/dL Lactic Acid 0.7 (0.4-2.0) mmol/L Calcium 9.2 (8.5-10.1) mg/dL Total Bilirubin 0.3 (0.2-1.0) mg/dL AST 13 L (15-37) U/L ALT 14 (12-78) U/L Alkaline Phosphatase 38 L (46-116) U/L Total Protein 6.7 (6.4-8.2) g/dL Albumin 2.9 L (3.4-5.0) g/dL Globulin 3.8 H (2.3-3.5) g/dL Albumin/Globulin Ratio 0.8 L (1.2-2.2) Result Diagrams: 12/07/18 08:31 12/07/18 08:31 Imaging Impressions Last 24 hrs: CXR - images personally reviewed - lungs are clear, no mass or effusion. Heart size is normal. EKG INTERPRETATION EKG Date: 12/07/18 Rhythm: NSR Rate (Beats/Min): 58 [place]: Normal P-Wave: Present QRS: Normal ST-T: Normal QT: Normal *Q Meaningful Use (ADM) - VTE Risk Assess *Q Each Risk Factor Represents 1 Point: Swollen Legs, Current, Obesity ( BMI > 25 kg/m2), Serious lung disease including pneumonia, Abnormal Pulmonary Function ( COPD) Total Score 1 Point Risk Factors: 4 Each Risk Factor Represents 2 Points: Age 60 - 74 Years Total Score 2 Point Risk Factors: 2 Each Risk Factor Represents 3 Points: None Total Score 3 Point Risk Factors: 0 Each Risk Factor Represents 5 Points: None Total Score 5 Point Risk Factors: 0 Venous Thromboembolism Risk Factor Score *Q: 6 - Problem List (1) Acute bronchitis SNOMED Code(s): 88521261 ICD Code: J20.9 - ACUTE BRONCHITIS, UNSPECIFIED Status: Acute Current Visit: Yes Qualifiers: Bronchitis organism: unspecified organism Qualified Code(s): J20.9 - Acute bronchitis, unspecified (2) Acute exacerbation of chronic obstructive airways disease SNOMED Code(s): 062635542 ICD Code: J44.1 - CHRONIC OBSTRUCTIVE PULMONARY DISEASE W (ACUTE) EXACERBATION Status: Acute Current Visit: Yes (3) Severe chronic obstructive pulmonary disease SNOMED Code(s): 877993630 ICD Code: J44.9 - CHRONIC OBSTRUCTIVE PULMONARY DISEASE, UNSPECIFIED Status : Chronic Current Visit: No Problem Details: O2 dependent, 3-4 L/min (4) DM II (diabetes mellitus, type II), controlled SNOMED Code(s): 80611992, 416705396 ICD Code: E11.9 - TYPE 2 DIABETES MELLITUS WITHOUT COMPLICATIONS Status: Acute Current Visit: Yes Qualifiers: Diabetes mellitus group home insulin use: without group home use Diabetes mellitus complication status: without complication Qualified Code(s): E11.9 - Type 2 diabetes mellitus without complications (5) Bipolar affective disorder in remission Status: Chronic Current Visit: No Problem List Initiated/Reviewed/Updated: Yes Orders Last 24hrs: Active Orders 24 hr Category Date Time Status Patient Status Manage Transfer [TRANSFER] Routine ADT 12/07/18 09:47 Ordered RT Aerosol Therapy [RC] ASDIRECTED Care 12/07/18 09:44 Active Doxycycline [Vibramycin] 100 mg Med 12/07/18 10:00 Active Sodium Chloride 0.9% [Normal Saline] 100 ml IV Q12H Nitroglycerin [Nitrostat] Med 12/07/18 08:54 Active 0.4 mg SL Q5M PRN Nitroglycerin [Nitrostat] Med 12/07/18 09:24 Active 0.4 mg SL Q5M PRN Resuscitation Status Routine Resus Stat 12/07/18 09:51 Ordered Medication Orders Doxycycline Hyclate 100 mg/ (Sodium Chloride) 100 mls @ 100 mls/hr IV Q12H BRYCE Nitroglycerin (Nitrostat) 0.4 mg SL Q5M PRN PRN Reason: Chest Pain Last Admin: 12/07/18 09:17 Dose: 0.4 mg Nitroglycerin (Nitrostat) 0.4 mg SL Q5M PRN PRN Reason: Chest Pain Last Admin: 12/07/18 09:31 Dose: 0.4 mg Assessment/Plan Comment:: ASSESSMENT AND PLAN - Acute bronchitis - complicated by acute exacerbation of COPD with increased hypoxia from baseline. Main symptoms at this time are shortness of breath and cough. Not currently febrile. Very poor air movement on examination. -Doxycycline -Steroids -Supplement oxygen -Scheduled and as needed nebulizers -Symptomatically management of cough Severe COPD - oxygen dependent at baseline and usually requires 3-4 L of oxygen. Complicated by exacerbation as above. -Continue home controller medications Type 2 diabetes mellitus - not insulin-dependent. Sugars will likely rise with the steroids. -Continue home medications -Insulin with sliding scale coverage Bipolar affective disorder - stable. Parkinsonism - stable Maintenance issues - - DVT prophylaxis - mechanical - GI prophylaxis - PPI and H2 kit - Nutrition - diabetic diet - Freeman catheter - not indicated CODE STATUS - DNR/DNI Admission justification - This patient will be admitted for inpatient services and is medically appropriate meeting medical necessity for inpatient admission as outlined in my documentation. I reasonably expect the patient will require inpatient services that span a period time over 2 midnights. I reasonably expect this patient to be discharged or transferred within 96 hours after admission to the [facility]. Disposition - I would anticipate discharge back to the [facility] after the hospital stay Primary care physician - Dr Eda Chadwick M.D. - Mortality Measure Prognosis:: Poor
[2018-12-07] MEDS: Doxycycline 100 MG in Sodium Chloride 0.9% 100 ML IV SCH ×2 (10:07→21:50)
[2018-12-07] MEDS ORDERED: BENZTROPINE 0.5 MG PO SCH (11:18)
[2018-12-07] MEDS ORDERED: PRAMIPEXOLE DI HCL 1 MG PO SCH (11:18)
[2018-12-07] MEDS ORDERED: Benzonatate 100 MG Cap PO PRN (11:18)
[2018-12-07] MEDS ORDERED: OLANZAPINE 15 MG PO SCH (11:18)
[2018-12-07] MEDS ORDERED: Citalopram 10 MG Tab PO SCH (11:18)
[2018-12-07] MEDS ORDERED: guaiFENesin/Dextromethorphan 100-10 MG/5 ML Soln 10 ML Cup PO PRN (11:18)
[2018-12-07] MEDS ORDERED: Acetaminophen 325 MG Tab PO PRN (11:18)
[2018-12-07] MEDS ORDERED: Ondansetron 4 MG Tab.DIS PO PRN (11:18)
[2018-12-07] MEDS ORDERED: Morphine 2 MG/ML Syringe IVPUSH PRN (11:18)
[2018-12-07] MEDS ORDERED: Ondansetron 4 MG/2 ML SDV IV PRN (11:18)
[2018-12-07] MEDS: Sodium Chloride 0.9% 1,000 ML IV SCH (11:34)
[2018-12-07] MEDS: Albuterol/Ipratropium 3.0-0.5 MG/3 ML Neb Soln NEB SCH ×3 (11:36→21:50)
[2018-12-07] MEDS: Insulin Lispro 100 Unit/ML 3 ML KwikPen SUBCUT SCH ×3 (12:03→20:21)
[2018-12-07] MEDS ORDERED: Non-Formulary Medication 1 Each (Gabapentin [Neurontin] 600 MG) PO SCH (14:00)
[2018-12-07] MEDS: Fluticasone-Salmeterol 113-14 MCG Powder Inhalant INH SCH ×2 (14:37→20:10)
[2018-12-07] MEDS: Carvedilol 25 MG Tab PO SCH ×2 (14:58→20:09)
[2018-12-07] MEDS: Citalopram 20 MG Tab PO SCH (14:59)
[2018-12-07] MEDS: glipiZIDE 5 MG Tab.ER PO SCH (14:59)
[2018-12-07] MEDS: Tamsulosin 0.4 MG Cap.ER PO SCH (15:00)
[2018-12-07] MEDS: rOPINIRole 1 MG Tab PO SCH ×2 (15:00→20:07)
[2018-12-07] MEDS: Benztropine 1 MG Tab PO SCH (15:00)
[2018-12-07] MEDS: Pramipexole 0.5 MG Tab PO SCH ×2 (15:00→20:10)
[2018-12-07] MEDS: Polyethylene Glycol 3350 Powder 17 GM Packet PO SCH (15:00)
[2018-12-07] MEDS: Gabapentin 300 MG Cap PO SCH ×2 (15:01→20:07)
[2018-12-07] MEDS: OLANZapine 5 MG Tab PO SCH (15:04)
[2018-12-07] MEDS: methylPREDNISolone Sodium Succinate 125 MG/2 ML SDV IVPUSH SCH (18:11)
[2018-12-07] MEDS: Morphine 4 MG/ML Syringe IV PRN ×2 (18:37→20:27)
[2018-12-07] MEDS: Lactobacillus Rhamnosus GG (Probiotic) Cap PO SCH (20:06)
[2018-12-07] MEDS: Divalproex Sodium Delayed-Release 250 MG Tab.CR PO SCH (20:07)
[2018-12-07] MEDS: Melatonin 3 MG Tab PO SCH (20:08)
[2018-12-07] MEDS: Mirtazapine 15 MG Tab PO SCH (20:08)
[2018-12-07] MEDS: metFORMIN 500 MG Tab PO SCH (20:09)
[2018-12-07] MEDS: Simvastatin 20 MG Tab PO SCH (20:11)
[2018-12-07] MEDS ORDERED: METFORMIN PO SCH (21:00)
[2018-12-07] MEDS ORDERED: DIVALPROEX SODIUM 1500 MG PO SCH (21:00)
[2018-12-07] MEDS ORDERED: Non-Formulary Medication 1 Each (Mirtazapine [Mirtazapine] 30 MG) PO SCH (21:00)
[2018-12-08] MEDS: Morphine 4 MG/ML Syringe IV PRN ×6 (00:08→20:13)
[2018-12-08] MEDS: methylPREDNISolone Sodium Succinate 125 MG/2 ML SDV IVPUSH SCH ×2 (01:46→09:07)
[2018-12-08] MEDS: LORazepam 2 MG/ML SDV IVPUSH PRN (04:34)
[2018-12-08] MEDS: Sodium Chloride 0.9% 1,000 ML IV SCH (06:20)
[2018-12-08] MEDS: Albuterol/Ipratropium 3.0-0.5 MG/3 ML Neb Soln NEB SCH ×4 (07:15→20:16)
[2018-12-08] MEDS: Fluticasone-Salmeterol 113-14 MCG Powder Inhalant INH SCH ×2 (07:15→20:06)
[2018-12-08] MEDS: Pantoprazole 40 MG Tab.CR PO SCH (07:48)
[2018-12-08] MEDS: Insulin Lispro 100 Unit/ML 3 ML KwikPen SUBCUT SCH ×4 (07:49→21:23)
[2018-12-08] MEDS: glipiZIDE 5 MG Tab.ER PO SCH (08:51)
[2018-12-08] MEDS: Carvedilol 25 MG Tab PO SCH ×2 (08:51→20:04)
[2018-12-08] MEDS: rOPINIRole 1 MG Tab PO SCH ×2 (08:51→20:08)
[2018-12-08] MEDS: metFORMIN 500 MG Tab PO SCH ×2 (08:52→20:06)
[2018-12-08] MEDS: OLANZapine 5 MG Tab PO SCH (08:52)
[2018-12-08] MEDS: Lactobacillus Rhamnosus GG (Probiotic) Cap PO SCH ×2 (08:52→20:05)
[2018-12-08] MEDS: Tamsulosin 0.4 MG Cap.ER PO SCH (08:52)
[2018-12-08] MEDS: Citalopram 20 MG Tab PO SCH (08:53)
[2018-12-08] MEDS: Docusate Sodium 100 MG Cap PO SCH (08:53)
[2018-12-08] MEDS: Benztropine 1 MG Tab PO SCH (08:54)
[2018-12-08] MEDS: Pramipexole 0.5 MG Tab PO SCH ×2 (08:54→20:07)
[2018-12-08] MEDS: Polyethylene Glycol 3350 Powder 17 GM Packet PO SCH (08:54)
[2018-12-08] MEDS: Gabapentin 300 MG Cap PO SCH ×3 (08:55→20:07)
[2018-12-08] MEDS ORDERED: Furosemide 20 MG Tab PO SCH (09:00)
[2018-12-08] MEDS ORDERED: DOCUSATE SODIUM 100 MG PO SCH (09:00)
[2018-12-08] MEDS ORDERED: Furosemide 40 MG Tab PO SCH ×2 (09:00→15:00)
[2018-12-08] MEDS: Doxycycline 100 MG in Sodium Chloride 0.9% 100 ML IV SCH (09:58)
--- NOTE | 2018-12-08 12:19 | PCM.PN ---
- General Info Date of Service: 12/08/18 Subjective Update: No acute events overnight. Patient is feeling better today with less cough and less shortness of breath. No fevers overnight. Appetite good. Blood sugars well- controlled. Functional Status: Reports: Pain Controlled, Tolerating Diet - Review of Systems General: Reports: Weakness Pulmonary: Reports: Shortness of Breath - Patient Data Vitals - Most Recent: Last Vital Signs Temp 35.3 C 12/08/18 12:04 Pulse 62 12/08/18 12:04 Resp 16 12/08/18 12:04 BP 149/56 H 12/08/18 12:04 Pulse Ox 93 L 12/08/18 12:04 Weight - Most Recent: 136.078 kg I&O - Last 24 Hours: Intake & Output 12/07/18 12/08/18 12/08/18 22:59 06:59 14:59 Intake Total 1158 1380 1020 Output Total 225 725 505 Balance 933 655 515 Lab Results Last 24 Hours: Laboratory Results - last 24 hr 12/08/18 12/08/18 Range/Units 04:59 04:59 WBC 10.6 (4.5-11.0) K/uL RBC 3.76 L (4.30-5.90) M/uL Hgb 10.4 L (12.0-15.0) g/dL Hct 34.1 L (40.0-54.0) % MCV 91 (80-98) fL MCH 28 (27-31) pg MCHC 31 L (32-36) % Plt Count 226 (150-400) K/uL Sodium 136 L (140-148) mmol/L Potassium 4.1 (3.6-5.2) mmol/L Chloride 91 L (100-108) mmol/L Carbon Dioxide 39 H (21-32) mmol/L Anion Gap 10.1 (5.0-14.0) mmol/L BUN 29 H (7-18) mg/dL Creatinine 1.1 (0.8-1.3) mg/dL Est Cr Clr Drug Dosing 73.43 mL/min Estimated GFR (MDRD) > 60 (>60) Glucose 126 H (74-106) mg/dL Calcium 8.6 (8.5-10.1) mg/dL Miki Results Last 24 Hours: Microbiology 12/07/18 16:49 Gram Stain - Final Sputum - Expectorated Med Orders - Current: Current Medications Hydrocodone Bitart/Acetaminophen (Talmo 325-10 Mg) 1 tab PO Q4H PRN PRN Reason: Pain (moderate 4-6) Albuterol (Proventil Neb Soln) 2.5 mg NEB Q4H PRN PRN Reason: Shortness Of Breath/wheezing Albuterol/Ipratropium (Duoneb 3.0-0.5 Mg/3 Ml) 3 ml NEB QIDRT [facility] Last Admin: 12/08/18 10:54 Dose: 3 ml Benzonatate (Tessalon Perles) 100 mg PO TID PRN PRN Reason: Cough Benztropine Mesylate (Cogentin) 0.5 mg PO DAILY [facility] Last Admin: 12/08/18 08:54 Dose: 0.5 mg Carvedilol (Coreg) 25 mg PO BID [facility] Last Admin: 12/08/18 08:51 Dose: 25 mg Citalopram Hydrobromide (Celexa) 20 mg PO DAILY [facility] Last Admin: 12/08/18 08:53 Dose: 20 mg Divalproex Sodium (Divalproex Sodium) 1,500 mg PO BEDTIME [facility] Last Admin: 12/07/18 20:07 Dose: 1,500 mg Docusate Sodium (Colace) 100 mg PO DAILY [facility] Last Admin: 12/08/18 08:53 Dose: 100 mg Gabapentin (Neurontin) 600 mg PO TID [facility] Last Admin: 12/08/18 08:55 Dose: 600 mg Glipizide (Glucotrol Xl) 5 mg PO DAILY [facility] Last Admin: 12/08/18 08:51 Dose: 5 mg Guaifenesin/Dextromethorphan (Robitussin Dm) 10 ml PO Q4H PRN PRN Reason: Cough Insulin Human Lispro (Humalog) 0 unit SUBCUT QIDACANDBED [facility]; Protocol Last Admin: 12/08/18 07:49 Dose: 4 units Lactobacillus Rhamnosus (Culturelle) 1 cap PO BID [facility] Last Admin: 12/08/18 08:52 Dose: 1 cap Lorazepam (Ativan) 0.5 mg IVPUSH Q4H PRN PRN Reason: Nausea/Vomiting Last Admin: 12/08/18 04:34 Dose: 0.5 mg Magnesium Hydroxide (Milk Of Magnesia) 30 ml PO Q12H PRN PRN Reason: Constipation Melatonin (Melatonin) 9 mg PO BEDTIME [facility] Last Admin: 12/07/18 20:08 Dose: 9 mg Metformin HCl (Glucophage) 1,000 mg PO BID [facility] Last Admin: 12/08/18 08:52 Dose: 1,000 mg Mirtazapine (Remeron) 30 mg PO BEDTIME [facility] Last Admin: 12/07/18 20:08 Dose: 30 mg Morphine Sulfate (Morphine) 4 mg IV Q2H PRN PRN Reason: SEVERE PAIN (7-10) Last Admin: 12/08/18 07:42 Dose: 4 mg Olanzapine (Zyprexa) 15 mg PO DAILY [facility] Last Admin: 12/08/18 08:52 Dose: 15 mg Ondansetron HCl (Zofran Odt) 4 mg PO Q6H PRN PRN Reason: Nausea able to take PO Ondansetron HCl (Zofran) 4 mg IV Q6H PRN PRN Reason: Nausea/Vomiting Pantoprazole Sodium (Protonix) 40 mg PO ACBREAKFAST [facility] Last Admin: 12/08/18 07:48 Dose: 40 mg Polyethylene Glycol (Miralax) 17 gm PO DAILY [facility] Last Admin: 12/08/18 08:54 Dose: 17 gm Pramipexole Dihydrochloride (Mirapex) 1 mg PO BID [facility] Last Admin: 12/08/18 08:54 Dose: 1 mg Ranitidine HCl (Zantac) 150 mg PO BID [facility] Last Admin: 12/08/18 08:52 Dose: 150 mg Ropinirole HCl (Requip) 1 mg PO BID [facility] Last Admin: 12/08/18 08:51 Dose: 1 mg Fluticasone/Salmeterol (Fluticasone-Salmeterol 113-14 Mcg Powder Inh) 1 puff INH BIDRT [facility] Last Admin: 12/08/18 07:15 Dose: 1 puff Senna/Docusate Sodium (Senna Plus) 1 tab PO BID PRN PRN Reason: Constipation Simvastatin (Zocor) 20 mg PO BEDTIME [facility] Last Admin: 12/07/18 20:11 Dose: 20 mg Tamsulosin HCl (Flomax) 0.4 mg PO DAILY [facility] Last Admin: 12/08/18 08:52 Dose: 0.4 mg Discontinued Medications Acetaminophen (Tylenol) 650 mg PO Q4H PRN PRN Reason: Pain (Mild 1-3)/fever Albuterol/Ipratropium (Duoneb 3.0-0.5 Mg/3 Ml) 3 ml NEB ONETIME ONE Stop: 12/07/18 09:45 Last Admin: 12/07/18 09:55 Dose: 3 ml Furosemide (Lasix) 40 mg IVPUSH ONETIME ONE Stop: 12/07/18 08:18 Last Admin: 12/07/18 08:36 Dose: 40 mg Furosemide (Lasix) 40 mg PO DAILY [facility] Last Admin: 12/08/18 08:53 Dose: 40 mg Doxycycline Hyclate 100 mg/ (Sodium Chloride) 100 mls @ 100 mls/hr IV Q12H [facility] Last Admin: 12/08/18 09:58 Dose: 100 mls/hr Sodium Chloride (Normal Saline) 1,000 mls @ 50 mls/hr IV ASDIRECTED [facility] Last Admin: 12/08/18 06:20 Dose: 50 mls/hr Methylprednisolone Sodium Succinate (Solu-Medrol) 125 mg IVPUSH ONETIME ONE Stop: 12/07/18 09:44 Last Admin: 12/07/18 09:57 Dose: 125 mg Methylprednisolone Sodium Succinate (Solu-Medrol) 62.5 mg IVPUSH Q8H [facility] Last Admin: 12/08/18 09:07 Dose: 62.5 mg Morphine Sulfate (Morphine) 4 mg IVPUSH ONETIME ONE Stop: 12/07/18 09:44 Last Admin: 12/07/18 10:01 Dose: 4 mg Nitroglycerin (Nitrostat) 0.4 mg SL Q5M PRN PRN Reason: Chest Pain Last Admin: 12/07/18 09:17 Dose: 0.4 mg Nitroglycerin (Nitrostat) 0.4 mg SL Q5M PRN PRN Reason: Chest Pain Last Admin: 12/07/18 09:31 Dose: 0.4 mg - Exam Quality Assessment: Supplemental Oxygen General: Alert, Oriented, Cooperative, No Acute Distress Lungs: Clear to Auscultation, Normal Respiratory Effort, Wheezing (mild end exp wheezing throughout ). No: Crackles Cardiovascular: Regular Rate, Regular Rhythm GI/Abdominal Exam: Soft, No Distention Extremities: Pedal Edema. No: Increased Warmth Psy/Mental Status: Alert, Normal Affect - Problem List & Annotations (1) Acute bronchitis SNOMED Code(s): 17935015 Code(s): J20.9 - ACUTE BRONCHITIS, UNSPECIFIED Status: Acute Current Visit: Yes Qualifiers: Bronchitis organism: unspecified organism Qualified Code(s): J20.9 - Acute bronchitis, unspecified (2) Acute exacerbation of chronic obstructive airways disease SNOMED Code(s): 456042452 Code(s): J44.1 - CHRONIC OBSTRUCTIVE PULMONARY DISEASE W (ACUTE) EXACERBATION Status: Acute Current Visit: Yes (3) Severe chronic obstructive pulmonary disease SNOMED Code(s): 991428745 Code(s): J44.9 - CHRONIC OBSTRUCTIVE PULMONARY DISEASE, UNSPECIFIED Status : Chronic Current Visit: No Annotation/Comment:: O2 dependent, 3-4 L/min (4) DM II (diabetes mellitus, type II), controlled SNOMED Code(s): 93186941, 831120614 Code(s): E11.9 - TYPE 2 DIABETES MELLITUS WITHOUT COMPLICATIONS Status: Acute Current Visit: Yes Qualifiers: Diabetes mellitus grizzlyman insulin use: without grizzlyman use Diabetes mellitus complication status: without complication Qualified Code(s): E11.9 - Type 2 diabetes mellitus without complications (5) Bipolar affective disorder in remission Status: Chronic Current Visit: No - Problem List Review Problem List Initiated/Reviewed/Updated: Yes - My Orders Last 24 Hours: My Active Orders 12/07/18 11:30 Carvedilol [Coreg] 25 mg PO BID 12/07/18 11:38 Morphine 4 mg IV Q2H PRN 12/07/18 11:45 Citalopram [Celexa] 20 mg PO DAILY Ranitidine [Zantac] 150 mg PO BID glipiZIDE [Glucotrol XL] 5 mg PO DAILY 12/07/18 12:00 Benztropine [Cogentin] 0.5 mg PO DAILY Fluticasone/Salmeterol [Fluticasone-Salmeterol 113-14 MCG Powder Inh] 1 puff INH BIDRT OLANZapine [ZyPREXA] 15 mg PO DAILY Polyethylene Glycol 3350 [MiraLAX] 17 gm PO DAILY Pramipexole [Mirapex] 1 mg PO BID Tamsulosin [Flomax] 0.4 mg PO DAILY rOPINIRole [Requip] 1 mg PO BID 12/07/18 14:00 Gabapentin [Neurontin] 600 mg PO TID 12/07/18 16:49 CULTURE RESPIRATORY + SMEAR [RM] Routine 12/07/18 21:00 Divalproex Sodium 1,500 mg PO BEDTIME Lactobacillus Rhamnosus GG [Culturelle] 1 cap PO BID Melatonin 9 mg PO BEDTIME Mirtazapine [Remeron] 30 mg PO BEDTIME Simvastatin [Zocor] 20 mg PO BEDTIME metFORMIN [Glucophage] 1,000 mg PO BID 12/07/18 Lunch Consistent Carbohydrate Diet [DIET] 12/08/18 07:00 PT Evaluation and Treatment [CONS] Routine 12/08/18 07:30 Pantoprazole [ProTONIX] 40 mg PO ACBREAKFAST 12/08/18 09:00 Docusate Sodium [Colace] 100 mg PO DAILY 12/08/18 10:02 Acetaminophen/HYDROcodone [Talmo 325-10 MG] 1 tab PO Q4H PRN 12/08/18 12:17 Convert IV to Saline Lock [OM.PC] Routine 12/08/18 15:00 Furosemide [Lasix] 40 mg PO ASDIRECTED 12/08/18 16:30 GLUCOSE POC LAB TO COLLECT [POC] QIDACANDBED predniSONE 20 mg PO BIDAC 12/08/18 21:00 GLUCOSE POC LAB TO COLLECT [POC] QIDACANDBED 12/08/18 22:00 Doxycycline [Vibramycin] 100 mg PO Q12H 12/09/18 05:00 BASIC METABOLIC PANEL,BMP [CHEM] Timed CBC W/O DIFF,HEMOGRAM [HEME] Timed (1) 12/09/18 07:30 GLUCOSE POC LAB TO COLLECT [POC] QIDACANDBED 12/09/18 09:00 Furosemide [Lasix] 80 mg PO DAILY 12/09/18 11:30 GLUCOSE POC LAB TO COLLECT [POC] QIDACANDBED 12/09/18 16:30 GLUCOSE POC LAB TO COLLECT [POC] QIDACANDBED 12/09/18 21:00 GLUCOSE POC LAB TO COLLECT [POC] QIDACANDBED 12/10/18 07:30 GLUCOSE POC LAB TO COLLECT [POC] QIDACANDBED 12/10/18 11:30 GLUCOSE POC LAB TO COLLECT [POC] QIDACANDBED 12/10/18 16:30 GLUCOSE POC LAB TO COLLECT [POC] QIDACANDBED 12/10/18 21:00 GLUCOSE POC LAB TO COLLECT [POC] QIDACANDBED 12/11/18 07:30 GLUCOSE POC LAB TO COLLECT [POC] QIDACANDBED 12/11/18 11:30 GLUCOSE POC LAB TO COLLECT [POC] QIDACANDBED 12/11/18 16:30 GLUCOSE POC LAB TO COLLECT [POC] QIDACANDBED 12/11/18 21:00 GLUCOSE POC LAB TO COLLECT [POC] QIDACANDBED 12/12/18 07:30 GLUCOSE POC LAB TO COLLECT [POC] QIDACANDBED 12/12/18 11:30 GLUCOSE POC LAB TO COLLECT [POC] QIDACANDBED 12/12/18 16:30 GLUCOSE POC LAB TO COLLECT [POC] QIDACANDBED 12/12/18 21:00 GLUCOSE POC LAB TO COLLECT [POC] QIDACANDBED 12/13/18 07:30 GLUCOSE POC LAB TO COLLECT [POC] QIDACANDBED 12/13/18 11:30 GLUCOSE POC LAB TO COLLECT [POC] QIDACANDBED 12/13/18 16:30 GLUCOSE POC LAB TO COLLECT [POC] QIDACANDBED - Plan Plan:: ASSESSMENT AND PLAN - Acute bronchitis - complicated by acute exacerbation of COPD with increased hypoxia from baseline. Clinically doing better today. Better air movement. Patient appears more comfortable. Tolerating current cares. -Doxycycline -Steroids -Supplement oxygen -Scheduled and as needed nebulizers -Symptomatically management of cough Severe COPD - oxygen dependent at baseline and usually requires supplemental oxygen. Clinically improving as discussed above. -Continue home controller medications Type 2 diabetes mellitus - not insulin-dependent. Sugars have remained well controlled. -Continue home medications -Insulin with sliding scale coverage Bipolar affective disorder - stable. Parkinsonism - stable Maintenance issues - - DVT prophylaxis - mechanical - GI prophylaxis - PPI and H2 kit - Nutrition - diabetic diet Disposition - I would anticipate discharge back to the senior living after the hospital stay Primary care physician - Dr Eda Chadwick M.D.
[2018-12-08] MEDS: Acetaminophen/HYDROcodone 325-10 MG Tab PO PRN (12:38)
[2018-12-08] MEDS: predniSONE 20 MG Tab PO SCH (16:59)
[2018-12-08] MEDS: Divalproex Sodium Delayed-Release 250 MG Tab.CR PO SCH (20:05)
[2018-12-08] MEDS: Melatonin 3 MG Tab PO SCH (20:07)
[2018-12-08] MEDS: Mirtazapine 15 MG Tab PO SCH (20:08)
[2018-12-08] MEDS: Simvastatin 20 MG Tab PO SCH (20:08)
[2018-12-08] MEDS: Doxycycline 100 MG Cap PO SCH (22:16)
[2018-12-09] MEDS: Acetaminophen/HYDROcodone 325-10 MG Tab PO PRN ×5 (00:31→20:32)
[2018-12-09] MEDS: Morphine 4 MG/ML Syringe IV PRN ×3 (02:21→18:14)
[2018-12-09] MEDS: LORazepam 2 MG/ML SDV IVPUSH PRN (03:23)
[2018-12-09] MEDS: Insulin Lispro 100 Unit/ML 3 ML KwikPen SUBCUT SCH ×4 (07:34→21:15)
[2018-12-09] MEDS: Pantoprazole 40 MG Tab.CR PO SCH (07:36)
[2018-12-09] MEDS: predniSONE 20 MG Tab PO SCH ×2 (07:36→16:08)
[2018-12-09] MEDS: Magnesium Hydroxide 400 MG/5 ML Susp 30 ML Cup PO PRN ×2 (08:11→19:28)
[2018-12-09] MEDS: Pramipexole 0.5 MG Tab PO SCH ×2 (08:16→20:31)
[2018-12-09] MEDS: OLANZapine 5 MG Tab PO SCH (08:17)
[2018-12-09] MEDS: Gabapentin 300 MG Cap PO SCH ×3 (08:18→20:31)
[2018-12-09] MEDS: Citalopram 20 MG Tab PO SCH (08:19)
[2018-12-09] MEDS: metFORMIN 500 MG Tab PO SCH ×2 (08:19→20:31)
[2018-12-09] MEDS: Tamsulosin 0.4 MG Cap.ER PO SCH (08:19)
[2018-12-09] MEDS: Carvedilol 25 MG Tab PO SCH ×2 (08:20→20:30)
[2018-12-09] MEDS: rOPINIRole 1 MG Tab PO SCH ×2 (08:20→20:32)
[2018-12-09] MEDS: glipiZIDE 5 MG Tab.ER PO SCH (08:20)
[2018-12-09] MEDS: Lactobacillus Rhamnosus GG (Probiotic) Cap PO SCH ×2 (08:21→20:30)
[2018-12-09] MEDS: Benztropine 1 MG Tab PO SCH (08:22)
[2018-12-09] MEDS: Docusate Sodium 100 MG Cap PO SCH (08:22)
[2018-12-09] MEDS: Polyethylene Glycol 3350 Powder 17 GM Packet PO SCH (08:23)
[2018-12-09] MEDS: Fluticasone-Salmeterol 113-14 MCG Powder Inhalant INH SCH ×2 (08:26→20:28)
[2018-12-09] MEDS: Albuterol/Ipratropium 3.0-0.5 MG/3 ML Neb Soln NEB SCH ×4 (08:26→20:31)
[2018-12-09] MEDS: Furosemide 40 MG Tab PO SCH (08:29)
--- NOTE | 2018-12-09 10:14 | PCM.PN ---
- General Info Date of Service: 12/09/18 Subjective Update: No acute events overnight. Shortness of breath and cough have continued to improve. Oxygenation is stable on 3 L of supplemental oxygen. He has not had any fevers. Blood sugars are well-controlled. No bowel movement for a couple of days. Respiratory culture still pending. Functional Status: Reports: Pain Controlled, Tolerating Diet - Review of Systems General: Reports: Weakness. Denies: Fever Pulmonary: Reports: Cough - Patient Data Vitals - Most Recent: Last Vital Signs Temp 34.4 C L 12/09/18 07:20 Pulse 54 L 12/09/18 08:26 Resp 20 12/09/18 07:20 BP 143/82 H 12/09/18 08:20 Pulse Ox 92 L 12/09/18 07:20 Weight - Most Recent: 136.078 kg I&O - Last 24 Hours: Intake & Output 12/08/18 12/09/18 12/09/18 22:59 06:59 14:59 Intake Total 750 550 740 Output Total 950 1075 375 Balance -200 -525 365 Lab Results Last 24 Hours: Laboratory Results - last 24 hr 12/09/18 12/09/18 Range/Units 04:46 04:46 WBC 12.2 H (4.5-11.0) K/uL RBC 3.94 L (4.30-5.90) M/uL Hgb 11.0 L (12.0-15.0) g/dL Hct 34.8 L (40.0-54.0) % MCV 88 (80-98) fL MCH 28 (27-31) pg MCHC 32 (32-36) % Plt Count 240 (150-400) K/uL Sodium 129 L (140-148) mmol/L Potassium 4.3 (3.6-5.2) mmol/L Chloride 87 L (100-108) mmol/L Carbon Dioxide 40 H (21-32) mmol/L Anion Gap 6.3 (5.0-14.0) mmol/L BUN 28 H (7-18) mg/dL Creatinine 0.9 (0.8-1.3) mg/dL Est Cr Clr Drug Dosing 89.71 mL/min Estimated GFR (MDRD) > 60 (>60) Glucose 165 H (74-106) mg/dL Calcium 8.7 (8.5-10.1) mg/dL Miki Results Last 24 Hours: Microbiology 12/07/18 16:49 Gram Stain - Final Sputum - Expectorated Respiratory Culture - Preliminary Med Orders - Current: Current Medications Hydrocodone Bitart/Acetaminophen ([place] 325-10 Mg) 1 tab PO Q4H PRN PRN Reason: Pain (moderate 4-6) Last Admin: 12/09/18 08:14 Dose: 1 tab Albuterol (Proventil Neb Soln) 2.5 mg NEB Q4H PRN PRN Reason: Shortness Of Breath/wheezing Albuterol/Ipratropium (Duoneb 3.0-0.5 Mg/3 Ml) 3 ml NEB QIDRT [facility] Last Admin: 12/09/18 08:26 Dose: 3 ml Benzonatate (Tessalon Perles) 100 mg PO TID PRN PRN Reason: Cough Benztropine Mesylate (Cogentin) 0.5 mg PO DAILY [facility] Last Admin: 12/09/18 08:22 Dose: 0.5 mg Carvedilol (Coreg) 25 mg PO BID [facility] Last Admin: 12/09/18 08:20 Dose: 25 mg Citalopram Hydrobromide (Celexa) 20 mg PO DAILY [facility] Last Admin: 12/09/18 08:19 Dose: 20 mg Divalproex Sodium (Divalproex Sodium) 1,500 mg PO BEDTIME [facility] Last Admin: 12/08/18 20:05 Dose: 1,500 mg Docusate Sodium (Colace) 100 mg PO DAILY [facility] Last Admin: 12/09/18 08:22 Dose: 100 mg Doxycycline Hyclate (Vibramycin) 100 mg PO Q12H [facility] Last Admin: 12/08/18 22:16 Dose: 100 mg Furosemide (Lasix) 80 mg PO DAILY [facility] Last Admin: 12/09/18 08:29 Dose: 80 mg Furosemide (Lasix) 40 mg PO DAILY@1500 [facility] Last Admin: 12/08/18 15:11 Dose: 40 mg Gabapentin (Neurontin) 600 mg PO TID [facility] Last Admin: 12/09/18 08:18 Dose: 600 mg Glipizide (Glucotrol Xl) 5 mg PO DAILY [facility] Last Admin: 12/09/18 08:20 Dose: 5 mg Guaifenesin/Dextromethorphan (Robitussin Dm) 10 ml PO Q4H PRN PRN Reason: Cough Insulin Human Lispro (Humalog) 0 unit SUBCUT QIDACANDBED [facility]; Protocol Last Admin: 12/09/18 07:34 Dose: Not Given Lactobacillus Rhamnosus (Culturelle) 1 cap PO BID [facility] Last Admin: 12/09/18 08:21 Dose: 1 cap Lorazepam (Ativan) 0.5 mg IVPUSH Q4H PRN PRN Reason: Nausea/Vomiting Last Admin: 12/09/18 03:23 Dose: 0.5 mg Magnesium Hydroxide (Milk Of Magnesia) 30 ml PO Q12H PRN PRN Reason: Constipation Last Admin: 12/09/18 08:11 Dose: 30 ml Melatonin (Melatonin) 9 mg PO BEDTIME [facility] Last Admin: 12/08/18 20:07 Dose: 9 mg Metformin HCl (Glucophage) 1,000 mg PO BID [facility] Last Admin: 12/09/18 08:19 Dose: 1,000 mg Mirtazapine (Remeron) 30 mg PO BEDTIME [facility] Last Admin: 12/08/18 20:08 Dose: 30 mg Morphine Sulfate (Morphine) 4 mg IV Q2H PRN PRN Reason: SEVERE PAIN (7-10) Last Admin: 12/09/18 06:04 Dose: 4 mg Olanzapine (Zyprexa) 15 mg PO DAILY [facility] Last Admin: 12/09/18 08:17 Dose: 15 mg Ondansetron HCl (Zofran Odt) 4 mg PO Q6H PRN PRN Reason: Nausea able to take PO Ondansetron HCl (Zofran) 4 mg IV Q6H PRN PRN Reason: Nausea/Vomiting Pantoprazole Sodium (Protonix) 40 mg PO ACBREAKFAST [facility] Last Admin: 12/09/18 07:36 Dose: 40 mg Polyethylene Glycol (Miralax) 17 gm PO DAILY [facility] Last Admin: 12/09/18 08:23 Dose: 17 gm Pramipexole Dihydrochloride (Mirapex) 1 mg PO BID [facility] Last Admin: 12/09/18 08:16 Dose: 1 mg Prednisone (Prednisone) 20 mg PO BIDAC [facility] Last Admin: 12/09/18 07:36 Dose: 20 mg Ranitidine HCl (Zantac) 150 mg PO BID [facility] Last Admin: 12/09/18 08:21 Dose: 150 mg Ropinirole HCl (Requip) 1 mg PO BID [facility] Last Admin: 12/09/18 08:20 Dose: 1 mg Fluticasone/Salmeterol (Fluticasone-Salmeterol 113-14 Mcg Powder Inh) 1 puff INH BIDRT [facility] Last Admin: 12/09/18 08:26 Dose: 1 puff Senna/Docusate Sodium (Senna Plus) 1 tab PO BID PRN PRN Reason: Constipation Simvastatin (Zocor) 20 mg PO BEDTIME [facility] Last Admin: 12/08/18 20:08 Dose: 20 mg Tamsulosin HCl (Flomax) 0.4 mg PO DAILY [facility] Last Admin: 12/09/18 08:19 Dose: 0.4 mg Discontinued Medications Acetaminophen (Tylenol) 650 mg PO Q4H PRN PRN Reason: Pain (Mild 1-3)/fever Albuterol/Ipratropium (Duoneb 3.0-0.5 Mg/3 Ml) 3 ml NEB ONETIME ONE Stop: 12/07/18 09:45 Last Admin: 12/07/18 09:55 Dose: 3 ml Furosemide (Lasix) 40 mg IVPUSH ONETIME ONE Stop: 12/07/18 08:18 Last Admin: 12/07/18 08:36 Dose: 40 mg Furosemide (Lasix) 40 mg PO DAILY [facility] Last Admin: 12/08/18 08:53 Dose: 40 mg Doxycycline Hyclate 100 mg/ (Sodium Chloride) 100 mls @ 100 mls/hr IV Q12H [facility] Last Admin: 12/08/18 09:58 Dose: 100 mls/hr Sodium Chloride (Normal Saline) 1,000 mls @ 50 mls/hr IV ASDIRECTED [facility] Last Admin: 12/08/18 06:20 Dose: 50 mls/hr Methylprednisolone Sodium Succinate (Solu-Medrol) 125 mg IVPUSH ONETIME ONE Stop: 12/07/18 09:44 Last Admin: 12/07/18 09:57 Dose: 125 mg Methylprednisolone Sodium Succinate (Solu-Medrol) 62.5 mg IVPUSH Q8H [facility] Last Admin: 12/08/18 09:07 Dose: 62.5 mg Morphine Sulfate (Morphine) 4 mg IVPUSH ONETIME ONE Stop: 12/07/18 09:44 Last Admin: 12/07/18 10:01 Dose: 4 mg Nitroglycerin (Nitrostat) 0.4 mg SL Q5M PRN PRN Reason: Chest Pain Last Admin: 12/07/18 09:17 Dose: 0.4 mg Nitroglycerin (Nitrostat) 0.4 mg SL Q5M PRN PRN Reason: Chest Pain Last Admin: 12/07/18 09:31 Dose: 0.4 mg - Exam Quality Assessment: Supplemental Oxygen General: Alert, Oriented, Cooperative, No Acute Distress Lungs: Normal Respiratory Effort, Decreased Breath Sounds (mild both bases). No : Wheezing Cardiovascular: Regular Rate, Regular Rhythm GI/Abdominal Exam: Soft, No Distention Extremities: Pedal Edema. No: Increased Warmth Skin: Warm, Dry Psy/Mental Status: Alert, Normal Affect - Problem List & Annotations (1) Acute bronchitis SNOMED Code(s): 44470786 Code(s): J20.9 - ACUTE BRONCHITIS, UNSPECIFIED Status: Acute Current Visit: Yes Qualifiers: Bronchitis organism: unspecified organism Qualified Code(s): J20.9 - Acute bronchitis, unspecified (2) Acute exacerbation of chronic obstructive airways disease SNOMED Code(s): 845737544 Code(s): J44.1 - CHRONIC OBSTRUCTIVE PULMONARY DISEASE W (ACUTE) EXACERBATION Status: Acute Current Visit: Yes (3) Severe chronic obstructive pulmonary disease SNOMED Code(s): 077428658 Code(s): J44.9 - CHRONIC OBSTRUCTIVE PULMONARY DISEASE, UNSPECIFIED Status : Chronic Current Visit: No Annotation/Comment:: O2 dependent, 3-4 L/min (4) DM II (diabetes mellitus, type II), controlled SNOMED Code(s): 88545043, 200803422 Code(s): E11.9 - TYPE 2 DIABETES MELLITUS WITHOUT COMPLICATIONS Status: Acute Current Visit: Yes Qualifiers: Diabetes mellitus halfway insulin use: without halfway use Diabetes mellitus complication status: without complication Qualified Code(s): E11.9 - Type 2 diabetes mellitus without complications (5) Bipolar affective disorder in remission Status: Chronic Current Visit: No - Problem List Review Problem List Initiated/Reviewed/Updated: Yes - My Orders Last 24 Hours: My Active Orders 12/08/18 10:02 Acetaminophen/HYDROcodone [[place] 325-10 MG] 1 tab PO Q4H PRN 12/08/18 12:17 Convert IV to Saline Lock [OM.PC] Routine 12/08/18 15:00 Furosemide [Lasix] 40 mg PO DAILY@1500 12/08/18 16:30 predniSONE 20 mg PO BIDAC 12/08/18 22:00 Doxycycline [Vibramycin] 100 mg PO Q12H 12/09/18 09:00 Furosemide [Lasix] 80 mg PO DAILY 12/09/18 11:30 GLUCOSE POC LAB TO COLLECT [POC] QIDACANDBED 12/09/18 15:00 Furosemide [Lasix] 40 mg IVPUSH ONETIME ONE 12/09/18 16:30 GLUCOSE POC LAB TO COLLECT [POC] QIDACANDBED 12/09/18 21:00 GLUCOSE POC LAB TO COLLECT [POC] QIDACANDBED 12/10/18 05:00 BASIC METABOLIC PANEL,BMP [CHEM] Timed CBC W/O DIFF,HEMOGRAM [HEME] Timed (1) 12/10/18 07:30 GLUCOSE POC LAB TO COLLECT [POC] QIDACANDBED 12/10/18 11:30 GLUCOSE POC LAB TO COLLECT [POC] QIDACANDBED 12/10/18 15:00 Furosemide [Lasix] 40 mg PO DAILY@1500 12/10/18 16:30 GLUCOSE POC LAB TO COLLECT [POC] QIDACANDBED 12/10/18 21:00 GLUCOSE POC LAB TO COLLECT [POC] QIDACANDBED 12/11/18 07:30 GLUCOSE POC LAB TO COLLECT [POC] QIDACANDBED 12/11/18 11:30 GLUCOSE POC LAB TO COLLECT [POC] QIDACANDBED 12/11/18 16:30 GLUCOSE POC LAB TO COLLECT [POC] QIDACANDBED 12/11/18 21:00 GLUCOSE POC LAB TO COLLECT [POC] QIDACANDBED 12/12/18 07:30 GLUCOSE POC LAB TO COLLECT [POC] QIDACANDBED 12/12/18 11:30 GLUCOSE POC LAB TO COLLECT [POC] QIDACANDBED 12/12/18 16:30 GLUCOSE POC LAB TO COLLECT [POC] QIDACANDBED 12/12/18 21:00 GLUCOSE POC LAB TO COLLECT [POC] QIDACANDBED 12/13/18 07:30 GLUCOSE POC LAB TO COLLECT [POC] QIDACANDBED 12/13/18 11:30 GLUCOSE POC LAB TO COLLECT [POC] QIDACANDBED 12/13/18 16:30 GLUCOSE POC LAB TO COLLECT [POC] QIDACANDBED - Plan Plan:: ASSESSMENT AND PLAN - Acute bronchitis - complicated by acute exacerbation of COPD with increased hypoxia from baseline. Slowly improving but not quite back to baseline. Tolerating current antibiotics and steroids. Respiratory culture pending. -Doxycycline -Steroids -Follow-up sputum culture -Supplement oxygen -Scheduled and as needed nebulizers -Symptomatically management of cough Severe COPD - oxygen dependent at baseline and usually requires supplemental oxygen. -Continue home controller medications Type 2 diabetes mellitus - not insulin-dependent. Sugars have remained well controlled. -Continue home medications -Insulin with sliding scale coverage Bipolar affective disorder - stable. Parkinsonism - stable Maintenance issues - - DVT prophylaxis - mechanical - GI prophylaxis - PPI and H2 kit - Nutrition - diabetic diet Disposition - I would anticipate discharge back to the long term after the hospital stay Primary care physician - Dr Eda Chadwick M.D.
[2018-12-09] MEDS: Doxycycline 100 MG Cap PO SCH ×2 (10:26→21:14)
[2018-12-09] MEDS ORDERED: Furosemide 40 MG/4 ML VIAL IVPUSH ONE (15:00)
[2018-12-09] MEDS: Albuterol 0.083% 2.5 MG/3 ML Neb Soln NEB PRN (18:21)
[2018-12-09] MEDS: Divalproex Sodium Delayed-Release 250 MG Tab.CR PO SCH (20:30)
[2018-12-09] MEDS: Melatonin 3 MG Tab PO SCH (20:31)
[2018-12-09] MEDS: Mirtazapine 15 MG Tab PO SCH (20:31)
[2018-12-09] MEDS: Simvastatin 20 MG Tab PO SCH (20:32)
[2018-12-10] MEDS: Morphine 4 MG/ML Syringe IV PRN ×2 (01:16→10:31)
[2018-12-10] MEDS: Acetaminophen/HYDROcodone 325-10 MG Tab PO PRN ×5 (04:13→21:46)
[2018-12-10] MEDS: Albuterol/Ipratropium 3.0-0.5 MG/3 ML Neb Soln NEB SCH ×4 (07:11→20:01)
[2018-12-10] MEDS: Fluticasone-Salmeterol 113-14 MCG Powder Inhalant INH SCH ×2 (07:14→20:02)
[2018-12-10] MEDS: Insulin Lispro 100 Unit/ML 3 ML KwikPen SUBCUT SCH ×4 (07:35→21:45)
[2018-12-10] MEDS: Magnesium Hydroxide 400 MG/5 ML Susp 30 ML Cup PO PRN (08:15)
[2018-12-10] MEDS: predniSONE 20 MG Tab PO SCH ×2 (08:16→16:10)
[2018-12-10] MEDS: Pantoprazole 40 MG Tab.CR PO SCH (08:16)
[2018-12-10] MEDS: Polyethylene Glycol 3350 Powder 17 GM Packet PO SCH (08:38)
[2018-12-10] MEDS: metFORMIN 500 MG Tab PO SCH ×2 (08:44→20:03)
[2018-12-10] MEDS: Pramipexole 0.5 MG Tab PO SCH ×2 (08:44→20:02)
[2018-12-10] MEDS: OLANZapine 5 MG Tab PO SCH (08:44)
[2018-12-10] MEDS: Tamsulosin 0.4 MG Cap.ER PO SCH (08:45)
[2018-12-10] MEDS: glipiZIDE 5 MG Tab.ER PO SCH (08:46)
[2018-12-10] MEDS: Carvedilol 25 MG Tab PO SCH ×2 (08:46→20:02)
[2018-12-10] MEDS: Docusate Sodium 100 MG Cap PO SCH (08:47)
[2018-12-10] MEDS: Furosemide 40 MG Tab PO SCH (08:47)
[2018-12-10] MEDS: Benztropine 1 MG Tab PO SCH (08:47)
[2018-12-10] MEDS: Gabapentin 300 MG Cap PO SCH ×3 (08:48→20:02)
[2018-12-10] MEDS: Lactobacillus Rhamnosus GG (Probiotic) Cap PO SCH ×2 (08:48→20:03)
[2018-12-10] MEDS: Citalopram 20 MG Tab PO SCH (08:49)
[2018-12-10] MEDS: rOPINIRole 1 MG Tab PO SCH ×2 (08:49→20:04)
--- NOTE | 2018-12-10 10:26 | PCM.PN ---
- General Info Date of Service: 12/10/18 Subjective Update: No acute events overnight. Shortness of breath and cough have continued to improve though he is not back to baseline as of yet. He has not had any fevers. Respiratory culture grew out Moraxella. Abdomen feels bloated today and he has not had a bowel movement in several days. He remains weak and requires use of the Marla steady to get into and out of bed. Functional Status: Reports: Pain Controlled, Tolerating Diet - Review of Systems General: Reports: Weakness. Denies: Fever Pulmonary: Reports: Shortness of Breath - Patient Data Vitals - Most Recent: Last Vital Signs Temp 34.7 C L 12/10/18 07:39 Pulse 60 12/10/18 08:46 Resp 20 12/10/18 07:39 BP 131/72 12/10/18 08:46 Pulse Ox 92 L 12/10/18 10:11 Weight - Most Recent: 136.078 kg I&O - Last 24 Hours: Intake & Output 12/09/18 12/10/18 12/10/18 22:59 06:59 14:59 Intake Total 2640 1100 Output Total 1495 900 400 Balance 1145 -900 700 Lab Results Last 24 Hours: Laboratory Results - last 24 hr 12/10/18 12/10/18 Range/Units 04:20 04:20 WBC 9.9 (4.5-11.0) K/uL RBC 4.08 L (4.30-5.90) M/uL Hgb 11.4 L (12.0-15.0) g/dL Hct 36.0 L (40.0-54.0) % MCV 88 (80-98) fL MCH 28 (27-31) pg MCHC 32 (32-36) % Plt Count 243 (150-400) K/uL Sodium 129 L (140-148) mmol/L Potassium 4.8 (3.6-5.2) mmol/L Chloride 86 L (100-108) mmol/L Carbon Dioxide 44 H (21-32) mmol/L Anion Gap 3.8 L (5.0-14.0) mmol/L BUN 25 H (7-18) mg/dL Creatinine 0.9 (0.8-1.3) mg/dL Est Cr Clr Drug Dosing 89.71 mL/min Estimated GFR (MDRD) > 60 (>60) Glucose 129 H (74-106) mg/dL Calcium 8.5 (8.5-10.1) mg/dL Miki Results Last 24 Hours: Microbiology 12/07/18 16:49 Gram Stain - Final Sputum - Expectorated Respiratory Culture - Final Moraxella Catarrhalis Med Orders - Current: Current Medications Hydrocodone Bitart/Acetaminophen ([place] 325-10 Mg) 1 tab PO Q4H PRN PRN Reason: Pain (moderate 4-6) Last Admin: 12/10/18 08:15 Dose: 1 tab Albuterol (Proventil Neb Soln) 2.5 mg NEB Q4H PRN PRN Reason: Shortness Of Breath/wheezing Last Admin: 12/09/18 18:21 Dose: 2.5 mg Albuterol/Ipratropium (Duoneb 3.0-0.5 Mg/3 Ml) 3 ml NEB QIDRT [facility] Last Admin: 12/10/18 07:11 Dose: 3 ml Benzonatate (Tessalon Perles) 100 mg PO TID PRN PRN Reason: Cough Benztropine Mesylate (Cogentin) 0.5 mg PO DAILY [facility] Last Admin: 12/10/18 08:47 Dose: 0.5 mg Carvedilol (Coreg) 25 mg PO BID [facility] Last Admin: 12/10/18 08:46 Dose: 25 mg Citalopram Hydrobromide (Celexa) 20 mg PO DAILY [facility] Last Admin: 12/10/18 08:49 Dose: 20 mg Divalproex Sodium (Divalproex Sodium) 1,500 mg PO BEDTIME [facility] Last Admin: 12/09/18 20:30 Dose: 1,500 mg Docusate Sodium (Colace) 100 mg PO DAILY [facility] Last Admin: 12/10/18 08:47 Dose: 100 mg Doxycycline Hyclate (Vibramycin) 100 mg PO Q12H [facility] Last Admin: 12/09/18 21:14 Dose: 100 mg Furosemide (Lasix) 80 mg PO DAILY [facility] Last Admin: 12/10/18 08:47 Dose: 80 mg Furosemide (Lasix) 40 mg PO DAILY@1500 [facility] Gabapentin (Neurontin) 600 mg PO TID [facility] Last Admin: 12/10/18 08:48 Dose: 600 mg Glipizide (Glucotrol Xl) 5 mg PO DAILY [facility] Last Admin: 12/10/18 08:46 Dose: 5 mg Guaifenesin/Dextromethorphan (Robitussin Dm) 10 ml PO Q4H PRN PRN Reason: Cough Last Admin: 12/09/18 18:36 Dose: 10 ml Insulin Human Lispro (Humalog) 0 unit SUBCUT QIDACANDBED [facility]; Protocol Last Admin: 12/10/18 07:35 Dose: Not Given Lactobacillus Rhamnosus (Culturelle) 1 cap PO BID [facility] Last Admin: 12/10/18 08:48 Dose: 1 cap Lorazepam (Ativan) 0.5 mg IVPUSH Q4H PRN PRN Reason: Nausea/Vomiting Last Admin: 12/09/18 03:23 Dose: 0.5 mg Magnesium Hydroxide (Milk Of Magnesia) 30 ml PO Q12H PRN PRN Reason: Constipation Last Admin: 12/10/18 08:15 Dose: 30 ml Melatonin (Melatonin) 9 mg PO BEDTIME [facility] Last Admin: 12/09/18 20:31 Dose: 9 mg Metformin HCl (Glucophage) 1,000 mg PO BID [facility] Last Admin: 12/10/18 08:44 Dose: 1,000 mg Mirtazapine (Remeron) 30 mg PO BEDTIME [facility] Last Admin: 12/09/18 20:31 Dose: 30 mg Morphine Sulfate (Morphine) 4 mg IV Q2H PRN PRN Reason: SEVERE PAIN (7-10) Last Admin: 12/10/18 01:16 Dose: 4 mg Olanzapine (Zyprexa) 15 mg PO DAILY [facility] Last Admin: 12/10/18 08:44 Dose: 15 mg Ondansetron HCl (Zofran Odt) 4 mg PO Q6H PRN PRN Reason: Nausea able to take PO Ondansetron HCl (Zofran) 4 mg IV Q6H PRN PRN Reason: Nausea/Vomiting Pantoprazole Sodium (Protonix) 40 mg PO ACBREAKFAST [facility] Last Admin: 12/10/18 08:16 Dose: 40 mg Polyethylene Glycol (Miralax) 17 gm PO DAILY [facility] Last Admin: 12/10/18 08:38 Dose: 17 gm Pramipexole Dihydrochloride (Mirapex) 1 mg PO BID [facility] Last Admin: 12/10/18 08:44 Dose: 1 mg Prednisone (Prednisone) 20 mg PO BIDAC [facility] Stop: 12/10/18 20:00 Last Admin: 12/10/18 08:16 Dose: 20 mg Prednisone (Prednisone) 40 mg PO WITHBREAKFAST [facility] Stop: 12/11/18 08:01 Ranitidine HCl (Zantac) 150 mg PO BID [facility] Last Admin: 12/10/18 08:49 Dose: 150 mg Ropinirole HCl (Requip) 1 mg PO BID [facility] Last Admin: 12/10/18 08:49 Dose: 1 mg Fluticasone/Salmeterol (Fluticasone-Salmeterol 113-14 Mcg Powder Inh) 1 puff INH BIDRT [facility] Last Admin: 12/10/18 07:14 Dose: 1 puff Senna/Docusate Sodium (Senna Plus) 1 tab PO BID PRN PRN Reason: Constipation Simvastatin (Zocor) 20 mg PO BEDTIME [facility] Last Admin: 12/09/18 20:32 Dose: 20 mg Tamsulosin HCl (Flomax) 0.4 mg PO DAILY [facility] Last Admin: 12/10/18 08:45 Dose: 0.4 mg Discontinued Medications Acetaminophen (Tylenol) 650 mg PO Q4H PRN PRN Reason: Pain (Mild 1-3)/fever Albuterol/Ipratropium (Duoneb 3.0-0.5 Mg/3 Ml) 3 ml NEB ONETIME ONE Stop: 12/07/18 09:45 Last Admin: 12/07/18 09:55 Dose: 3 ml Furosemide (Lasix) 40 mg IVPUSH ONETIME ONE Stop: 12/07/18 08:18 Last Admin: 12/07/18 08:36 Dose: 40 mg Furosemide (Lasix) 40 mg PO DAILY [facility] Last Admin: 12/08/18 08:53 Dose: 40 mg Furosemide (Lasix) 40 mg PO DAILY@1500 [facility] Last Admin: 12/08/18 15:11 Dose: 40 mg Furosemide (Lasix) 40 mg IVPUSH ONETIME ONE Stop: 12/09/18 15:01 Last Admin: 12/09/18 14:03 Dose: 40 mg Doxycycline Hyclate 100 mg/ (Sodium Chloride) 100 mls @ 100 mls/hr IV Q12H [facility] Last Admin: 12/08/18 09:58 Dose: 100 mls/hr Sodium Chloride (Normal Saline) 1,000 mls @ 50 mls/hr IV ASDIRECTED [facility] Last Admin: 12/08/18 06:20 Dose: 50 mls/hr Methylprednisolone Sodium Succinate (Solu-Medrol) 125 mg IVPUSH ONETIME ONE Stop: 12/07/18 09:44 Last Admin: 12/07/18 09:57 Dose: 125 mg Methylprednisolone Sodium Succinate (Solu-Medrol) 62.5 mg IVPUSH Q8H [facility] Last Admin: 12/08/18 09:07 Dose: 62.5 mg Morphine Sulfate (Morphine) 4 mg IVPUSH ONETIME ONE Stop: 12/07/18 09:44 Last Admin: 12/07/18 10:01 Dose: 4 mg Nitroglycerin (Nitrostat) 0.4 mg SL Q5M PRN PRN Reason: Chest Pain Last Admin: 12/07/18 09:17 Dose: 0.4 mg Nitroglycerin (Nitrostat) 0.4 mg SL Q5M PRN PRN Reason: Chest Pain Last Admin: 12/07/18 09:31 Dose: 0.4 mg - Exam Quality Assessment: Supplemental Oxygen General: Alert, Oriented, Cooperative, No Acute Distress Lungs: Normal Respiratory Effort, Wheezing (mild diffuse ) Cardiovascular: Regular Rate, Regular Rhythm GI/Abdominal Exam: Normal Bowel Sounds, Soft, Distended Extremities: Pedal Edema Skin: Warm, Dry Psy/Mental Status: Alert, Normal Affect - Problem List & Annotations (1) Acute bronchitis SNOMED Code(s): 09665675 Code(s): J20.9 - ACUTE BRONCHITIS, UNSPECIFIED Status: Acute Current Visit: Yes Qualifiers: Bronchitis organism: unspecified organism Qualified Code(s): J20.9 - Acute bronchitis, unspecified (2) Acute exacerbation of chronic obstructive airways disease SNOMED Code(s): 419937797 Code(s): J44.1 - CHRONIC OBSTRUCTIVE PULMONARY DISEASE W (ACUTE) EXACERBATION Status: Acute Current Visit: Yes (3) Severe chronic obstructive pulmonary disease SNOMED Code(s): 748400065 Code(s): J44.9 - CHRONIC OBSTRUCTIVE PULMONARY DISEASE, UNSPECIFIED Status : Chronic Current Visit: No Annotation/Comment:: O2 dependent, 3-4 L/min (4) DM II (diabetes mellitus, type II), controlled SNOMED Code(s): 00053165, 553115390 Code(s): E11.9 - TYPE 2 DIABETES MELLITUS WITHOUT COMPLICATIONS Status: Acute Current Visit: Yes Qualifiers: Diabetes mellitus snf insulin use: without snf use Diabetes mellitus complication status: without complication Qualified Code(s): E11.9 - Type 2 diabetes mellitus without complications (5) Bipolar affective disorder in remission Status: Chronic Current Visit: No - Problem List Review Problem List Initiated/Reviewed/Updated: Yes - My Orders Last 24 Hours: My Active Orders 12/10/18 11:30 GLUCOSE POC LAB TO COLLECT [POC] QIDACANDBED 12/10/18 15:00 Furosemide [Lasix] 40 mg PO DAILY@1500 12/10/18 16:30 GLUCOSE POC LAB TO COLLECT [POC] QIDACANDBED 12/10/18 21:00 GLUCOSE POC LAB TO COLLECT [POC] QIDACANDBED 12/11/18 07:30 GLUCOSE POC LAB TO COLLECT [POC] QIDACANDBED 12/11/18 08:00 predniSONE 40 mg PO WITHBREAKFAST 12/11/18 11:30 GLUCOSE POC LAB TO COLLECT [POC] QIDACANDBED 12/11/18 16:30 GLUCOSE POC LAB TO COLLECT [POC] QIDACANDBED 12/11/18 21:00 GLUCOSE POC LAB TO COLLECT [POC] QIDACANDBED 12/12/18 07:30 GLUCOSE POC LAB TO COLLECT [POC] QIDACANDBED 12/12/18 11:30 GLUCOSE POC LAB TO COLLECT [POC] QIDACANDBED 12/12/18 16:30 GLUCOSE POC LAB TO COLLECT [POC] QIDACANDBED 12/12/18 21:00 GLUCOSE POC LAB TO COLLECT [POC] QIDACANDBED 12/13/18 07:30 GLUCOSE POC LAB TO COLLECT [POC] QIDACANDBED 12/13/18 11:30 GLUCOSE POC LAB TO COLLECT [POC] QIDACANDBED 12/13/18 16:30 GLUCOSE POC LAB TO COLLECT [POC] QIDACANDBED - Plan Plan:: ASSESSMENT AND PLAN - Acute bronchitis - complicated by acute exacerbation of COPD with increased hypoxia from baseline. Slowly improving but but still short of breath with activity. Oxygenation stable with usual amount of supplemental oxygen. Respiratory culture grew out Moraxella. -Doxycycline -Steroids -Follow-up sputum culture -Supplement oxygen -Scheduled and as needed nebulizers -Symptomatically management of cough Severe COPD - oxygen dependent at baseline and usually requires supplemental oxygen. -Continue home controller medications Type 2 diabetes mellitus - not insulin-dependent. Sugars have been well- controlled. -Continue home medications -Insulin with sliding scale coverage Bipolar affective disorder - stable. Parkinsonism - stable Maintenance issues - - DVT prophylaxis - mechanical - GI prophylaxis - PPI and H2 kit - Nutrition - diabetic diet Disposition - I would anticipate discharge back to the [facility] after the hospital stay, likely tomorrow if stable overnight Primary care physician - Dr Eda Chadwick M.D.
[2018-12-10] MEDS: Doxycycline 100 MG Cap PO SCH ×2 (10:32→21:46)
--- NOTE | 2018-12-10 13:04 | PCM.DCSUM1 ---
Discharge Summary - Hospital Course Brief History: 73-year-old male with history of oxygen dependent COPD, bipolar disorder, diastolic congestive heart failure who presented from the [facility] with increased cough, shortness of breath, left lower chest pain and weakness. He was admitted for management of acute bronchitis with an exacerbation of his COPD. Diagnosis: Stroke: No - Discharge Data Discharge Date: 12/11/18 Discharge Disposition: DC/Tfer to [facility] 03 Condition: Fair - Discharge Diagnosis/Problem(s) (1) Acute bronchitis SNOMED Code(s): 86487628 ICD Code: J20.9 - ACUTE BRONCHITIS, UNSPECIFIED Status: Acute Current Visit: Yes Qualifiers: Bronchitis organism: other organism Qualified Code(s): J20.8 - Acute bronchitis due to other specified organisms (2) Acute exacerbation of chronic obstructive airways disease SNOMED Code(s): 950008628 ICD Code: J44.1 - CHRONIC OBSTRUCTIVE PULMONARY DISEASE W (ACUTE) EXACERBATION Status: Acute Current Visit: Yes (3) Severe chronic obstructive pulmonary disease SNOMED Code(s): 710228805 ICD Code: J44.9 - CHRONIC OBSTRUCTIVE PULMONARY DISEASE, UNSPECIFIED Status : Chronic Current Visit: No Problem Details: O2 dependent, 3-4 L/min (4) DM II (diabetes mellitus, type II), controlled SNOMED Code(s): 93475885, 342704387 ICD Code: E11.9 - TYPE 2 DIABETES MELLITUS WITHOUT COMPLICATIONS Status: Acute Current Visit: Yes Qualifiers: Diabetes mellitus stunt man insulin use: without snf use Diabetes mellitus complication status: without complication Qualified Code(s): E11.9 - Type 2 diabetes mellitus without complications (5) Bipolar affective disorder in remission Status: Chronic Current Visit: No - Patient Summary/Data Consults: Consultations 12/08/18 07:00 PT Evaluation and Treatment [CONS] Routine Please Evaluate and Treat. PT Reason for Consult: Strengthening This query below is only for informational purposes and is not editable. Hospital Course: Sami presented to [facility] from the [facility] with increased shortness of breath, cough, left-sided chest pain and weakness. Workup in the emergency room did not reveal evidence for myocardial ischemia. He was more hypoxic than baseline. Chest x-ray was clear. Laboratory studies fairly unremarkable other than mild leukocytosis. He was admitted for management of COPD exacerbation secondary to bronchitis. At the time of admission he was started on doxycycline as well as IV steroids which were later transition to oral steroids. Over the first 24 hours of the hospital stay we had improvement in his respiratory exam with resolution of the wheezing and improved air movement. Symptomatically he was feeling better. Oxygenation did improve and return to baseline fairly quickly. He remained very short of breath with any activity. Cough was fairly troublesome during the early part of the hospital stay. His left-sided chest pain was improving with treatment for the bronchitis and COPD. I suspect the pain was related to infection rather than coronary artery disease. He has made steady progress throughout the hospital stay. Respiratory status slowly and steadily improving. Cough and shortness of breath are decreasing. Vital signs have stabilized and he seems to be back to his baseline. His respiratory culture did grow Moraxella in the doxycycline was continued. Tuesday, the day of discharge will be his last day of full dose prednisone and then he will have 5 additional days to taper down. Blood sugars have been well-controlled. Appetite has been good. He is a little bit weaker than at presentation because of the infection and would benefit from ongoing physical therapy at the [facility]. Patient is stable and safe for discharge at this time. He will be discharged [facility] to the [facility] December 11. - Patient Instructions Diet: Diabetic Diet Activity: As Tolerated Showering/Bathing: May Shower Notify Provider of: Fever, Increased Pain, Nausea and/or Vomiting Other/Special Instructions: 1. You were in the hospital for management of acute bronchitis complicated by an exacerbation of your COPD. The infection was caused by a bacteria called Moraxella. I recommend ongoing antibiotic therapy with doxycycline. You should take 100 mg twice daily with food for 8 more doses. Your next dose will be due Tuesday night. I also recommend additional prednisone therapy to help with the COPD exacerbation. You should take 20 mg daily for 5 days with your first dose out of the hospital being due on December 12. 2. Continue your other home medications as previously prescribed. 3. Resume physical and occupational therapy orders to improve strength and endurance. 4. Follow-up as needed if symptoms do not continue to get better or if they get worse. - Discharge Plan *PRESCRIPTION DRUG MONITORING PROGRAM REVIEWED*: Not Applicable *COPY OF PRESCRIPTION DRUG MONITORING REPORT IN PATIENT MARI: Not Applicable Prescriptions/Med Rec: Doxycycline [Vibramycin] 100 mg PO BID #8 cap predniSONE [Prednisone] 20 mg PO DAILY #5 tablet Home Medications: Home Meds Citalopram Hydrobromide [Celexa] 20 mg PO DAILY 01/24/13 [History] Divalproex Sodium [Depakote] 1,500 mg PO BEDTIME 01/24/13 [History] Furosemide [Lasix] 40 mg PO DAILY 01/24/13 [History] Gabapentin [Neurontin] 600 mg PO TID 01/24/13 [History] OLANZapine [ZyPREXA] 15 mg PO DAILY 01/24/13 [History] Omeprazole [Prilosec] 40 mg PO DAILY 01/24/13 [History] Simvastatin [Zocor] 20 mg PO BEDTIME 01/24/13 [History] Ferrous Gluconate 324 mg PO BID 09/05/13 [History] Ipratropium/Albuterol Sulfate [Duoneb 0.5 mg-3 mg/3 ml Soln] 3 ml IH Q4H PRN [History] Ranitidine [Zantac] 150 mg PO BID 10/08/15 [History] Fluticasone/Salmeterol [Advair 250-50] 1 puff INH Q12HR 04/17/18 [History] Tamsulosin HCl [Flomax] 0.4 mg PO DAILY 04/17/18 [History] EPINEPHrine [Epipen 2-Richard] 0.3 mg IJ ONETIME PRN #2 ml 04/24/18 [Rx] Acetaminophen [Tylenol Extra Strength] 500 mg PO Q6HR PRN 06/23/18 [History] Polyethylene Glycol 3350 [MiraLAX] 17 gm PO DAILY 06/23/18 [History] Pramipexole Di-HCl [Mirapex] 1 mg PO BID 06/23/18 [History] rOPINIRole HCl [Requip] 1 mg PO BID 06/23/18 [History] Docusate Sodium [DOK] 100 mg PO DAILY 09/23/18 [History] Benztropine [Cogentin] 0.5 mg PO DAILY 09/24/18 [History] Mirtazapine 30 mg PO BEDTIME 09/24/18 [History] Hydrocodone/Acetaminophen [Lorcet Hd 10-325 mg Tablet] 1 each PO Q6H PRN #60 tablet 09/29/18 [Rx] Carvedilol [Coreg] 25 mg PO BID 12/07/18 [History] Furosemide [Lasix] 80 mg PO DAILY 12/07/18 [History] Trolamine Salicylate/Aloe Vera [Aspercreme 10%] 1 dose TOP ASDIRECTED 12/07/18 [ History] glipiZIDE [Glipizide ER] 1 tab PO DAILY 12/07/18 [History] guaiFENesin [Tussin Mucus-Chest Congestion] 1 tsp PO Q4H 12/07/18 [History] metFORMIN [Glucophage] 1,000 mg PO BID 12/07/18 [History] Doxycycline [Vibramycin] 100 mg PO BID #8 cap 12/10/18 [Rx] predniSONE [Prednisone] 20 mg PO DAILY #5 tablet 12/10/18 [Rx] Oxygen Therapy Mode: Nasal Cannula Oxygen Flow Rate (L/min): 3 Referrals: PCP,None [Primary Care Provider] - (Follow-up as needed if symptoms do not continue to get better or if they get worse) - Discharge Summary/Plan Comment DC Time >30 min.: Yes (40 - [facility] discharge) - Patient Data Vitals - Most Recent: Last Vital Signs Temp 35.7 C 12/10/18 11:32 Pulse 56 L 12/10/18 11:32 Resp 20 12/10/18 07:39 BP 136/75 12/10/18 11:32 Pulse Ox 91 L 12/10/18 11:32 Weight - Most Recent: 136.078 kg I&O - Last 24 hours: Intake & Output 12/09/18 12/10/18 12/10/18 22:59 06:59 14:59 Intake Total 2640 1100 Output Total 1495 900 490 Balance 1145 -900 610 Lab Results - Last 24 hrs: Laboratory Results - last 24 hr 12/10/18 12/10/18 Range/Units 04:20 04:20 WBC 9.9 (4.5-11.0) K/uL RBC 4.08 L (4.30-5.90) M/uL Hgb 11.4 L (12.0-15.0) g/dL Hct 36.0 L (40.0-54.0) % MCV 88 (80-98) fL MCH 28 (27-31) pg MCHC 32 (32-36) % Plt Count 243 (150-400) K/uL Sodium 129 L (140-148) mmol/L Potassium 4.8 (3.6-5.2) mmol/L Chloride 86 L (100-108) mmol/L Carbon Dioxide 44 H (21-32) mmol/L Anion Gap 3.8 L (5.0-14.0) mmol/L BUN 25 H (7-18) mg/dL Creatinine 0.9 (0.8-1.3) mg/dL Est Cr Clr Drug Dosing 89.71 mL/min Estimated GFR (MDRD) > 60 (>60) Glucose 129 H (74-106) mg/dL Calcium 8.5 (8.5-10.1) mg/dL LISA Results - Last 24 hrs: Microbiology 12/07/18 16:49 Gram Stain - Final Sputum - Expectorated Respiratory Culture - Final Moraxella Catarrhalis Med Orders - Current: Current Medications Hydrocodone Bitart/Acetaminophen ([place] 325-10 Mg) 1 tab PO Q4H PRN PRN Reason: Pain (moderate 4-6) Last Admin: 12/10/18 12:47 Dose: 1 tab Albuterol (Proventil Neb Soln) 2.5 mg NEB Q4H PRN PRN Reason: Shortness Of Breath/wheezing Last Admin: 12/09/18 18:21 Dose: 2.5 mg Albuterol/Ipratropium (Duoneb 3.0-0.5 Mg/3 Ml) 3 ml NEB QIDRT [facility] Last Admin: 12/10/18 10:46 Dose: 3 ml Benzonatate (Tessalon Perles) 100 mg PO TID PRN PRN Reason: Cough Benztropine Mesylate (Cogentin) 0.5 mg PO DAILY [facility] Last Admin: 12/10/18 08:47 Dose: 0.5 mg Carvedilol (Coreg) 25 mg PO BID [facility] Last Admin: 12/10/18 08:46 Dose: 25 mg Citalopram Hydrobromide (Celexa) 20 mg PO DAILY [facility] Last Admin: 12/10/18 08:49 Dose: 20 mg Divalproex Sodium (Divalproex Sodium) 1,500 mg PO BEDTIME [facility] Last Admin: 12/09/18 20:30 Dose: 1,500 mg Docusate Sodium (Colace) 100 mg PO DAILY [facility] Last Admin: 12/10/18 08:47 Dose: 100 mg Doxycycline Hyclate (Vibramycin) 100 mg PO Q12H [facility] Last Admin: 12/10/18 10:32 Dose: 100 mg Furosemide (Lasix) 80 mg PO DAILY [facility] Last Admin: 12/10/18 08:47 Dose: 80 mg Furosemide (Lasix) 60 mg IVPUSH ONETIME ONE Stop: 12/10/18 15:01 Gabapentin (Neurontin) 600 mg PO TID [facility] Last Admin: 12/10/18 08:48 Dose: 600 mg Glipizide (Glucotrol Xl) 5 mg PO DAILY [facility] Last Admin: 12/10/18 08:46 Dose: 5 mg Guaifenesin/Dextromethorphan (Robitussin Dm) 10 ml PO Q4H PRN PRN Reason: Cough Last Admin: 12/09/18 18:36 Dose: 10 ml Insulin Human Lispro (Humalog) 0 unit SUBCUT QIDACANDBED [facility]; Protocol Last Admin: 12/10/18 12:47 Dose: 2 units Lactobacillus Rhamnosus (Culturelle) 1 cap PO BID [facility] Last Admin: 12/10/18 08:48 Dose: 1 cap Lorazepam (Ativan) 0.5 mg IVPUSH Q4H PRN PRN Reason: Nausea/Vomiting Last Admin: 12/09/18 03:23 Dose: 0.5 mg Magnesium Hydroxide (Milk Of Magnesia) 30 ml PO Q12H PRN PRN Reason: Constipation Last Admin: 12/10/18 08:15 Dose: 30 ml Melatonin (Melatonin) 9 mg PO BEDTIME [facility] Last Admin: 12/09/18 20:31 Dose: 9 mg Metformin HCl (Glucophage) 1,000 mg PO BID [facility] Last Admin: 12/10/18 08:44 Dose: 1,000 mg Mirtazapine (Remeron) 30 mg PO BEDTIME [facility] Last Admin: 12/09/18 20:31 Dose: 30 mg Morphine Sulfate (Morphine) 4 mg IV Q2H PRN PRN Reason: SEVERE PAIN (7-10) Last Admin: 12/10/18 10:31 Dose: 4 mg Olanzapine (Zyprexa) 15 mg PO DAILY [facility] Last Admin: 12/10/18 08:44 Dose: 15 mg Ondansetron HCl (Zofran Odt) 4 mg PO Q6H PRN PRN Reason: Nausea able to take PO Ondansetron HCl (Zofran) 4 mg IV Q6H PRN PRN Reason: Nausea/Vomiting Pantoprazole Sodium (Protonix) 40 mg PO ACBREAKFAST [facility] Last Admin: 12/10/18 08:16 Dose: 40 mg Polyethylene Glycol (Miralax) 17 gm PO DAILY [facility] Last Admin: 12/10/18 08:38 Dose: 17 gm Pramipexole Dihydrochloride (Mirapex) 1 mg PO BID [facility] Last Admin: 12/10/18 08:44 Dose: 1 mg Prednisone (Prednisone) 20 mg PO BIDAC [facility] Stop: 12/10/18 20:00 Last Admin: 12/10/18 08:16 Dose: 20 mg Prednisone (Prednisone) 40 mg PO WITHBREAKFAST [facility] Stop: 12/11/18 08:01 Ranitidine HCl (Zantac) 150 mg PO BID [facility] Last Admin: 12/10/18 08:49 Dose: 150 mg Ropinirole HCl (Requip) 1 mg PO BID [facility] Last Admin: 12/10/18 08:49 Dose: 1 mg Fluticasone/Salmeterol (Fluticasone-Salmeterol 113-14 Mcg Powder Inh) 1 puff INH BIDRT [facility] Last Admin: 12/10/18 07:14 Dose: 1 puff Senna/Docusate Sodium (Senna Plus) 1 tab PO BID PRN PRN Reason: Constipation Simvastatin (Zocor) 20 mg PO BEDTIME [facility] Last Admin: 12/09/18 20:32 Dose: 20 mg Tamsulosin HCl (Flomax) 0.4 mg PO DAILY [facility] Last Admin: 12/10/18 08:45 Dose: 0.4 mg Discontinued Medications Acetaminophen (Tylenol) 650 mg PO Q4H PRN PRN Reason: Pain (Mild 1-3)/fever Albuterol/Ipratropium (Duoneb 3.0-0.5 Mg/3 Ml) 3 ml NEB ONETIME ONE Stop: 12/07/18 09:45 Last Admin: 12/07/18 09:55 Dose: 3 ml Furosemide (Lasix) 40 mg IVPUSH ONETIME ONE Stop: 12/07/18 08:18 Last Admin: 12/07/18 08:36 Dose: 40 mg Furosemide (Lasix) 40 mg PO DAILY [facility] Last Admin: 12/08/18 08:53 Dose: 40 mg Furosemide (Lasix) 40 mg PO DAILY@1500 [facility] Last Admin: 12/08/18 15:11 Dose: 40 mg Furosemide (Lasix) 40 mg IVPUSH ONETIME ONE Stop: 12/09/18 15:01 Last Admin: 12/09/18 14:03 Dose: 40 mg Furosemide (Lasix) 40 mg PO DAILY@1500 [facility] Doxycycline Hyclate 100 mg/ (Sodium Chloride) 100 mls @ 100 mls/hr IV Q12H [facility] Last Admin: 12/08/18 09:58 Dose: 100 mls/hr Sodium Chloride (Normal Saline) 1,000 mls @ 50 mls/hr IV ASDIRECTED [facility] Last Admin: 12/08/18 06:20 Dose: 50 mls/hr Methylprednisolone Sodium Succinate (Solu-Medrol) 125 mg IVPUSH ONETIME ONE Stop: 12/07/18 09:44 Last Admin: 12/07/18 09:57 Dose: 125 mg Methylprednisolone Sodium Succinate (Solu-Medrol) 62.5 mg IVPUSH Q8H [facility] Last Admin: 12/08/18 09:07 Dose: 62.5 mg Morphine Sulfate (Morphine) 4 mg IVPUSH ONETIME ONE Stop: 12/07/18 09:44 Last Admin: 12/07/18 10:01 Dose: 4 mg Nitroglycerin (Nitrostat) 0.4 mg SL Q5M PRN PRN Reason: Chest Pain Last Admin: 12/07/18 09:17 Dose: 0.4 mg Nitroglycerin (Nitrostat) 0.4 mg SL Q5M PRN PRN Reason: Chest Pain Last Admin: 12/07/18 09:31 Dose: 0.4 mg - Exam Quality Assessment: Reports: Supplemental Oxygen General: Reports: Alert, Oriented, Cooperative, No Acute Distress Lungs: Reports: Normal Respiratory Effort, Wheezing (Mild diffuse and expiratory ) Cardiovascular: Reports: Regular Rate, Regular Rhythm Extremities: Pedal Edema Psy/Mental Status: Reports: Alert, Normal Affect
[2018-12-10] MEDS ORDERED: Furosemide 40 MG Tab PO ONE (14:30)
[2018-12-10] MEDS: Morphine 10 MG/0.5 ML Oral Syringe PO PRN ×2 (14:33→20:01)
[2018-12-10] MEDS ORDERED: Furosemide 40 MG Tab PO SCH (15:00)
[2018-12-10] MEDS ORDERED: Furosemide 100 MG/10 ML SDV IVPUSH ONE (15:00)
[2018-12-10] MEDS: Albuterol 0.083% 2.5 MG/3 ML Neb Soln NEB PRN (18:05)
[2018-12-10] MEDS: Melatonin 3 MG Tab PO SCH (20:01)
[2018-12-10] MEDS: Divalproex Sodium Delayed-Release 250 MG Tab.CR PO SCH (20:03)
[2018-12-10] MEDS: Mirtazapine 15 MG Tab PO SCH (20:03)
[2018-12-10] MEDS: Simvastatin 20 MG Tab PO SCH (20:04)
[2018-12-11] MEDS: Morphine 10 MG/0.5 ML Oral Syringe PO PRN (03:48)
[2018-12-11] MEDS: Albuterol 0.083% 2.5 MG/3 ML Neb Soln NEB PRN (03:48)
[2018-12-11] MEDS: Acetaminophen/HYDROcodone 325-10 MG Tab PO PRN ×2 (04:50→09:15)
[2018-12-11] MEDS: Albuterol/Ipratropium 3.0-0.5 MG/3 ML Neb Soln NEB SCH ×2 (07:16→10:54)
[2018-12-11] MEDS: Fluticasone-Salmeterol 113-14 MCG Powder Inhalant INH SCH (07:16)
[2018-12-11] MEDS ORDERED: predniSONE 20 MG Tab PO SCH (08:00)
[2018-12-11] MEDS: Insulin Lispro 100 Unit/ML 3 ML KwikPen SUBCUT SCH ×2 (08:06→11:00)
[2018-12-11] MEDS: Pantoprazole 40 MG Tab.CR PO SCH (08:07)
[2018-12-11] MEDS: Docusate Sodium 100 MG Cap PO SCH (08:09)
[2018-12-11] MEDS: Pramipexole 0.5 MG Tab PO SCH (08:09)
[2018-12-11] MEDS: Citalopram 20 MG Tab PO SCH (08:12)
[2018-12-11] MEDS: metFORMIN 500 MG Tab PO SCH (08:13)
[2018-12-11] MEDS: Lactobacillus Rhamnosus GG (Probiotic) Cap PO SCH (08:13)
[2018-12-11] MEDS: Carvedilol 25 MG Tab PO SCH (08:13)
[2018-12-11] MEDS: Tamsulosin 0.4 MG Cap.ER PO SCH (08:13)
[2018-12-11] MEDS: OLANZapine 5 MG Tab PO SCH (08:14)
[2018-12-11] MEDS: Gabapentin 300 MG Cap PO SCH (08:14)
[2018-12-11] MEDS: Furosemide 40 MG Tab PO SCH (08:14)
[2018-12-11] MEDS: rOPINIRole 1 MG Tab PO SCH (08:14)
[2018-12-11] MEDS: Polyethylene Glycol 3350 Powder 17 GM Packet PO SCH (08:14)
[2018-12-11] MEDS: glipiZIDE 5 MG Tab.ER PO SCH (08:14)
[2018-12-11] MEDS: Benztropine 1 MG Tab PO SCH (08:20)
[2018-12-11] MEDS: Doxycycline 100 MG Cap PO SCH (09:15)
[2018-12-11 12:01] VITALS: BP 109/80; PULSE 50
== END 2018-12-11 13:10 | DRG 191 ==
LOC: JP.ED 07:40 → JP.MS 09:47 → UNDOADMIN 09:47 → JP.MS 11:18 → UNDODISIN 12-11 13:10
PROVIDERS: ADMIT Internal Medicine; ATTEND Internal Medicine
DX: R06.02 Shortness of breath (principal); R07.9 Chest pain, unspecified; J44.0 Chronic obstructive pulmonary disease with (acute) lower respiratory infection; I50.32 Chronic diastolic (congestive) heart failure; I50.9 Heart failure, unspecified; J44.9 Chronic obstructive pulmonary disease, unspecified; J44.1 Chronic obstructive pulmonary disease with (acute) exacerbation; J20.9 Acute bronchitis, unspecified; R09.02 Hypoxemia; I11.0 Hypertensive heart disease with heart failure; G20 Parkinson's disease; E66.9 Obesity, unspecified; E11.9 Type 2 diabetes mellitus without complications; F31.9 Bipolar disorder, unspecified; H91.90 Unspecified hearing loss, unspecified ear; Z85.038 Personal history of other malignant neoplasm of large intestine; Z85.528 Personal history of other malignant neoplasm of kidney; Z90.5 Acquired absence of kidney; Z96.659 Presence of unspecified artificial knee joint; Z88.1 Allergy status to other antibiotic agents; Z88.5 Allergy status to narcotic agent; Z66 Do not resuscitate; Z79.84 Long term (current) use of oral hypoglycemic drugs; Z99.81 Dependence on supplemental oxygen; Z79.899 Other long term (current) drug therapy; Z87.891 Personal history of nicotine dependence; Z68.30 Body mass index [BMI] 30.0-30.9, adult
CPT/HCPCS: 36415; 71045; 80053; 83605; 85025; 96374; 99285; A9270 ×2; J1940; 80048; 82962; 85027; 87070; 87077; 87205; 93005; 93010; 94640; 97110-GP; 97162-GP; 97530-GP; J2060; J2270; J2930; J3490; J7030; J7620-GY